=== PATIENT | male | born 1955 | race Caucasian/White ===

== ENCOUNTER → 2017-02-10 11:55 | Outpatient (CLI) | payer BC, SELFPAY ==
[2017-02-10 12:03] LABS: Adenovirus F 40/41, stool Not Detected (NotDetected); Astrovirus Not Detected (NotDetected); Campylobacter Not Detected (NotDetected); Clostridium Difficile A/B, PCR Not Detected (NotDetected); Cryptosporidium Not Detected (NotDetected); Cyclospora Cayetanesis Not Detected (NotDetected); Entamoeba histolytica Not Detected (NotDetected); Enteroaggregative E coli Not Detected (NotDetected); Enteropathogenic E coli Not Detected (NotDetected); Enterotoxigenic E coli Not Detected (NotDetected); Giardia lamblia Not Detected (NotDetected); Norovirus Not Detected (NotDetected); Plesimonas Shigalloides, PCR Not Detected (NotDetected); Rotavirus A Not Detected (NotDetected); Salmonella, PCR Not Detected (NotDetected); Sapovirus Not Detected (NotDetected); Shiga-like toxin E coli Not Detected (NotDetected); Shigella Enterovasive E coli Not Detected (NotDetected); Vibrio Cholerae Not Detected (NotDetected); Vibrio, PCR Not Detected (NotDetected); Yersinia Entercolitica, PCR Not Detected (NotDetected)
== END ==
PROVIDERS: PCP Surgery; Visit Provider Surgery
DX: Z01.812 Encounter for preprocedural laboratory examination (principal); R19.7 Diarrhea, unspecified
CPT/HCPCS: 87507

== ENCOUNTER → 2017-05-12 10:07 | Outpatient (CLI) | payer BC, SELFPAY ==
--- NOTE | 2017-05-12 10:14 | XR_ITS ---
XR chest 2V COMPARISON: PA and lateral chest 12/11/2016 HISTORY: Shortness of breath TECHNIQUE: PA and lateral chest FINDINGS: Mild emphysematous changes seen with hyperexpansion lung sarah and depression of the hemidiaphragms. There is no infiltrate. Cardiac size is normal and the vascularity is normal and is no pleural fluid. The cardiac pacemaker and dual chamber electrodes are again noted. IMPRESSION: Mild COPD, no acute chest pathology noted
== END ==
PROVIDERS: PCP Family Medicine; Visit Provider Family Medicine
DX: R06.02 Shortness of breath (principal)
CPT/HCPCS: 71046

== ENCOUNTER → 2017-05-26 12:42 | Outpatient (CLI) | payer BC, SELFPAY ==
[2017-05-26 14:18] VITALS: PULSE 80; PULSE 85
== END ==
PROVIDERS: PCP Family Medicine; Visit Provider Family Medicine
DX: R06.02 Shortness of breath (principal)
CPT/HCPCS: 94060; 94640

== ENCOUNTER → 2017-09-22 12:29 | Outpatient (CLI) | payer OTHER, SELFPAY ==
--- NOTE | 2017-09-22 12:32 | CI_ITS ---
Cerebrovascular Exam Indications: 433.10 Occlusion/stenosis of carotid artery without cerebral infarction. 785.9 Bruit. IMPRESSIONS 1. The bilateral vertebral arteries are patent with normal antegrade flow. 2. Study suggests less than 20% stenosis involving the right internal carotid artery. 3. Study suggests 20-49% stenosis involving the left internal carotid artery. History: Coronary artery disease. Risk factors: Hypertension. Hyperlipidemia. Carotid duplex study. Complete study and Doppler flow study including spectral analysis, color and moise scale imaging. Height: Height: 177.8cm. Height: 70in. Weight: Weight: 61.2kg. Weight: 134.7lb. Body mass index: BMI: 19.4kg/m^2. Body surface area: BSA: 1.73m^2. Location: Vascular laboratory. Patient status: Outpatient. Tables: Arterial flow: + +--------+--------+ Location V sys V ed + +--------+--------+ Right CCA - proximal 78.6cm/s 16.5cm/s + +--------+--------+ Right CCA - distal 80.1cm/s 19.6cm/s + +--------+--------+ Right ECA 159cm/s -------- + +--------+--------+ Right ICA - proximal 116cm/s 25.9cm/s + +--------+--------+ Right ICA - mid 112cm/s 26.7cm/s + +--------+--------+ Right ICA - distal 73.1cm/s 19.6cm/s + +--------+--------+ Right vertebral 62.1cm/s -------- + +--------+--------+ Left CCA - proximal 77.8cm/s 18.1cm/s + +--------+--------+ Left CCA - distal 69.1cm/s 20.4cm/s + +--------+--------+ Left ECA 109cm/s -------- + +--------+--------+ Left ICA - proximal 93.5cm/s 25.9cm/s + +--------+--------+ Left ICA - mid 83.3cm/s 26.7cm/s + +--------+--------+ Left ICA - distal 91.9cm/s 24.4cm/s + +--------+--------+ Left vertebral 21.5cm/s -------- + +--------+--------+ Velocity ratios: + + + + + + Right, V sys Right, V ed Left, V sys Left, V ed + + + + + + Max ICA/dist CCA 1.45 1.36 1.35 1.31 + + + + + + (Report amended ) Electronically signed by: Mateo Hastings [id number]
== END ==
PROVIDERS: PCP Family Medicine; Visit Provider Internal Medicine
DX: I65.23 Occlusion and stenosis of bilateral carotid arteries (principal)
CPT/HCPCS: 93880

== ENCOUNTER → 2018-03-24 09:17 | Outpatient (CLI) | payer OTHER, SELFPAY ==
--- NOTE | 2018-03-24 09:19 | CA_ITS ---
PROCEDURE: 2-D M-mode and color Doppler study INDICATIONS FOR THE TEST: Chest pain COPD Heart Murmur Tobacco SmokingX Palpitations Fatigue Syncope Edema HypertensionXDiabetes Mellitus Rheumatic Fever SOBXDOEXObesity HyperlipidemiaX Family History HD Additional History CHF,CM,CAD,AICD PATIENT INFORMATION HEIGHT: 70 WEIGHT:143 GENDER: Male B/P:94/67 2-D/M-MODE INTERPRETATION: 2-D MEASUREMENTS OBSERVED VALUES IN CMS Right Ventricular Dimension (RVDd) 2.8 Interventricular Septum (Thickness)(IVsd) 1.0 Left Ventricular Internal Dimensions(LVIDd) 5.0 Left Ventricular Posterior Wall (Thickness)(LVPWd) 1.1 Aortic Root 3.1 Aortic Cusp Separation .9 Left Atrial Dimensions (LAD) 3.3 2D 1. Left atrium is qualitatively mildly enlarged, left ventricle is normal size, mild concentric left ventricular hypertrophy, visually estimated ejection fraction 50% with no regional wall motion abnormality, endocardial surfaces are poorly visualized. 2. The right atrium and right ventricle are normal size and function, there is a catheter noted in which is likely a pacemaker on an AICD lead. 3. The aortic valve is thickened and calcified leaflet continue to display mobility 4. The mitral and tricuspid valve leaflets are minimally thickened 5. The pulmonic valve is poorly present. 6. Small pericardial effusion noted DOPPLER INTERROGATION: Doppler interrogation of the aortic, mitral and tricuspid valvular presence of mild mitral and tricuspid regurgitation, tricuspid regurgitation jet velocity is inadequate for calculation of the right ventricular systolic pressure, grade 1 diastolic dysfunction seen without tissue Doppler evidence of raised left atrial pressure. CONCLUSION: 1. Mildly enlarged left atrium, normal left ventricular size, mild concentric left ventricular hypertrophy, visually estimated ejection fraction 50% with no regional wall motion abnormality, endocardial surfaces are poorly visualized. Grade 1 diastolic dysfunction seen without tissue Doppler evidence of raised left atrial pressure. 2. Mild mitral and tricuspid regurgitation 3. Small pericardial effusion noted.
== END ==
PROVIDERS: PCP Emergency Medicine; Visit Provider Urology
DX: I25.10 Atherosclerotic heart disease of native coronary artery without angina pectoris (principal); I25.5 Ischemic cardiomyopathy; R06.00 Dyspnea, unspecified; E78.5 Hyperlipidemia, unspecified; I10 Essential (primary) hypertension; I50.9 Heart failure, unspecified; I65.29 Occlusion and stenosis of unspecified carotid artery; R06.89 Other abnormalities of breathing; Z95.5 Presence of coronary angioplasty implant and graft
CPT/HCPCS: 93306

== ENCOUNTER → 2018-09-16 10:41 | Outpatient (CLI) | payer OTHER, SELFPAY ==
--- NOTE | 2018-09-16 11:00 | XR_ITS ---
XR chest 2V HISTORY: ITS.REASON: chest pain ORDERING PHYSICIAN: Rebecca Gaets APRN PATIENT AGE: 63 years COMPARISON: 05/12/2017 FINDINGS: Unremarkable heart size. Bipolar pacemaker is present from left subclavian approach. There is COPD with scattered areas of scarring. No lobar consolidation or collapse. There is faint area of increased density in the left mid to lower lung zone overlying the fifth rib anteriorly and may be related to an area of parenchymal scarring with a nipple shadow medial to this area not significant changed. IMPRESSION: COPD with scarring. No acute finding
== END ==
PROVIDERS: PCP Emergency Medicine; Visit Provider Nurse Practitioner Family
DX: I20.9 Angina pectoris, unspecified (principal); R06.00 Dyspnea, unspecified; R06.89 Other abnormalities of breathing; Z95.810 Presence of automatic (implantable) cardiac defibrillator
CPT/HCPCS: 71046

== ENCOUNTER → 2018-09-22 11:38 | Outpatient (CLI) | payer OTHER, SELFPAY | PROVIDERS: PCP Emergency Medicine; Visit Provider Internal Medicine | DX: I20.9 Angina pectoris, unspecified (principal) ==

== ENCOUNTER → 2018-09-23 07:41 | Outpatient (CLI) | payer OTHER, SELFPAY ==
--- NOTE | 2018-09-23 | CA_ITS ---
APPROVED REPORT Exam: Pharmacologic Technologist: reta gusman, Ht: 5 ft 10 in Wt: 140 lbs BSA: 1.79 m2 HR: 70 bpm BP: 149/81 mmHg Rhythm: NSR Indications: CP, SOB Medical History Medical History: HTN, Hyperlipidemia, Smoking Medications: Lisinopril,,,,, Atorvastatin,,,,, Carvedilol,,,,, Digoxin,,,,, TiTROPIUM,,,,, Assa,,,,, Allergies: No known drug allergies Cardiac Risk Factors: FHX of CAD, Smoking Stress Test Details Test: LEXISCAN HR Resting HR: 71 bpm Max Heart Rate (APMHR): 157 bpm Max HR Achieved: 97 bpm Target HR (85% APMHR): 133 bpm % of APMHR: 61 BP Resting BP: 149/81 mmHg Max BP: 149/81 mmHg Recovery BP: 126.0/59.0 mmHg ECG Clinical Reason for Termination: Completed Lexiscan Stress Protocol. Exercise duration: 04:33 min Highest Stage Achieved: Stress ECG Conclusion Symptoms: SOA,malaise. No chest pain. Arrhythmias/ectopy: none. ST-T changes: Exaggeration of baseline st-t abnormalities. Non-diagnostic Lexiscan stress. Myoview images reported separately. Electronically signed by : Praveen Esqueda, 10/06/2018 11:44:52
--- NOTE | 2018-09-23 07:43 | NM_ITS ---
APPROVED REPORT School Secretary: Lexiscan myocardial perfusion imaging: Indication for the test: Coronary artery disease, previous myocardial infarction, hypertension, hyperlipidemia, tobacco use, family history chest pain shortness of breath and fatigue. Procedure: Patient received a 0.4 mg of intravenous Lexiscan, resting heart rate was 70 bpm resting blood pressure 116/60. With Lexiscan maximum heart rate achieved was 93 bpm which is less than 85% of the maximum predicted heart rate in the blood pressure was 126/62. With Lexiscan patient complained of shortness of breath. Electrocardiogram: Resting electrocardiogram showed sinus rhythm nonspecific ST-T changes, with Lexiscan less than 1.[address] segment depression noted from the baseline EKG. The EKG portion of the Lexiscan Myoview is nondiagnostic. Cardiac stress and resting SPECT images: Cardiac stress and resting SPECT images were obtained using technetium 99 Myoview 29.4 mCi at stress and 9.9 mCi at rest. Gated SPECT further analysis of segmental wall motion and conclusion of the ejection fraction also done. Cardiac stress and resting SPECT images show uniform myocardial activity without segmental perfusion abnormality, computer derived ejection fraction is over 65% with no regional wall motion abnormality, right ventricle is normal size and contractility. However there is transient ischemic dilatation of the left ventricle seen, raising the concerns for presence of balanced ischemia. Conclusion 1. The EKG portion of the Lexiscan Myoview is nondiagnostic 2. No scintigraphic evidence of reversible ischemia seen, computer derived ejection fraction is over 65% with no regional wall motion abnormality, right ventricle is normal size and contractility. However there is transient ischemic dilatation of the left ventricle seen raising the concerns for presence of balanced ischemia. 3. Abnormal Lexiscan Myoview study. Electronically signed by : Jag Tavares, 09/23/2018 17:30:56
== END ==
PROVIDERS: PCP Emergency Medicine; Visit Provider Internal Medicine
DX: I20.9 Angina pectoris, unspecified (principal); I25.10 Atherosclerotic heart disease of native coronary artery without angina pectoris; I25.5 Ischemic cardiomyopathy; I50.9 Heart failure, unspecified; I51.9 Heart disease, unspecified
CPT/HCPCS: 78452; 93017; A9502; J2785

== ENCOUNTER → 2018-12-06 08:32 | Outpatient (CLI) | payer OTHER, SELFPAY ==
[2018-12-06 09:01] LABS: Basophils # 0.1 K/mm3 (0-0.2); Basophils % 1.3 % (0.1-2.0); Eosinophils # 0.2 K/mm3 (0.0-0.4); Hematocrit 42.2 % (42.0-52.0); Hemoglobin 14.1 g/dL (14.1-18.0); Lymphocytes # 2.2 K/mm3 (0.7-4.5); Lymphocytes % 33.6 % (10-50); Mean Corpuscular HGB Conc 33.4 g/dL (31.8-35.4); Mean Corpuscular Hemoglobin 33.3 pg (27.0-31.2); Mean Corpuscular Volume 99.7 fl (80-94); Mean Platelet Volume 7.4 fl (7.4-10.4); Monocytes # 0.5 K/mm3 (0.1-1.0); Monocytes % 7.4 % (1.7-9.3); Neutrophils # 3.6 K/mm3 (1.8-7.8); Neutrophils % 54.8 % (37.0-80.0); Platelet Count 322 K/mm3 (142-424); Red Blood Count 4.24 M/mm3 (4.60-6.20); White Blood Count 6.6 K/mm3 (4.8-10.8)
[2018-12-06 09:24] LABS: Alanine Aminotransferase 8 U/L (12-78); Albumin Level 3.5 gm/dL (3.4-5.0); Alkaline Phosphatase 113 U/L (46-116); Anion Gap 8.5 mEq/L (5-15); Aspartate Amino Transferase 13 U/L (15-37); Bilirubin,Direct 0.1 mg/dL (0.0-0.2); Bilirubin,Indirect 0.3 mg/dL (0.0-0.9); Bilirubin,Total 0.4 mg/dL (0.2-1.0); Blood Urea Nitrogen 9 mg/dL (7-18); Calcium 8.6 mg/dL (8.5-10.1); Carbon Dioxide 29 mmol/L (21.0-32.0); Chloride 94 mmol/L (98-107); Chol/HDL Ratio 1.8 (1-3.5); Cholesterol 133 mg/dL (140-200); Creatinine,Serum 0.85 mg/dL (0.70-1.30); Estimated Glomerular Filt Rate 91 ml/min (>60); Free T4 (Free Thyroxine) 0.99 ng/dl (0.76-1.46); GFR (African American) 110 ML/MIN (>60); Glucose 159 mg/dL (74-106); HDL Cholesterol 75 mg/dL (27-67); LDL Cholesterol 41 mg/dL (0-130); Potassium 4.5 mmoL/L (3.5-5.1); Sodium 127 mmol/L (136-145); Thyroid Stimulating Hormone 5.41 uIU/ml (0.358-3.740); Total Protein,Serum 7.1 gm/dL (6.4-8.2); Triglycerides 84 mg/dL (30-200); VLDL Cholesterol 17 mg/dL (0-40)
== END ==
PROVIDERS: Visit Provider Internal Medicine
DX: E78.5 Hyperlipidemia, unspecified (principal); I10 Essential (primary) hypertension; I25.10 Atherosclerotic heart disease of native coronary artery without angina pectoris; I25.5 Ischemic cardiomyopathy; I50.9 Heart failure, unspecified; I65.29 Occlusion and stenosis of unspecified carotid artery; I73.9 Peripheral vascular disease, unspecified; Z95.810 Presence of automatic (implantable) cardiac defibrillator
CPT/HCPCS: 80048; 80061; 80076; 84439; 84443; 85025

== ENCOUNTER → 2018-12-14 16:55 | Outpatient (CLI) | payer OTHER, SELFPAY ==
[2018-12-14 18:24] LABS: Anion Gap 12.6 mEq/L (5-15); Blood Urea Nitrogen 7 mg/dL (7-18); Calcium 9.1 mg/dL (8.5-10.1); Carbon Dioxide 28 mmol/L (21.0-32.0); Chloride 95 mmol/L (98-107); Creatinine,Serum 0.73 mg/dL (0.70-1.30); Estimated Glomerular Filt Rate 109 ml/min (>60); Free T4 (Free Thyroxine) 1.05 ng/dl (0.76-1.46); GFR (African American) 131 ML/MIN (>60); Glucose 111 mg/dL (74-106); Potassium 4.6 mmoL/L (3.5-5.1); Sodium 131 mmol/L (136-145); Thyroid Stimulating Hormone 3.05 uIU/ml (0.358-3.740)
== END ==
PROVIDERS: Visit Provider Emergency Medicine
DX: R53.83 Other fatigue (principal)
CPT/HCPCS: 80048; 84439; 84443

== ENCOUNTER 2018-12-15 13:38 | Outpatient (RCR) | payer OTHER, SELFPAY | END 2019-05-11 10:36 | disposition home or self-care (01) | LOC: PT 13:38 | PROVIDERS: Visit Provider Urology | DX: I73.9 Peripheral vascular disease, unspecified (principal); I25.10 Atherosclerotic heart disease of native coronary artery without angina pectoris; I25.5 Ischemic cardiomyopathy | CPT/HCPCS: 93668; 93798 ==

== ENCOUNTER → 2018-12-27 09:50 | Outpatient (CLI) | payer OTHER, SELFPAY ==
[2018-12-27 10:30] VITALS: PULSE 89; PULSE 93
== END ==
PROVIDERS: PCP Emergency Medicine; Visit Provider Emergency Medicine
DX: R06.02 Shortness of breath (principal); R53.83 Other fatigue
CPT/HCPCS: 94060; 94618; 94640; 94727; 94729

== ENCOUNTER → 2019-09-09 09:30 | Outpatient (CLI) | payer OTHER, SELFPAY ==
--- NOTE | 2019-09-09 09:30 | CA_ITS ---
APPROVED REPORT EXAM: Comprehensive 2D, Doppler, and color-flow Echocardiogram Molding Plasterer: Hollie Meadows RT(R) Ht: 5 ft 10 in Wt: 141lbs BSA: 1.80 BP: 142/78 mmHg Indications: SOA, CAD, AICD, CM, COPD, HTN, hyperlipidemia 2D Dimensions LVOT 2.00 cm (M/F) 1.5-2.5 M-Mode Dimensions RVDd 2.36 cm (0.9-2.6) LVDd 4.11 cm (3.5-5.7) LVDs 2.97 cm (3.5-5.7) IVSd 1.29 cm (0.6-1.1) PWd 0.93 cm (0.6-1.1) EF (Teich) 54.20% FS 27.70% EDV (Teich) 74.70 mL ESV (Teich) 34.20 mL LV Diastology E/A Ratio 0.77 Mitral Valve MV A Velocity 72.00 (40-130 cm/s) Left Ventricle Left atrium is mildly enlarged, left ventricle is normal size, mild concentric left ventricular hypertrophy, visually estimated ejection fraction 55% with no regional wall motion abnormality. Grade 1 diastolic dysfunction seen without tissue Doppler evidence of raise left atrial pressure. Right Ventricle Right atrium and right ventricular normal size and contractility. Aortic Valve Aortic valve is thickened and calcified leaflet continue to display good mobility, there is mild aortic insufficiency. Mitral Valve Mitral valve is grossly normal, there is mild mitral regurgitation. Tricuspid Valve Tricuspid valve is grossly normal, there is mild tricuspid regurgitation, tricuspid regurgitation jet velocity is inadequate for calculation of the right ventricular systolic pressure. Pulmonic Valve Pulmonic valve is poorly visualized. Great Vessels Aortic root is normal size. Pericardium No significant pericardial effusion noted. Conclusion 1. Mildly enlarged left atrium, normal left ventricular size, mild concentric left ventricular hypertrophy, visually estimated ejection fraction 55% with no regional wall motion abnormality. Grade 1 diastolic dysfunction seen without tissue Doppler evidence of raise left atrial pressure. 2. Thickened and calcified aortic valve without aortic stenosis, there is mild aortic insufficiency. 3. Mild mitral and tricuspid regurgitation. 4. No significant pericardial effusion noted. Electronically signed by : Jag Tavares, 09/09/2019 11:09:09
== END ==
PROVIDERS: PCP Emergency Medicine; Visit Provider Nurse Practitioner Family
DX: R06.00 Dyspnea, unspecified (principal); I25.10 Atherosclerotic heart disease of native coronary artery without angina pectoris; E78.5 Hyperlipidemia, unspecified; I10 Essential (primary) hypertension; I50.9 Heart failure, unspecified; I65.29 Occlusion and stenosis of unspecified carotid artery; I73.9 Peripheral vascular disease, unspecified; J44.9 Chronic obstructive pulmonary disease, unspecified; Z72.0 Tobacco use; Z95.810 Presence of automatic (implantable) cardiac defibrillator
CPT/HCPCS: 93306

== ENCOUNTER → 2019-11-14 07:38 | Outpatient (CLI) | payer OTHER, SELFPAY ==
--- NOTE | 2019-11-14 07:40 | CA_ITS ---
APPROVED REPORT Power Sewing Machine Operator: Princess Hoang RVT Laterality: Bilateral Study Quality: Good Indications: Carotid stenosis Risk Factors Hypertension: Hyperlipidemia Doppler Spectral Velocity Analysis ECA (R) 133.00/11.70 cm/s ECA (L) 88.70/13.20 cm/s dICA (R) 87.80/22.50 cm/s dICA (L) 77.90/15.30 cm/s Nelli (R) 94.40/19.20 cm/s Nelli (L) 101.00/23.20 cm/s pICA (R) 92.20/22.10 cm/s pICA (L) 74.10/18.50 cm/s dCCA (R) 83.30/13.40 cm/s dCCA (L) 64.10/16.60 cm/s pCCA (R) 95.90/16.50 cm/s pCCA (L) 62.30/11.90 cm/s Vert (R) 49.90/14.00 cm/s Vert (L) 25.90/7.90 cm/s ICA/CCA 1.13 ICA/CCA 1.57 Findings Study suggests 20-49% stenosis of the right internal cartoid artery worsened from the 09/22/17 study. Study suggests 20-49% stenosis of the left internal cartoid artery unchanged from the 09/22/17 study. Antegrade flow seen bilateral vertebral arteries. Conclusion Study suggests 20-49% stenosis of the right internal cartoid artery worsened from the 09/22/17 study. Study suggests 20-49% stenosis of the left internal cartoid artery unchanged from the 09/22/17 study. Antegrade flow seen bilateral vertebral arteries. Electronically signed by : Mateo Hastings MD 11/14/2019 17:23:17
== END ==
PROVIDERS: PCP Emergency Medicine; Visit Provider Urology
DX: I65.23 Occlusion and stenosis of bilateral carotid arteries (principal); I73.9 Peripheral vascular disease, unspecified; R06.02 Shortness of breath; I10 Essential (primary) hypertension; I25.10 Atherosclerotic heart disease of native coronary artery without angina pectoris; I25.5 Ischemic cardiomyopathy; I51.9 Heart disease, unspecified; Z95.810 Presence of automatic (implantable) cardiac defibrillator
CPT/HCPCS: 93880

== ENCOUNTER → 2020-04-03 09:39 | Outpatient (CLI) | payer MEDICARE, OTHER, SELFPAY ==
[2020-04-03 09:06] LABS: Chloride 92 mmol/L (98-107); Sodium 127 mmol/L (136-145)
[2020-04-03 09:07] LABS: Potassium 4.4 mmoL/L (3.5-5.1)
[2020-04-03 09:10] LABS: Anion Gap 9.4 mEq/L (5-15); Blood Urea Nitrogen 8 mg/dl (9-20); Calcium 8.9 mg/dl (8.4-10.2); Carbon Dioxide 30 mmol/L (22.0-30.0); Estimated Glomerular Filt Rate 113 ml/min (>60); GFR (African American) 137 ML/MIN (>60); Glucose 177 mg/dl (74-100)
--- NOTE | 2020-04-03 09:40 | CT_ITS ---
PROCEDURE: CT HEAD/BRAIN WO/W CON CLINICAL INDICATION: Attn c-p angle Right hearing loss x6wks, started back again. COMPARISON: No exams were available for comparison TECHNIQUE: IV Contrast: 100ML Isovue [address] All CT scans at the facility use one or more dose reduction, viz: automated exposure control, ma/kV adjustment per patient size (including targeted exams where dose is matched to indication, i.e. head), or iterative reconstruction technique. FINDINGS: Thin helical images performed without and with contrast with attention to the cerebellopontine angle. Multi planar reformats are reviewed. No midline shift, mass effect, intracranial hemorrhage, or hydrocephalus is evident. There is no evidence of cerebellopontine angle mass or abnormal enhancement. Old bilateral lacunar infarction noted in the left putamen. There is an old lacunar infarction in the left subinsular region. There is generalized atrophy with hypoattenuation of the periventricular white matter consistent with microangiopathic changes which is more prominent in the right parietal lobe. There is moderate mucosal thickening of the left maxillary sinus. There is some sclerosis of the right mastoid sinus with some opacification as well suggesting chronic inflammatory changes. There does appear to be some opacification of the right middle ear right there is some mild opacification of the epitympanic recess on the right but no evidence of scutal erosion. The middle ear ossicles appear intact. There is asymmetric soft tissue prominence in the right torus tubarius region and fossa Rosenmuller. While this could be inflammatory from lymphoid hyperplasia, a mucosal lesion such as neoplasm is a consideration and direct visualization is suggested. IMPRESSION: 1. No evidence of CP angle mass. 2. Findings compatible with chronic right-sided mastoiditis also with partial opacification of the right middle ear. 3. There is asymmetric soft tissue prominence in the right torus tubarius region and fossa Rosenmuller. While this could be inflammatory from lymphoid hyperplasia, a mucosal lesion such as neoplasm is a consideration and direct visualization is suggested Dictated by: Mateo Hastings MD 04/04/2020 10:14 Mateo Hastings MD in [place] 04/04/2020 10:14
== END ==
PROVIDERS: PCP Emergency Medicine; Visit Provider Emergency Medicine
DX: Z01.818 Encounter for other preprocedural examination (principal); H91.91 Unspecified hearing loss, right ear
CPT/HCPCS: 36415; 70470; 80048; Q9967

== ENCOUNTER → 2020-05-02 09:30 | Outpatient (CLI) | payer MEDICARE, OTHER, SELFPAY ==
[2020-05-02 09:59] LABS: Basophils # 0.1 K/mm3 (0-0.2); Basophils % 0.9 % (0.1-2.0); Eosinophils # 0.2 K/mm3 (0.0-0.4); Eosinophils % 2.7 % (0.1-12.0); Hematocrit 45.2 % (42.0-52.0); Hemoglobin 15.1 g/dL (14.1-18.0); Lymphocytes # 2.3 K/mm3 (0.7-4.5); Lymphocytes % 29.1 % (10-50); Mean Corpuscular HGB Conc 33.4 g/dL (31.8-35.4); Mean Corpuscular Hemoglobin 33.1 pg (27.0-31.2); Mean Corpuscular Volume 99.1 fl (80-94); Mean Platelet Volume 7.4 fl (7.4-10.4); Monocytes # 0.6 K/mm3 (0.1-1.0); Monocytes % 8.1 % (1.7-9.3); Neutrophils # 4.6 K/mm3 (1.8-7.8); Neutrophils % 59.2 % (37.0-80.0); Platelet Count 224 K/mm3 (142-424); Red Blood Count 4.56 M/mm3 (4.60-6.20); Red Cell Distribution Width 13.4 % (11.5-17.5); White Blood Count 7.8 K/mm3 (4.8-10.8)
[2020-05-02 10:41] LABS: Chloride 97 mmol/L (98-107)
[2020-05-02 10:42] LABS: Potassium 4.8 mmoL/L (3.5-5.1); Sodium 131 mmol/L (136-145)
[2020-05-02 10:44] LABS: Alanine Aminotransferase 10 U/L (12-78); Alkaline Phosphatase 109 U/L (38-126); Aspartate Amino Transferase 24 U/L (17-59); Bilirubin,Total 0.5 mg/dl (0.2-1.3); Blood Urea Nitrogen 7 mg/dl (9-20); Estimated Glomerular Filt Rate 135 ml/min (>60); GFR (African American) 164 ML/MIN (>60)
[2020-05-02 10:45] LABS: Albumin Level 4.1 g/dl (3.5-5.0); Albumin/Globulin Ratio 1.7 (1.1-1.8); Anion Gap 8.8 mEq/L (5-15); Calcium 8.8 mg/dl (8.4-10.2); Carbon Dioxide 30 mmol/L (22.0-30.0); Globulin 2.4 g/dL (1.3-3.2); Glucose 159 mg/dl (74-100); Total Protein,Serum 6.5 g/dl (6.3-8.2)
[2020-05-02 11:01] LABS: Coronavirus 19 IgG Antibody Negative (Negative); Coronavirus 19 IgM Antibody Negative (Negative)
== END ==
PROVIDERS: Visit Provider Otolaryngology
DX: Z01.812 Encounter for preprocedural laboratory examination (principal); Z20.822 Contact with and (suspected) exposure to COVID-19; J34.2 Deviated nasal septum; I10 Essential (primary) hypertension
CPT/HCPCS: 36415; 80053; 85025; 86328

== ENCOUNTER 2020-05-03 06:52 | Day surgery (SDC) | payer MEDICARE, OTHER, SELFPAY ==
[2020-05-01 12:04] VITALS: BMI 21.5
[2020-05-03] VITALS (12 sets, daily range): BP systolic 105–147; BP diastolic 66–84; PULSE 69–81; RESP 16–18; TEMP 36.1–36.4; O2SAT 90–96
--- NOTE | 2020-05-03 08:24 | P.PN_ITS ---
[facility] Anesthesia Checklist - Patient Identification Patient Identification: Arm Band - Structural Data Admitted From: Home Planned Operative Procedure/s: nasal septoplasty Consent for Planned Operative Procedure(s) Verified: Yes Verified Documents: Surgical Consent, History and Physical - NPO Status Verified Time NPO: 00:00 - Additional verifications Anesthesia Reactions: No Hx Blood Transfusions: No Blood Transfusion Reaction: No - Airway Assessment C-Spine Mobility Assessed: Yes (mp2) TMJ Mobility Assessed: Yes Dentition: Edentulous - Neurological Assessment Level of Consciousness: Awake, Alert - Anesthesia Plan Anesthesia Risk discussed: Yes Anesthesia Plan: Verified ASA Class: III Anesthesia Type: General [facility] History I have reviewed the patient's past medical history: Yes Medical History: Reports:: Congestive Heart Failure, Chronic Obstructive Pulmonary Disease (COPD), Coronary Artery Disease, Hiatal Hernia, Hyperlipidemia, Hypertension, Internal Pacemaker Denies:: Cancer, Diabetes Mellitus Type 1, Diabetes Mellitus Type 2, MRSA, Seizures *Have you ever received a pneumonia vaccine?: Yes *Have you received a flu vaccine this season?: Yes Other Medical History: Denies: Blood Transfusion Reaction Anesthesia experience/problems:: nac Other Surgeries: Yes: Cardiac Catheterization, Cardiac Surgery, Coronary Stent (10), Hernia Repair, Pacemaker, Other (AICD, Wrist Sx) Amputation: No Fractures: Yes - *Social History Last grade of school completed: High school graduate Smoking Status: Light tobacco smoker Tobacco Type: cigarettes # Packs/Day (cigarettes): 1 Alcohol Intake: never Alcohol Intake Frequency:: other Substance Use Type: denies use *Occupational Status:: unemployed, retired *Travel in the last 8 weeks: None Family Hx:: Heart Attack
--- NOTE | 2020-05-03 08:48 | P.PN_ITS ---
[facility] Anesthesia Record Part I Intake, IV Amount: 1,000 Estimated blood loss (mL): 5 Urine output (mL): 0 Blood Pressure: 105/67 SaO2: 92 Pulse Rate: 78 Respiratory Rate: 16 Temperature: 97 F Patient is:: Drowsy, Stable Stable to PACU at:: 08:45
--- NOTE | 2020-05-03 09:11 | P.OP_ITS ---
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 Nasal septoplasty 2. Functional endoscopic sinus surgery with bilateral intranasal maxillary antrostomies with removal of tissue 3. EUA both Rosenmuller's fossae Surgeon:: Lionel Frances MD RECRUITER ACCOUNT MANAGER:: James Lara Anesthesia: GETA Estimated blood loss (mL): 9 Operative findings:: same Operative note:: With the patient under general anesthesia the face was prepped and draped. The eyes were protected with Steri-Strips. The nose was decongested with topical cocaine and 6 cc of 2% lidocaine with epinephrine was injected into the nasal septum and the nasal antral thrasher. There was a severe deviation of the nasal septum to the right with 90% nasal airflow blockage a left hemitransfixion incision was made in the mucoperichondrium and mucoperiosteum of the septum was elevated the quadrangular cartilage was trimmed inferiorly and posteriorly as was the maxillary crest of the septum. When that was done it was possible to realign the septum and mid in the midline Surgicel snow was placed between the flaps and the flaps were held in the midline using chromic sutures. The 20 degrees scope the maxillary sinuses were examined on each side and both ostiomeatal complexes were clogged clogged with mucus, using endoscopic sinus surgical techniques a right intranasal maxillary antrostomy was done in a copious amount of thickened mucosa and mucus was obtained from the right maxillary sinus and submitted. Similarly a copious amount of mucus and mucosal thickening was removed from the left maxillary sinus and submitted. Maxillary sinuses were then irrigated until all of the returns were clear. Endoscopic sinus surgical techniques the right Rosenmuller's fossa was examined and no lesions were evident. Similarly using endoscopic sinus surgical techniques the left Rosenmuller's fossa was examined and no lesions were evident. Blood loss for all the procedure was less than 10 cc and stopped. The pt tolerated procedure well and was sent to recovery in good general condition. A drip Pad dressing was applied. Condition: stable Disposition: PACU Complications:: none
--- NOTE | 2020-05-04 10:10 | HMH.ANESII ---
[facility] Anesthesia Record Part II Discharge Time: 09:24 Destination: Surgical Day Care (OP Surgery) PACU nurse assessment reviewed?: Yes Patient Condition:: Good Anesthesia Complications:: None Swallowing reflex intact?: Yes Cyanosis?: No Blood Pressure: 138/83 Pulse Rate: 72 Temperature: 97.1 F Mental Status: Alert & Oriented Pain level:: 0 Nausea and/or vomitting:: None Intake, IV Amount: 0
[2020-05-04 10:11] VITALS: BP 138/83; PULSE 72; TEMP 36.2
== END 2020-05-03 10:15 | disposition home or self-care (01) ==
LOC: OR 06:53
PROVIDERS: PCP Emergency Medicine; Visit Provider Otolaryngology
PROC: (CPT 30520; principal; 2020-05-03 08:30)
DX: D10.39 Benign neoplasm of other parts of mouth (principal); J32.0 Chronic maxillary sinusitis; J34.2 Deviated nasal septum; J44.9 Chronic obstructive pulmonary disease, unspecified; I25.10 Atherosclerotic heart disease of native coronary artery without angina pectoris; E78.5 Hyperlipidemia, unspecified; I11.0 Hypertensive heart disease with heart failure; I50.9 Heart failure, unspecified; Z95.0 Presence of cardiac pacemaker; Z95.818 Presence of other cardiac implants and grafts; Z72.0 Tobacco use; Z79.01 Long term (current) use of anticoagulants; Z79.899 Other long term (current) drug therapy
CPT/HCPCS: 30520; 31267; 88305; 88311; 94640; 96374; 96375; J2405; J2710

== ENCOUNTER 2020-05-22 13:48 | Outpatient (RCR) | payer MEDICARE, OTHER, SELFPAY | END 2020-08-17 13:11 | disposition home or self-care (01) | LOC: PT 13:48 | PROVIDERS: Visit Provider Internal Medicine Pulmonary Disease | DX: J44.9 Chronic obstructive pulmonary disease, unspecified (principal) | CPT/HCPCS: G0424 ==

== ENCOUNTER → 2020-06-18 12:42 | Outpatient (CLI) | payer MEDICARE, OTHER, SELFPAY ==
--- NOTE | 2020-06-18 13:30 | PC.NURSE ---
PFT and 6 Minute Walk Test completed without incident. Albuterol 0.083% given via HHN, per written protocol, Pt tolerated tx well.
--- NOTE | 2020-06-18 14:17 | CT_ITS ---
PROCEDURE: CT LUNG SCREENING CLINICAL INDICATION: Lung cancer screening COMPARISON: No exams were available for comparison TECHNIQUE: The exam was performed on a [employer] Speed [address] scanner using 2.90 mGy CTDI. A low dose helical CT CHEST was performed on a multi-detector scanner. All CT scans at the facility use one or more dose reduction, viz: automated exposure control, ma/kV adjustment per patient size (including targeted exams where dose is matched to indication, i.e. head), or iterative reconstruction technique. The LDCT was performed in a facility that meets the criteria for the screening program. Data regarding this exam was submitted to ACR which is an approved registry. The order for this exam indicates that it came as a result of a lung cancer screening counseling shard decision-making visit that included all the elements required of such a visit including smoking cessation. The radiologist interpreting this exam meets the [facility] criteria for the LDCT lung cancer screening program. The exam is reported using the Lung-RADS classification scale and reported to the ACR registry. NOTE: This study was performed for the specific purposes of lung cancer screening and is not an alternative to diagnostic chest CT. RADIATION DOSE: CTDI vol(CT dose Index-volume) = 2.90mG DLP (Dose Length Product) = mGcm FINDINGS: OTHER FINDINGS: No other pertinent findings evident. IMPRESSION: Lung-RADS Category Follow-up: Dictated by: Tessa Rodriguez 06/19/2020 09:38 Tessa Rodriguez in [place] 06/19/2020 09:38
== END ==
PROVIDERS: PCP Emergency Medicine; Visit Provider Internal Medicine Pulmonary Disease
DX: Z12.2 Encounter for screening for malignant neoplasm of respiratory organs; R06.09 Other forms of dyspnea; Z87.891 Personal history of nicotine dependence
CPT/HCPCS: 71271; 94060; 94618; 94726; 94729

== ENCOUNTER → 2020-10-25 09:58 | Outpatient (CLI) | payer MEDICARE, OTHER, SELFPAY ==
--- NOTE | 2020-10-25 09:58 | CA_ITS ---
APPROVED REPORT EXAM: Comprehensive 2D, Doppler, and color-flow Echocardiogram Parachute Crown Sewer: Angeles Villatoro CRT Ht: 5 ft 10 in Wt: 148lbs BSA: 1.84 BP: 111/66 mmHg Indications: Congestive Heart Failure, COPD, CAD, Hyperlipidemia, Cardiomyopathy, Hypertension/HDD, smoker, AICD, smoker 2D Dimensions LVOT 1.90 cm (M/F) 1.5-2.5 LA Volume 25.40 mL LA Volume Index 13.80 mL/m2 (M/F) 16-34 M-Mode Dimensions RVDd 2.43 cm (0.9-2.6) LA Diam 3.46 cm (1.9-4.0) LVDd 3.68 cm (3.5-5.7) Ao Diam 3.76 cm (2.0-3.7) LVDs 1.75 cm (3.5-5.7) IVSd 2.11 cm (0.6-1.1) PWd 0.93 cm (0.6-1.1) EF (Teich) 84.30% FS 52.40% EDV (Teich) 57.40 mL ESV (Teich) 9.00 mL LV Diastology E Decel Time 280.00 (160-240 msec) E/A Ratio 0.70 MED E' 5.20 (< 7 cm/sec) MED A' 9.20 cm/s E'/MED E' Ratio 10.13 (>14) LAT E' 6.00 (<10 cm/sec) LAT A' 10.20 cm/s E/LAT E' Ratio 8.78 (>14) Aortic Valve AI PHT 561.00 ms AO Peak GR. 8.10 mmHg Mitral Valve MV A Velocity 75.00 (40-130 cm/s) E/A Ratio 0.70 MV Decel. Time 280.00 (160-240 ms) Pulmonary Valve PV Peak Velocity 83.00 (50-150 cm/s) Tricuspid Valve TR P. Velocity 185.00 cm/s RAP Estimate 10.00 mmHg RVSP 23.70 mmHg Left Ventricle Left atrium is mildly enlarged, left ventricle is normal size, mild concentric left ventricular hypertrophy, visually estimated ejection fraction 55% with no obvious regional wall motion abnormality, grade 1 diastolic dysfunction seen without tissue Doppler evidence of raise left atrial pressure. Right Ventricle Right atrium and right ventricle are normal size and contractility, there is an AICD lead seen in right ventricle. Aortic Valve Aortic valve is thickened and calcified without aortic stenosis, there is mild aortic insufficiency. Mitral Valve Mitral valve leaflets are minimally thickened, there is mild mitral regurgitation. Tricuspid Valve Tricuspid valve grossly normal, there is mild tricuspid regurgitation, calculated right ventricular systolic pressure within normal range. Pulmonic Valve Pulmonic valve is poorly visualized. Great Vessels Aortic root is normal size. Inferior vena cava is mildly dilated with normal inspiratory collapse. Pericardium No significant pericardial effusion noted. Conclusion 1. Mildly enlarged left atrium, normal left ventricular size, mild concentric left ventricular hypertrophy, visually estimated ejection fraction 55% with no regional wall motion abnormality, grade 1 diastolic dysfunction seen without tissue Doppler evidence of raise left atrial pressure. 2. Thickened and calcified aortic valve without aortic stenosis, there is mild aortic insufficiency. 3. Mild mitral and tricuspid regurgitation, calculated right ventricular systolic pressure is within normal range. 4. Inferior vena cava is mildly dilated with normal inspiratory collapse. Electronically signed by : Jag Tavares MD 10/26/2020 13:18:58
== END ==
PROVIDERS: PCP Emergency Medicine; Visit Provider Nurse Practitioner Family
DX: R06.00 Dyspnea, unspecified (principal)
CPT/HCPCS: 93306

== ENCOUNTER → 2021-06-04 17:09 | Outpatient (CLI) | payer MEDICARE, OTHER, SELFPAY | PROVIDERS: PCP Emergency Medicine; Visit Provider Internal Medicine Pulmonary Disease | DX: R06.00 Dyspnea, unspecified (principal) | CPT/HCPCS: 94762 ==

== ENCOUNTER → 2021-06-05 14:24 | Outpatient (CLI) | payer MEDICARE, OTHER, SELFPAY ==
[2021-06-05 14:37] LABS: MANUAL DIFFERENTIAL MANUAL DIFFERENTIAL (MANUAL DIFF)
[2021-06-05 15:47] LABS: Chloride 97 mmol/L (98-107); Potassium 4.6 mmoL/L (3.5-5.1); Sodium 131 mmol/L (136-145)
[2021-06-05 15:50] LABS: Anion Gap 11.6 mEq/L (5-15); Blood Urea Nitrogen 9 mg/dl (9-20); Calcium 8.7 mg/dl (8.4-10.2); Carbon Dioxide 27 mmol/L (22.0-30.0); Estimated Glomerular Filt Rate 97 ml/min (>60); GFR (African American) 117 ML/MIN (>60); Glucose 107 mg/dl (74-100)
[2021-06-05 15:58] LABS: Basophils # 0.1 K/mm3 (0-0.2); Basophils % 1.2 % (0.1-2.0); Eosinophils # 0.2 K/mm3 (0.0-0.4); Eosinophils % 2.2 % (0.1-12.0); Hemoglobin 15.4 g/dL (14.1-18.0); Lymphocytes # 2.3 K/mm3 (0.7-4.5); Lymphocytes % 32.3 % (10-50); Mean Corpuscular HGB Conc 34.2 g/dL (31.8-35.4); Mean Corpuscular Volume 96.4 fl (80-94); Mean Platelet Volume 7.9 fl (7.4-10.4); Monocytes # 0.5 K/mm3 (0.1-1.0); Monocytes % 7.4 % (1.7-9.3); Neutrophils % 56.9 % (37.0-80.0); Platelet Count 228 K/mm3 (142-424); Red Blood Count 4.67 M/mm3 (4.60-6.20); Red Cell Distribution Width 12.7 % (11.5-17.5)
[2021-06-05 20:02] LABS: Eosinophils % 2 % (0-3); Lymphocytes % 40 % (10-50); Monocytes % 7 % (2-9); Neutrophils % 50 % (42-76); Platelet Estimate Normal; Total Cells Counted 100
== END ==
PROVIDERS: Visit Provider Student in an Organized Health Care Education/Training Program
DX: J39.2 Other diseases of pharynx (principal)
CPT/HCPCS: 36415; 80048; 85007; 85014; 85018; 85048; 85049

== ENCOUNTER → 2021-06-13 13:10 | Outpatient (CLI) | payer MEDICARE, OTHER, SELFPAY ==
--- NOTE | 2021-06-13 13:13 | CT_ITS ---
FINAL REPORT TECHNIQUE: Thin section axial CT images were obtained through the neck after intravenous contrast administration. Coronal and sagittal reformats were also obtained. This study was performed with techniques to keep radiation doses as low as reasonably achievable (ALARA). Individualized dose reduction techniques using automated exposure control or adjustment of mA and/or kV according to the patient''s size were employed. CLINICAL HISTORY: nasopharyngeal mass FINDINGS: There is a 3.5 x 2.5 cm mass with heterogeneous enhancement of the right nasopharynx, appearance most worrisome for neoplasm. There are small bilateral neck nodes without evidence of adenopathy. There is moderate mucosal thickening of the left maxillary sinus. There are bilateral carotid artery calcifications. There is mild stenosis of the right ICA proximally. There are moderate to severe changes of emphysema in the lung apices with moderate scarring. There are right upper lobe nodules measuring 11 and 17 mm that are nonspecific. IMPRESSION: Right nasopharyngeal mass worrisome for neoplasm. Nonspecific right upper lobe nodules. Recommend follow-up CT or PET-CT. Reviewed, Interpreted and Dictated by Alexsander Gary III, MD Transcribed by Nikolai Dutta Authenticated by Alexsander Gary III, MD on 06/13/2021 02:51:53 PM [facility]
== END ==
PROVIDERS: PCP Emergency Medicine; Visit Provider Student in an Organized Health Care Education/Training Program
DX: H65.21 Chronic serous otitis media, right ear (principal); J39.2 Other diseases of pharynx
CPT/HCPCS: 70491; Q9967

== ENCOUNTER → 2021-06-24 09:37 | Outpatient (CLI) | payer MEDICARE, OTHER, SELFPAY | PROVIDERS: Visit Provider Student in an Organized Health Care Education/Training Program | DX: H65.21 Chronic serous otitis media, right ear (principal); J39.2 Other diseases of pharynx; Z01.812 Encounter for preprocedural laboratory examination; Z11.52 Encounter for screening for COVID-19 | CPT/HCPCS: C9803; U0003; U0005 ==

== ENCOUNTER 2021-06-26 06:19 | Day surgery (SDC) | payer MEDICARE, OTHER, SELFPAY ==
[2021-06-26] VITALS (11 sets, daily range): BP systolic 115–174; BP diastolic 66–97; PULSE 72–79; RESP 16–18; TEMP 36.1–36.9; O2SAT 93–97; BMI 21.5
--- NOTE | 2021-06-26 06:47 | ECG_ITS ---
APPROVED REPORT Exam: Resting ECG HR:71 bpm ECG Measurements Heart Rate 71 AXES IA 208 P 75 QRSd 94 QRS 78 QT 367 T 81 QTc 389 Conclusion SINUS RHYTHM Previously noted late R wave progression ABNORMAL ECG UNCONFIRMED REPORT Electronically signed by : Chance Paulino MD 06/27/2021 08:44:08
--- NOTE | 2021-06-26 07:54 | P.PN_ITS ---
[facility] Anesthesia Checklist - Patient Identification Patient Identification: Arm Band, Verbal (Name & ) - Structural Data Admitted From: Home Planned Operative Procedure/s: Nasal Endoscopy Consent for Planned Operative Procedure(s) Verified: Yes Verified Documents: Surgical Consent - Chart Verification Results Verified: CBC, BMP - Additional verifications Anesthesia Reactions: No Hx Blood Transfusions: No Blood Transfusion Reaction: No - Airway Assessment C-Spine Mobility Assessed: Yes TMJ Mobility Assessed: Yes Dentition: Dentures-poor fitting - Neurological Assessment Level of Consciousness: Awake, Alert, Appropriate - Anesthesia Plan Anesthesia Risk discussed: Yes ASA Class: II Anesthesia Type: General [facility] History Medical History: Reports:: Congestive Heart Failure, Chronic Obstructive Pulmonary Disease (COPD), Coronary Artery Disease, Hiatal Hernia, Hyperlipidemia, Hypertension Denies:: Cancer, Diabetes Mellitus Type 1, Diabetes Mellitus Type 2, Internal Pacemaker, MRSA, Seizures *Have you ever received a pneumonia vaccine?: Yes *Have you received a flu vaccine this season?: Yes Other Medical History: Reports: Sinus Problems, Other. Denies: Blood Transfusion Reaction Anesthesia experience/problems:: none Other Surgeries: Yes: Cardiac Catheterization, Cardiac Surgery, Coronary Stent (10), Hernia Repair, Other. No: Pacemaker Amputation: No Fractures: Yes - *Social History Last grade of school completed: High school graduate Smoking Status: Current every day smoker Tobacco Type: cigarettes # Packs/Day (cigarettes): 1 Alcohol Intake: current Alcohol Intake Frequency:: 0-2 drinks per day Substance Use Type: denies use *Occupational Status:: retired Housing: house Household Members: none *Travel in the last 8 weeks: None Family Hx:: Heart Attack
--- NOTE | 2021-06-26 09:30 | P.OP_ITS ---
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 Patient was prepped and draped in usual fashion. First started with the T-tube. Myringotomy made in the anterior-inferior quadrant of the tympanic membrane. A serous effusion was suctioned from the middle ear space. A T-tube was then placed and then Ciprodex drops instilled into the ear. Patient's nares were then decongested with Afrin-soaked pledgets. Nasal endoscopy revealed what appeared to be a large right nasopharyngeal mass. Biopsies were taken of the mass and sent for frozen analysis. This returned consistent with a carcinoma. Once I confirmed I had diagnostic tissue in the biopsy 1 additional 1 was taken for permanent pathology. Hemostasis was then achieved with Afrin-soaked pledgets and suction cautery. His mouth and nose were then suctioned out. He was then turned back over to anesthesia be awoken extubated. All counts were confirmed correct. Condition: stable Disposition: PACU Complications:: none
--- NOTE | 2021-06-26 09:41 | HMH.ANESI ---
[facility] Anesthesia Record Part I Intake, IV Amount: 800 Estimated blood loss (mL): 10 Urine output (mL): 0 Blood Products used (#): none Blood Pressure: 160/97 SaO2: 93 Pulse Rate: 79 Respiratory Rate: 18 Temperature: 97.8 F Patient is:: Drowsy Stable to PACU at:: 09:39
--- NOTE | 2021-06-27 07:54 | HMH.ANESII ---
[facility] Anesthesia Record Part II Discharge Time: 10:09 Destination: home PACU nurse assessment reviewed?: Yes Patient Condition:: Good Anesthesia Complications:: None none Swallowing reflex intact?: Yes Cyanosis?: No Blood Pressure: 159/82 Pulse Rate: 73 Temperature: 97.5 F Mental Status: Alert & Oriented Pain level:: 0 Nausea and/or vomitting:: None Intake, IV Amount: 0
[2021-06-27 07:55] VITALS: BP 159/82; PULSE 73; TEMP 36.4
== END 2021-06-26 10:55 | disposition home or self-care (01) ==
LOC: OR 06:21
PROVIDERS: PCP Emergency Medicine; Visit Provider Student in an Organized Health Care Education/Training Program
DX: H65.91 Unspecified nonsuppurative otitis media, right ear (principal); H83.3X9 Noise effects on inner ear, unspecified ear; C11.9 Malignant neoplasm of nasopharynx, unspecified; J44.9 Chronic obstructive pulmonary disease, unspecified; I25.10 Atherosclerotic heart disease of native coronary artery without angina pectoris; E78.5 Hyperlipidemia, unspecified; I11.0 Hypertensive heart disease with heart failure; I50.9 Heart failure, unspecified; Z72.0 Tobacco use; Z82.3 Family history of stroke; Z79.82 Long term (current) use of aspirin; Z79.899 Other long term (current) drug therapy
CPT/HCPCS: 31237; 69436; 88305; 88331; 93005; 94640

== ENCOUNTER → 2021-07-16 07:13 | Outpatient (CLI) | payer MEDICARE, OTHER, SELFPAY ==
--- NOTE | 2021-07-16 07:13 | NM_ITS ---
APPROVED REPORT Exam: Nuclear Stress Test Indication: Abnormal EKG, SOB, HTN, High cholesterol, Tobacco use Patient Location: Outpatient Stress Tech: Kait English [place] Tech:Araseli Looney, ARRT, RT (R)(N) Ht: 5 ft 10 in Wt: 150 lbs HR: 66 bpm BP: 150/76 mmHg BSA: 1.85 m2 TID: 1.34 BMI: 21.5 History: Abnormal EKG, SOB, HTN, High cholesterol, Tobacco use Procedure: Patient received a 0.4 mg of intravenous Lexiscan, resting heart rate 66 bpm, resting blood pressure 150/76 mmHg, with Lexiscan maximum heart rate achived was 93 bpm which is Less than 85 % of the maximum predicted heart rate and blood pressure was 150/76 mmHg. With Lexiscan, patient denied any complaint of chest pain. Electrocardiogram Resting electrocardiogram shows sinus rhythm nonspecific ST-T changes, with Lexiscan there is less than 1.[address] segment depression from the baseline EKG. The EKG portion of the Lexiscan is nondiagnostic. Cardiac Stress and Resting SPECT Images: Cardiac Stress and Resting SPECT images were obtained using technetium 99m Myoview 32.6 mCi stress and 10.53 mCi at rest. Gated SPECT analysis of segmental wall motion and calculation of the ejection fraction also done. Prone images were also obtained. Cardiac stress and rest SPECT images show reversible ischemia involving the anteroseptal wall, there is transient ischemic dilatation of the left ventricle also seen. Computer derived ejection fraction is 54% with no regional wall motion abnormality, right ventricle is normal size and contractility. Conclusion: 1. The EKG portion of the Lexiscan is nondiagnostic. 2. Scintigraphic evidence of reversible ischemia seen in the anteroseptal wall, there is transient ischemic dilatation of the left ventricle seen, computer derived ejection fraction is 54% with no regional wall motion abnormality, right ventricle is normal size and contractility, likely multivessel coronary artery disease. 3. Abnormal Lexiscan Myoview study. Electronically signed by : Jag Tavares MD 07/17/2021 11:21:22
--- NOTE | 2021-07-16 07:27 | CA_ITS ---
APPROVED REPORT EXAM: Comprehensive 2D, Doppler, and color-flow Echocardiogram Merchandise Displayer: Katy Do RDCS Ht: 5 ft 10 in Wt: 152lbs BSA: 1.86 BP: 112/68 mmHg Indications: GUZMAN,ICD,CAD,COPD 2D Dimensions LVOT 2.01 cm (M/F) 1.5-2.5 M-Mode Dimensions RVDd 2.85 cm (0.9-2.6) LA Diam 3.58 cm (1.9-4.0) LVDd 2.93 cm (3.5-5.7) Ao Diam 3.16 cm (2.0-3.7) LVDs 1.94 cm (3.5-5.7) IVSd 1.48 cm (0.6-1.1) PWd 1.18 cm (0.6-1.1) EF (Teich) 64.20% FS 33.80% EDV (Teich) 33.00 mL TAPSE 1.87 (<1.7) ESV (Teich) 11.80 mL LV Diastology E Decel Time 220.00 (160-240 msec) E/A Ratio 0.6 MED E' 4.70 (< 7 cm/sec) E'/MED E' Ratio 8.17 (>14) LAT E' 5.50 (<10 cm/sec) E/LAT E' Ratio 6.98 (>14) Aortic Valve AI PHT 545.00 ms Mitral Valve MV E Max Reilly. 38.00 (40-130 cm/s) MV A Velocity 60.00 (40-130 cm/s) E/A Ratio 0.64 MV Decel. Time 220.00 (160-240 ms) MV PHT 64.00 ms Left Ventricle Left atrium is mildly enlarged, left ventricle is normal size, mild concentric left ventricular hypertrophy, estimated ejection fraction 55% with no regional wall motion abnormality, grade 1 diastolic dysfunction seen without tissue Doppler evidence of raise left atrial pressure. Right Ventricle Right atrium and right ventricle are normal size and contractility, AICD lead seen in right ventricle. Aortic Valve Aortic valve is thickened and calcified without aortic stenosis, there is mild aortic insufficiency. Mitral Valve Mitral valve grossly normal, there is mild mitral regurgitation. Tricuspid Valve Tricuspid grossly normal, there is mild tricuspid regurgitation, tricuspid regurgitation jet velocity is inadequate for calculation of the right ventricular systolic pressure. Pulmonic Valve Pulmonic valve is poorly visualized. Great Vessels Aortic root is normal size. Inferior vena cava is poorly visualized. Pericardium No significant pericardial effusion noted. Conclusion 1. Mildly enlarged left atrium, normal left ventricular size, mild concentric left ventricular hypertrophy, estimated ejection fraction 55% with no regional wall motion abnormality, grade 1 diastolic dysfunction seen without tissue Doppler evidence of raise left atrial pressure. 2. Mild aortic, mitral and tricuspid regurgitation. 3. No significant pericardial effusion noted. 4. Inferior vena cava is poorly visualized. Electronically signed by : Jag Tavares MD 07/17/2021 11:52:53
--- NOTE | 2021-07-16 07:27 | US_ITS ---
FINAL REPORT CLINICAL HISTORY: CLAUDICATION,PRIOR STENTING BLE'S,SMOKER,HTN,HLD FINDINGS: ANKLE-BRACHIAL PRESSURE INDICES Pressure indices are as follows: RIGHT LOWER EXTREMITY: Ankle-brachial pressure index: 1.03 Comments: Normal LEFT LOWER EXTREMITY: Ankle-brachial pressure index: 0.91 Comments: Borderline CONCLUSION: No evidence of significant obstructive peripheral vascular disease of the right lower extremity. Borderline obstructive peripheral vascular disease of the left lower extremity. Reviewed, Interpreted and Dictated by Alexsander Gary III, MD Transcribed by Lora Jiménez Authenticated and [facility]
--- NOTE | 2021-07-16 08:40 | HMH.ITSHM ---
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 []ONDANSETRON LISINOPRIL FUROSEMIDE CLOPIDOGREL CARVEDILOL ALBUTEROL VARENIDINE OFLOXACIN HYDROCODONE FLUTICASONE DIGOXIN CETIRIZINE ATORVASTATIN ASA
--- NOTE | 2021-07-16 09:00 | CA_ITS ---
APPROVED REPORT Exam: Pharmacologic Technologist: Kait Carolina, Ht: 5 ft 10 in Wt: 152 lbs BSA: 1.86 m2 HR: 65 bpm BP: 150/76 mmHg Rhythm: NSR, RIGHTWARD AXIS, PVC, ST ABNS CONSISTENT WITH DIGOXIN EFFECT Medical History Medical History: HTN, , Hyperlipidemia Medications: Lisinopril,,,,, Aspirin,,,,, Atorvastatin,,,,, Carvedilol,,,,, Lasix,,,,, Albuterol,,,,, Digoxin,,,,, CloPIdogrel,,,,, BREo Eliipta,,,,, CetIRIZINE,,,,, Hydrocodone-Acetaminophen,,,,, Ofloxacin,,,,, Allergies: No known drug allergies Cardiac Risk Factors: HTN, Hyperlipidemia, FHX of CAD, Smoking Stress Test Details Test: LEXISCAN HR Resting HR: 66 bpm Max Heart Rate (APMHR): 154.407836 bpm Max HR Achieved: 93 bpm Target HR (85% APMHR): 130.014077 bpm % of APMHR: 60.39 Recovery HR: 81 bpm BP Resting BP: 150/76 mmHg Max BP: 150/76 mmHg Recovery BP: 127.0/69.0 mmHg ECG Resting ECG: NSR, RIGHTWARD AXIS, PVC, ST ABNS CONSISTENT WITH DIGOXIN EFFECT Clinical Exercise duration: 04:06 min Highest Stage Achieved: Stress ECG Conclusion 1 MINUTE RECOVERY: PT WAS PUT IN TRENDELENBERG POSITION 3 MINUTE RECOVERY: UPRIGHT POSITION PT HAD MILD SOA, LIGHT HEADEDNESS AND HEADACHE. OCCASIONAL UNIFOCAL PVC. EXAGGERATION OF BASELINE ST ABNS. NON DIAGNOSTIC LEXISCAN STRESS. MYOVIEW IMAGES REPORTED SEPARATELY. Test Summary REST 04:20 . . 66 . 150/ 76 . . Stage 1 01:00 . . 91 . . . . Stage 2 01:00 . . 91 . 131/ 63 . . Stage 3 01:00 . . 89 . 121/ 61 . . Stage 4 01:00 . . 87 . . . . Stage 4 01:06 . . 87 . 99/ 56 . Stop exercise at 04:06 RECOVERY 01:00 . . 83 . 116/ 62 . . RECOVERY 02:00 . . 85 . 128/ 62 . . RECOVERY 03:00 . . 81 . 135/ 57 . . RECOVERY 04:00 . . 81 . 118/ 57 . . RECOVERY 05:00 . . 79 . 118/ 57 . . RECOVERY 06:00 . . 81 . 108/ 61 . . RECOVERY 07:00 . . 80 . 127/ 69 . . RECOVERY 08:00 . . 82 . 135/ 68 . . RECOVERY 08:11 . . 80 . 135/ 68 . . Electronically signed by : Jag Tavares MD 07/17/2021 11:18:42
== END ==
PROVIDERS: PCP Emergency Medicine; Visit Provider Nurse Practitioner Family
DX: E78.2 Mixed hyperlipidemia (principal); I25.10 Atherosclerotic heart disease of native coronary artery without angina pectoris; I25.5 Ischemic cardiomyopathy; I50.9 Heart failure, unspecified; I65.23 Occlusion and stenosis of bilateral carotid arteries; R06.00 Dyspnea, unspecified; R06.89 Other abnormalities of breathing; Z95.5 Presence of coronary angioplasty implant and graft; I73.9 Peripheral vascular disease, unspecified
CPT/HCPCS: 78452; 93017; 93306; 93923; A9502; J2785

== ENCOUNTER 2021-07-18 15:31 | Emergency (ER) | payer MEDICARE, OTHER, SELFPAY ==
[2021-07-18] VITALS (11 sets, daily range): BP systolic 122–162; BP diastolic 70–92; PULSE 77–92; RESP 18; TEMP 36.7–36.8; O2SAT 98–99; BMI 21.5
--- NOTE | 2021-07-18 15:34 | PC.NURSE ---
Zaida RN at
--- NOTE | 2021-07-18 15:42 | PC.NURSE ---
MAX CLEARY at
--- NOTE | 2021-07-18 15:57 | HMH.EDGENADL ---
ED Disposition Clinical Impression: Epistaxis Disposition: Home, Self-Care Condition on Discharge: Good Instructions: DI for Nosebleed Referrals: Navarro Bautista MD [Primary Care Provider] - - Critical Care Critical Care Time: No Attestation: On , the high probability of a clinically significant, sudden or life threatening deterioration of the following system(s) required my full and direct attention, intervention and personal management. The time I documented below is in addition to time spent performing reported procedures but includes the following listed in this critical care notation. Medical Decision Making - Eduardo Inquiry Pt receiving controlled substance: No Vital Signs: 07/18/21 15:35 07/18/21 15:46 07/18/21 15:56 Temperature 98.2 F Temperature Source Oral Pulse Rate 82 82 Pulse Rate [Right Radial] 92 H Respiratory Rate 18 Blood Pressure 137/74 145/70 H Blood Pressure [Right Arm] 162/92 H Blood Pressure Mean 95 105 Blood Pressure Mean [Right Arm] 115 Blood Pressure Source Blood Pressure Source [Right Arm] Automatic Cuff Blood Pressure Position Blood Pressure Position [Right Arm] Sitting 02 Sat by Pulse Oximetry 99 Oxygen Delivery Method Room Air 07/18/21 16:06 07/18/21 16:16 07/18/21 16:25 Temperature Temperature Source Pulse Rate 83 84 83 Pulse Rate [Right Radial] Respiratory Rate Blood Pressure 144/88 H 122/80 138/77 Blood Pressure [Right Arm] Blood Pressure Mean 103 97 97 Blood Pressure Mean [Right Arm] Blood Pressure Source Blood Pressure Source [Right Arm] Blood Pressure Position Blood Pressure Position [Right Arm] 02 Sat by Pulse Oximetry Oxygen Delivery Method 07/18/21 16:36 07/18/21 16:46 07/18/21 17:06 Temperature Temperature Source Pulse Rate 84 78 77 Pulse Rate [Right Radial] Respiratory Rate Blood Pressure 137/81 122/70 138/77 Blood Pressure [Right Arm] Blood Pressure Mean 98 87 87 Blood Pressure Mean [Right Arm] Blood Pressure Source Blood Pressure Source [Right Arm] Blood Pressure Position Blood Pressure Position [Right Arm] 02 Sat by Pulse Oximetry Oxygen Delivery Method 07/18/21 17:26 07/18/21 17:32 Temperature 98.0 F Temperature Source Oral Pulse Rate 82 81 Pulse Rate [Right Radial] Respiratory Rate 18 Blood Pressure 151/76 H 151/76 H Blood Pressure [Right Arm] Blood Pressure Mean 101 Blood Pressure Mean [Right Arm] Blood Pressure Source Automatic Cuff Blood Pressure Source [Right Arm] Blood Pressure Position Sitting Blood Pressure Position [Right Arm] 02 Sat by Pulse Oximetry Oxygen Delivery Method Room Air - Lab Data Lab Results 07/18/21 16:13: WBC 8.2, RBC 4.19 L, Hgb 13.7 L, Hct 40.9 L, MCV 97.7 H, MCH 32.8 H, MCHC 33.6, RDW 13.5, Plt Count 257, MPV 7.5, Neut % (Auto) 63.3, Lymph % (Auto) 25.9, Loup % (Auto) 6.5, Eos % (Auto) 2.1, Baso % (Auto) 2.2 H, Neut # (Auto) 5.2, Lymph # (Auto) 2.1, Loup # (Auto) 0.5, Eos # (Auto) 0.2, Baso # (Auto) 0.2 07/18/21 16:13: PT 12.4, INR 1.11 H, APTT 27.6 07/18/21 16:13: Sodium 130 L, Potassium 4.3, Chloride 97 L, Carbon Dioxide 28, Anion Gap 9.3, BUN 16, Creatinine 0.70, Estimated Creat Clear 70, Estimated GFR 113, Est GFR ( Amer) 137, Glucose 133 H, Calcium 8.4, Total Bilirubin 0.5, AST 29, ALT 13, Alkaline Phosphatase 105, Total Protein 6.4, Albumin 3.8, Globulin 2.6, Albumin/Globulin Ratio 1.5 07/18/21 16:13: Blood Type A Positive, Antibody Screen Negative Result diagrams: 07/18/21 16:13 07/18/21 16:13 Orders (Tests/Meds): ED MEDICATIONS Discontinued Medications Generic Name Dose Route Start Last Admin Trade Name Freq PRN Reason Stop Dose Admin Oxymetazoline HCl 1 ml 07/18/21 15:59 07/18/21 16:01 Oxymetazoline Nasal [place] 0.05% 15ml NS 07/18/21 16:00 1 sprays ONCE ONE Administration Medical Decision Narrative: DDX includes but not limited
--- NOTE | 2021-07-18 16:01 | PC.NURSE ---
contacted lab requesting for someone to draw blood from pt r/t type and screen order, spoke with chandni
--- NOTE | 2021-07-18 16:11 | PC.NURSE ---
lab at bedside obtaining ordered labs at this time.
[2021-07-18 16:24] LABS: Basophils # 0.2 K/mm3 (0-0.2); Basophils % 2.2 % (0.1-2.0); Eosinophils # 0.2 K/mm3 (0.0-0.4); Eosinophils % 2.1 % (0.1-12.0); Hematocrit 40.9 % (42.0-52.0); Hemoglobin 13.7 g/dL (14.1-18.0); Lymphocytes # 2.1 K/mm3 (0.7-4.5); Lymphocytes % 25.9 % (10-50); Mean Corpuscular HGB Conc 33.6 g/dL (31.8-35.4); Mean Corpuscular Hemoglobin 32.8 pg (27.0-31.2); Mean Corpuscular Volume 97.7 fl (80-94); Mean Platelet Volume 7.5 fl (7.4-10.4); Monocytes # 0.5 K/mm3 (0.1-1.0); Monocytes % 6.5 % (1.7-9.3); Neutrophils # 5.2 K/mm3 (1.8-7.8); Neutrophils % 63.3 % (37.0-80.0); Platelet Count 257 K/mm3 (142-424); Red Blood Count 4.19 M/mm3 (4.60-6.20); Red Cell Distribution Width 13.5 % (11.5-17.5); White Blood Count 8.2 K/mm3 (4.8-10.8)
[2021-07-18 16:31] LABS: Chloride 97 mmol/L (98-107)
[2021-07-18 16:32] LABS: Potassium 4.3 mmoL/L (3.5-5.1); Sodium 130 mmol/L (136-145)
[2021-07-18 16:34] LABS: Alanine Aminotransferase 13 U/L (12-78); Albumin Level 3.8 g/dl (3.5-5.0); Alkaline Phosphatase 105 U/L (38-126); Aspartate Amino Transferase 29 U/L (17-59); Bilirubin,Total 0.5 mg/dl (0.2-1.3); Blood Urea Nitrogen 16 mg/dl (9-20); Creatinine Clearance Estimated 70 mL/min (50-200); Estimated Glomerular Filt Rate 113 ml/min (>60); GFR (African American) 137 ML/MIN (>60)
[2021-07-18 16:35] LABS: Albumin/Globulin Ratio 1.5 (1.1-1.8); Anion Gap 9.3 mEq/L (5-15); Calcium 8.4 mg/dl (8.4-10.2); Carbon Dioxide 28 mmol/L (22.0-30.0); Globulin 2.6 g/dL (1.3-3.2); Glucose 133 mg/dl (74-100); Total Protein,Serum 6.4 g/dl (6.3-8.2)
[2021-07-18 16:37] LABS: Activated Partial Thrombo Time 27.6 seconds (22.8-30.6); INR 1.11 (0.9-1.1); Prothrombin Time 12.4 seconds (10.1-12.5)
--- NOTE | 2021-07-18 17:15 | PC.NURSE ---
Dr. Cardozo at speaking with patient at BS
== END 2021-07-18 17:34 | disposition home or self-care (01) ==
LOC: ER 15:43
PROVIDERS: Emergency Provider Student in an Organized Health Care Education/Training Program; PCP Emergency Medicine
DX: R04.0 Epistaxis (principal); R42 Dizziness and giddiness; I11.0 Hypertensive heart disease with heart failure; I50.9 Heart failure, unspecified; I25.10 Atherosclerotic heart disease of native coronary artery without angina pectoris; I25.5 Ischemic cardiomyopathy; I65.29 Occlusion and stenosis of unspecified carotid artery; I73.9 Peripheral vascular disease, unspecified; E78.5 Hyperlipidemia, unspecified; K44.9 Diaphragmatic hernia without obstruction or gangrene; J34.9 Unspecified disorder of nose and nasal sinuses; J44.9 Chronic obstructive pulmonary disease, unspecified; F17.210 Nicotine dependence, cigarettes, uncomplicated; Z79.01 Long term (current) use of anticoagulants; Z79.02 Long term (current) use of antithrombotics/antiplatelets; Z79.51 Long term (current) use of inhaled steroids; Z79.82 Long term (current) use of aspirin; Z79.899 Other long term (current) drug therapy; Z85.818 Personal history of malignant neoplasm of other sites of lip, oral cavity, and pharynx; Z95.810 Presence of automatic (implantable) cardiac defibrillator
CPT/HCPCS: 80053; 85025; 85610; 85730; 86850; 99283

== ENCOUNTER 2021-07-31 07:47 | Day surgery (SDC) | payer MEDICARE, OTHER, SELFPAY ==
[2021-07-31] VITALS (21 sets, daily range): BP systolic 114–171; BP diastolic 61–89; PULSE 60–79; RESP 18–19; TEMP 36.6; O2SAT 92–100; BMI 21.1
--- NOTE | 2021-07-31 07:28 | IR_ITS ---
APPROVED REPORT Patient Location: Outpatient Math And Physics Instructor: AL Luo RT (R) PROCEDURES Left heart catheterization Left ventriculogram Selective coronary angiogram INDICATION Abnormal Myoview, Coronary artery disease, Recurrent angina pectoris, Informed consent was obtained prior to the procedure. COMPLICATIONS NONE Estimated Blood Loss: LESS THAN 10 ML TECHNIQUE One percent lidocaine was used to anesthetize the right groin. The right femoral artery was accessed via the Seldinger technique. A 4-Azerbaijani sheath was placed in the right femoral artery. The JL-4 and JR-4 catheter was also used to perform left heart catheterization left ventriculogram and selective coronary angiogram. At the end of the procedure the patient was transferred to the post-op holding area in stable condition for arterial sheath removal. ANGIOGRAPHIC RESULTS The left main artery Normal The left anterior descending artery Has a stent in the proximal segment which is widely patent free of in-stent restenosis with excellent proximal transitioning. Distally there is transitioning into a vessel slightly smaller than the stent however the LAD is widely patent distal to the stent with mild diffuse 30% mid and distal plaque The circumflex artery Is a large dominant vessel and proximally normal. First obtuse marginal artery has proximal 40 to 50% concentric stenosis. The second obtuse marginal artery is widely patent. There is a stent in the mid distal segment which is slightly larger than the stillaguamish vessel however it is patent with KOLBY-3 flow The right coronary artery Vestigial and patent The MORENO ventriculogram reveals Normal 65% The left ventricular end-diastolic pressure 20 mmHg IMPRESSION Patent coronary arteries as described above Normal ejection fraction Elevated LVEDP PLAN 1. Medical management Electronically signed by : Praveen Esqueda MD 08/06/2021 14:04:16
[2021-07-31 07:55] LABS: Coronavirus 19, PCR Not Detected (NotDetected); Influenza A, PCR Not Detected (NotDetected); Influenza B, PCR Not Detected (NotDetected)
[2021-07-31 08:09] LABS: Basophils # 0.1 K/mm3 (0-0.2); Basophils % 1.2 % (0.1-2.0); Chloride 93 mmol/L (98-107); Eosinophils # 0.1 K/mm3 (0.0-0.4); Eosinophils % 1.8 % (0.1-12.0); Hematocrit 41.4 % (42.0-52.0); Lymphocytes # 2.1 K/mm3 (0.7-4.5); Lymphocytes % 29.3 % (10-50); Mean Corpuscular HGB Conc 33.7 g/dL (31.8-35.4); Mean Corpuscular Hemoglobin 33.6 pg (27.0-31.2); Mean Corpuscular Volume 99.7 fl (80-94); Mean Platelet Volume 8.3 fl (7.4-10.4); Monocytes # 0.5 K/mm3 (0.1-1.0); Monocytes % 6.9 % (1.7-9.3); Neutrophils # 4.3 K/mm3 (1.8-7.8); Neutrophils % 60.8 % (37.0-80.0); Platelet Count 274 K/mm3 (142-424); Potassium 4.5 mmoL/L (3.5-5.1); Red Blood Count 4.16 M/mm3 (4.60-6.20); Red Cell Distribution Width 14.1 % (11.5-17.5); Sodium 127 mmol/L (136-145); White Blood Count 7.1 K/mm3 (4.8-10.8)
[2021-07-31 08:12] LABS: Anion Gap 10.5 mEq/L (5-15); Blood Urea Nitrogen 7 mg/dl (9-20); Carbon Dioxide 28 mmol/L (22.0-30.0); Creatinine Clearance Estimated 69 mL/min (50-200); Estimated Glomerular Filt Rate 113 ml/min (>60); GFR (African American) 137 ML/MIN (>60)
[2021-07-31 08:13] LABS: Calcium 8.7 mg/dl (8.4-10.2); Glucose 123 mg/dl (74-100)
== END 2021-07-31 14:00 | disposition home or self-care (01) ==
LOC: CATHLAB 07:49
PROVIDERS: Nurse Practitioner Family; PCP Emergency Medicine; Visit Provider Internal Medicine
DX: I11.0 Hypertensive heart disease with heart failure (principal); I25.5 Ischemic cardiomyopathy; I25.118 Atherosclerotic heart disease of native coronary artery with other forms of angina pectoris; I50.32 Chronic diastolic (congestive) heart failure; I65.23 Occlusion and stenosis of bilateral carotid arteries; L81.9 Disorder of pigmentation, unspecified; R06.00 Dyspnea, unspecified; E78.5 Hyperlipidemia, unspecified; R06.89 Other abnormalities of breathing; Z95.5 Presence of coronary angioplasty implant and graft; F17.210 Nicotine dependence, cigarettes, uncomplicated; Z79.01 Long term (current) use of anticoagulants; Z79.899 Other long term (current) drug therapy; C11.9 Malignant neoplasm of nasopharynx, unspecified; Z86.73 Personal history of transient ischemic attack (TIA), and cerebral infarction without residual deficits; Z20.822 Contact with and (suspected) exposure to COVID-19
CPT/HCPCS: 36415; 80048; 85025; 93458; 99152; C1725; C1769; C9803; J1644; Q9967; U0003; U0005

== ENCOUNTER → 2022-01-23 10:25 | Outpatient (CLI) | payer MEDICARE, OTHER, SELFPAY ==
[2022-01-23 11:12] LABS: Basophils # 0.1 K/mm3 (0-0.2); Basophils % 0.7 % (0.1-2.0); Eosinophils # 0.2 K/mm3 (0.0-0.4); Eosinophils % 2.1 % (0.1-12.0); Hematocrit 36.4 % (42.0-52.0); Hemoglobin 12.1 g/dL (14.1-18.0); Lymphocytes # 2.3 K/mm3 (0.7-4.5); Lymphocytes % 25.2 % (10-50); Mean Corpuscular HGB Conc 33.3 g/dL (31.8-35.4); Mean Platelet Volume 7.7 fl (7.4-10.4); Monocytes # 0.5 K/mm3 (0.1-1.0); Monocytes % 5.4 % (1.7-9.3); Neutrophils % 66.7 % (37.0-80.0); Platelet Count 240 K/mm3 (142-424); Red Blood Count 3.92 M/mm3 (4.60-6.20)
[2022-01-23 11:46] LABS: Anion Gap 14.4 mEq/L (5-15); Blood Urea Nitrogen 11 mg/dl (9-20); Calcium 9.2 mg/dl (8.4-10.2); Carbon Dioxide 27 mmol/L (22.0-30.0); Chloride 95 mmol/L (98-107); Estimated Glomerular Filt Rate 166 ml/min (>60); GFR (African American) 201 ML/MIN (>60); Glucose 130 mg/dl (74-100); Magnesium 1.9 mg/dl (1.6-2.3); Potassium 4.4 mmoL/L (3.5-5.1); Sodium 132 mmol/L (136-145)
[2022-01-23 11:57] LABS: Free T4 (Free Thyroxine) 1.45 ng/dl (0.78-2.19)
[2022-01-23 12:16] LABS: Thyroid Stimulating Hormone 2.64 uIU/mL (0.465-4.68)
== END ==
PROVIDERS: PCP Emergency Medicine; Visit Provider Nurse Practitioner Family
DX: E78.2 Mixed hyperlipidemia (principal); I25.10 Atherosclerotic heart disease of native coronary artery without angina pectoris; I25.5 Ischemic cardiomyopathy; R06.02 Shortness of breath; Z95.5 Presence of coronary angioplasty implant and graft; Z95.810 Presence of automatic (implantable) cardiac defibrillator; I50.32 Chronic diastolic (congestive) heart failure; I65.23 Occlusion and stenosis of bilateral carotid arteries; I11.0 Hypertensive heart disease with heart failure
CPT/HCPCS: 36415; 80048; 83735; 84439; 84443; 85025

== ENCOUNTER → 2022-02-06 14:03 | Outpatient (CLI) | payer MEDICARE, OTHER, SELFPAY ==
--- NOTE | 2022-02-06 14:04 | CA_ITS ---
FINAL REPORT TECHNIQUE: Color Doppler, duplex Doppler and moise scale sonography of the bilateral neck arterial vasculature was performed. Velocities were measured in the carotid arteries. Stenosis evaluation based on the validated velocity criteria. 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 FINDINGS: The peak systolic velocity of the right common carotid artery is 92 cm/s. The peak systolic velocity of the right internal carotid artery is 103 cm/s and end diastolic velocity 22 cm/s. The ICA/CCA ratio is 1.32. A moderate amount of plaque is present. The right external carotid artery is patent. The right vertebral artery is patent with antegrade flow. The peak systolic velocity of the left common carotid artery is 98 cm/s. The peak systolic velocity of the left internal carotid artery is 92 cm/s and end diastolic velocity 22 cm/s. The ICA/CCA ratio is 0.94. A moderate amount of plaque is present. The left external carotid artery is patent.The left vertebral artery is patent with antegrade flow. IMPRESSION: Less than 50% bilateral carotid stenoses. Bilateral patent vertebral arteries with antegrade flow. If indicated, CTA or MRA could further evaluate. Reviewed, Interpreted and Dictated by Alexsander Gary III, MD Transcribed by Dee Lagunas Authenticated and [facility]
== END ==
PROVIDERS: PCP Emergency Medicine; Visit Provider Nurse Practitioner Family
DX: I63.9 Cerebral infarction, unspecified (principal); I65.23 Occlusion and stenosis of bilateral carotid arteries
CPT/HCPCS: 93880

== ENCOUNTER 2022-04-15 09:00 | Outpatient (RCR) | payer MEDICARE, OTHER, SELFPAY ==
--- NOTE | 2022-04-08 15:09 | HMH.SLDYSPHA ---
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 Does Patient Qualify for Service Yes Qualify/Failure Comment Based on pt's history of head and neck cancer with radiation treatment, he would benefit from a prophylactic swallow exercise program to prevent dysphagia over time. Recommendations PHYSICIAN CERTIFICATION: The specified therapy services are required, authorized, and reviewed every 30 days. Pt will be seen # times/week 1 for # weeks 4 Diet Recommendations Normal Liquid Type Recommendations Normal/Thin SL Swallow Guidelines Standard Aspiration Prec. Dysphagia Swallow Precautions/Strategies Sitting Upright (90 deg),Small Bites and Sips,Alternate Liquids/Solids Plan Anticipate reaching STG in # weeks 2 Anticipate reaching LTG in # weeks 4 Pt/Guardian verbally ack understanding Yes of dx/prognosis/goals Pt/Guardian verbally ack understanding Yes of/consent to tx prog G -code Required No STG-Other Comment/Non-Specific Pt will demonstrate independence with prophylactic swallow exercise program as measured by pt report 100% of the time. Retirement Goals Diet regular with Liquids Thin Liquids Education Instructions provided Recommendations and POC discussed with pt who expressed understanding. Pt/Caregiver able to recall information Able to recall/restate Reinforcement needed No Speech & Language HPI History Present Illness Description of Patient Problem Mr. Colvin is a 67 year old man presenting to [facility] for an evaluation of swallowing. He has a history of basaloid squamous cell carcinoma on the nasopharynx. He is s/p SOFTWARE VALIDATION ENGINEER, which was completed in October of 2021. At this
== END 2022-04-15 09:05 | disposition home or self-care (01) ==
LOC: ST 09:00
PROVIDERS: PCP Emergency Medicine; Visit Provider Emergency Medicine
DX: C11.9 Malignant neoplasm of nasopharynx, unspecified (principal); R13.10 Dysphagia, unspecified
CPT/HCPCS: 92526; 92610

== ENCOUNTER 2022-04-23 15:00 | Outpatient (RCR) | payer MEDICARE, OTHER, SELFPAY ==
--- NOTE | 2022-04-02 09:10 | HMH.PTOPEV ---
PT Outpatient Evaluation Rehab PT Outpatient Evaluation Start: 04/02/22 08:07 Freq: Status: Active Protocol: Document 04/02/22 08:46 PHONHAN (Rec: 04/02/22 09:10 PHORSHELLY [id number]) E-signed By Uzair Ward, PT Outpatient Therapy Subjective History Subjective History This is the initial PT eval for Fortunato Colvin 67 yowm who presents with generalized functional decline due to prolonged hospitalization during treatment for nasopharyngeal cancer. He reports he was hospitalized for ~ 6 mos and underwent 35 XRT treatments and 6 rounds of chemo treatments. He reports he has lost 50-60 lbs overall and has continued issues with his swallowing which limits his intake. He reports difficulty with endurance and especially ascending/ descending stairs. He reports no c/o pain or numbness/ tingling at this time. He reports hx of OR with ICD placement. Chief Complaint Weakness Symptoms Relieved By Rest/Positioning Symptoms Aggravated By Physical Activity Prior Functional Limitations None Current Functional Limitations Walking,Stairs Symptom Description Activity Dependent Level of pain today (0-10) 0 Hip/Knee Eval MMT bilateral Hip Flexion Strength Grade 3 Fair Hip Abduction Strength Grade 3 Fair Hip Adduction Strength Grade 3 Fair Hip Extension Strength Grade 3 Fair Gluteus Orlando Strength Grade 3 Fair Hip External Rotation Strength Grade 3 Fair Hip Internal Rotation Strength Grade 3 Fair Knee Extension Strength Grade 4 Good Knee Flexion Strength Grade 4 Good Balance Eval Gait/Posture Asssessment General Gait Observation Wide Based Gait Assistive Devices Straight Cane Level of Transfer Assist Independent Ankle/Foot Observation in Gait Stance Decreased Heel Strike Hip Posture Standing Position (L) Flexed,(R) Flexed Dynamic Gait Index Test Protocol Gait Level Surface Mild Impairment Query Text: Instructions: Walk at your normal speed from here to the next melquiades (20'). Grading: Melquiades the lowest category that applies. Change in Gait Speed Normal Query Text:
== END 2022-04-23 15:05 | disposition home or self-care (01) ==
LOC: PT 15:00
PROVIDERS: PCP Emergency Medicine; Visit Provider Emergency Medicine
DX: R53.81 Other malaise (principal)
CPT/HCPCS: 97110; 97163; 97530

== ENCOUNTER 2022-04-24 09:18 | Day surgery (SDC) | payer MEDICARE, OTHER, SELFPAY ==
[2022-03-31 12:10] VITALS: BMI 15.7
[2022-04-24 09:57] VITALS: BP 150/73; PULSE 68; RESP 18; TEMP 36.4; O2SAT 100
--- NOTE | 2022-04-24 10:53 | EXP.ANES.CKL ---
[facility] Disclaimer: The information contained in this section may have been updated after the patient was seen, as this information can be updated by other users. Medical History Asthma Carotid artery stenosis Congestive heart failure Coronary arteriosclerosis Discoloration of skin of lower leg Dizziness Hyperlipidemia Hypertensive disorder Ischemic cardiomyopathy PAD (peripheral artery disease) Surgical History AICD (automatic cardioverter/defibrillator) present Family History Other No significant family history Social History Smoking Status: Former smoker quit date: 08/09/21 how long ago did patient quit smokin months second hand exposure: No alcohol intake: former substance use type: denies use current occupational status: retired and disabled Travel in the last 8 weeks: None household members: none housing: house lives independently: Yes marital status: single education level: high school caffeine: Yes special shelley needs: No agree to transfusion: No do you feel safe at home: Yes victim of physical abuse: No victim of emotional abuse: No victim of sexual abuse: No would you like helpful sources: No [facility] Anesthesia Checklist Patient Identification Patient Identification: Arm Band and Verbal (Name & ) Structural Data Admitted From: Home Planned Operative Procedure/s: EGD Consent for Planned Operative Procedure(s) Verified: Yes Verified Documents: Surgical Consent NPO Status Verified Time NPO: 00:00 Additional verifications Anesthesia Reactions: No Hx Blood Transfusions: No Blood Transfusion Reaction: No Airway Assessment C-Spine Mobility Assessed: Yes TMJ Mobility Assessed: Yes Dentition: Dentures-good fit Neurological Assessment Level of Consciousness: Awake, Alert and Appropriate Anesthesia Plan ASA Class: III Anesthesia Type: MAC
[2022-04-24 10:56] VITALS: O2SAT 100
--- NOTE | 2022-04-24 11:16 | HMH.SCOPE ---
Procedure: Date: 04/24/22 Patient Date of :: 1955 Procedure Performed:: EGD & balloon dilation Indications:: Dysphagia History of esophageal cancer Performing Provider:: Natalie Chambers MD Referring Provider:: Navarro Bautista Sedation:: Propofol Procedure:: The gastroscope was gently passed through the incisoral orifice into the oral cavity and under direct visualization the esophagus was intubated. The endoscope was passed down the esophagus, through the stomach, and into the duodenum. Color, texture, mucosa, and anatomy of the esophagus, stomach, and duodenum were carefully examined with the scope. Findings:: Oropharynx: normal Esophagus: Tight distal stricture, treated with balloon dilation 12-15 mm EG Junction: intact at 40 cm Cardia: normal Fundus: normal Body: normal Antrum: normal Duodenal bulb: normal Duodenum (second and third portion): normal Impression: Tight distal esophageal stricture, dilated with 12-15 mm balloon Recommendations:: Repeat EGD and dilation in about 6 weeks or so to improve/increase size of dilation Complications:: None Estimated blood obtained (mL): 0
[2022-04-24 11:19] VITALS: BP 106/53; PULSE 68; RESP 14; TEMP 36.2; O2SAT 94
[2022-04-24 11:29] VITALS: BP 103/55; PULSE 71; RESP 16; O2SAT 97
[2022-04-24 11:39] VITALS: BP 109/67; PULSE 68; RESP 18; O2SAT 97
[2022-04-24 11:49] VITALS: BP 144/88; PULSE 70; RESP 16; TEMP 36.6; O2SAT 98
== END 2022-04-24 11:49 | disposition home or self-care (01) ==
PROVIDERS: PCP Emergency Medicine; Visit Provider Internal Medicine Gastroenterology
PROC: 0DJ08ZZ Inspection of Upper Intestinal Tract, Via Natural or Artificial Opening Endoscopic (ICD-10-PCS; CPT 43235; principal; 2022-04-24 10:30)
DX: R13.10 Dysphagia, unspecified (principal); K22.2 Esophageal obstruction; Z85.01 Personal history of malignant neoplasm of esophagus; Z79.899 Other long term (current) drug therapy
CPT/HCPCS: 43249; C1726

== ENCOUNTER → 2022-05-13 23:14 | Outpatient (CLI) | payer MEDICARE, OTHER, SELFPAY ==
[2022-05-13 18:48] LABS: Free T4 (Free Thyroxine) 1.34 ng/dl (0.78-2.19)
[2022-05-13 19:03] LABS: Prostate Specific Ag Screen 0.5 ng/ml (0.0-4.0); Thyroid Stimulating Hormone 4.99 uIU/mL (0.465-4.68)
== END ==
PROVIDERS: PCP Emergency Medicine; Visit Provider Emergency Medicine
DX: Z12.5 Encounter for screening for malignant neoplasm of prostate (principal); R06.00 Dyspnea, unspecified; R06.89 Other abnormalities of breathing; N39.0 Urinary tract infection, site not specified; Z79.899 Other long term (current) drug therapy
CPT/HCPCS: 84439; 84443; 87086; G0103

== ENCOUNTER 2022-06-12 07:49 | Day surgery (SDC) | payer MEDICARE, OTHER, SELFPAY ==
[2022-06-11 09:18] VITALS: BMI 15.6
--- NOTE | 2022-06-12 08:05 | P.PN_ITS ---
[facility] Disclaimer: The information contained in this section may have been updated after the patient was seen, as this information can be updated by other users. Medical History Asthma Carotid artery stenosis Congestive heart failure Coronary arteriosclerosis Discoloration of skin of lower leg Dizziness Head and neck cancer History of smoking 30 or more pack years Hyperlipidemia Hypertensive disorder Ischemic cardiomyopathy Lung nodule PAD (peripheral artery disease) Tobacco abuse counseling Tobacco abuse disorder Surgical History AICD (automatic cardioverter/defibrillator) present Family History Other No significant family history Social History Smoking Status: Former smoker quit date: 08/09/21 how long ago did patient quit smokin months second hand exposure: No alcohol intake: former substance use type: denies use current occupational status: retired and disabled Travel in the last 8 weeks: Inside the [employer] household members: none housing: house lives independently: Yes marital status: single education level: high school caffeine: Yes special shelley needs: No agree to transfusion: No do you feel safe at home: Yes victim of physical abuse: No victim of emotional abuse: No victim of sexual abuse: No would you like helpful sources: No [facility] Anesthesia Checklist Patient Identification Patient Identification: Arm Band and Verbal (Name & ) Structural Data Admitted From: Home Planned Operative Procedure/s: EGD Consent for Planned Operative Procedure(s) Verified: Yes NPO Status Verified Time NPO: 00:00 Additional verifications Anesthesia Reactions: No Hx Blood Transfusions: No Blood Transfusion Reaction: No Airway Assessment C-Spine Mobility Assessed: Yes TMJ Mobility Assessed: Yes Dentition: Dentures-poor fitting Neurological Assessment Level of Consciousness: Awake Hx Seizures: No Numbness or tingling in extremities: No Anesthesia Plan Anesthesia Risk discussed: Yes Anesthesia Plan: Verified ASA Class: III Anesthesia Type: MAC
[2022-06-12 08:09] VITALS: BP 134/74; PULSE 90; RESP 14; TEMP 36.2; O2SAT 97
[2022-06-12 08:58] VITALS: O2SAT 97
--- NOTE | 2022-06-12 09:14 | HMH.SCOPE ---
Procedure: Date: 06/12/22 Patient Date of :: 1955 Procedure Performed:: EGD and balloon dilation Indications:: Dysphagia Performing Provider:: Natalie Chambers MD Referring Provider:: Navarro Bautista MD Sedation:: Propofol Procedure:: The gastroscope was gently passed through the incisoral orifice into the oral cavity and under direct visualization the esophagus was intubated. The endoscope was passed down the esophagus, through the stomach, and into the duodenum. Color, texture, mucosa, and anatomy of the esophagus, stomach, and duodenum were carefully examined with the scope. Findings:: Oropharynx: normal Esophagus: Recurrent tight distal esophageal stricture with local inflammatory tissue, dilated with 15-18 mm balloon. Biopsies obtained. EG Junction: intact at 40 cm Cardia: normal Fundus: normal Body: normal Antrum: normal Duodenal bulb: normal Duodenum (second and third portion): normal Impression: Recurrent distal esophageal stricture Specimens:: Esophagus Recommendations:: Repeat EGD & dilation in about 6 months or so. PPI therapy. Complications:: None Estimated blood obtained (mL): 0
[2022-06-12 09:16] VITALS: BP 71/35; PULSE 84; RESP 14; TEMP 36.6; O2SAT 95
[2022-06-12 09:26] VITALS: BP 89/48; PULSE 103; RESP 17; O2SAT 98
--- NOTE | 2022-06-12 09:26 | SUR.PHASEII ---
Severiano Sargent PROCESS SAFETY SPECIALIST at bedside, aware of BP. PROCESS SAFETY SPECIALIST gave medication. bp now 87/46
[2022-06-12 09:36] VITALS: BP 95/54; PULSE 98; RESP 17; O2SAT 98
[2022-06-12 09:46] VITALS: BP 102/60; PULSE 93; RESP 16; O2SAT 100
--- NOTE | 2022-06-12 14:52 | SUR.PHASEII ---
[facility] call to confirm Omeprazole 40mg conflict with Plavix (lowers blood thinning ability) may cause cardiac issues. I spoke with Dr Chambers about conflict and he advised to fill RX and pt to take Omeprazole 40mg as prescribed [facility] called and confirmed continue with RX
== END 2022-06-12 09:50 | disposition home or self-care (01) ==
PROVIDERS: PCP Emergency Medicine; Visit Provider Internal Medicine Gastroenterology
PROC: 0DJ08ZZ Inspection of Upper Intestinal Tract, Via Natural or Artificial Opening Endoscopic (ICD-10-PCS; CPT 43235; principal; 2022-06-12 09:00)
DX: R13.10 Dysphagia, unspecified (principal); Z79.899 Other long term (current) drug therapy
CPT/HCPCS: 43249; 88305; C1726

== ENCOUNTER 2022-07-02 11:44 | Observation (INO) | payer MEDICARE, OTHER, SELFPAY ==
[2022-07-02] VITALS (11 sets, daily range): BP systolic 118–136; BP diastolic 54–71; PULSE 67–83; RESP 17–18; TEMP 36.4–36.6; O2SAT 95–100; BMI 15.0; BMI 14.4
--- NOTE | 2022-07-02 12:10 | HMH.EDGENADL ---
Discharge Plan Disposition Patient Disposition: Admitted Condition: Fair Chief Complaint: Nausea/Vomiting/Diarrhea Prescriptions Prescriptions: No Action cetirizine 10 mg tablet 10 mg PO DAILY mewjwjhbod-qkybrqtgvhgrn-gctn 50-325-40 mg tablet 1 tab PO amoxicillin-pot clavulanate 875-125 mg tablet 1 tab PO Label Comments: TAKE 1 TABLET BY MOUTH TWICE DAILY FOR 14 DAYS metoprolol succinate 25 mg tablet extended release 24 hr 25 mg PO DAILY Qty: 90 3RF albuterol sulfate 90 mcg/actuation HFA aerosol inhaler 2 inh IH Q6H PRN (Reason: shortness of breath or wheezing) 90 Days Qty: 8.5 3RF albuterol sulfate 2.5 mg /3 mL (0.083 %) solution for nebulization 2.5 mg IH Q6H PRN (Reason: shortness of breath or wheezing) 90 Days Qty: 180 3RF aspirin 81 MG tablet,chewable 81 mg PO DAILY fluticasone propionate 16 GM spray,suspension 1 spray NS DAILY Rx Instructions: administer into each nostril tamsulosin [Flomax] 0.4 mg capsule 0.4 mg PO DAILY oxybutynin chloride 5 mg tablet 5 mg PO BID Trelegy Ellipta 100-62.5-25 mcg blister with device 1 inh inhalation DAILY omeprazole 40 mg capsule,delayed release(DR/EC) 40 mg PO DAILY Qty: 90 1RF Referrals Follow up/Referrals: Navarro Bautista MD [Primary Care Provider] - See instructions Clinical Impressions Clinical Impression: Acute hyponatremia, Diarrhea, Hypoalbuminemia Instructions Patient Instructions: DI for Diarrhea and Traveler's Diarrhea -- Adult, DI for Diarrhea and Traveler's Diarrhea -- Child, DI for Nausea -- Adult, DI for Nausea -- Child Print Language Print Language: Norwegian Discharge ED Provider: Niko Navarro General Adult HPI General Chief complaint: Nausea/Vomiting/Diarrhea Stated complaint: Phys ref, weakness, possible CDIFF, snycope Time Seen by Provider: 07/02/22 14:46 History of Present Illness HPI narrative: Patient presents to the emergency department with generalized malaise, nausea, diarrhea and earache. patient states that he has a history of nasopharyngeal cancer and recently was diagnosed with otitis media, initially started on amoxicillin and then started on another antibiotic. He states that he had diarrhea this morning and was seen by his primary care physician who sent her to the emergency department for further evaluation and treatment with concerns of possible C. difficile. The patient states he has had nearly a weeks worth of progressive generalized malaise. Denies any bloody bowel movements. Related Data Home Medications Medication Instructions Recorded Confirmed aspirin 81 mg chewable tablet 81 mg PO DAILY Blood thinner 05/03/20 07/02/22 fluticasone propionate 50 1 spray intranasal DAILY allergies 06/26/21 07/02/22 mcg/actuation nasal spray,suspension fluticasone fur. 100 mcg-umeclid 1 inh inhalation DAILY COPD 06/12/22 07/02/22 62.5 mcg-vilant 25 mcg inhalat.powder (Trelegy Ellipta) oxybutynin chloride 5 mg tablet 5 mg PO BID . 06/12/22 07/02/22 tamsulosin 0.4 mg capsule (Flomax) 0.4 mg PO DAILY . 06/12/22 07/02/22 cetirizine 10 mg tablet 10 mg PO DAILY 06/25/22 07/02/22 amoxicillin 875 mg-potassium 1 tab PO 07/02/22 07/02/22 clavulanate 125 mg tablet jciwaiguub-iaczuglzhbqra-pdjsiuwz 1 tab PO 07/02/22 07/02/22 50 mg-325 mg-40 mg tablet Previous Rx's Medication Instructions Recorded metoprolol succinate 25 mg 25 mg PO DAILY htn #90 tabs 05/08/22 tablet,extended release 24 hr albuterol sulfate 2.5 mg/3 mL 2.5 mg (3 mL) inhalation Q6H PRN 05/16/22 (0.083 %) solution for nebulization shortness of breath or wheezing 90 days #180 mL albuterol sulfate 90 mcg/actuation 2 inh inhalation Q6H PRN shortness 05/16/22 aerosol inhaler of breath or wheezing 90 days #8.5 grams omeprazole 40 mg capsule,delayed 40 mg PO DAILY #90 caps 06/12/22 release Allergies Allergy/AdvReac Type Severity Reaction Status Date / Time
[2022-07-02 13:04] LABS: Basophils % 0.2 % (0.1-2.0); Eosinophils # 0.2 K/mm3 (0.0-0.4); Eosinophils % 1.7 % (0.1-12.0); Hematocrit 40.3 % (42.0-52.0); Lymphocytes # 1.2 K/mm3 (0.7-4.5); Lymphocytes % 11.8 % (10-50); Mean Corpuscular HGB Conc 32.3 g/dL (31.8-35.4); Mean Corpuscular Hemoglobin 31.2 pg (27.0-31.2); Mean Corpuscular Volume 96.5 fl (80-94); Mean Platelet Volume 7.6 fl (7.4-10.4); Monocytes # 0.4 K/mm3 (0.1-1.0); Monocytes % 3.8 % (1.7-9.3); Neutrophils # 8.1 K/mm3 (1.8-7.8); Neutrophils % 82.4 % (37.0-80.0); Platelet Count 354 K/mm3 (142-424); Red Blood Count 4.18 M/mm3 (4.60-6.20); White Blood Count 9.8 K/mm3 (4.8-10.8)
[2022-07-02 13:12] LABS: Alanine Aminotransferase 30 U/L (12-78); Albumin Level 3.3 g/dl (3.5-5.0); Albumin/Globulin Ratio 0.9 (1.1-1.8); Alkaline Phosphatase 162 U/L (38-126); Anion Gap 16.1 mEq/L (5-15); Aspartate Amino Transferase 67 U/L (17-59); Bilirubin,Total 0.5 mg/dl (0.2-1.3); Blood Urea Nitrogen 14 mg/dl (9-20); Calcium 8.2 mg/dl (8.4-10.2); Carbon Dioxide 24 mmol/L (22.0-30.0); Chloride 88 mmol/L (98-107); Creatinine Clearance Estimated 48 mL/min (50-200); Estimated Glomerular Filt Rate 166 ml/min (>60); GFR (African American) 201 ML/MIN (>60); Globulin 3.7 g/dL (1.3-3.2); Glucose 120 mg/dl (74-100); Potassium 4.1 mmoL/L (3.5-5.1); Sodium 124 mmol/L (136-145)
[2022-07-02 13:28] LABS: Troponin I < 0.01 ng/ml (0.00-0.034)
[2022-07-02 13:41] LABS: Coronavirus 19, PCR Not Detected (NotDetected); Influenza A, PCR Not Detected (NotDetected); Influenza B, PCR Not Detected (NotDetected)
[2022-07-02 14:25] LABS: Adenovirus F 40/41, stool Not Detected (NotDetected); Astrovirus Not Detected (NotDetected); Campylobacter Not Detected (NotDetected); Clostridium Difficile A/B, PCR Not Detected (NotDetected); Cryptosporidium Not Detected (NotDetected); Cyclospora Cayetanesis Not Detected (NotDetected); Entamoeba histolytica Not Detected (NotDetected); Enteroaggregative E coli Not Detected (NotDetected); Enteropathogenic E coli Not Detected (NotDetected); Enterotoxigenic E coli Not Detected (NotDetected); Giardia lamblia Not Detected (NotDetected); Norovirus Not Detected (NotDetected); Plesimonas Shigalloides, PCR Not Detected (NotDetected); Rotavirus A Not Detected (NotDetected); Salmonella, PCR Not Detected (NotDetected); Sapovirus Not Detected (NotDetected); Shiga-like toxin E coli Not Detected (NotDetected); Shigella Enterovasive E coli Not Detected (NotDetected); Vibrio Cholerae Not Detected (NotDetected); Vibrio, PCR Not Detected (NotDetected); Yersinia Entercolitica, PCR Not Detected (NotDetected)
--- NOTE | 2022-07-02 14:52 | EXP.HP ---
History of Present Illness *Admission Date: 07/02/22 *Reason for visit:: Generalized weakness and diarrhea *History of present illness: Fortunato Colvin is a 67 year old male with a past medical history of nasopharyngeal cancer stage in remission, status post chemoradiatiton, primary spontaneous pneumothorax status post VATS and pleurodesis of left pleura, COPD, CAD, CHF, s/p AICD, PAD, carotid artery stenosis, dysphagia secondary to esophageal strictures, HTN, HLD, and BPH. He presented to the ED because of 2 weeks of generalized weakness and a few days of diarrhea. He also developed ear pain around 2 weeks ago and was diagnosed with a right sided ear infection for which he was started on Augmentin on 06/20; pt reports this was switched after a few days because he was found to have MRSA; he doesn't recall the name of the antibiotic. He denies fevers. He continues to have right ear discomfort but it seems to be subsiding. He has had 2-3 episodes of diarrhea daily for the past 3 days. He denies abdominal pain. He has had very poor intake because of poor appetite and his history of dysphagia. Initial vitals: BP 127/70 - P 70 - RR 17 - T 97.7 degrees F - SpO2 100% RA Initial workup: CBC with 9.8K WBCs, Na 124, AST 67, ALT 30, Alk phos 162 ED Medications: NS bolus x 1L, NS @ 250mL/hr PFSH PFSH Disclaimer: The information contained in this section may have been updated after the patient was seen, as this information can be updated by other users. Medical History Asthma Carotid artery stenosis Congestive heart failure Coronary arteriosclerosis Discoloration of skin of lower leg Dizziness Head and neck cancer History of smoking 30 or more pack years Hyperlipidemia Hypertensive disorder Ischemic cardiomyopathy Lung nodule PAD (peripheral artery disease) Tobacco abuse counseling Tobacco abuse disorder Surgical History AICD (automatic cardioverter/defibrillator) present H/O left wrist surgery PINS History of cardiac defibrillator placement History of hernia surgery Family History Other No significant family history Social History Smoking Status: Never smoker how long ago did patient quit smokin months second hand exposure: No alcohol intake: former substance use type: denies use current occupational status: retired Travel in the last 8 weeks: [place] the [place] household members: none housing: house lives independently: Yes marital status: single education level: high school caffeine: No special shelley needs: No agree to transfusion: No do you feel safe at home: Yes victim of physical abuse: No victim of emotional abuse: No victim of sexual abuse: No would you like helpful sources: No Review of Systems Review of Systems Review of systems:: pertinent systems reviewed and negative unless documented below Constitutional Constitutional: Reports weakness ENT Ears, Nose, Mouth, and Throat: Reports otalgia (right sided) *Neurologic Neurologic: Reports weakness Meds Home Medications and Allergies Home Medications Medication Instructions Recorded Confirmed Type aspirin 81 mg chewable tablet 81 mg PO DAILY Blood thinner 05/03/20 07/02/22 History fluticasone propionate 50 1 spray intranasal DAILY allergies 06/26/21 07/02/22 History mcg/actuation nasal spray,suspension metoprolol succinate 25 mg 25 mg PO DAILY htn #90 tabs 05/08/22 07/02/22 Rx tablet,extended release 24 hr albuterol sulfate 2.5 mg/3 mL 2.5 mg (3 mL) inhalation Q6H PRN 05/16/22 07/02/22 Rx (0.083 %) solution for nebulization shortness of breath or wheezing 90 days #180 mL albuterol sulfate 90 mcg/actuation 2 inh inhalation Q6H PRN shortness 05/16/22 07/02/22 Rx aerosol in
--- NOTE | 2022-07-02 14:52 | PC.NURSE ---
notified care management of admission
--- NOTE | 2022-07-02 15:57 | PC.NURSE ---
per house wirer helper pt assigned to room 213
--- NOTE | 2022-07-02 16:17 | INFXCTL.NOTE ---
report given to MARGIE Ambriz
--- NOTE | 2022-07-02 16:33 | PC.NURSE ---
arrived to floor by w/c from ED
--- NOTE | 2022-07-02 18:36 | ECG_ITS ---
APPROVED REPORT Exam: Resting ECG HR:82 bpm ECG Measurements Heart Rate 82 AXES PA 187 P 83 QRSd 106 QRS 83 QT 402 T 78 QTc 441 Conclusion SINUS RHYTHM WITH OCCASIONAL VENTRICULAR PREMATURE COMPLEXES BORDERLINE ECG UNCONFIRMED REPORT Electronically signed by : Chance Paulino MD 07/02/2022 21:14:16
[2022-07-02 23:42] LABS: Microscopic, Urine URINE MICROSCOPIC (MICROSCOPIC)
[2022-07-02 23:52] LABS: Appearance,Urine CLEAR (Clear); Bilirubin,Urine Negative (Negative); Blood, Urine Negative (Negative); Color,Urine STRAW (Yellow); Glucose,Urine (UA) Negative (Negative); Ketones,Urine Negative (Negative); Leukocyte Esterase,Urine Negative (Negative); Nitrate,Urine Negative (Negative); Protein,Urine Negative (Negative); Specific Gravity, Urine <= 1.005 (1.005-1.030); Urobilinogen,Urine 0.2 EU/dl (0.2)
[2022-07-03] VITALS: RESP 16
[2022-07-03 00:23] LABS: Squamous Epithelial Cell,Urine Occasional #/hpf (0-5)
[2022-07-03 04:00] VITALS: BP 129/68; PULSE 76; RESP 18; TEMP 36.6; O2SAT 97; BMI 16.3
--- NOTE | 2022-07-03 04:46 | PC.NURSE ---
NO ACUTE CHANGES OVER NIGHT. HAS RESTED INTERMITTENTLY. VSS. PT HAS HAD ONE BM THIS SHIFT. TOLERATING PO INTAKE WELL, NO NAUSEA OR VOMITING. PT HAS C/O A HEADAHCE THIS SHIFT AND HAS BEEN TREATED WITH PRN TYLENOL. CALL GOMEZ WITHIN REACH.
[2022-07-03 06:32] LABS: Basophils % 0.3 % (0.1-2.0); Eosinophils # 0.2 K/mm3 (0.0-0.4); Eosinophils % 3.9 % (0.1-12.0); Hematocrit 32.4 % (42.0-52.0); Lymphocytes % 18.7 % (10-50); Mean Corpuscular HGB Conc 33.9 g/dL (31.8-35.4); Mean Corpuscular Hemoglobin 32.4 pg (27.0-31.2); Mean Corpuscular Volume 95.6 fl (80-94); Mean Platelet Volume 7.9 fl (7.4-10.4); Monocytes # 0.3 K/mm3 (0.1-1.0); Monocytes % 5.1 % (1.7-9.3); Neutrophils # 3.7 K/mm3 (1.8-7.8); Neutrophils % 72.1 % (37.0-80.0); Platelet Count 316 K/mm3 (142-424); Red Blood Count 3.39 M/mm3 (4.60-6.20); Red Cell Distribution Width 13.9 % (11.5-17.5); White Blood Count 5.2 K/mm3 (4.8-10.8)
[2022-07-03 06:42] LABS: Alanine Aminotransferase 20 U/L (12-78); Albumin Level 2.6 g/dl (3.5-5.0); Albumin/Globulin Ratio 0.8 (1.1-1.8); Alkaline Phosphatase 129 U/L (38-126); Anion Gap 13.3 mEq/L (5-15); Aspartate Amino Transferase 46 U/L (17-59); Bilirubin,Total 0.4 mg/dl (0.2-1.3); Blood Urea Nitrogen 6 mg/dl (9-20); Calcium 7.5 mg/dl (8.4-10.2); Carbon Dioxide 22 mmol/L (22.0-30.0); Chloride 97 mmol/L (98-107); Creatinine Clearance Estimated 52 mL/min (50-200); Estimated Glomerular Filt Rate 166 ml/min (>60); GFR (African American) 201 ML/MIN (>60); Globulin 3.2 g/dL (1.3-3.2); Glucose 87 mg/dl (74-100); Potassium 3.3 mmoL/L (3.5-5.1); Sodium 129 mmol/L (136-145); Total Protein,Serum 5.8 g/dl (6.3-8.2)
--- NOTE | 2022-07-03 07:35 | HMH.PHAINT1 ---
Pharmacy Intervention Comments: Home medication list verified through list from outside pharmacy and EDUARDO report.
[2022-07-03 08:00] VITALS: BP 151/72; PULSE 82; RESP 16; TEMP 36.5; O2SAT 99
--- NOTE | 2022-07-03 09:33 | HMH.OTEV ---
OT Inpatient Evaluation Rehab OT IP Evaluation Start: 07/02/22 17:12 Freq: ONCE Status: Active Protocol: Document 07/03/22 09:30 JOSH (Rec: 07/03/22 09:33 JOSH [id number]) Rehab OT IP Assessment Subjective History Fortunato Colvin is a 67 year old male with a past medical history of nasopharyngeal cancer stage in remission, status post chemoradiatiton, primary spontaneous pneumothorax status post VATS and pleurodesis of left pleura , COPD, CAD, CHF, s/p AICD, PAD, carotid artery stenosis, dysphagia secondary to esophageal strictures, HTN, HLD, and BPH. He presented to the ED because of 2 weeks of generalized weakness and a few days of diarrhea. He also developed ear pain around 2 weeks ago and was diagnosed with a right sided ear infection for which he was started on Augmentin on 06/20; pt reports this was switched after a few days because he was found to have MRSA; he doesn't recall the name of the antibiotic. He denies fevers. He continues to have right ear discomfort but it seems to be subsiding. He has had 2-3 episodes of diarrhea daily for the past 3 days. He denies abdominal pain . He has had very poor intake because of poor appetite and his history of dysphagia. Initial vitals: BP 127/70 - P 70 - RR 17 - T 97.7 degrees F - SpO2 100% RA Initial workup: CBC with 9.8K WBCs, Na 124, AST 67, ALT 30, Alk phos 162 ED Medications: NS bolus x 1L, NS @ 250mL/hr Subjective I can get up. Patient completed all ADLs and fx'l mobility of bed mobility , transfe
[2022-07-03 09:35] VITALS: BMI 16.3
--- NOTE | 2022-07-03 10:28 | HMH.PTEV ---
Physical Therapy Evaluation Rehab PT IP Evaluation Start: 07/02/22 17:12 Freq: ONCE Status: Active Protocol: Document 07/03/22 09:20 HERB (Rec: 07/03/22 10:28 PHONHAN [id number]) Subjective/History History History 67 yowm adm to [facility] with hypokalemia and diarrhea for ~ 3 days. He has hx of nasopharyngeal CA with chemo and XRT, pleurodesis, COPD, [place] , CAD, CHF, AICD, PAD. He reports he lives with significant other, 1 step to enter the home and he is generally independent with all mobility without AD at baseline. Subjective Subjective He reports he feels much better and has no c/o this am. Rehab PT IP Eval Objective Appearance Patient Behavior Appropriate Patient Orientation Person,Place,Time Difficulty following instructions none Speech Pattern Clear Ambulation Patient Able to Ambulate Yes Ambulation Observation IP General Gait Pattern Observation Wide Based Gait Ambulation Distance (feet) 30 Ambulation Assistive Device Straight Cane Ambulation Ability Independent Balance Ability to Arise Able, uses arms to help Sitting Balance Steady, safe Standing Balance Steady, wide stance Dynamic Sitting Balance Ability Good Dynamic Standing Balance Ability Good Transfers Bed Transfer Ability Independent Chair Transfer Ability Independent Sit to Stand Bed Transfer Ability Independent Sit to Stand Chair Transfer Ability Independent ROM All Extremities PT ROM Status WFL MMT All Extremities PT MMT WFL Rehab PT IP prob,goals,plan Problems Date of Evaluation: 07/03/22 Discharge Plan PT Discharge Plan Pt is currently appropriate to return home once medically stable for d/c. G -code Required No Eval Complexity Eval Charge Codes 66255 - High Complexity PHYSICIAN CERTIFICATION: I certify the specified therapy services for Fortunato Colvin are required, authorized, and reviewed every 30 days.
--- NOTE | 2022-07-03 10:34 | EXP.DC.SUM ---
General Admission date:: 07/02/22 Discharge date: 07/03/22 HPI HPI HPI: Fortunato Colvin is a 67 year old male with a past medical history of nasopharyngeal cancer stage in remission, status post chemoradiatiton, primary spontaneous pneumothorax status post VATS and pleurodesis of left pleura, COPD, CAD, CHF, s/p AICD, PAD, carotid artery stenosis, dysphagia secondary to esophageal strictures, HTN, HLD, and BPH. He presented to the ED because of 2 weeks of generalized weakness and a few days of diarrhea. He also developed ear pain around 2 weeks ago and was diagnosed with a right sided ear infection for which he was started on Augmentin on 06/20; pt reports this was switched after a few days because he was found to have MRSA; he doesn't recall the name of the antibiotic. He denies fevers. He continues to have right ear discomfort but it seems to be subsiding. He has had 2-3 episodes of diarrhea daily for the past 3 days. He denies abdominal pain. He has had very poor intake because of poor appetite and his history of dysphagia. Initial vitals: BP 127/70 - P 70 - RR 17 - T 97.7 degrees F - SpO2 100% RA Initial workup: CBC with 9.8K WBCs, Na 124, AST 67, ALT 30, Alk phos 162 ED Medications: NS bolus x 1L, NS @ 250mL/hr Hospital Course Hospital Course Hospital Course: I believe the patient is hyponatremic secondary to volume depletion from poor oral intake and diarrhea.?The patient was given NS bolus in the ED followed by maintenance fluids. His sodium level improved from 124 to 129. His GI panel was negative and he did not have any more episodes of diarrhea in the hospital. He is to continue clindamycin for his R ear infection and to follow up with his Compensation Specialist as previously scheduled. He will need to follow up with his PCP in one week. Exam Data for Last 24 hours Vital signs and Labs for Last 24 Hours: Temp Pulse Resp BP Pulse Ox 97.7 F 82 16 151/72 H 99 07/03/22 08:00 07/03/22 08:00 07/03/22 08:00 07/03/22 08:00 07/03/22 08:00 Laboratory Results - last 24 hr 07/02/22 12:56: WBC 9.8, RBC 4.18 L, Hgb 13.0 L, Hct 40.3 L, MCV 96.5 H, MCH 31.2, MCHC 32.3, RDW 14.0, Plt Count 354, MPV 7.6, Neut % (Auto) 82.4 H, Lymph % (Auto) 11.8, [place] % (Auto) 3.8, Eos % (Auto) 1.7, Baso % (Auto) 0.2, Neut # (Auto) 8.1 H, Lymph # (Auto) 1.2, [place] # (Auto) 0.4, Eos # (Auto) 0.2, Baso # (Auto) 0.0 07/02/22 12:56: Sodium 124 L, Potassium 4.1, Chloride 88 L, Carbon Dioxide 24, Anion Gap 16.1 H, BUN 14, Creatinine 0.50 L, Estimated Creat Clear 48, Estimated GFR 166, Est GFR ( Amer) 201, Glucose 120 H, Calcium 8.2 L, Total Bilirubin 0.5, AST 67 H, ALT 30, Alkaline Phosphatase 162 H, Troponin I < 0.01, Total Protein 7.0, Albumin 3.3 L, Globulin 3.7 H, Albumin/Globulin Ratio 0.9 L 07/02/22 13:34: SARS-CoV-2 (PCR) Not detected, Influenza A Untype (PCR) Not detected, Influenza Type B (PCR) Not detected 07/02/22 14:02: Stl Aeromonas (PCR) Not detected, Stl C. cayetanensis PCR Not detected, Stool Rotavirus (PCR) Not detected, Stl Adenov F 40/41 PCR Not detected, Stool Astrovirus (PCR) Not detected, Stool Campylobacter PCR Not detected, Stl C.difficile Tox PCR Not detected, Stool Cryptosporidium PCR Not detected, Stl E.coli Shiga Tox PCR Not detected, Stool E coli O157 PCR Not detected, Stl Enterotoxigenic E PCR Not detected, Stool EPEC (PCR) Not detected, Stool EAEC (PCR) Not detected, Stl E. histolytica PCR Not detected, Stool Giardia Lamblia PCR Not detected, Stool Salmonella PCR Not detected, Stool Sapovirus (PCR) Not detected, Stl P. shigelloides PCR Not detected, Stl Shigella/EIEC PCR Not detected, St Y.enterocolitica PCR Not detected, Stool Vibrio (PCR) Not detected, Stl Vibrio cholerae PCR Not detected, Stl Norovirus GI/GII PCR Not detected 07/02/22 23:35: Urine Color Straw, Urine Appearance Clear, Urine pH 6.0, Ur Specific [place] <= 1.005, Urine Protein Negative, Urine Glucose (UA) Negative, Urine Ketones Negative, Urine Blood Negative, Urine Nitrate N
--- NOTE | 2022-07-03 10:56 | HMH.PHAINT1 ---
Pharmacy Intervention Comments: Discharge medication counseling completed. Patient was starting loperamide 2 mg capsules as needed. I encouraged him to keep up with how many he was taking in a day and not to take more than 9 in a 24 hour period. Told of potential side effect of decreased urination and/or constipation (especially if several are taken in a short period of time) and reminded him to take only as needed. Prescription was sent to [facility] for home delivery. Patient was concerned about the amount of time it would take for the prescription to arrive to him and I told him that this medication is also sold over the counter if he needed to buy some to last until his prescription arrived. Patient verbalized understanding and had no further questions.
--- NOTE | 2022-07-08 13:11 | CARE MANAGER ---
CM was unable to reach patient via telephone to discuss recent discharge.
== END 2022-07-03 11:28 | disposition home or self-care (01) ==
LOC: ER 14:45 → 2ND 16:33
PROVIDERS: Admitting Provider Internal Medicine; Emergency Provider Emergency Medicine; PCP Emergency Medicine; Visit Provider Internal Medicine
DX: E87.1 Hypo-osmolality and hyponatremia (principal); R19.7 Diarrhea, unspecified; R53.1 Weakness; I25.5 Ischemic cardiomyopathy; Z95.810 Presence of automatic (implantable) cardiac defibrillator; I25.10 Atherosclerotic heart disease of native coronary artery without angina pectoris; Z79.899 Other long term (current) drug therapy; Z79.01 Long term (current) use of anticoagulants; C76.0 Malignant neoplasm of head, face and neck; Z87.891 Personal history of nicotine dependence; I65.23 Occlusion and stenosis of bilateral carotid arteries; E43 Unspecified severe protein-calorie malnutrition; Z68.1 Body mass index [BMI] 19.9 or less, adult; Z20.822 Contact with and (suspected) exposure to COVID-19
CPT/HCPCS: G0378; 36415; 80053; 81001; 84484; 85025; 87506; 87636; 93005; 94640; 97163; 97165; 99285; C9803; U0003; U0005

== ENCOUNTER → 2022-08-11 15:45 | Outpatient (CLI) | payer MEDICARE, OTHER, SELFPAY | PROVIDERS: Visit Provider Nurse Practitioner | DX: H65.21 Chronic serous otitis media, right ear (principal); B95.4 Other streptococcus as the cause of diseases classified elsewhere | CPT/HCPCS: 87070; 87077; 87186 ==

== ENCOUNTER 2022-08-15 09:28 | Outpatient (CLI) | payer MEDICARE, OTHER, SELFPAY ==
[2022-08-15 09:45] VITALS: BP 140/77; PULSE 69; RESP 16; O2SAT 99
== END 2022-08-15 10:00 | disposition home or self-care (01) ==
LOC: INF 09:29
PROVIDERS: PCP Emergency Medicine; Visit Provider Physician Assistant
DX: E78.5 Hyperlipidemia, unspecified (principal)
CPT/HCPCS: 96372; J1306

== ENCOUNTER → 2022-10-30 08:37 | Outpatient (CLI) | payer MEDICARE, OTHER, SELFPAY ==
[2022-10-30 09:28] LABS: Basophils % 0.8 % (0.1-2.0); Eosinophils # 0.2 K/mm3 (0.0-0.4); Eosinophils % 3.4 % (0.1-12.0); Hematocrit 41.1 % (42.0-52.0); Lymphocytes # 1.8 K/mm3 (0.7-4.5); Lymphocytes % 31.6 % (10-50); Mean Corpuscular HGB Conc 31.7 g/dL (31.8-35.4); Mean Corpuscular Hemoglobin 32.4 pg (27.0-31.2); Mean Corpuscular Volume 102.4 fl (80-94); Mean Platelet Volume 8.9 fl (7.4-10.4); Monocytes # 0.4 K/mm3 (0.1-1.0); Monocytes % 6.6 % (1.7-9.3); Neutrophils # 3.3 K/mm3 (1.8-7.8); Neutrophils % 57.6 % (37.0-80.0); Platelet Count 237 K/mm3 (142-424); Red Blood Count 4.01 M/mm3 (4.60-6.20); Red Cell Distribution Width 13.3 % (11.5-17.5); White Blood Count 5.6 K/mm3 (4.8-10.8)
--- NOTE | 2022-10-30 09:28 | ECG_ITS ---
APPROVED REPORT Exam: Resting ECG HR:60 bpm ECG Measurements Heart Rate 60 AXES ID 211 P 102 QRSd 91 QRS 97 QT 413 T 89 QTc 413 Conclusion ELECTRONIC ATRIAL PACEMAKER BORDERLINE RIGHT AXIS DEVIATION [QRS AXIS > 90] ABNORMAL RHYTHM ECG UNCONFIRMED REPORT Electronically signed by : Chance Paulino MD 10/31/2022 09:56:24
[2022-10-30 11:05] LABS: Alanine Aminotransferase 23 U/L (12-78); Albumin Level 3.6 g/dl (3.5-5.0); Albumin/Globulin Ratio 1.2 (1.1-1.8); Alkaline Phosphatase 138 U/L (38-126); Anion Gap 13.6 mEq/L (5-15); Aspartate Amino Transferase 69 U/L (17-59); Bilirubin,Total 0.2 mg/dl (0.2-1.3); Blood Urea Nitrogen 20 mg/dl (9-20); Calcium 8.5 mg/dl (8.4-10.2); Carbon Dioxide 25 mmol/L (22.0-30.0); Chloride 99 mmol/L (98-107); Estimated Glomerular Filt Rate 112 ml/min (>60); GFR (African American) 136 ML/MIN (>60); Glucose 110 mg/dl (74-100); Potassium 4.6 mmoL/L (3.5-5.1); Sodium 133 mmol/L (136-145); Total Protein,Serum 6.6 g/dl (6.3-8.2)
== END ==
PROVIDERS: PCP Emergency Medicine; Visit Provider Otolaryngology
DX: R06.00 Dyspnea, unspecified (principal); R06.89 Other abnormalities of breathing; Z96.22 Myringotomy tube(s) status; Z01.818 Encounter for other preprocedural examination
CPT/HCPCS: 36415; 80053; 85025; 93005

== ENCOUNTER 2022-11-05 09:39 | Day surgery (SDC) | payer MEDICARE, OTHER, SELFPAY ==
[2022-11-03 13:12] VITALS: BMI 16.5
[2022-11-05 10:28] VITALS: BP 188/94; PULSE 71; RESP 16; TEMP 36.2; O2SAT 98
--- NOTE | 2022-11-05 11:05 | P.PNANES_ITS ---
[facility] Disclaimer: The information contained in this section may have been updated after the patient was seen, as this information can be updated by other users. Medical History Asthma Carotid artery stenosis Chronic serous otitis media of right ear Congestive heart failure COPD (chronic obstructive pulmonary disease) Coronary arteriosclerosis Discoloration of skin of lower leg Dizziness Dyspnea on exertion Hearing loss History of chemotherapy History of radiation therapy History of smoking 30 or more pack years Hyperlipidemia Hypertensive disorder Impacted cerumen of right ear Impacted cerumen, right ear Ischemic cardiomyopathy Lung nodule MRSA (methicillin resistant staph aureus) culture positive Nasopharyngeal cancer Nocturnal hypoxemia Otalgia of right ear PAD (peripheral artery disease) Rash Retained myringotomy tube in right ear Right chronic otitis media Tobacco abuse counseling Surgical History AICD (automatic cardioverter/defibrillator) present H/O left wrist surgery History of cardiac defibrillator placement History of hernia surgery Family History Other No significant family history Social History Smoking Status: Never smoker how long ago did patient quit smokin months second hand exposure: No alcohol intake: former substance use type: denies use current occupational status: retired Travel in the last 8 weeks: None household members: none housing: house lives independently: Yes marital status: single education level: high school service: Yes caffeine: No special shelley needs: No agree to transfusion: No do you feel safe at home: Yes victim of physical abuse: No victim of emotional abuse: No victim of sexual abuse: No would you like helpful sources: No [facility] Anesthesia Checklist Patient Identification Patient Identification: Arm Band Structural Data Admitted From: Home Planned Operative Procedure/s: Right Ear Tube Removal Consent for Planned Operative Procedure(s) Verified: Yes Verified Documents: Surgical Consent and History and Physical NPO Status Verified Time NPO: 00:00 Additional verifications Anesthesia Reactions: No Hx Blood Transfusions: No Blood Transfusion Reaction: No Airway Assessment Mallampati Score:: Class I C-Spine Mobility Assessed: Yes TMJ Mobility Assessed: Yes Dentition: Good Dentition (dentures removed) Neurological Assessment Level of Consciousness: Awake and Alert Anesthesia Plan Anesthesia Risk discussed: Yes Anesthesia Plan: Verified ASA Class: III Anesthesia Type: MAC
--- NOTE | 2022-11-05 11:49 | P.OP_ITS ---
Date of procedure: 11/05/22 Pre-op Diagnosis:: Cerumen impaction and retained ear tube right ear Post-op Diagnosis:: Cerumen impaction and retained ear tube right ear Procedure performed:: Cerumenectomy and removal removal of ear tube right ear under general anesthesia Surgeon:: Sumit Johnson MD DATA WAREHOUSE SPECIALIST:: James Lara Anesthesia: GETA Estimated blood loss (mL): 0 Operative findings:: Cerumen impaction, retained ear tube that was occluded, inferior tympanic membrane perforation Operative note:: The patient was brought to the operating room and after adequate general anesthesia the right ear was draped in the usual sterile fashion and operating microscope employed to visualize the ear canal and tympanic membrane. A severe cerumen impaction was cleaned and then the underlying occluded ear tube was removed with cup forceps. No evidence of otitis media or cholesteatoma. He had a small inferior perforation. Ciprodex drops were placed and the procedure concluded. All counts correct and blood loss was 0 Condition: stable Disposition: PACU Complications:: No complication
[2022-11-05 11:50] VITALS: BP 148/72; PULSE 73; RESP 17; TEMP 36.4; O2SAT 98
[2022-11-05 12:00] VITALS: BP 145/79; PULSE 60; RESP 18; O2SAT 98
[2022-11-05 12:10] VITALS: BP 155/71; PULSE 60; RESP 17; O2SAT 98
[2022-11-05 12:20] VITALS: BP 155/79; PULSE 61; RESP 19; O2SAT 98
== END 2022-11-05 12:20 | disposition home or self-care (01) ==
PROVIDERS: PCP Emergency Medicine; Visit Provider Otolaryngology
PROC: (CPT 69210; principal; 2022-11-05 11:00)
DX: H61.21 Impacted cerumen, right ear (principal); T85.698A Other mechanical complication of other specified internal prosthetic devices, implants and grafts, initial encounter; H72.91 Unspecified perforation of tympanic membrane, right ear
CPT/HCPCS: 69210; 69424

== ENCOUNTER 2022-11-19 09:15 | Outpatient (CLI) | payer MEDICARE, OTHER, SELFPAY ==
[2022-11-19] MEDS: INCLISIRAN SODIUM 284 MG/1.5 ML SYRINGE SQ (09:33)
[2022-11-19 09:35] VITALS: BP 172/79; PULSE 73; RESP 17; TEMP 36.1; O2SAT 98
== END 2022-11-19 09:50 | disposition home or self-care (01) ==
LOC: INF 09:17
PROVIDERS: PCP Emergency Medicine; Visit Provider Physician Assistant
DX: E78.5 Hyperlipidemia, unspecified (principal)
CPT/HCPCS: 96372; J1306

== ENCOUNTER → 2022-11-24 10:14 | Outpatient (CLI) | payer MEDICARE, OTHER, SELFPAY ==
[2022-11-24 11:10] LABS: Basophils # 0.1 K/mm3 (0-0.2); Basophils % 0.7 % (0.1-2.0); Eosinophils # 0.3 K/mm3 (0.0-0.4); Eosinophils % 3.8 % (0.1-12.0); Hematocrit 42.7 % (42.0-52.0); Hemoglobin 14.7 g/dL (14.1-18.0); Lymphocytes # 2.2 K/mm3 (0.7-4.5); Lymphocytes % 27.7 % (10-50); Mean Corpuscular HGB Conc 34.4 g/dL (31.8-35.4); Mean Corpuscular Hemoglobin 35.2 pg (27.0-31.2); Mean Corpuscular Volume 102.5 fl (80-94); Mean Platelet Volume 8.6 fl (7.4-10.4); Monocytes # 0.5 K/mm3 (0.1-1.0); Neutrophils # 4.8 K/mm3 (1.8-7.8); Neutrophils % 61.8 % (37.0-80.0); Platelet Count 221 K/mm3 (142-424); Red Blood Count 4.17 M/mm3 (4.60-6.20); Red Cell Distribution Width 13.6 % (11.5-17.5); White Blood Count 7.8 K/mm3 (4.8-10.8)
[2022-11-24 12:37] LABS: Alanine Aminotransferase 28 U/L (12-78); Albumin Level 3.9 g/dl (3.5-5.0); Albumin/Globulin Ratio 1.3 (1.1-1.8); Alkaline Phosphatase 114 U/L (38-126); Anion Gap 14.6 mEq/L (5-15); Aspartate Amino Transferase 76 U/L (17-59); Bilirubin,Total 0.4 mg/dl (0.2-1.3); Blood Urea Nitrogen 18 mg/dl (9-20); Calcium 8.9 mg/dl (8.4-10.2); Carbon Dioxide 25 mmol/L (22.0-30.0); Chloride 103 mmol/L (98-107); Estimated Glomerular Filt Rate 112 ml/min (>60); GFR (African American) 136 ML/MIN (>60); Globulin 3.1 g/dL (1.3-3.2); Glucose 94 mg/dl (74-100); Potassium 4.6 mmoL/L (3.5-5.1); Sodium 138 mmol/L (136-145)
== END ==
PROVIDERS: PCP Emergency Medicine; Visit Provider Surgery
DX: K40.21 Bilateral inguinal hernia, without obstruction or gangrene, recurrent (principal); R06.00 Dyspnea, unspecified; R06.89 Other abnormalities of breathing
CPT/HCPCS: 36415; 80053; 85025

== ENCOUNTER 2022-11-27 07:22 | Day surgery (SDC) | payer MEDICARE, OTHER, SELFPAY ==
[2022-11-25 12:05] VITALS: BMI 17.8
[2022-11-27] VITALS (8 sets, daily range): BP systolic 142–155; BP diastolic 67–86; PULSE 72–85; RESP 14–18; TEMP 35.9–36.1; O2SAT 95–99
--- NOTE | 2022-11-27 08:43 | P.PNANES_ITS ---
[facility] Disclaimer: The information contained in this section may have been updated after the patient was seen, as this information can be updated by other users. Medical History Asthma Carotid artery stenosis Chronic serous otitis media of right ear Congestive heart failure COPD (chronic obstructive pulmonary disease) Coronary arteriosclerosis Discoloration of skin of lower leg Dizziness Dyspnea on exertion Hearing loss History of chemotherapy History of radiation therapy History of smoking 30 or more pack years Hyperlipidemia Hypertensive disorder Impacted cerumen of right ear Impacted cerumen, right ear Ischemic cardiomyopathy Lung nodule MRSA (methicillin resistant staph aureus) culture positive Nasopharyngeal cancer Nocturnal hypoxemia Otalgia of right ear PAD (peripheral artery disease) Rash Retained myringotomy tube in right ear Right chronic otitis media Tobacco abuse counseling Surgical History AICD (automatic cardioverter/defibrillator) present H/O left wrist surgery History of bronchoscopy History of cardiac defibrillator placement History of hernia surgery Family History Other No significant family history Social History Smoking Status: Former smoker tobacco type: cigarettes packs per day: 1 how long ago did patient quit smokin months second hand exposure: No alcohol intake: former substance use type: denies use current occupational status: retired Travel in the last 8 weeks: None household members: none housing: house lives independently: Yes marital status: single education level: high school service: Yes caffeine: No special shelley needs: No agree to transfusion: No do you feel safe at home: Yes victim of physical abuse: No victim of emotional abuse: No victim of sexual abuse: No would you like helpful sources: No [facility] Anesthesia Checklist Patient Identification Patient Identification: Arm Band, Family and Verbal (Name & ) Structural Data Admitted From: Home Planned Operative Procedure/s: RIGHT Open IHR Consent for Planned Operative Procedure(s) Verified: Yes Verified Documents: Surgical Consent and History and Physical NPO Status Verified Time NPO: 18:00 Chart Verification Results Verified: CBC, BMP, ECG and Chest Xray Additional verifications Patient : No Anesthesia Reactions: No Hx Blood Transfusions: No Blood Transfusion Reaction: No Cephalosporin Allergy: No Previous Colonoscopy: No Cardiovascular Assessment Heart Sounds: S1 & S2 Pulse Rhythm: Irregular Peripheral Edema: No Airway Assessment Mallampati Score:: Class II C-Spine Mobility Assessed: Yes TMJ Mobility Assessed: Yes Dentition: Edentulous Neurological Assessment Level of Consciousness: Awake, Alert, Appropriate and Follows Commands Hx Seizures: No Numbness or tingling in extremities: No Anesthesia Plan Anesthesia Risk discussed: Yes Anesthesia Plan: Verified ASA Class: IV Anesthesia Type: General
--- NOTE | 2022-11-27 11:27 | EXP.OP.NOTE ---
Date of procedure: 11/27/22 Pre-op Diagnosis:: Right inguinal hernia Post-op Diagnosis:: Same Procedure performed:: Open right inguinal hernia repair Surgeon:: Aurelio Spivey MD Anesthesia: LMA Estimated blood loss (mL): 15 Operative findings:: Complex direct defect Moderate indirect defect Operative note:: After informed consent was obtained the patient was taken to the operating room and placed in the supine position. General anesthesia with laryngeal mask airway was achieved. His lower abdomen and groin/scrotum were prepped and draped in a sterile fashion. After infiltration with local anesthetic an oblique right groin incision was made. Electrocautery was utilized to transect through Olive's fascia to the level of the external aponeurosis. The external aponeurosis was opened sharply to the level of the external ring. The contents of the canal were carefully elevated. A combination of blunt dissection, sharp dissection, and electrocautery was utilized to free the surrounding tissue. No obvious injury to the vas deferens or vasculature was noted. A fairly complex direct defect was noted. A moderate indirect defect was also noted. The hernia sac of the indirect defect was freed from surrounding tissue. A large PerFix plug was placed in the direct defect and secured with interrupted Ethibond. An extra-large PerFix plug was then secured in the indirect defect with Ethibond. Finally, the extra-large PerFix overlay was secured to the shelving edge inferiorly and fascial margin superiorly with interrupted Ethibond. The external aponeurosis was reapproximated with running 2-0 Vicryl. Olive's fascia was closed in the same manner. Skin was then reapproximated with the INSORB stapling device. Dressings were applied and the patient was transferred to recovery in stable condition. Condition: stable Disposition: PACU Specimens:: none Complications:: No immediate
--- NOTE | 2022-11-27 11:40 | EXP.ANES.I ---
[facility] Anesthesia Record Part I Anesthesia Record I Intake, IV Amount: 1,500 Hydration: Adequate Estimated blood loss (mL): 25 Urine output (mL): 150 Blood Products used (#): none Blood Pressure: 146/86 SaO2: 97 Pulse Rate: 73 Airway Patency: Patent Respiratory Rate: 14 Temperature: 96.6 F Patient is:: Awake, Drowsy and Stable Stable to PACU at:: 11:38
--- NOTE | 2022-11-27 12:14 | SUR.PHASEI ---
1200-pt was able to void 50 ml clear,yellow urine per urinal.
--- NOTE | 2022-11-28 20:06 | P.PNANES_ITS ---
[facility] Anesthesia Record Part II Anesthesia Record Part II Discharge Time: 12:05 Destination: Surgical Day Care (OP Surgery) PACU nurse assessment reviewed?: Yes Patient Condition:: Good Anesthesia Complications:: None Swallowing reflex intact?: Yes Airway Patency: Patent Cyanosis?: No Blood Pressure: 145/85 SaO2: 99 Respiratory Rate: 16 Pulse Rate: 85 Temperature: 97 F Mental Status: Alert & Oriented Pain level:: 0 Nausea and/or vomitting:: None Intake, IV Amount: 0 Hydration: Adequate
[2022-11-28 20:07] VITALS: BP 145/85; PULSE 85; RESP 16; TEMP 36.1; O2SAT 99
== END 2022-11-27 12:40 | disposition home or self-care (01) ==
PROVIDERS: PCP Emergency Medicine; Visit Provider Surgery
PROC: (CPT 49505; principal; 2022-11-27 09:00)
DX: K40.90 Unilateral inguinal hernia, without obstruction or gangrene, not specified as recurrent (principal)
CPT/HCPCS: 49505; 96374; J2405

== ENCOUNTER → 2022-12-10 10:35 | Outpatient (CLI) | payer MEDICARE, OTHER, SELFPAY | PROVIDERS: PCP Emergency Medicine; Visit Provider Internal Medicine Pulmonary Disease | DX: R06.00 Dyspnea, unspecified (principal); R06.89 Other abnormalities of breathing | CPT/HCPCS: 94762 ==

== ENCOUNTER → 2023-01-20 07:46 | Outpatient (CLI) | payer MEDICARE, OTHER, SELFPAY ==
--- NOTE | 2023-01-20 08:26 | PC.NURSE ---
Pre and Post Spirometry completed with 6 minute walk test. Albuterol 0.083% given via HHN, per written protocol, Pt tolerated tx well.
== END ==
PROVIDERS: PCP Emergency Medicine; Visit Provider Internal Medicine Pulmonary Disease
DX: R06.09 Other forms of dyspnea
CPT/HCPCS: 94060; 94618

== ENCOUNTER 2023-03-17 16:38 | Outpatient (CLI) | payer MEDICARE, OTHER, SELFPAY | END 2023-03-17 23:59 | LOC: LAB.DROPOF 16:39 | PROVIDERS: PCP Otolaryngology; Visit Provider Otolaryngology | DX: H66.91 Otitis media, unspecified, right ear (principal); B95.7 Other staphylococcus as the cause of diseases classified elsewhere | CPT/HCPCS: 87070 ==

== ENCOUNTER 2023-06-02 10:11 | Outpatient (CLI) | payer MEDICARE, OTHER, SELFPAY ==
[2023-06-02 11:30] LABS: Alanine Aminotransferase 18 U/L (12-78); Alkaline Phosphatase 82 U/L (38-126); Aspartate Amino Transferase 51 U/L (17-59); Bilirubin,Direct 0.3 mg/dl (0.0-0.4); Bilirubin,Indirect 0.3 mg/dL (0.0-0.9); Bilirubin,Total 0.6 mg/dl (0.2-1.3); Bilirubin,Unconjugated 0.3 mg/dL (0.0-1.1); Chol/HDL Ratio 4.7 (1-3.5); Cholesterol 234 mg/dl (140-200); HDL Cholesterol 50 mg/dl (40-60); Total Protein,Serum 6.9 g/dl (6.3-8.2); Triglycerides 137 mg/dl (30-150); VLDL Cholesterol 27 mg/dL (0-40)
[2023-06-02 11:42] LABS: Direct LDL Cholesterol 123.71 mg/dL (100-129)
== END 2023-06-02 23:59 | disposition home or self-care (01) ==
LOC: LAB 10:12
PROVIDERS: PCP Internal Medicine; Visit Provider Internal Medicine
DX: E78.2 Mixed hyperlipidemia (principal); I65.23 Occlusion and stenosis of bilateral carotid arteries; I50.32 Chronic diastolic (congestive) heart failure; I73.9 Peripheral vascular disease, unspecified; Z95.810 Presence of automatic (implantable) cardiac defibrillator; I25.5 Ischemic cardiomyopathy; I25.10 Atherosclerotic heart disease of native coronary artery without angina pectoris; I10 Essential (primary) hypertension
CPT/HCPCS: 36415; 80061; 80076

== ENCOUNTER 2023-06-22 12:41 | Outpatient (CLI) | payer MEDICARE, OTHER, SELFPAY ==
[2023-06-22] MEDS: INCLISIRAN SODIUM 284 MG/1.5 ML SYRINGE SQ (12:55)
[2023-06-22 13:00] VITALS: BP 163/89; PULSE 88; RESP 18; O2SAT 96
== END 2023-06-22 13:00 | disposition home or self-care (01) ==
LOC: INF 12:42
PROVIDERS: PCP Internal Medicine; Visit Provider Physician Assistant
DX: E78.5 Hyperlipidemia, unspecified (principal)
CPT/HCPCS: 96372; J1306

== ENCOUNTER 2023-08-19 11:02 | Outpatient (CLI) | payer MEDICARE, OTHER, SELFPAY | END 2023-08-19 23:59 | disposition home or self-care (01) | LOC: LAB.DROPOF 08-24 11:04 | PROVIDERS: PCP Internal Medicine; Visit Provider Otolaryngology | DX: H66.91 Otitis media, unspecified, right ear (principal); H72.91 Unspecified perforation of tympanic membrane, right ear; H91.8X1 Other specified hearing loss, right ear | CPT/HCPCS: 87070; 87077 ==

== ENCOUNTER 2023-11-03 16:00 | Outpatient (CLI) | payer MEDICARE, OTHER, SELFPAY | END 2023-11-03 23:59 | disposition home or self-care (01) | LOC: LAB.DROPOF 11-04 12:46 | PROVIDERS: PCP Student in an Organized Health Care Education/Training Program; Visit Provider Student in an Organized Health Care Education/Training Program | DX: H92.11 Otorrhea, right ear (principal); C11.9 Malignant neoplasm of nasopharynx, unspecified; H91.91 Unspecified hearing loss, right ear; H72.91 Unspecified perforation of tympanic membrane, right ear | CPT/HCPCS: 87070; 87077; 87186 ==

== ENCOUNTER 2023-12-23 12:52 | Outpatient (CLI) | payer MEDICARE, OTHER, SELFPAY ==
[2023-12-23 13:00] VITALS: BP 162/83; PULSE 83; RESP 20; TEMP 36.7; O2SAT 96
[2023-12-23] MEDS: INCLISIRAN SODIUM 284 MG/1.5 ML SYRINGE SUBCUT (13:00)
== END 2023-12-23 13:23 | disposition home or self-care (01) ==
LOC: INF 12:53
PROVIDERS: PCP Internal Medicine; Visit Provider Physician Assistant
DX: E78.5 Hyperlipidemia, unspecified (principal)
CPT/HCPCS: 96372; J1306

== ENCOUNTER 2024-03-07 12:31 | Outpatient (CLI) | payer MEDICARE, OTHER, SELFPAY ==
--- NOTE | 2024-03-07 12:37 | XR_ITS ---
FINAL REPORT CLINICAL HISTORY: possible inpingement syndrome..arthritis COMPARISON: None FINDINGS: LEFT SHOULDER 3 views of the left shoulder were obtained. There is no acute fracture or dislocation. Visualized joint spaces are normally aligned. Soft tissues are unremarkable. Left-sided pacemaker is present. IMPRESSION: No acute bony abnormality. Reviewed, Interpreted and Dictated by He Mccauley MD Transcribed by Vane Sánchez Authenticated and [facility]
--- NOTE | 2024-03-07 12:37 | XR_ITS ---
FINAL REPORT CLINICAL HISTORY: possible impingement syndrome..arthritis COMPARISON: None FINDINGS: RIGHT SHOULDER Three views demonstrate no acute fracture or dislocation. The visualized joint spaces are normally aligned. The soft tissues are unremarkable. IMPRESSION: No acute process. Reviewed, Interpreted and Dictated by He Mccauley MD Transcribed by Vane Sánchez Authenticated and [facility]
== END 2024-03-07 23:59 | disposition home or self-care (01) ==
LOC: RAD 12:32
PROVIDERS: PCP Internal Medicine; Visit Provider Internal Medicine
DX: M25.511 Pain in right shoulder (principal); M25.512 Pain in left shoulder
CPT/HCPCS: 73030

== ENCOUNTER 2024-04-04 10:45 | Outpatient (CLI) | payer MEDICARE, OTHER, SELFPAY ==
[2024-04-04 11:21] LABS: Basophils # 0.1 K/mm3 (0-0.2); Eosinophils # 0.3 K/mm3 (0.0-0.4); Eosinophils % 2.9 % (0.1-12.0); Hematocrit 43.7 % (42.0-52.0); Hemoglobin 14.8 g/dL (14.1-18.0); Lymphocytes # 2.9 K/mm3 (0.7-4.5); Mean Corpuscular HGB Conc 33.9 g/dL (31.8-35.4); Mean Corpuscular Hemoglobin 31.2 pg (27.0-31.2); Mean Platelet Volume 10.5 fl (7.4-10.4); Monocytes # 0.7 K/mm3 (0.1-1.0); Monocytes % 7.7 % (1.7-9.3); Neutrophils # 5.1 K/mm3 (1.8-7.8); Neutrophils % 56.3 % (37.0-80.0); Platelet Count 182 K/mm3 (142-424); Red Blood Count 4.75 M/mm3 (4.60-6.20); Red Cell Distribution Width 12.7 % (11.5-17.5); White Blood Count 9.1 K/mm3 (4.8-10.8)
[2024-04-04 11:33] LABS: Albumin Level 4.2 g/dl (3.5-5.0); Chloride 97 mmol/L (98-107); Potassium 4.9 mmoL/L (3.5-5.1); Sodium 132 mmol/L (136-145)
[2024-04-04 11:35] LABS: Alanine Aminotransferase 11 U/L (12-78); Anion Gap 11.9 mEq/L (5-15); Bilirubin,Unconjugated 0.2 mg/dL (0.0-1.1); Blood Urea Nitrogen 22 mg/dl (9-20); Carbon Dioxide 28 mmol/L (22.0-30.0); Estimated Glomerular Filt Rate 84 ml/min (>60); GFR (African American) 101 ML/MIN (>60)
[2024-04-04 11:36] LABS: Alkaline Phosphatase 90 U/L (38-126); Aspartate Amino Transferase 29 U/L (17-59); Bilirubin,Direct 0.3 mg/dl (0.0-0.4); Bilirubin,Indirect 0.2 mg/dL (0.0-0.9); Bilirubin,Total 0.5 mg/dl (0.2-1.3); Calcium 9.1 mg/dl (8.4-10.2); Chol/HDL Ratio 2.9 (1-3.5); Cholesterol 164 mg/dl (140-200); Glucose 104 mg/dl (74-100); HDL Cholesterol 56 mg/dl (40-60); Magnesium 1.6 mg/dl (1.6-2.3); Triglycerides 191 mg/dl (30-150); VLDL Cholesterol 38 mg/dL (0-40)
[2024-04-04 11:48] LABS: Direct LDL Cholesterol 72.08 mg/dL (100-129)
[2024-04-04 11:54] LABS: Free T4 (Free Thyroxine) 1.53 ng/dl (0.78-2.19)
[2024-04-04 12:08] LABS: Thyroid Stimulating Hormone 4.01 uIU/mL (0.465-4.68)
== END 2024-04-04 23:59 | disposition home or self-care (01) ==
LOC: LAB 10:46
PROVIDERS: PCP Internal Medicine; Visit Provider Physician Assistant
DX: C11.9 Malignant neoplasm of nasopharynx, unspecified (principal); I11.9 Hypertensive heart disease without heart failure; K21.9 Gastro-esophageal reflux disease without esophagitis; I73.9 Peripheral vascular disease, unspecified; Z95.810 Presence of automatic (implantable) cardiac defibrillator; I25.5 Ischemic cardiomyopathy; I25.10 Atherosclerotic heart disease of native coronary artery without angina pectoris; I65.29 Occlusion and stenosis of unspecified carotid artery; E78.5 Hyperlipidemia, unspecified; Z95.5 Presence of coronary angioplasty implant and graft; Z87.891 Personal history of nicotine dependence
CPT/HCPCS: 36415; 80048; 80061; 80076; 83735; 84439; 84443; 85025

== ENCOUNTER 2024-04-26 15:38 | Outpatient (CLI) | payer MEDICARE, OTHER, SELFPAY ==
--- NOTE | 2024-04-26 15:41 | XR_ITS ---
FINAL REPORT CLINICAL HISTORY: SOB COMPARISON: None FINDINGS: PA and lateral views of the chest were obtained. There are mixed interstitial and alveolar opacities throughout the left lung, greatest in the upper lobe. Findings are suspicious for pneumonia. However, if the patient has a history of cancer, underlying neoplasm is not excluded. The right lung is clear. The mediastinum has a normal appearance. A left-sided pacer is present. The cardiac silhouette is unremarkable. IMPRESSION: Extensive opacities throughout the left lung, likely pneumonia but underlying neoplasm not excluded. Reviewed, Interpreted and Dictated by Angelica Ovalles MD Transcribed by Vane Sánchez Authenticated and [facility]
== END 2024-04-26 23:59 | disposition home or self-care (01) ==
LOC: RAD 15:39
PROVIDERS: PCP Internal Medicine; Visit Provider Internal Medicine Pulmonary Disease
DX: R06.02 Shortness of breath (principal)
CPT/HCPCS: 71046

== ENCOUNTER 2024-04-27 10:59 | Outpatient (CLI) | payer MEDICARE, OTHER, SELFPAY | END 2024-04-27 23:59 | disposition home or self-care (01) | LOC: LAB 10:59 | PROVIDERS: PCP Internal Medicine; Visit Provider Internal Medicine Pulmonary Disease | DX: J18.9 Pneumonia, unspecified organism (principal) | CPT/HCPCS: 87070; 87077; 87186; 87205 ==

== ENCOUNTER 2024-05-05 11:47 | Outpatient (CLI) | payer MEDICARE, OTHER, SELFPAY ==
--- NOTE | 2024-05-05 11:47 | XR_ITS ---
FINAL REPORT CLINICAL HISTORY: SOB, F/U A WEEK AGO COMPARISON: 04/26/2024 FINDINGS: PA and lateral views of the chest were obtained. No change in the left-sided AICD. The heart is normal in size.. Underlying emphysema is again noted. Irregularity masslike opacity in the left apex is unchanged. The left perihilar and inferior left upper lobe opacity appears worse since the prior exam. There may be a small left pleural effusion. There is no pneumothorax. No acute osseous abnormality is identified. IMPRESSION: Possible worsening airspace disease, pneumonia not excluded. Stable irregular masslike opacity left apex. Reviewed, Interpreted and Dictated by Yesica Kimbrough MD Transcribed by Vane Sánchez Authenticated and . [facility]
== END 2024-05-05 23:59 | disposition home or self-care (01) ==
LOC: RAD 11:47
PROVIDERS: PCP Internal Medicine; Visit Provider Internal Medicine Pulmonary Disease
DX: R06.02 Shortness of breath (principal)
CPT/HCPCS: 71046

== ENCOUNTER 2024-05-06 10:40 | Outpatient (CLI) | payer MEDICARE, OTHER, SELFPAY | END 2024-05-06 23:59 | disposition home or self-care (01) | LOC: LAB 10:41 | PROVIDERS: PCP Family Medicine; Visit Provider Internal Medicine Pulmonary Disease | DX: J18.9 Pneumonia, unspecified organism (principal) | CPT/HCPCS: 87070; 87205 ==

== ENCOUNTER 2024-06-28 10:42 | Outpatient (CLI) | payer MEDICARE, OTHER, SELFPAY ==
--- NOTE | 2024-06-28 10:44 | FL_ITS ---
FINAL REPORT CLINICAL HISTORY: PNEUMONIA LT LOWER LOBE 202.28 dap 3.23 fl FINDINGS: FLUOROSCOPY LESS THAN 1 HOUR HISTORY: Fluoroscopy guidance. FINDINGS: Fluoroscopic guidance was provided for esophagus with video. A total of 3.23 minutes of fluoroscopy time were used. DAP: 202.28 mGy IMPRESSION: As above. Reviewed, Interpreted and Dictated by Angelica Ovalles MD Transcribed by Vane Sánchez Authenticated and [facility]
--- OUTSIDE RECORDS SUMMARY | 2024-06-28 10:44 | XMS_ITS | Continuity of Care Document ---
Author Name [facility] Organization [facility] Care Team Providers Care Molded Goods Controls Operator Name Role Phone [facility] Unavailable Unavailable Medications Combined list of outpatient medications from Department of Defense and Veterans Affairs facilities.Medications provided include 1) outpatient medications from the last 15 months, and 2) patient-reported medications. Medication Details Route Status Patient Instructions Prescription Expires Prescription Number Last Dispense Date Ordering Provider Order Date Order Qty Source ALBUTEROL SULFATE HFA (albuterol sulfate), 90 MCG, HFA AER AD, INHALATION, [employer] [place], 8.5 g CANISTER Active [id number] 4 2023 8.5 Pharmac y Data Transac tion Service Facilit y AMITRIPTYLI NE HCL (amitriptyl ine HCl), 25 MG, TABLET, ORAL, [facility], 1000 ea. BOTTLE Cancele d [id number] : 2023 0 Pharmac y Data Transac tion Service Facilit y AMITRIPTYLI NE HCL (amitriptyl ine HCl), 25 MG, TABLET, ORAL, [facility], 1000 ea. BOTTLE Active [id number] 4 2023 30 Pharmac y Data Transac tion Service Facilit y AMITRIPTYLI NE HCL (amitriptyl ine HCl), 25 MG, TABLET, ORAL, [facility], 1000 ea. BOTTLE Active [id number] 4 2023 30 Pharmac y Data Transac tion Service Facilit y METOPROLOL SUCCINATE (metoprolol succinate), 25 MG, TAB ER 24H, ORAL, [employer] 1000 ea. BOTTLE Active [id number] 4 2023 90 Pharmac y Data Transac tion Service Facilit y OMEPRAZOLE (omeprazole ), 40 MG, CAPSULE DR, ORAL, [employer] [facility], 500 ea. BOTTLE Cancele d [id number] : 2023 0 Pharmac y Data Transac tion Service Facilit y SULFAMETHOX AZOLE-TRIME THOPRIM (SULFAMETHO XAZOLE/TRIM ETHOPRIM), 800-160MG, TABLET, ORAL, [employer] [facility], 100 ea. BOTTLE Active [id number] 4 2023 60 Pharmac y Data Transac tion Service Facilit y TRELEGY ELLIPTA (fluticason e furoate/ume clidinium bromide/mina anterol trifenat), 100-62.5, BLST W/DEV, INHALATION, GLAXOSMITHK LINE, 60 ea. BLIST PACK Active [id number] 4 2023 180 Pharmac y Data Transac tion Service Facilit y Immunizations Combined list of available immunizations from the Department of Defense and Veterans Affairs facilities. Immunization Series Date Given Administered By Site Reaction Lot Number CVX Code Drug Military Pay Clerk Status Comments Source Influenza vaccine, quadrivalent, adjuvanted 2020 PRISCILA TIMMONS () Not Given Influenza vaccine, quadrival ent, adjuvante d DoD Procedures Combined list of: 1) Procedures from Department of Veterans Affairs facilities going back up to thelast 18 months, not all VA non-surgical procedures are included; 2) All procedures from the Department of Defense facilities. Procedure Procedure Type Code Date Perfomer Comments Yuan marie UNILATERAL REPAIR OF DIRECT INGUINAL HERNIA WITH GRAFT OR PROSTHESIS 03/29/1994 [facility] Social History Combined list of available smoking, tobacco, and other social history from Department of Defense and Veterans Affairs facilities. Social History Type Response Date Comment Yuan marie This section is an empty social history section. [facility]
[2024-06-28] MEDS: BARIUM SULFATE(LIQUID E-Z-PAQUE);355ML BOTTLE 355 ML PO (11:29)
--- NOTE | 2024-06-28 11:57 | HMH.SLMBS2 ---
Speech & Language Evaluation Speech/Lang Modified Barium Swallow Start: 06/28/24 11:42 Freq: once Status: Complete Protocol: Document 06/28/24 11:42 HONG (Rec: 06/28/24 11:57 [facility] [id number]) GRAIN DRIER Evaluation Information GRAIN DRIER Evaluation Information Date of Evaluation: 06/28/24 Time of Evaluation: 11:00 Evaluation Type Initial Certification Reason for Referral pneumonia LT lower lobe/ nasopharynx cancer Does Patient Qualify for Service No Qualify/Failure Comment Based on clinical observations made throughout instrumental assessment and pt interview, further skilled speech therapy services are not warranted at this time d/t adequate mastication and manipulation of bolus and safe and efficient oropharyngeal swallow with use of compensatory strategies. MBS Recommendations Plan Pt/Guardian verbally ack understanding Yes of dx/prognosis/goals Diet Dietary Recommendations Regular,Thin Liquids SL Swallow Guidelines Alt bite w/sip thru meal, Standard Aspiration Prec.,Eat at slow rate,Reflux precautions Treatment/Strategies Strategy/Precaution Recommended Sitting Upright (90 deg), Double Swallow,Supraglottic Swallow,Small Bites and Sips, Alternate Liquids/Solids GRAIN DRIER Patient History Section GRAIN DRIER Patient History Primary Medical History Mr. Colvin expressed a PMHx including nasopharynx cancer, treated with radiation. He states he is currently cancer free. He has had multiple pneumonias recently (left lower lobe), and is being referred to a lung specialist at [facility]. Other PMHx includes heart attack and reflux. Does Patient have Reflux or GERD? Yes Does Patient Experience Coughing or No Choking Episodes? Does Patient Avoid Certain Food Textures No /Consistencies? Does Patient Utilize Compensatory Yes Strategies During Meals? Compensatory Strategies Comment Pt states that he alternates his bites/sips, and when he has globus sensation he clears his throat. Has Patient Experienced Significant No Weight Loss? Does Pt have Hx of Recurrent Pneumonias Yes or Respiratory Infections? Hx of Recurrent Infection Comment Recurrent pneumonia Has Patient Noticed Change in Vocal No Quality? Mod Barium Swallow Study Patient Orientation Patient Orientation Person,Place,Time,Situation Oral Expression Ability No Impairment Ability to Follow Directions Excellent Is Patient able to Perform Volitional Yes Throat Clear? Is Patient able to Perform Volitional Yes Cough? Is Patient able to Manage Secretions Yes Independently? Mod Barium Swallow Set Up Radiologist Alexsander Gary Patient Presentation: Awake,Alert,Appropriate, Follows Commands Bolus Consistencies Trialed: Thin Liquids,Pudding,Puree, Mechanical Soft,Regular,Pill ( Barium Tablet) MBSS Observations Consistency & Strategy Trial Regular Penetration/Aspiration Scale 1 PAS Amount Neither Pharyngeal Residual 10-49% Mechanical Soft Penetration/Aspiration Scale 1 PAS Amount Neither Pharyngeal Residual 10-49% Puree Penetration/Aspiration Scale 1 PAS Amount Neither Pharyngeal Residual 0-9% Pudding Penetration/Aspiration Scale 1 PAS Amount Neither Pharyngeal Residual 10-49% Thin Penetration/Aspiration Scale 1 PAS Amount Neither Pharyngeal Residual 0-9% Mod Barium Swallow Impressions Oral Phase Summary & Impressions Oral Phase: Impression Minimal Impairment Oral Phase: Labial Closure No Impairment (WFL) Oral Phase: Bolus Formation Pooling L/R No Impairment (WFL) Oral Phase: Bolus Formation Under Tongue No Impairment (WFL) Oral Phase: Bolus Formation Scattered No Impairment (WFL) Loss Oral Phase: Mastication Rotary Chew No Impairment (WFL) Oral Phase: Mastication Munching No Impairment (WFL) Oral Phase: Mastication Lateralization No Impairment (WFL) Oral Phase: Lingual Movement No Impairment (WFL) Oral Phase: Residue Clearing Minimal Impairment Oral Phase: Summary Minimal impairment of oral phase of swallow d/t minimal oral residue during pudding, mechanical soft, and regular consistency, which was cleared with double swallow. Pharyngeal Phase Summary & Impressions Pharyngeal Phase: Impression Mild Impairment Pharyngeal Phase: A/P Lingual Propulsion No Impairment (WFL) Spills Pharyngeal Phase: Swallow Response Delay No Impairment (WFL) Pharyngeal Phase: Base of Tongue Minimal Impairment Pharyngeal Phase: Epiglottic Coverage Minimal Impairment Pharyngeal Phase: Laryngeal Elevation Minimal Impairment Pharyngeal Phase: Vallecular Retention Mild Impairment Clearing Pharyngeal Phase: Pharyngeal Wall Minimal Impairment Residue Clearing Pharyngeal Phase: Piriform Sinus No Impairment (WFL) Retention Pharyngeal Phase: Summary Mild impairment of pharyngeal phase of swallow. No aspiration/penetration observed during any consistency trialed. Pt demonstrated slightly reduced BOT retraction, and hyolaryngeal excursion and elevation resulting in vallecular residue during pudding, mechanical soft, and regular trials. Pt attempted consecutive swallow to clear residue but was unsuccessful. Pt then attempted supraglottic swallow and was able to clear residue. Minimal residue observed on PPW, which was cleared with consecutive swallow. Barium tablet was cleared functionally into esophagus. Aspiration Aspiration? No Silent Aspiration? No GRAIN DRIER MBSS Goals Education Instructions provided GRAIN DRIER discussed clinical observations made throughout instrumental assessment, diet recommendations, and aspiration precautions/ compensatory strategies with pt who expressed understanding . Patient/Caregiver Able to Recall Able to recall/restate Information Reinforcement needed No PHYSICIAN CERTIFICATION: I certify the specified therapy services for Fortunato Colvin are required, authorized, and reviewed every 30 days.
== END 2024-06-28 23:59 | disposition home or self-care (01) ==
LOC: RAD 10:42
PROVIDERS: PCP Family Medicine; Visit Provider Internal Medicine
DX: J18.9 Pneumonia, unspecified organism (principal)
CPT/HCPCS: 74230; 92611

== ENCOUNTER 2024-07-15 08:52 | Outpatient (CLI) | payer MEDICARE, OTHER, SELFPAY ==
--- OUTSIDE RECORDS SUMMARY | 2024-07-15 08:54 | XMS_ITS | Continuity of Care Document ---
Author Name [facility] Organization [facility] Care Team Providers Care Sales And Marketing Manager Name Role Phone [facility] Unavailable Unavailable Medications Combined list of outpatient [...] INHALATION, TEVA [place], 8.5 g CANISTER Active [id number] 4 2023 8.5 Pharmac y Data Transac tion Service Facilit y AMITRIPTYLI NE HCL (amitriptyl ine HCl), 25 MG, TABLET, ORAL, [employer], 1000 ea. BOTTLE Cancele d [id number] : 2023 0 Pharmac y Data Transac tion Service Facilit y AMITRIPTYLI NE HCL (amitriptyl ine HCl), 25 MG, TABLET, ORAL, [employer], 1000 ea. BOTTLE Active [id number] 4 2023 30 Pharmac y Data Transac tion Service Facilit y AMITRIPTYLI NE HCL (amitriptyl ine HCl), 25 MG, TABLET, ORAL, [employer], 1000 ea. BOTTLE Active [id number] 4 2023 30 Pharmac y Data Transac tion Service Facilit y METOPROLOL SUCCINATE (metoprolol succinate), 25 MG, TAB ER 24H, ORAL, [employer] 1000 ea. BOTTLE Active [id number] 4 2023 90 Pharmac y Data Transac tion Service Facilit y OMEPRAZOLE (omeprazole ), 40 MG, CAPSULE DR, ORAL, [employer], 500 ea. BOTTLE Cancele d [id number] : 2023 0 Pharmac y Data Transac tion Service Facilit y SULFAMETHOX AZOLE-TRIME THOPRIM (SULFAMETHO XAZOLE/TRIM ETHOPRIM), 800-160MG, TABLET, ORAL, [employer], 100 ea. BOTTLE Active [id number] 2023 60 Pharmac y Data Transac tion Service Facilit y TRELEGY ELLIPTA (fluticason e furoate/ume clidinium bromide/mina anterol trifenat), 100-62.5, BLST W/DEV, INHALATION, GLAXOSMITHK LINE, 60 ea. BLIST PACK Active [id number] 4 2023 180 Pharmac y Data Transac tion Service Facilit y Immunizations Combined list of available immunizations from the Department of Defense and Veterans Affairs facilities. Immunization Series Date Given Administered By Site Reaction Lot Number CVX Code Drug Property Technician Status Comments Source Influenza vaccine, quadrivalent, adjuvanted [...] INGUINAL HERNIA WITH GRAFT OR PROSTHESIS 03/29/1994 [facility] Social History Combined list of available smoking, tobacco, and other social history from Department of Defense and Veterans Affairs facilities. Social History Type Response Date Comment Yuan marie This section is an empty social history section. [facility]
[2024-07-15 09:00] VITALS: BP 150/72; PULSE 79; RESP 18; O2SAT 97
[2024-07-15] MEDS: INCLISIRAN SODIUM 284 MG/1.5 ML SYRINGE SUBCUT (09:00)
== END 2024-07-15 11:43 | disposition home or self-care (01) ==
LOC: INF 08:53
PROVIDERS: PCP Family Medicine; Visit Provider Physician Assistant
DX: E78.5 Hyperlipidemia, unspecified (principal)
CPT/HCPCS: 96372; J1306

== ENCOUNTER 2024-07-27 08:36 | Outpatient (RCR) | payer MEDICARE, OTHER, SELFPAY ==
--- NOTE | 2024-07-27 09:54 | HMH.SLDYSPHA ---
Speech & Language Evaluation Speech/Language Dysphagia Evaluation Start: 07/27/24 09:32 Freq: ONCE Status: Active Protocol: Document 07/27/24 09:32 SAL (Rec: 07/27/24 09:54 [id number] Dysphagia Assess/Goals/Plan Assessment Date of Evaluation: 07/27/24 Evaluation Type Initial Certification Assessment/Problems dysphagia per MD order Does Patient Qualify No for Service Qualify/Failure Based on chart review, review of MBSS dated June 2024, Comment patient interview, and information gathered from informal assessment and dysphagia inventories, swallowing is WFL and pt is adhering to recommended compensatory strategies given at [facility]. No further skilled speech therapy services are warranted at this time. GI referral would be beneficial. Recommendations PHYSICIAN CERTIFICATION: The specified therapy services are required, authorized, and reviewed every 30 days. Diet Recommendations Normal Liquid Type Normal/Thin Recommendations SL Swallow Alt bite w/sip thru meal,Standard Aspiration Prec.,Eat Guidelines at slow rate,Reflux precautions Dysphagia Swallow Small Bites and Sips,Alternate Liquids/Solids Precautions/ Strategies Additional Consults Other Recommended Comment GI and ENT, nasopharynx cancer remission/complaints of globus sensation/RSI ratings from 3-5 with frequent throat clearing and post-nasal drip/excess phlegm Plan Pt/Guardian verbally Yes ack understanding of dx/prognosis/ goals G -code Required No Education Instructions Discussed MBSS results from June, reviewed information provided gathered from informal assessment and dysphagia inventories and educated on need for ENT and GI referrals, pt expressed understanding. Pt/Caregiver able to Able to recall/restate recall information Speech & Language HPI History Present Illness Description of Mr. 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 Pt has been experiencing s/sxs of LL pna since April 20, 2024 per his report and presents at [facility] for a swallowing evaluation following f/u with his oncologist. Pt expressed no concerns for his swallowing. Rehab Services Speech therapy Assessed General Information General Current Food Regular,Thin Liquids Consistancy Dentition Good Dentition Oxygen Status Room Air Patient Orientation Person,Place,Time,Situation Ability to Follow Good Directions Communication No Impairment Ability Dysphagia:Food Presentation Evaluation Dysphagia Evaluation No PO trials as pt had recent MBSS and expressed no Summary concerns for swallowing but wanted to adhere to MD referral. IMPORT/EXPORT AGENT pulled following information from MBSS report: Minimal impairment of oral phase of swallow d/ t minimal oral residue during pudding, mechanical soft, and regular consistency, which was cleared with double swallow. Mild impairment of pharyngeal phase of swallow. No aspiration/penetration observed during any consistency trialed. Pt demonstrated slightly reduced BOT retraction, and hyolaryngeal excursion and elevation resulting in vallecular residue during pudding, mechanical soft, and regular trials. Pt attempted consecutive swallow to clear residue but was unsuccessful. Pt then attempted supraglottic swallow and was able to clear residue. Minimal residue observed on PPW, which was cleared with consecutive swallow. Barium tablet was cleared functionally into esophagus. IMPORT/EXPORT AGENT completed a variety of dysphagia inventories including DHI in which he scored between the normal and mild range, PILL-5 in which he scored a 0, RSI in which primarily scores ranged between 3-5 indicating a need for a GI referral, MDADI in which he scored between 0-1, and the EAT10 where he primarily rated between a 0-1 reporting little to no difficulty. Based on this information, no further skilled speech therapy services are warranted at this time. However, would benefit from ENT and GI referral to further assess throat clearing, globus sensation, and excessive phlegm and post nasal drip. Pt also reports hx of esophageal dilation. Stroke Dysphagia Assessment PHYSICIAN CERTIFICATION: I certify the specified therapy services for Fortunato Colvin are required, authorized, and reviewed every 30 days.
== END 2024-07-27 23:59 | disposition home or self-care (01) ==
LOC: ST 08:36
PROVIDERS: Visit Provider Internal Medicine
DX: J18.9 Pneumonia, unspecified organism (principal); J96.11 Chronic respiratory failure with hypoxia
CPT/HCPCS: 92610

== ENCOUNTER 2024-09-30 09:35 | Outpatient (CLI) | payer MEDICARE, OTHER, SELFPAY ==
--- OUTSIDE RECORDS SUMMARY | 2024-09-09 10:45 | XMS_ITS | Encounter Summary ---
Author Organization Healthcare Address [address] [place] [address] Care Team Providers Care Acquisition Professional Name Role Phone Alexandria Love MD Unavailable [phone] Ashok Almanza MD Unavailable [phone] Shaan Judge APRN Unavailable [phone] Pcp, No Primary Care Provider Unavailabl e Reason for Visit * Reason Comments Follow-up Encounter Details Date Type Department Care Team (Latest Contact Info) Description 09/09/2024 10:45 AM EDT [facility] [address] [place] [address] Evaristo North MD [address] [place] [address] History of tympanoplasty (Primary Dx); Hx of head and neck radiation; Sensorineural hearing loss (SNHL) of both ears; Mixed conductive and sensorineural hearing loss of right ear with restricted hearing of left ear Social History Tobacco Use Types Packs/Day Years Used Date Smoking Tobacco: Every Day Cigarettes 1 55.6 Started: 02/09/1969 Passive Smoke Exposure: Never Smokeless Tobacco: Never Tobacco Cessation:Ready to Q uit: Not Asked; Counseling Given: Not Answered Comments:Started smoking 1969, then quit when diagnosed with nasopharyngeal cancer,then started back 01/2024 Alcohol Use Standard Drinks/Week Comments Not Currently 126 (1 standard drin k = 0.6 oz pure alcohol) 18 beers per day for 50 years PHQ-2 Answer Date Recorded Patient Health Questionnaire-2 Score 0 12/19/2021 CAGE ASSESSMENT Answer Date Recorded Cage unable to access Not on file 12/19/2021 Cage max number of drinks Not on file 2021 Cage Beverages a week Not on file 12/19/2021 Have you ever felt you should CUT down on your d rinking? 0 12/19/2021 Have you been ANNOYED by people criticizing your drinking? 0 12/19/2021 Have you felt GUILTY about your drinking? 0 12/19/2021 Have you had a drink first t ness in the morning (EYE-SUPERVISOR TYPE PHOTOGRAPHY) to steady your nerves or to get rid of a hangover? 0 12/19/2021 CAGE Questionnaire Score 0 022 Sex and Gender Information Value Date Recorded Sex Assigned at Not on file Legal Sex Male 9:26 AM EDT Gender Identity Not on file Sexual Orientation Not on file documented as of this encounter Last Filed Vital Signs Vital Sign Reading Time Taken Comments Blood Pressure 194/93 09/09/2024 10:53 AM EDT Pulse 63 09/09/2024 10:53 AM EDT Temperature - - Respiratory Rate - - Oxygen Saturation - - Inhaled Oxygen Concentration - - Weight 58.2 kg (128 lb 4.9 oz) 09/09/2024 10:53 AM EDT Height 177.8 cm (5' 10 ) 09/09/2024 10:53 AM EDT Body Mass Index 18.41 09/09/2024 10:53 AM EDT documented in this encounter Miscellaneous Notes * Progress Notes - Evaristo North MD - 09/09/2024 10:45 AM EDT Images from the original note were not included. [facility] -- [place] [id number] Return Patient Visit HPI: Fortunato Colvin is a 69 y.o. 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 Interval otologic history since last clinic visit: He is doing well overall. No drainage. No significant pain. No other otologic concerns today. Otologic History (portions may be carried forward from prior visits): Right chronic otorrhea Right tympanic membrane perforation History of FEED HANDLER for nasopharyngeal carcinoma (finished 10/2021) Right tympanoplasty 04/22/[address] neck 09/10/23---my review revealed bilateral R>L scattered mastoid and middle ear opacification Audiogram 07/25/2024---WRS R 84%, L 90% Audiogram 04/11/2024---WRS R 72%, L 100% Tympanogram 04/11/2024--- right B, left unreadable Audio 08/07/21---WRS 90% bilat Tymp 08/07/21---right B, left A Physical Exam Cardiovascular: no peripheral cyanosis Pulmonary: breathing quietly, no stridor or stertor Otoscopy: binocular otomicroscopy was performed in lieu of handheld otoscopy Binocular otomicroscopy procedure was performed. The indication was hearing loss. The patient was positioned supine and an ear speculum was inserted. The microscope was used to inspect the right ear,then the same procedure was performed on the left. The patient tolerated the procedure well. Findings: RIGHT ear canal clear; neotympanum intact but with small crust, could be covering pinpoint perforation LEFT ear canal is patent, clear, and without infection and the tympanic membrane is intact with no retraction, infection, or effusion Assessment & Plan: 1. History of tympanoplasty 2. Hx of head and neck radiation 3. Sensorineural hearing loss (SNHL) of both ears 4. Mixed conductive and sensorineural hearing loss of right ear with restricted hearing of left ear Fortunato Colvin is a 69 y.o. male sent by Dr. Ashok Almanza with right chronic otorrhea from post tympanostomy tube perforation, in the context nasopharyngeal carcinoma status post chemoradiation therapy finished 2021. He is s/p right tympanoplasty with me on 04/22/24. He is doing well symptomatically. Crust was removed. Small crust inferiorly with possible pinpoint perforation below that. I'll see him in 2-3 months with audiogram. Evaristo North MD documented in this encounter Plan of Treatment Upcoming Encounters Date Type Department Care Team ([facility] Contact Info) Description 10/03/2024 9:30 AM EDT Clinical Support [facility] [address] [place] [address] 10/03/2024 10:50 AM EDT Appointment [facility] Radiology [address] [place] [address] 10/06/2024 9:10 AM EDT Office Visit [facility] [address] [place] [address] Alexandria Love MD [address] [facility] [address] [place] [address] 12/05/2024 10:00 AM EDT Office Visit [facility] Audiology [address] [place] [address] Maya Field, PhD [address] [facility] [address] [place] [address] 12/05/2024 10:45 AM EDT Office Visit [facility] Otolaryngology [address] [place] [address] Evaristo North MD [address] [facility] [address] [place] [address] 10/03/2025 10:00 AM EDT Office Visit [facility] [address] [place] [address] Joshua Mejia MD [address] [facility] [address] [place] [address] documented as of this encounter Visit Diagnoses Diagnosis History of tympanoplasty- Primary Hx of head and neck radiation Sensorineural hearing loss (SNHL) of both ears Mixed conductive and sensorineural hearing loss of right ear with restricted hearing of left ear documented in this encounter Additional Health Concerns Assessment Noted Time A fall risk assessment has been complete d for the patient 07/11/2024 8:59 AM EDT A Body Mass Index follow-up plan has been documented for the patient 09/09/2024 1:01 PM EDT documented as of this encounter Care Teams Acquisition Professional Relationship Specialty Start Date End Date Pcp, No [address] [place] [address] PCP - General Family Medicine 09/07/23 Alexandria Love MD [address] [facility] [address] [place] [address] Consulting Physician Medical Oncology 08/15/21 Ashok Almanza MD [address] [place] [address] [address] [place] [address] Referring Physician 09/17/21 Shaan Judge, AMAURI [address] [facility] [address] [place] [address] Nurse Practitioner Internal Medicine 10/31/21 documented as of this encounter
--- OUTSIDE RECORDS SUMMARY | 2024-09-28 14:15 | XMS_ITS | Encounter Summary ---
Author Organization [facility] Address [address] [place] [address] Care Team Providers Care Corner Cutter Name Role Phone Alexandria Love MD Unavailable [phone] Ashok Almanza MD Unavailable [phone] Shaan Judge APRN Unavailable [phone] Pcp, No Primary Care Provider Unavailabl e Reason for Visit * Reason Comments Strabismus Diplopia Blurred Vision Encounter Details Date Type Department Care Team (Late st Contact Info) Description 09/28/2024 2:15 PM EDT Office Visit [facility] - Pediatrics [address] [place] [address] Joshua Mejia MD [address] [address] Esotropia, alternating (Primary Dx); Diplopia [...] drink first t ness in the morning (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 Last edited by Yoon Funes on 09/28/2024 2:44 PM. ROS Positive for: [...] affected nostril(s) 1 (one) time each day. Ksrkfwjwcrk-Rbuojwoli-Xzzclm (Trelegy Ellipta) 100-62.5-25 MCG/ACT aerosol powder Inhale. [...] Normal Normal Refraction Wearing Rx Sphere Cylinder Pyrites Add Horz Prism Right -1.50 +0.50 050 +2.75 3.0 out Left -2.00 +1.25 150 +2.75 3.0 out Wearing Rx #2 Sphere Cylinder Pyrites Add Horz Prism Right -1.25 +0.25 051 +2.50 3BO Left -1.25 +0.75 159 +2.50 3BO Type: Bifocal Final Rx Sphere Cylinder Pyrites Add Horz Prism Right -1.50 +0.50 050 [...] Upcoming Encounters Date Type Department Care Team ([facility] st Contact Info) Description 10/03/2024 9:30 AM EDT Clinical Support [facility] 800 [facility] [place] [address] 10/03/2024 10:50 AM EDT Appointment [facility] Radiology [address] [place] [address] 10/06/2024 9:10 AM EDT Office Visit [facility] [address] [facility] [place] [address] Alexandria Love MD 800 [facility] [address] [place] [address] 12/05/2024 10:00 AM EDT Office Visit [facility] Audiology [address] [place] [address] Maya Field, PhD [address] [facility] [address] [place] [address] 12/05/2024 10:45 AM EDT Office Visit [facility] Otolaryngology [address] [place] [address] Evaristo North MD [address] [place] [address] 10/03/2025 10:00 AM EDT Office Visit [facility] [address] [place] [address] Joshua Mejia MD [address] [place] [address] documented as of this encounter [...] documented as of this encounter Care Teams Corner Cutter Relationship Specialty Start Date End Date Pcp, No [address] [place] [address] PCP - General Family Medicine 09/07/23 Alexandria Love MD [address] Idania Cheng [facility] [address] [place] [address] Consulting Physician Medical Oncology 08/15/21 Ashok Almanza MD 1720 [facility] [address] [place] [address] Referring Physician 09/17/21 Shaan Judge APRN [address] [facility] [address] [place] [address] Nurse Practitioner Internal Medicine 10/31/21 documented as of this encounter
--- OUTSIDE RECORDS SUMMARY | 2024-09-30 09:36 | XMS_ITS | Continuity of Care Document ---
Author Name [facility] Organization [facility] Care Team Providers Care Buckle Sewer Machine Name Role Phone [facility] Unavailable Unavailable Medications Combined list of outpatient [...] INHALATION, TEVA [place], 8.5 g CANISTER Active [id number] 2023 8.5 Pharmac y Data Transac tion Service Facilit y AMITRIPTYLI NE HCL (amitriptyl ine HCl), 25 MG, TABLET, ORAL, [facility], 1000 ea. BOTTLE Cancele d [id number] : 2023 0 Pharmac y Data Transac tion Service Facilit y OMEPRAZOLE (omeprazole ), 40 MG, CAPSULE DR, ORAL, AUROBINDO [employer]ARM, 500 ea. BOTTLE Cancele d [id number] : 2023 0 Pharmac y Data Transac tion Service Facilit y TRELEGY ELLIPTA (fluticason e furoate/ume clidinium bromide/mina anterol trifenat), 100-62.5, BLST W/DEV, INHALATION, GLAXOSMITHK LINE, 60 ea. BLIST PACK Active [id number] 4 2023 180 Pharmac y Data Transac tion Service Facilit y Immunizations Combined list of available immunizations from the Department of Defense and Veterans Affairs facilities. Immunization Series Date Given Administered By Site Reaction Lot Number CVX Code Drug Production Sampler Status Comments Source Influenza vaccine, quadrivalent, adjuvanted 2020 PRISCILA TIMMONS () Not Given Influenza vaccine, quadrival ent, adjuvante d [facility] Social History Combined list of available smoking, tobacco, and other social history from Department of Defense and Veterans Affairs facilities. Social History Type Response Date Comment Sourc e This section is an empty social history section. DoD
--- OUTSIDE RECORDS SUMMARY | 2024-09-30 09:37 | XMS_ITS | Clinical Summary ---
Author Organization [facility] Address [address] [place] [address] Phone Care Team Providers Care Senior Support Analyst Name Role Phone Shaquille Almanza MD [phone] Conditions or Problems Problem Name Problem Code Onset Date Status Entry Date Provider Comment Standard Description Annotate Hearing loss, right ear 866423649 (SNOMED CT) Active Shaquille Almanza MD Hearing loss of right ear MSSA infection 074626657 (SNOMED CT) Active Shaquille Almanza MD Infection by methicillin sensitive Staphylococcus aureus Acute mastoiditis , right 463692387 (SNOMED CT) 0 Active 0/ Bobbi Aurelio Acute mastoiditis Acute recurrent serous otitis media, right 306295083 (SNOMED CT) 0 Active 0/05 Bobbi Aurelio Recurrent acute non-suppurative otitis media Hx of MRSA infection 140090760 (SNOMED CT) 0 Active 0/05 Bobbi Aurelio H/O: infectious disease Perforation of right tympanic membrane 95596550431 12419 (SNOMED CT) 11/03 Resolved 11/03 Bobbi Aurelio Perforation of right tympanic membrane Mastoiditis , right 43346256 (SNOMED CT) 11/04 Active 11/04 Shaquille Almanza MD Mastoiditis Perforation of right tympanic membrane 20041697792 70026 (SNOMED CT) 11/03 Removed 11/03 Bobbi Aurelio Perforation of right tympanic membrane Ischemic Cardiomyopa thy 990954043 (SNOMED CT) 11/03 Active 11/03 Bobbi Carey Generalized ischemic myocardial dysfunction Corynebacte rium infection B96.89 (ICD-10-CM) 11/03 Active 11/03 Bobbi Carey Other specified bacterial agents as the cause of diseases classified elsewhere Nicotine dependence, cigarettes, in remission 363764089 (SNOMED CT) 11/03 Active 11/03 Bobbi Carey Tobacco dependence in remission Benign Essential Hypertensio n 20161772 (SNOMED CT) 11/03 Active 11/03 Bobbi Carey Benign hypertension Personal history of antineoplas tic chemotherap y 977250275 (SNOMED CT) 11/03 Active 11/03 Bobbi Carey H/O: chemotherapy History of irradiation therapy Z92.3 (ICD-10-CM) 11/03 Active 11/03 Bobbi Carey Personal history of irradiation Otorrhea, right 36428353 (SNOMED CT) 11/03 Active 11/03 Bobbi Carey Otorrhea Medications Medication Instructions Start Date Stop Date Generic Name ND Provider CIPROFLOXACIN-DE XAMETHASONE 0.3-0.1 % SUSP 4 drops, right ear BID ciprofloxacin-de xamethasone 38351822626 Shaquille Almanza MD DOXYCYCLINE MONOHYDRATE 100 MG TABS Take 1 tablet by mouth twice a day doxycycline monohydrate 81743837875 Shaquille Almanza MD ALBUTEROL SULFATE (2.5 MG/3ML) 0.083% NEBU four times a day as needed as directed albuterol sulfate 32265272681 Riya Rebecca ALBUTEROL SULFATE HFA 108 (90 Base) MCG/ACT AERS four times a day as needed for pain albuterol sulfate 63073887061 Riya Rebecca AMITRIPTYLINE HCL 25 MG TABS every night amitriptyline 74131834462 Riya Rebecca aspirin 81 mg capsule once a day aspirin Riya Rebecca azelastine into both nostrils every night azelastine Riya Rebecca CETIRIZINE HCL 10 MG TABS once a day cetirizine 97560974054 Riya Rebecca CIPROFLOXACIN-DE XAMETHASONE 0.3-0.1 % SUSP 4 drops, right ear BID ciprofloxacin-de xamethasone 56171711795 Riya Rebecca FLUTICASONE PROPIONATE 50 MCG/ACT SUSP 2 spray in both nostrils once a day fluticasone propionate 50070317066 Riya Rebecca fluticasone fur. 100 mcg-umeclid 62.5 mcg-vilant 25 mcg inhalat.powder once a day fluticasone-umec lidin-vilanter Riya Rebecca LEQVIO 284 MG/1.5ML SOSY y0vqbiaa inclisiran 98552683219 Riya Rebecca metoprolol succinate once a day metoprolol succinate Riya Rebecca OMEPRAZOLE 40 MG CPDR once a day omeprazole 73380571262 Riya Rebecca Medications Administered No information available. 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 yes Fall ris k assessment Lab Report: CBC WITH AUTO DI FFERENTIAL ZZ-GE-unk 0.0 /100 WBC 0.0-0.2 GE use only - fo r LinkLogic import when terms are not otherwise specified IMMATUREGRAN 0.02 10*3/MM3 0.00-0.05 Immature granulocytes [#/volume] in Blood BASO# 0.05 10*3/mm3 0.00-0.20 Basophils [#/vol ume] in Blood EOS ABSLT 0.08 10*3/uL 0.00-0.40 Eosinophi ls [#/volume] in Blood MONOSCT AUTO 0.70 10*3/uL 0.10-0.90 Monocy rosina [#/volume] in Blood by Automated count LYMPHCT AUTO 1.67 10*3/mm3 0.70-3.10 Lymph ocytes [#/volume] in Blood by Automated count ABS NEUTROPH 7.22 10*3/uL 1.70-7.00 H Neutro phils [#/volume] in Blood IMM GRANU % 0.2 % 0.0-0.5 Immature granulocytes/100 leukocytes in Blood % EOS AUTO 0.8 % 0.3-6.2 Eosinophil s/100 leukocytes in Blood by Automated count MONOCYTE % 7.2 % 5.0-12.0 Monocytes /100 leukocytes in Blood by Automated count LYMPHOCY BF 17.1 % 19.6-45.3 L lymphoc ytes as percent of body fluid leukocytes NEUTROP BF 74.2 % 42.7-76.0 Neutroph ils/100 leukocytes in Body fluid PLATELETS 223 10*3/mm3 140-450 Platelets [#/volume] in Blood by Automated count RDW_ 13.2 12.3-15.4 RDW, no uni ts MCHC 34.4 G/DL 31.5-35.7 MCHC [Mass/ volume] by Automated count MCH 32.5 pg 26.6-33.0 MCH [Entiti c mass] by Automated count MCV 94.5 fL 79.0-97.0 MCV [Entiti c volume] by Automated count HCT 44.5 % 37.5-51.0 Hematocrit [Volume Fraction] of Blood by Automated count HGB 15.3 g/dL 13.0-17.7 Hemoglobin [Mass/volume] in Blood RBC 4.71 10*6/mm3 4.14-5.80 Erythrocyt es [#/volume] in Blood by Automated count WBC 9.74 10*3/mm3 3.40-10.8 0 Leukocytes [#/volume] in Blood by Automated count Lab Report: SEDIMENTATION RA TE ESR 57 mm/h 0-20 H Erythrocyte sedimentation rate by Westergren method Lab Report: C-REACTIVE PROTE IN CRP 5.21 mg/dL 0.00-0.50 H C reactive protein [Mass/volume] in Serum or Plasma Lab Report: COMPREHENSIVE ME TABOLIC PANEL ANIONGAP 11.0 mmol/L 5.0-15.0 anion gap, serum BUN/CREAT 16.5 7.0-25.0 Urea nitrogen/Creatinine [Mass Ratio] in Serum or Plasma BILI TOTAL 0.6 mg/dL 0.0-1.2 Bilirubin. total [Mass/volume] in Serum or Plasma ALK PHOS 129 U/L 39-117 H Alkaline [place] sphatase [Enzymatic activity/volume] in Blood SGOT (AST) 24 U/L 1-40 Aspartate aminotransferase [Enzymatic activity/volume] in Serum or Plasma SGPT (ALT) 6 U/L 1-41 Alanine aminotransferase [Enzymatic activity/volume] in Serum or Plasma ALBUMIN 4.0 g/dL 3.5-5.2 Albumin [Mass/volume] in Serum or Plasma PROTEIN, TOT 7.9 g/dL 6.0-8.5 Protein [Mass/volume] in Serum or Plasma CALCIUM 9.2 mg/dL 8.6-10.5 Calcium [Moles/volume] in Serum or Plasma CO2 25.0 mmol/L 22.0-29.0 Carbon diox domenica, total [Moles/volume] in Venous blood CHLORIDE 94 mmol/L 98-107 L Chloride [Moles/volume] in Serum or Plasma POTASSIUM 4.0 mmol/L 3.5-5.2 Potassium [Moles/volume] in Serum or Plasma SODIUM 130 mmol/L 136-145 L Sodium [Moles/volume] in Serum or Plasma CREATININE 0.85 mg/dL 0.76-1.27 Creatini ne [Mass/volume] in Serum or Plasma BUN 14 mg/dL 8-23 Urea nitrogen [Mass/volume] in Serum or Plasma GLUCOSE SER 97 mg/dL 65-99 Glucose [Mass/volume] in Serum or Plasma Office Visit: Office Visit: 14 MEDS REVIEW Done Documenta tion of current medications (procedure) SMOK STATUS Former smoker Tobacco smoking status Plan of Care Type Date Detail Pending order STAT Labs Pending order CMP Pending order CBC with Differe ntial Pending order C- reactive prot ein Pending order Sedimentation Ra te (ESR) Pending order CBC with Differe ntial Pending order CMP Pending order C- reactive prot ein Pending order Sedimentation Ra te (ESR) Pending order Continue IV anti biotics Pending order Weekly PICC Line Care Pending order Weekly labs Pending order CBC with Differe ntial Pending order CMP Pending order C- reactive prot ein Pending order Sedimentation Ra te (ESR) Pending order PICC Line Insert ion Procedures Code Procedure Name Date Entry Date CPT-sl STAT Labs CPT-01113 CMP [id number] CBC with Differential 2023 CPT-68217 C- reactive protein CPT-97159 Sedimentation Rate (ESR) 05/19/21 [id number] CBC with Differential 2023 CPT-54527 CMP CPT-37647 C- reactive protein CPT-92970 Sedimentation Rate (ESR) 202 05/19/09 CPT-ca Continue IV antibiotics 2023 CPT-wpc Weekly PICC Line Care 11/08 CPT: weekly Weekly labs [id number] CBC with Differential 2023 CPT-51786 CMP CPT-96740 C- reactive protein CPT-67671 Sedimentation Rate (ESR) 202 05/18/25 CPT-61219 PICC Line Insertion Vital Signs Date Name Value Unit Description BMI (Body Mass Index) 19.20 kg/m2 Bod y Mass Index (Ratio) Body Temperature 97.9 [degF] temperat ure E&M BP Diastolic 74 mm[Hg] blood pressu re, diastolic BP Systolic 132 mm[Hg] blood pressur e, systolic Heart Rate 80 /min pulse rate Height 70 [in_us] height E&M Respiratory Rate 16 /min respirat ory rate E&M Weight Measured 133.8 [lb_av] weight E& M Weight Measured 133.8 [lb_av] weight E& M Immunizations No information available. Advance Directives Directive Description Start Date NO ADVANCED DIRECTIVES AT THIS TIME 2023
--- OUTSIDE RECORDS SUMMARY | 2024-09-30 09:38 | XMS_ITS | Encounter Summary ---
Author Organization [facility] Address [address] [place] [address] Care Team Providers Care Synthetic Chemist Name Role Phone Alexandria Love MD Unavailable [phone] Ashok Almanza MD Unavailable Shaan Judge APRN Unavailable [phone] Pcp, No Primary Care Provider Unavailabl e Reason for Referral * Imaging (Routine) - Authorized Specialty Diagnoses / Procedures Referred By Elizabeth beltran Referred To Contact Radiology Diagnoses Nasopharynx cancer ([facility]/HCC) Dysphagia, unspecified type Procedures [place] Modified Barium Swallow Alexandria Love MD [address] [facility] [address] [place] [address] Phone: tel: fax: Referral ID Status Reason Start Date Expiration Date Visits Requested Visits Authorized [id number] Authorized Perform Procedure 09/19/2024 03/21/2026 1 1 Encounter Details Date Type Department Care Team (Late st Contact Info) Description 09/19/2024 Orders Only [facility] [address] [facility] [place] [phone] Jody Cordova, RN [facility] Nasopharynx cancer (CMS/HCC) (Primary Dx); Dysphagia, unspecified type Social History Tobacco Use Types Packs/Day Years Used Date Smoking Tobacco: Every Day Cigarettes 1 55.6 Started: 02/09/1969 Passive Smoke Exposure: Never Smokeless Tobacco: Never Comments:Started smoking 197 0, then quit when diagnosed with nasopharyngeal cancer,then [...] 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 0 12/19/2021 CAGE Questionnaire Score 0 022 Sex and Gender Information Value Date Recorded Sex Assigned at Not on file Legal Sex Male 9:26 AM EDT Gender Identity Not on file Sexual Orientation Not on file documented as of this encounter Plan of Treatment Upcoming Encounters Date Type Department Care Team (Late st Contact Info) Description 10/03/2024 9:30 AM EDT Clinical Support [facility] [address] [facility] [place] [address] 10/03/2024 10:50 AM EDT Appointment [facility] Radiology [address] [place] [phone] 10/06/2024 9:10 AM EDT Office Visit [facility] [address] [facility] [place] [address] Alexandria Love MD [address] [facility] [address] [place] [phone] 12/05/2024 10:00 AM EDT Office Visit [facility] Audiology [address] [place] [phone] Maya Field, PhD [address] [place] [address] 12/05/2024 10:45 AM EDT Office Visit [facility] Otolaryngology [address] [place] [address] Evaristo North MD [address] [place] [address] 10/03/2025 10:00 AM EDT Office Visit [facility] - Pediatrics [address] [facility] [place] [address] Joshua Mejia MD [address] [facility] [address] [place] [address] Scheduled Orders Name Type Priority Associated Diagnoses Orde r Schedule [place] Modified Barium Swallow Imaging Routine Nasopharynx cancer (CMS/HCC) Dysphagia, unspecified type Expected: 09/19/2024 (Approximate), Expires: 03/22/2026 documented as of this encounter Visit Diagnoses Diagnosis 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, unspecified site Dysphagia, unspecified type documented in this encounter Additional Health Concerns Assessment Noted Time A fall risk assessment has been complete d for the patient 07/11/2024 8:59 AM EDT A Body Mass Index follow-up plan has been documented for the patient 09/09/2024 1:01 PM EDT documented as of this encounter Care Teams Synthetic Chemist Relationship Specialty Start Date End Date Pcp, No [address] [place] [address] PCP - General Family Medicine 09/07/23 Alexandria Love MD [address] [facility] [address] [place] [address] Consulting Physician Medical Oncology 08/15/21 Ashok Almanza MD [address] [place] [address] [address] [place] [address] Referring Physician 09/17/21 Shaan Judge APRN [address] [facility] [address] [address] Nurse Practitioner Internal Medicine 10/31/21 documented as of this encounter
--- OUTSIDE RECORDS SUMMARY | 2024-09-30 09:38 | XMS_ITS | Clinical Summary ---
Author Organization [facility] Address [address] [place] [address] Care Team Providers Care [employer] Supervisor Name Role Phone Alexandria Love MD Unavailable [phone] Ashok Almanza MD Unavailable [phone] Shaan Judge APRN Unavailable [phone] Pcp, No Primary Care Provider Unavailabl e Allergies Active Allergy Reactions Criticality Noted Date Comments Clindamycin Rash Low 08/06/2022 Medications metoprolol succinate XL (Toprol-XL) 25 MG 24 hr tablet Take 0.5 tablets (12.5 mg) by mouth in the morning. 12/17/19 22 Active aspirin 81 MG chewable tablet Active Fluticasone-Um eclidin-Vilant (Trelegy Ellipta) 100-62.5-25 MCG/ACT aerosol powder Inhale. Activ e albuterol (2.5 MG/3ML) 0.083% nebulizer solution 05/17/19 23 Active omeprazole (PriLOSEC) [address] capsule 09/14/19 23 Active cetirizine (ZyrTEC) 10 MG tablet TAKE 1 TABLET DAILY 90 tablet 3 08/24/19 24 Active albuterol 108 (90 Base) MCG/ACT inhaler 07/22/19 24 Active fluticasone (Flonase) 50 MCG/ACT nasal spray Administer 2 sprays into affected nostril(s) 1 (one) time each day. 10/28/19 24 Active levothyroxine (Synthroid) 50 MCG tablet Take 1 tablet (50 mcg) by mouth 1 (one) time each day before breakfast. 90 tablet 2 03/14/19 25 Active ofloxacin (Floxin) 0.3 % otic solution Apply 3 drops to affected ear(s) twice daily for 28 days 10 mL 1 06/01/19 25 Active meloxicam (Mobic) 15 MG tablet Take 1 tablet by mouth daily. 90 tablet 06/14/19 25 Active dexamethasone (Decadron) 4 MG tabletIndicati ons:Nasopharyn x cancer (CMS/HCC) Take 1 tablet (4 mg total) by mouth 1 (one) time each day. 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 08/13/2022 Cisplatin adverse reaction 03/28/2022 Diplopia 03/28/2022 Anemia 12/31/2021 Overview (12/31/2021): Likely due to surgery and malnutrition Monitor Encourage vitamin supplementation Pneumothorax 12/19/2021 Overview (12/31/2021): Identified on CT chest on 12/19/2021 Appears loculated 12/20 - Left chest tube placement by IR S/p bronchoscopy, left video assisted thoracic surgery mechanical pleurodesis, pleurectomy, esophagogastroduodenoscopy on 12/25/2021 Left chest tube removed on 12/31/2021 - follow up CXR stable Pain control Hypoxia 11/14/2021 Acute respiratory failure with hypoxia Pneumonia of left lower lobe due to infectious o rganism 10/04/2021 Peripheral arterial disease with history of revascularization 10/04/2021 Mucositis due to antineoplastic therapy 10/05/19 22 Oral pharyngeal candidiasis 10/04/2021 COPD (chronic obstructive pulmonary disease) Overview (12/20/2021): Continue home meds/nebs SIADH (syndrome of inappropriate ADH production) 08/26/2021 Moderate protein-calorie malnutrition 08/22/2021 Overview (12/20/2021): Complicates healing Chronic respiratory failure with hypoxia 022 Hyponatremia 08/15/2021 Overview (12/31/2021): Encourage to consume salty foods for a few days after discharge Physical debility 08/15/2021 Overview (12/20/2021): Complicates care and recovery CAD (coronary artery disease) 08/15/2021 Overview (12/31/2021): Continue home meds History of stents Resume plavix on 01/01/2022 Essential (primary) hypertension 08/15/2021 Overview (12/20/2021): Continue home meds Hyperlipidemia, unspecified 08/15/2021 Overview (12/20/2021): Resume home meds Hypothyroidism unspecified 08/15/2021 Overview (12/20/2021): Continue home meds Nicotine dependence 08/05/2021 Neoplasm related pain 08/05/2021 CINV (chemotherapy-induced nausea and vomiting) 08/05/2021 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 Cancer Staging:Clinical stage from 06/26/2021:Stage Unknown(cT2, cNX) - Signed by Alexandria Love MD on 08/02/2021 Clinical:Stage GEOVANNA(cT4, cN0, cM0) - Signed by Gael Connell MD on 09/11/2021 Pneumonia of left lower lobe due to Pseudomonas species Electrolyte abnormality Overview (12/20/2021): Hypocalcemia Hypomagnesemia Monitor - replete as indicated Resolved Problems Problem Noted Date Diagnosed Date Resolved Date Leukocytosis 08/15/2021 08/23/2021 Encephalopathy 08/15/2021 08/21/2021 COPD exacerbation 08/15/2021 08/21/2021 Encounters Date Type Department Care Team Description 09/28/2024 2:15 PM EDT Office Visit [facility] [address] [place] [phone] Joshua Mejia MD Esotropia, alternating (Primary Dx); Diplopia 09/28/2024 Travel 09/19/2024 Orders Only [facility] [address] [phone] Jody Cordova RN Nasopharynx cancer ([facility]) (Primary Dx); Dysphagia, unspecified type 09/19/2024 Telephone [facility] [address] [address] Alexandria Love MD 09/09/2024 10:45 AM EDT Office Visit [facility] Otolaryngology [address] [phone] Evaristo North MD History of tympanoplasty (Primary Dx); Hx of head and neck radiation; Sensorineural hearing loss (SNHL) of both ears; Mixed conductive and sensorineural hearing loss of right ear with restricted hearing of left ear 09/09/2024 Travel 07/27/2024 Telephone [facility] [address] [address] Alexandria Love MD 07/25/2024 11:30 AM EDT Office Visit [facility] Otolaryngology [address] [phone] Evaristo North MD History of tympanoplasty (Primary Dx); Hx of head and neck radiation; Sensorineural hearing loss (SNHL) of both ears; Mixed conductive and sensorineural hearing loss of right ear with restricted hearing of left ear 07/25/2024 11:00 AM EDT Office Visit [facility] Audiology [address] [address] Shirley Mathew M, AuD Mixed conductive and sensorineural hearing loss of right ear with restricted hearing of left ear (Primary Dx) 07/25/2024 Travel 07/11/2024 9:20 AM EDT Office Visit [facility] [address] [place] [address] Alexandria Love MD Nasopharynx cancer (CMS/HCC) (Primary Dx); Pneumonia of left lower lobe due to infectious organism; Neoplasm related pain; Acute respiratory failure with hypoxia; 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 [place] [address] Pneumonia of left lower lobe due to infectious organism; Nasopharynx cancer (CMS/HCC) Discharge Disposition: Home or Self Care 07/05/2024 Travel from Last 3 Months Immunizations Immunization Administration Dates Next Due Influenza, injectable, quadrivalent, preservativ e free 12/07/2019 Family History Medical History Relation Name Comments Cataracts Father Heart attack Father Hypertension Father No Known Problems Mother Heart attack Other Relation Name Status Comments Father Mother Other Social History Tobacco Use Types Packs/Day Years [...] drink first t ness in the morning (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 0 12/19/2021 CAGE Questionnaire Score 0 022 Sex and Gender Information Value Date Recorded Sex Assigned at Not on file Legal Sex Male 9:26 AM EDT Gender Identity Not on file Sexual Orientation Not on file Last Filed Vital Signs Vital Sign Reading Time Taken Comments Blood Pressure 194/93 09/09/2024 10:53 AM EDT Pulse 63 09/09/2024 10:53 AM EDT Temperature 36.6 C (97.8 F) 04/22/2024 10:30 AM EDT Respiratory Rate 20 07/11/2024 8:57 AM EDT Oxygen Saturation 98% 07/11/2024 8:57 AM EDT Inhaled Oxygen Concentration - - Weight 58.2 kg (128 lb 4.9 oz) 09/09/2024 10:53 AM EDT Height 177.8 cm (5' 10 ) 09/09/2024 10:53 AM EDT Body Mass Index 18.41 09/09/2024 10:53 AM EDT Plan of Treatment Upcoming Encounters Date Type Department Care Team ([facility] [place] st Contact Info) Description 10/03/2024 9:30 AM EDT Clinical Support [facility] [address] [facility], [address] [place] [address] 10/03/2024 10:50 AM EDT Appointment [facility] Radiology [address] [place] [address] 10/06/2024 9:10 AM EDT Office Visit [facility] [address] [facility], [address] [place] [address] Alexandria Love MD [address] [facility] [address] [place] [address] 12/05/2024 10:00 AM EDT Office Visit [facility] Audiology [address] [place] [address] Maya Field, PhD [address] [place] [address] 12/05/2024 10:45 AM EDT Office Visit [facility] Otol[facility]ology [address] [place] [address] Evaristo North MD [address] [place] [address] 10/03/2025 10:00 AM EDT Office Visit [facility] [address] [facility] [place] [address] Joshua Mejia MD [address] [facility] [address] [place] [address] Health Maintenance Due Date Last Done Comments [facility]-Medicare Annual Wellness (AWV) 1955 [facility]-/Child/Adol SDOH Screenings 1955 [facility]- SDOH Screenings 1973 [facility]-Adult SDOH Screenings 1973 [facility]-DTaP,Tdap,and Td Vaccines (1 - Tdap) 1974 [facility]-Pneumococcal Vaccine: 50+ Years (1 of 2 - PCV) 1974 [facility]-Zoster Vaccines (1 of 2) 1974 CT Colonography 01/15/2000 FIT 01/15/2000 FOBT 01/15/2000 Sigmoidoscopy 01/15/2000 [facility]-RSV Vaccine: 60+ Years or (1 - Risk 60-74 years 1-dose series) 2015 [facility]-Abdominal Aortic Aneurysm (AAA) Screening 01/15/2020 [facility]-Depression Screening 12/19/2022 12/19/2021 [id number] Vaccine ( season) 2024 12/02/2023, 12/17/2022, 12/05/2020, Additional history exists [facility]-Influenza Vaccine (#1) 10/10/202412/01, 12/17/2022, 12/07/2019 [facility]-Lung Cancer Screening 07/05/20252024, 06/09/2024, 03/09/2024, Additional history exists FIT-DNA 09/20/2026 09/21/2023 Colonoscopy 11/12/2026 11/13/2023 [facility]-Colorectal Cancer Screening 11/12/2026 [facility]-Hepatitis C Screening Completed 08/15/2021 HPV Vaccines Aged Out No longer eligi ble based on patient's age to complete this topic [facility]-HIB Vaccines Aged Out No longer e ligible based on patient's age to complete this topic [facility]-Hepatitis A Vaccines Aged Out No longer eligible based on patient's age to complete this topic [facility]-IPV Vaccines Aged Out No longer e ligible based on patient's age to complete this topic [facility]-Rotavirus Vaccines Aged Out No lo nger eligible based on patient's age to complete this topic Medical Devices Implanted Type Area Negative Assembler Device Identifier Shelf Expiration Date Model / Serial / Lot Dual Chamber Icd-10/17/2016 Implanted:09/2016 (Quantity not on file) Dual Chamber ICD Chest / [id number] / [employer] Lead-10/17/2016 Implanted:09/2016 (Quantity not on file) Lead Chest [employer] [id number] / [id number] / [employer] Lead-10/17/2016 Implanted:09/2016 (Quantity not on file) Lead Chest [employer] [id number] / [id number] / Procedures Procedure Name Priority Date/Time Associated Diagnosis Comments CT CHEST WO IV CONTRAST Routine 07/05/2024 9:37 AM EDT Pneumonia of left lower lobe due to infectious organism Nasopharynx cancer (CMS/HCC) COLONOSCOPY Routine 11/13/2023 9:07 AM EDT Positive colorectal cancer screening using Cologuard test LAB COLOGUARD COLON CANCER SCREEN Routine 09/21/2023 8:30 PM EDT Colon cancer screening HEPATITIS C ANTIBODY - ED W/REFLEX TO HCV QUANT PCR STAT 08/15/2021 11:46 AM EDT from Last 3 Months or Most Recently Relevant to Health Maintenance Results * CT Chest wo IV Contrast (07/05/2024 9:37 AM EDT) Anatomical Region Laterality Modality Chest Computed Tomogra phy Impressions 07/05/2024 10:09 AM EDT Bilateral airspace disease and developing scarring, overall slightly improved, most likely representing healing pneumonia. Several small solid nodules appear stable. Recommend follow-up noncontrast exam in 3 months. CRITICAL RESULT: No. COMMUNICATION: Per this written report. Drafted by Navarro Jean Baptiste MD on 07/05/2024 10:01 AM Final report signed by Navarro Jean Baptiste MD on 07/05/2024 10:09 AM Narrative 07/05/2024 10:09 AM EDT CLINICAL INDICATION: Pneumonia, complication suspected, xray done TECHNIQUE: Multiple CT helical images were obtained from thoracic inlet through upper abdomen without administration of IV contrast. Total DLP (Dose-Length Product): 249.61 mGy.cm. Please note: The reported value represents the total of one or more individual components during the CT acquisition on this date and at this time, and as such, the same value may appear in more than one CT report depending on the interpreting/reporting physicians. COMPARISON: June 09, 2024 FINDINGS: Mediastinum and Pleura: Severe coronary artery calcifications and atherosclerotic calcifications of the aorta, with a stent noted in the proximal left subclavian artery. No pleural or pericardial effusions. There is some left-sided pleural scarring which appears roughly stable. No significant mediastinal adenopathy. Lungs: Extensive airspace disease and scarring is again noted in the left lung and at the right apex. At the right apex, this is increased. The more extensive left lung opacities are decreased in density, likely reflecting healing pneumonia. Several small solid nodular opacities in both lungs are stable. Severe centrilobular emphysema. Upper Abdomen: Moderate hiatal hernia. Musculoskeletal: No suspicious lytic or sclerotic lesion. Procedure Note Navarro Jean Baptiste MD - 07/05/2024 CLINICAL INDICATION: Pneumonia, complication suspected, xray done TECHNIQUE: Multiple CT helical images were obtained from thoracic inlet through upperabdomen without administration of IV contrast. Total DLP (Dose-Length Product): 249.61 mGy.cm. Please note: The reportedvalue represents the total of one or more individual components during theCT acquisition on this date and at this time, and as such, the same valuemay appear in more than one CT report depending on theinterpreting/reporting physicians. COMPARISON: June 09, 2024 FINDINGS: Mediastinum and Pleura: Severe coronary artery calcifications andatherosclerotic calcifications of the aorta, with a stent noted in theproximal left subclavian artery. No pleural or pericardial effusions.There is some left-sided pleural scarring which appears roughly stable. Nosignificant mediastinal adenopathy. Lungs: Extensive airspace disease and scarring is again noted in the leftlung and at the right apex. At the right apex, this is increased. The moreextensive left lung opacities are decreased in density, likely reflectinghealing pneumonia. Several small solid nodular opacities in both lungs arestable. Severe centrilobular emphysema. Upper Abdomen: Moderate hiatal hernia. Musculoskeletal: No suspicious lytic or sclerotic lesion. IMPRESSION: Bilateral airspace disease and developing scarring, overall slightlyimproved, most likely representing healing pneumonia. Several small solidnodules appear stable. Recommend follow-up noncontrast exam in 3 months. CRITICAL RESULT: No. COMMUNICATION: Per this written report. Drafted by Navarro Jean Baptiste MD on 07/05/2024 10:01 AM Final report signed by Navarro Jean Baptiste MD on 07/05/2024 10:09 AM Alexandria Love MD IM CT PROCEDURES Final Resu lt * Colonoscopy (11/13/2023 9:07 AM EDT) Anatomical Region Laterality Modality Endoscopy Narrative 11/13/2023 9:37 AM EDT Table formatting from the original result was not included. Impression: One 12 mm sessile polyp in the rectum; lift performed with normal saline injected into the submucosa; performed hot snare with complete en bloc removal and retrieved specimen The cecum, ascending colon, transverse colon, descending colon and sigmoid colon appeared normal. Recommendations Await pathology results Repeat colonoscopy in 3 years Discharge to Home Follow up with Referring Provider -resume previous diet -continue current medications -repeat colonocopy for surveillance in 3 years unless otherwise indicated by pathology -findings and recommendations discussed with patient Indication Order Indication: Positive colorectal cancer screening using Cologuard test Medications See anesthesia record for anesthesia administered medications. Staff Staff Role Devonte Brush CRNA CRNA Cassis, Joseph S, MD Anesthesiologist Jeffrey Caldwell MD Proceduralist Ilia Ellis MD Proceduralist Nia Hayes Endo Python Architect Kiki, Reyna Endo Nurse Preprocedure A history and physical has been performed, and patient medication allergies have been reviewed. The patient's tolerance of previous anesthesia has been reviewed. The risks and benefits of the procedure and the sedation options and risks were discussed with the patient. All questions were answered and informed consent obtained. Details of the Procedure The patient underwent monitored anesthesia care, which was administered by an anesthesia professional. The patient's blood pressure, heart rate, level of consciousness, respirations and oxygen were monitored throughout the procedure. A digital rectal exam was performed. A perianal exam was performed. The scope was introduced through the anus and advanced to the cecum. Retroflexion was performed in the rectum. The quality of bowel preparation was evaluated using the [place] Bowel Preparation Scale with scores of: right colon = 2, transverse colon = 3, left colon = 3. The total BBPS score was 8. Bowel prep was adequate. The patient experienced no blood loss. The procedure was not difficult. The patient tolerated the procedure well. There were no apparent adverse events. Attestation I was present for the entire procedure Events Procedure Events Event Event Time ENDO SCOPE IN TIME 11/13/2023 8:39 AM ENDO CECUM REACHED 11/13/2023 8:49 AM ENDO SCOPE OUT TIME 11/13/2023 9:04 AM Specimens ID Type Source Tests Collected by Time A : polyp Tissue Rectum SURGICAL PATHOLOGY EXAM Ilia Ellis MD 11/13/2023 [id number] Findings One 12 mm sessile polyp in the rectum; lift performed with normal saline injected into the submucosa; performed hot snare with complete en bloc removal and retrieved specimen The cecum, ascending colon, transverse colon, descending colon and sigmoid colon appeared normal. Alexandria Love MD GI PROCEDURE ORDERABLES Sandra slater Result * (ABNORMAL) Cologuard?? colon cancer screening (09/21/2023 8:30 PM EDT) Cologuard Positive( A) Negative 09/26/2023 6:33 PM EDT [employer] (CLIA #:[id number]) Comment: POSITIVE TEST RESULT. A positive Cologuard result should be followed with a colonoscopy or visual examination of the colon. The normal value (reference range) for this assay is negative. TEST DESCRIPTION: Composite algorithmic analysis of stool DNA-biomarkers with hemoglobin immunoassay. Quantitative values of individual biomarkers are not reportable and are not associated with individual biomarker result reference ranges. Cologuard is intended for colorectal cancer screening of adults of either sex, 45 years or older, who are at average-risk for colorectal cancer (CRC). Cologuard has been approved for use by the U.S. FDA. The performance of Cologuard was established in a cross sectional study of average-risk adults aged 50-84. Cologuard performance in patients ages 45 to 49 years was estimated by sub-group analysis of near-age groups. Colonoscopies performed for a positive result may find as the most clinically significant lesion: colorectal cancer [4.0%], advanced adenoma (including sessile serrated polyps greater than or equal to 1cm diameter) [20%] or non- advanced adenoma [31%]; or no colorectal neoplasia [45%]. These estimates are derived from a prospective cross-sectional screening study of 10,000 individuals at average risk for colorectal cancer who were screened with both Cologuard and colonoscopy. (Malorie Crowley al, N Engl J Med 2014;370(14):4399-2190.) Cologuard may produce a false negative or false positive result (no colorectal cancer or precancerous polyp present at colonoscopy follow up). A negative Cologuard test result does not guarantee the absence of CRC or advanced adenoma (pre-cancer). The current Cologuard screening interval is every 3 years. ([place] Cancer Society and U.S. Multi-Society Task Force). Cologuard performance data in a 10,000 patient pivotal study using colonoscopy as the reference method can be accessed at the following location: www.[employer].com/results. Additional description of the Cologuard test process, warnings and precautions can be found at www.cologExpensifyrd.com. Stool specimen (specimen) 09/21/2023 8:30 PM EDT 09/23/2023 11:23 AM EDT us Alexandria Love MD LAB MOLECULAR DIAGNOSTICS OR DERABLES Final Result [employer] (CLIA #:[id number]) [address] [place] [address], * Hepatitis C Antibody - ED (08/15/2021 11:46 AM EDT) Hepatitis C Antibody Negative Negative 08/15/2021 1:46 PM EDT [facility] Blood Venous blood specimen / Unknown Venipuncture / Unknown 08/15/2021 11:46 AM EDT 08/15/2021 12:03 PM EDT Nadeem Angulo MD LAB BLOOD ORDERABLES Final Re sult Performing Organization Address City/[facility] Co de Phone Number HEALTHCARE LAB [address] [place] [address] from Last 3 Months or Most Recently Relevant to Health Maintenance Insurance [facility] MEDICARE [facility] Advance Directives * Full Code (Latest Code Status on File) Date Activated Date Inactivated Comments 12/19/2021 6:45 PM 12/31/2021 6:50 PM Question Answer Comments Patient has decision-making capacity? Yes * Full Code Date Activated Date Inactivated Comments 11/26/2021 11:18 AM 12/19/2021 6:45 PM * Full Code Date Activated Date Inactivated Comments 11/14/2021 6:06 PM 11/26/2021 11:18 AM Question Answer Comments Patient has decision-making capacity? Yes * Full Code Date Activated Date Inactivated Comments 10/04/2021 12:37 PM 11/05/2021 4:47 PM Question Answer Comments Patient has decision-making capacity? Yes * Full Code Date Activated Date Inactivated Comments 08/15/2021 5:09 PM 08/23/2021 3:21 PM Question Answer Comments Patient has decision-making capacity? Yes Care Teams Hot [employer] Mill Supervisor Relationship Specialty Start Date End Date Pcp, No [address] [place] [address] PCP - General Family Medicine 09/07/23 Alexandria Love MD [address] [facility] [address] [place] [address] Consulting Physician Medical Oncology 08/15/21 Ashok Almanza MD [address] [facility] [address] [place] [address] Referring Physician 09/17/21 Shaan Judge APRN [address]net[address] Rosador[facility]on [facility] [address] [place] [address] Nurse Practitioner Internal Medicine 10/31/21
--- OUTSIDE RECORDS SUMMARY | 2024-09-30 09:38 | XMS_ITS | Encounter Summary ---
Author Organization [place] [address] Care Team Providers Care Cabin Service Agent Name Role Phone Unavailable Primary Care Provider Unavailabl e Encounter Details Date Type Department Care Team (Late st Contact Info) Description 06/19/2008 Orders Only SEP [facility] [place] [address] Devonte Lazo MD [address] [place] [address] Social History Tobacco Use Types Packs/Day Years Used Date Smoking Tobacco: Never Assessed Sex and Gender Information Value Date Recorded Sex Assigned at Not on file Legal Sex Male 8:50 PM EDT Gender Identity Not on file Sexual Orientation Not on file documented as of this encounter Plan of Treatment Not on file documented as of this encounter Procedures Procedure Name Priority Date/Time Associated Diagnosis Comments ECHO - HISTORICAL Routine 06/19/2008 12: 00 AM EDT documented in this encounter Results * ECHO - HISTORICAL (06/19/2008 12:00 AM EDT) Anatomical Region Laterality Modality Other 06/19/2008 Narrative 02/11/2011 3:40 AM EST NOTICE: This report was electronically copied on 03/26/2011 from historical data generated by a practice prior to that practice using [facility] for Medical Records. Performing Provider: Devonte Lazo M.D., F.A.C.C. us Devonte Lazo MD IMG ECHO ORDERABLES Final Re sult documented in this encounter Visit Diagnoses Not on filedocumented in this encounter
--- OUTSIDE RECORDS SUMMARY | 2024-09-30 09:38 | XMS_ITS | Encounter Summary ---
Author Organization [facility] Address [address] [place] [address] Care Team Providers Care Receiver Stocker Name Role Phone Alexandria Love MD Unavailable [phone] Ashok Almanza MD Unavailable [phone] Shaan Judge APRN Unavailable [phone] Pcp, No Primary Care Provider Unavailabl e Encounter Details Date Type Department Care Team ([facility] Contact Info) Description 07/27/2024 Telephone Pav CC Head, Neck & Respiratory [address] [place] [address] Alexandria Love MD 800 [facility] [address] [place] [address] Social History Tobacco Use Types Packs/Day Years [...] drink first t ness in the morning (EYE-ASSISTANT AT SURGERY) to steady your nerves or to get rid of a hangover? 0 12/19/2021 CAGE Questionnaire Score 0 022 Sex and Gender Information Value Date Recorded Sex Assigned at Not on file Legal Sex Male 9:26 AM EDT Gender Identity Not on file Sexual Orientation Not on file documented as of this encounter Miscellaneous Notes * Telephone Encounter - Pauline Wagner RN - 08/01/2024 3:57 PM EDT Clinical note from the modified barium swallow is in Care Everywhere . * Telephone Encounter - Pauline Wagner RN - 07/29/2024 2:03 PM EDT I attempted to return Silvina's call but got her voicemail box. I did leave a message and asked herto call again on 08/01/[address] Love will be in clinic. * Telephone Encounter - Chelsey Rod - 07/27/2024 9:26 AM EDT Patient Phone Message Reason for Call:Silvina from speech therapy from [facility] is calling to talk to Dr Love about his barium swallow and eval. Best contact number and optimal time of day to reach caller:[phone] ext [phone] Note: Please do not reply to this message. Follow-up communication and further actions as a result of this message need to be communicated with the patient directly, if the patient is not active onMyChart. If the patient is active on MyChart, they will receive notification of the communication/outcome via Movinaryt. documented in this encounter Plan of Treatment Upcoming Encounters Date Type Department Care Team (Late st Contact Info) Description 10/03/2024 9:30 AM EDT Clinical Support Pav CC Head, Neck & Respiratory 800 [facility], 2nd [place] [address] 10/03/2024 10:50 AM EDT Appointment PAV G Radiology [address] [place] [address] 10/06/2024 9:10 AM EDT Office Visit Pav CC Head, Neck & Respiratory [address] [facility], 2nd [place] [address] Alexandria Love MD 800 [facility] Annette Sheets dg [address] [place] [address] 12/05/2024 10:00 AM EDT Office Visit [facility] Audiology [address], [address] [facility] [place] [address] Maya Field, PhD [address] [facility] [address] [place] [address] 12/05/2024 10:45 AM EDT Office Visit [facility] Otolaryngology [address] [place] [address] Evaristo North MD [address] [facility] [address] [place] [address] 10/03/2025 10:00 AM EDT Office Visit [facility] [address] [place] [address] Joshua Mejia MD [address] [address] documented as of this encounter Visit Diagnoses Not on filedocumented in this encounter Additional Health Concerns Assessment Noted Time A fall risk assessment has been complete d for the patient 07/11/2024 8:59 AM EDT A Body Mass Index follow-up plan has been documented for the patient 07/25/2024 11:56 AM EDT documented as of this encounter Care Teams Receiver Stocker Relationship Specialty Start Date End Date Pcp, No [address] [place] [address] PCP - General Family Medicine 09/07/23 Alexandria Love MD [address] [place] [address] Consulting Physician Medical Oncology 08/15/21 Ashok Almanza MD 1720 [facility] 500 [place] [address] Referring Physician 09/17/21 Shaan Judge APRN [address] [place] [address] Nurse Practitioner Internal Medicine 10/31/21 documented as of this encounter
--- OUTSIDE RECORDS SUMMARY | 2024-09-30 09:38 | XMS_ITS | Encounter Summary ---
Author Organization [facility] Address [address] [place] [address] Care Team Providers Care Data Storage Specialist Name Role Phone Alexandria Love MD Unavailable [phone] Ashok Almanza MD Unavailable [phone] Shaan Judge APRN Unavailable [phone] Pcp, No Primary Care Provider Unavailabl e Encounter Details Date Type Department Care Team (Latest Contact Info) Description 09/28/2024 Travel Social History Tobacco Use Types Packs/Day Years [...] drink first t ness in the morning (EYE-BUSINESS MANAGEMENT INTERN) to steady your nerves or to get rid of a hangover? 0 12/19/2021 CAGE Questionnaire Score 0 022 Sex and Gender Information Value Date Recorded Sex Assigned at Not on file Legal Sex Male 9:26 AM EDT Gender Identity Not on file Sexual Orientation Not on file documented as of this encounter Plan of Treatment Upcoming Encounters Date Type Department Care Team ([facility] st Contact Info) Description 10/03/2024 9:30 AM EDT Clinical Support Pav CC Head, Neck & Respiratory 800 [facility], 2nd [place] [address] 10/03/2024 10:50 AM EDT Appointment PAV G Radiology [address] [place] [address] 10/06/2024 9:10 AM EDT Office Visit Pav CC Head, Neck & Respiratory 800 [facility], 2nd [place] [address] Alexandria Love MD 800 [facility] [address] [place] [address] 12/05/2024 10:00 AM EDT Office Visit [facility] Audiology [address], 3rd [place] [address] Maya Field, PhD [address] [facility] [address] [place] [address] 12/05/2024 10:45 AM EDT Office Visit [facility] Otolaryngology [address] [facility] [place] [address] Evaristo North MD [address] [facility] [address] [place] [address] 10/03/2025 10:00 AM EDT Office Visit [facility] [address] [facility] [place] [address] Joshua Mejia MD [address] [facility] [address] [place] [address] documented as of this encounter Visit Diagnoses Not on filedocumented in this encounter Additional Health Concerns Assessment Noted Time A fall risk assessment has been complete d for the patient 07/11/2024 8:59 AM EDT A Body Mass Index follow-up plan has been documented for the patient 09/28/2024 3:28 PM EDT documented as of this encounter Care Teams Data Storage Specialist Relationship Specialty Start Date End Date Pcp, No [address] [place] [address] PCP - General Family Medicine 09/07/23 Alexandria Love MD 800 [facility] 134 [place] [address] Consulting Physician Medical Oncology 08/15/21 Ashok Almanza MD 1720 [facility] 500 [place] [address] Referring Physician 09/17/21 Shaan Judge APRN 800 [facility] [address] [place] [address] Nurse Practitioner Internal Medicine 10/31/21 documented as of this encounter
--- OUTSIDE RECORDS SUMMARY | 2024-09-30 09:38 | XMS_ITS | Encounter Summary ---
Author Organization [facility] Address [address] [place] [address] Care Team Providers Care Veneer Stapler Name Role Phone Alexandria Love MD Unavailable [phone] Ashok Almanza MD Unavailable [phone] Shaan Judge APRN Unavailable [phone] Pcp, No Primary Care Provider Unavailabl e Encounter Details Date Type Department Care Team (Latest Contact Info) Description 09/09/2024 Travel Social History Tobacco Use Types Packs/Day [...] drink first t ness in the morning (EYE-GOLF MANAGER) to steady your nerves or to get rid of a hangover? 0 12/19/2021 CAGE Questionnaire Score 0 022 Sex and Gender Information Value Date Recorded Sex Assigned at Not on file Legal Sex Male 9:26 AM EDT Gender Identity Not on file Sexual Orientation Not on file documented as of this encounter Plan of Treatment Upcoming Encounters Date Type Department Care Team ([facility] st Contact Info) Description 10/03/2024 9:30 AM EDT Clinical Support Pav CC Head, Neck & Respiratory 800 [facility], 2nd [place] [address] 10/03/2024 10:50 AM EDT Appointment PAV G Radiology [address] [place] [address] 10/06/2024 9:10 AM EDT Office Visit Pav CC Head, Neck & Respiratory [address] [facility], 2nd [place] [address] Alexandria Love MD 800 [facility] [address] [place] [address] 12/05/2024 10:00 AM EDT [facility] Audiology [address], 3rd [place] [address] Maya Field, PhD [address] [facility] [address] [place] [address] 12/05/2024 10:45 AM EDT Office Visit [facility] Otolaryngology [address], [address] [facility] [place] [address] Evaristo North MD [address] [facility] [address] [place] [address] 10/03/2025 10:00 AM EDT Office Visit [facility] [address] [facility] [place] [address] Joshua Mejia MD [address] [facility] [address] [place] [address] documented as of this encounter Visit Diagnoses Not on filedocumented in this encounter Additional Health Concerns Assessment Noted Time A fall risk assessment has been complete d for the patient 07/11/2024 8:59 AM EDT A Body Mass Index follow-up plan has been documented for the patient 09/09/2024 1:01 PM EDT documented as of this encounter Care Teams Veneer Stapler Relationship Specialty Start Date End Date Pcp, No 800 [place] [address] PCP - General Family Medicine 09/07/23 Alexandria Love MD 800 [facility] [address] [place] [address] Consulting Physician Medical Oncology 08/15/21 Ashok Almanza MD 1720 [facility] 500 [place] [address] Referring Physician 09/17/21 Shaan Judge APRN 800 [facility] [address] [place] [address] Nurse Practitioner Internal Medicine 10/31/21 documented as of this encounter
--- OUTSIDE RECORDS SUMMARY | 2024-09-30 09:38 | XMS_ITS | Clinical Summary ---
Author Organization [facility] Address [address] [place] [address] Care Team Providers Care Poker Prop Player Name Role Phone Joshua Quezada Primary Care Provider [phone] Allergies Active Allergy Reactions Criticality Noted Date Comments Clindamycin/Lincomycin Hives,Rash Low 11/06/2023 Medications cetirizine (zyrTEC) 10 MG tablet 08/24/2023 Active metoprolol succinate XL (TOPROL-XL) 25 MG 24 hr tablet 11/04/2023 Act karime aspirin 81 MG EC tablet Take 1 tablet by mouth Daily. Active fluticasone (FLONASE) 50 MCG/ACT nasal spray 2 sprays by Each Nare route Daily. Shake well before using. 10/28/2023 Active Trelegy Ellipta 100-62.5-25 MCG/ACT inhaler 07/22/2023 Act karime albuterol sulfate HFA 108 (90 Base) MCG/ACT inhaler 07/22/2023 Act karime omeprazole (priLOSEC) 40 MG capsule 09/03/2023 Active Social History Tobacco Use Types Packs/Day Years Used Date Smoking Tobacco: Never Assessed Abuse Screen Answer Date Recorded Unsafe at Home or Work/School Not on file Feels Threatened by Someone? Not on file Does Anyone Keep You from Co ntacting Others or Doint Things Outside the Home? Not on file 11/05/2023 Physical Sign of Abuse Present Not on file 0 11/05/2023 Housing Stability Answer Date Recorded Current Living Arrangements Not on file 10/11 Potentially Unsafe Housing Conditions Not on ankit e 11/05/2023 Family and Community Support Answer Jarred e Recorded Help with Day-to-Day Activities Not on file 11/05/2023 Lonely or Isolated Not on file 11/05/2023 Employment Answer Date Recorded Do you want help finding or keeping work or a concetta b? Not on file 11/05/2023 Disabilities Answer Date Recorded Concentrating, Remembering, or Making Decisions Difficulty Not on file 11/05/2023 Doing Errands Independently Difficulty Not on fi le 11/05/2023 Education Answer Date Recorded Help with school or training? Not on file Preferred Language Not on file 11/05/2023 Sex and Gender Information Value Date Recorded Sex Assigned at Not on file Legal Sex Male 3:09 PM EDT Gender Identity Not on file Sexual Orientation Not on file Last Filed Vital Signs Vital Sign Reading Time Taken Comments Blood Pressure 156/79 11/06/2023 2:16 PM EDT Pulse 75 11/06/2023 2:16 PM EDT Temperature 36.1 C (97 F) 11/06/2023 12:50 PM EDT Respiratory Rate - - Oxygen Saturation 95% 11/06/2023 12:50 PM EDT Inhaled Oxygen Concentration - - Weight 60.4 kg (133 lb 3.2 oz) 11/06/2023 12:50 PM EDT Height 177.8 cm (5' 10 ) 11/06/2023 12:50 PM EDT Body Mass Index 19.11 11/06/2023 12:50 PM EDT Plan of Treatment Health Maintenance Due Date Last Done Comments Pneumococcal Vaccine 50+ (1 of 2 - PCV) 1974 TDAP/TD VACCINES (1 - Tdap) 1974 COLON CANCER SCREENING 5 YEA R SIGMOIDOSCOPY 01/15/2000 CT COLONOGRAPHY 01/15/2000 FECAL OCCULT BLOOD TEST 01/15/2000 FIT Testing (1 year) 01/15/2000 ZOSTER VACCINE (1 of 2) 2005 COVID-19 Vaccine ( - season) 2023 12/17/2022, 12/05/2020, 04/18/2020 ANNUAL WELLNESS VISIT 11/05/2023 INFLUENZA VACCINE 11/09/2024 12/17/2022, 12/07/2019 COLOGUARD 09/20/2026 09/21/2023 COLONOSCOPY 11/12/2033 11/13/2023, 11/13/2023 COLORECTAL CANCER SCREENING 11/12/2033 HEPATITIS C SCREENING Completed 08/15/2021 AAA SCREEN ONCE Completed 05/29/2022, 08/2021, 08/15/2021 Insurance MEDICARE ADVANTAGE PPO Care Teams Poker Prop Player Relationship Specialty Start Date End Date Joshua Quezada DO [address] [place], [place] [id number] PCP - General Internal Medicine 11/06/23
--- OUTSIDE RECORDS SUMMARY | 2024-09-30 09:38 | XMS_ITS ---
Author Organization [facility] Address [address] [place] [address] Care Team Providers Care Student Life Dean Name Role Phone Alexandria Love MD Unavailable [phone] Ashok Almanza MD Unavailable [phone] Shaan Judge APRN Unavailable [phone] Pcp, No Primary Care Provider Unavailabl e Active Problems Problem Noted Date Diagnosed Date CA (myocardial infarction) 04/22/2024 History of atrial fibrillation [...] 10/04/2021 Mucositis due to antineoplastic therapy 10/05/19 Oral pharyngeal candidiasis 10/04/2021 COPD (chronic obstructive [...] Hypocalcemia Hypomagnesemia Monitor - replete as indicated Current Treatment and Therapy Plans No current plan information found. Past Treatment and Therapy Plans Infusion Treatment 1 Plan Name Start Date Discontinue Date Treatment Medications Discontinue Reason Plan Provider (RESTRICTED) - INITIAL TIXAGEVIMAB 300 MG / CILGAVIMAB 300 MG FOR PROPHYLAXIS 09/09/2021 03/21/2022 No medications scheduled. Other (See Comments) Alexandria Love MD Infusion Treatment 2 Plan Name Start Date Discontinue Date Treatment Medications Discontinue Reason Plan Provider IV FLUID NO ELECTROLYTES 10/03/2021 04/15/2022 No medications scheduled. Therapy Complete Alexandria Love MD Oncology Treatment Plan Name Start Date Discontinue Date Treatment Medications Discontinue Reason Plan Provider Cycles CISplatin + XRT Every 7 Days 08/26/2021 10/07/2021 CISplatin (Platinol)CISp latin (Platinol) IVPB Change in Level of Care Alexandria Love MD 6 of 7 cycles started Radiation Treatments * Course C1 09/02/2021 - 10/24/2021 Treatment Period Energy Fraction Dose Fractions Total Dose Plans Planned Head and Neck 09/02/2021 - 10/24/2021 200 cGy 35 / 35 7,000 cGy Reference Points Delivered Nasopharynx+Neck 09/02/2021 - 10/24/2021 7,000 cGy Lifetime Dose Tracking * Chemical Lifetime Dose Automatic Entry Manual Entr y Fluoro Time 1.5 minutes 1.5 minutes 0 minutes Air Kerma 2.2 mGy 2.2 mGy 0 mGy CTDIvol 168.1 mGy 168.1 mGy 0 mGy Radiation (DLP) 1,444 mGy-cm 1,444 mGy-cm 0 mGy-cm Resolved Problems Problem Noted Date Diagnosed Date Resolved Date Leukocytosis 08/15/2021 08/23/2021 Encephalopathy 08/15/2021 08/21/2021 COPD exacerbation 08/15/2021 08/21/2021
--- OUTSIDE RECORDS SUMMARY | 2024-09-30 09:38 | XMS_ITS | Encounter Summary ---
Author Organization [facility] Address [address] [place] [address] Care Team Providers Care Stereo Equipment Installer Name Role Phone Alexandria Love MD Unavailable [phone] Ashok Almanza MD Unavailable [phone] Shaan Judge APRN Unavailable [phone] Pcp, No Primary Care Provider Unavailabl e Encounter Details Date Type Department Care Team ([facility] Contact Info) Description 09/19/2024 Telephone Pav CC Head, Neck & Respiratory [address] [place] [address] Alexandria Love MD 800 [facility] [address] [place] [address] Social History Tobacco Use Types [...] drink first t ness in the morning (EYE-EAR SPECIALIST) to steady your nerves or to get rid of a hangover? 0 12/19/2021 CAGE Questionnaire Score 0 022 Sex and Gender Information Value Date Recorded Sex Assigned at Not on file Legal Sex Male 9:26 AM EDT Gender Identity Not on file Sexual Orientation Not on file documented as of this encounter Miscellaneous Notes * Telephone Encounter - Joshua Huerta - 09/19/2024 2:04 PM EDT Calling [facility] needs orders for MBS instead of speech P: [phone] documented in this encounter Plan of Treatment Upcoming Encounters Date Type Department Care Team (Late st Contact Info) Description 10/03/2024 9:30 AM EDT Clinical Support Pav CC Head, Neck & Respiratory 800 [facility], [address]nd [place] [address] 10/03/2024 10:50 AM EDT Appointment PAV G Radiology [address] [place] [address] 10/06/2024 9:10 AM EDT Office Visit Pav CC Head, Neck & Respiratory 800 [facility], [address]nd [place] [address] Alexandria Love MD 800 [facility] Annette Sheets [facility] [address] [place] [address] 12/05/2024 10:00 AM EDT [facility] Audiology [address], 3rd [place] [address] Maya Field, PhD [address] [facility] [address] [place] [address] 12/05/2024 10:45 AM EDT Office Visit [facility] Otolaryngology [address], 3rd [place] [address] Evaristo North MD [address] [place] [address] 10/03/2025 10:00 AM EDT Office Visit [facility] - Pediatrics [address] [place] [address] Joshua Mejia MD [address] [place] [address] documented as of this encounter Visit Diagnoses Not on filedocumented in this encounter Additional Health Concerns Assessment Noted Time A fall risk assessment has been complete d for the patient 07/11/2024 8:59 AM EDT A Body Mass Index follow-up plan has been documented for the patient 09/09/2024 1:01 PM EDT documented as of this encounter Care Teams Stereo Equipment Installer Relationship Specialty Start Date End Date Pcp, No [address] [place] [address] PCP - General Family Medicine 09/07/23 Alexandria Love MD 800 [facility] [address] [place] [address] Consulting Physician Medical Oncology 08/15/21 Ashok Almanza MD [address] [place] [address] [address] [place] [address] Referring Physician 09/17/21 Shaan Judge APRN 800 [facility] [address] [place] [address] Nurse Practitioner Internal Medicine 10/31/21 documented as of this encounter
--- OUTSIDE RECORDS SUMMARY | 2024-09-30 09:38 | XMS_ITS | Encounter Summary ---
Author Organization Healthcare Address [address] [place] [address] Care Team Providers Care Bridal Stylist Sales Consultant Name Role Phone Pcp, No Primary Care Provider Unavailabl e Lencho Bautista Primary Care Provider Unavailabl e Gael Connell MD Unavailable [phone] Alexandria Love MD Unavailable [phone] Ashok Almanza MD Unavailable [phone] Shaan Judge INSPECTOR CONVEYOR LINE Unavailable [phone] Pcp, No Primary Care Provider Unavailabl e Encounter Details Date Type Department Care Team (Late st Contact Info) Description 07/30/2021 Lab Requisition [facility] [address] [place] [address] Alexandria Love MD [address] [address] Other specified disorders of nose and nasal sinuses Social History Tobacco Use Types Packs/Day Years Used Date Smoking Tobacco: Never Assessed Sex and Gender Information Value Date Recorded Sex Assigned at Not on file Legal Sex Male 9:26 AM EDT Gender Identity Not on file Sexual Orientation Not on file documented as of this encounter Plan of Treatment Upcoming Encounters Date Type Department Care Team (Late Contact Info) Description 10/03/2024 9:30 AM EDT Clinical Support [facility] [address] [facility], 2nd [place] [address] 10/03/2024 10:50 AM EDT Appointment [facility] Radiology [address] [place] [address] 10/06/2024 9:10 AM EDT Office Visit [facility] [address] [facility], [address]nd [place] [address] Alexandria Love MD 800 [facility] Annette Sheets [address]g [address] [place] [address] 12/05/2024 10:00 AM EDT Office Visit [facility][NOTE 3] Audiology [address], [address] [place] [address] Maya Field, PhD [address] [place] [address] 12/05/2024 10:45 AM EDT Office Visit [facility] Otolaryngology [address], [address] [place] [address] Evaristo North MD [address] [place] [address] 10/03/2025 10:00 AM EDT Office Visit [facility] [address] [facility] [place] [address] Joshua Mejia MD 110 [facility] [address] [place] [address] documented as of this encounter Procedures Procedure Name Priority Date/Time Associated Diagnosis Comments SURGICAL PATHOLOGY CONSULT Routine 07/30/2021 9:46 AM EDT Other specified disorders of nose and nasal sinuses documented in this encounter Results * Surgical Pathology Consult (07/30/2021 9:46 AM EDT) Case Report Sugical Pathology Consult Case: [id number] Authorizing Provider: Alexandria Love MD Collected: 07/30/2021 0946 Ordering Location: [facility] Received: 07/30/2021 0946 Pathologist: Sae Bravo MD Specimen: Nasopharynx, [id number] 07/30/2021 12:04 PM EDT LAB Final Diagnosis A. OUTSIDE SLIDES# [id number], COLLECTED 06/26/2021 NASOPHARYNX, RIGHT, BIOPSY: - BASALOID SQUAMOUS CELL CARCINOMA (SEE COMMENT) 07/30/2021 12:04 PM EDT LAB at 1204 EDT Comment Per outside report, the case was seen by Dr. Sohail Bell, an expert in head and neck pathology, and the above diagnosis reflects his opinion. Per outside report, the tumor is positive for P16, CK5/6, P40 and SOX10. It is reported to be negative for GABINO, INSM1, CD117 and NKX2.2. 07/30/2021 12:04 PM EDT LAB Tumor Blocks A1, B1 (small tissue) 07/30/2021 12:04 PM EDT LAB Clinical Information J34.89 - Other specified disorders of nose and nasal sinuses [ICD-10-CM] 07/30/2021 12:04 PM EDT LAB Gross Description A. [id number] Received along with a corresponding pathology report from [facility] are 20 slide(s) labeled outside case: [id number] collected on 06/26/2021. 07/30/2021 12:04 PM EDT LAB Tissue Nasopharyngeal structure / Unknown 07/30/2021 9:46 AM EDT 07/30/2021 9:46 AM EDT us Alexandria Love MD LAB PATHOLOGY ORDERABLES Fin al Result LAB [address] [place] [address] documented in this encounter Visit Diagnoses Diagnosis Other specified disorders of nose and nasal sinuses documented in this encounter Additional Health Concerns Infection Onset Date Last Indicated Resolved Time C. difficile Rule-Out 10/11/2021 10/11/20212021 2:30 AM EDT Gastrointestinal Rule-Out 10/11/2021 10/11/20212 3:05 AM EDT COVID-19 Rule-Out 11/14/2021 11/14/2021 11/14/2021 5:43 PM EDT C. difficile Rule-Out 11/18/2021 11/18/20212021 8:30 AM EDT documented as of this encounter Care Teams Bridal Stylist Sales Consultant Relationship Specialty Start Date End Date Pcp, No [address] [place] [address] PCP - General Family Medicine 02/09/21 08/04/21 Lencho Bautista [facility] PCP - General 08/05/21 09/06/23 Pcp, No [address] [place] [address] PCP - General Family Medicine 09/07/23 Gael Connell MD 800 [facility] [address] [place] [address] Consulting Physician Radiation Oncology 08/07/21 Alexandria Love MD 800 [facility] Annette Sheets [facility] [address] [place] [address] Consulting Physician Medical Oncology 08/15/21 Ashok Almanza MD 1720 [facility] [address] [place] [address] Referring Physician 09/17/21 Shaan Judge APRN 800 [facility] Annette Sheets [facility] [address] [place] [address] Nurse Practitioner Internal Medicine 10/31/21 documented as of this encounter
--- OUTSIDE RECORDS SUMMARY | 2024-09-30 09:38 | XMS_ITS | Clinical Summary ---
Author Organization [facility] [place] [place] [address] Care Team Providers Care Executor Of Estate Name Role Phone Unavailable Primary Care Provider Unavailabl e Social History Tobacco Use Types Packs/Day Years Used Date Smoking Tobacco: Never Assessed Sex and Gender Information Value Date Recorded Sex Assigned at Not on file Legal Sex Male 8:50 PM EDT Gender Identity Not on file Sexual Orientation Not on file Plan of Treatment Health Maintenance Due Date Last Done Comments Annual Wellness Exam 1958 Hepatitis C Screening 1973 DTaP/TDaP/Td (1 - Tdap) 1974 Cologuard 01/15/2000 Colon Cancer Screening 01/15/2000 Colonoscopy 01/15/2000 FIT 01/15/2000 Sigmoidoscopy 01/15/2000 Virtual Colonography 01/15/2000 Pneumococcal Vaccine 50+ (1 of 1 - PCV) 2005 Zoster (1 of 2) 2005 COVID-19 Vaccine (2023-2 5 season) 2023 Influenza Vaccine (#1) 2024 Hepatitis B Vaccine Aged Out No longe r eligible based on patient's age to complete this topic Meningococcal B Vaccine Aged Out No l onger eligible based on patient's age to complete this topic
== END 2024-09-30 23:59 | disposition home or self-care (01) ==
LOC: RT 09:36
PROVIDERS: PCP Family Medicine; Visit Provider Internal Medicine
DX: C11.9 Malignant neoplasm of nasopharynx, unspecified (principal); J44.9 Chronic obstructive pulmonary disease, unspecified; R94.2 Abnormal results of pulmonary function studies
CPT/HCPCS: 94010

== ENCOUNTER 2024-10-27 12:41 | Day surgery (SDC) | payer MEDICARE, OTHER, SELFPAY ==
[2024-10-21 13:35] VITALS: BMI 19.3
--- NOTE | 2024-10-25 16:55 | P.HP_ITS ---
History of Present Illness *Admission Date: 10/27/24 *Reason for visit:: Dysphagia *History of present illness: Mr. Colvin is a 69-year-old gentleman who is here for diagnostic EGD secondary to recurrent dysphagia. The patient does have a history of an esophageal stricture and has had recurrent dysphagia. He has had multiple prior esophageal dilations and his last EGD was with Dr. Natalie Chambers MD in June 2022. The patient did have dilation up to 18 mm at that time. The examination is deemed medically necessary for diagnostic/therapeutic EGD. The patient has been seen, interviewed and examined prior to the procedure by both myself and the anesthesia provider. [facility] Disclaimer: The information contained in this section may have been updated after the patient was seen, as this information can be updated by other users. Medical History Preop examination Left shoulder pain Dysphagia Decreased hearing Screening for colon cancer due for repeat colonoscopy nov 2026 Pneumonia Otorrhea of right ear Allergic rhinitis Otitis media, right Apparently this is a chronic problem. He has been following with ENT and this infection apparently has not resolved. He is little frustrated by this. He is going to be seeing them in the very near future. Left serous otitis media Perforation of right tympanic membrane Hearing loss, right Encounter for adjustment or removal of myringotomy device (stent) (tube) Recurrent bilateral inguinal hernia Status post laparoscopic bilateral inguinal hernia repair in the mid . Open repair of recurrent right inguinal hernia on November 27, 2022. Retained myringotomy tube in right ear Impacted cerumen of right ear Right chronic otitis media Hearing loss Nocturnal hypoxemia Dyspnea on exertion Nasopharyngeal cancer History of radiation therapy History of chemotherapy Chronic serous otitis media of right ear Impacted cerumen, right ear Otalgia of right ear Rash MRSA (methicillin resistant staph aureus) culture positive Patient is a carrier, follow-up. History of smoking 30 or more pack years Tobacco abuse counseling Patient has quit smoking. Lung nodule Asthma Discoloration of skin of lower leg Dizziness COPD (chronic obstructive pulmonary disease) PAD (peripheral artery disease) Ischemic cardiomyopathy Coronary arteriosclerosis Hyperlipidemia Hypertensive disorder Congestive heart failure Carotid artery stenosis Surgical History History of tympanoplasty of right ear History of ear surgery History of bronchoscopy x2 H/O left wrist surgery PINS History of cardiac defibrillator placement History of hernia surgery AICD (automatic cardioverter/defibrillator) present Family History Other No significant family history Social History (Updated 10/27/24 @ 13:35 by Kylah Paul RN) Smoking Status: Current some day smoker tobacco type: cigarettes packs per day: 1 how long ago did patient quit smokin months second hand exposure: No alcohol intake: former substance use type: denies use current occupational status: retired Travel in the last 8 weeks?: None household members: none housing: house lives independently: Yes marital status: single education level: high school service: Yes caffeine: No special shelley needs: No agree to transfusion: No do you feel safe at home: Yes victim of physical abuse: No victim of emotional abuse: No victim of sexual abuse: No would you like helpful sources: No Have you lived/traveled outside US in past 30 days?: No Contact w/someone who lives/traveled outside US past 30 days?: No Exposure to someone with infectious disease in past 14 days?: No Do you have a fever (greater than 100.4 F or 38 C)?: No Have you tested positive for COVID-19?: No Exposed to someone with COVID-19 in past 14 days?: No Do you have a sore throat?: No Do you have a cough?: No Do you have any weakness?: No Are you experiencing any nausea/vomitting?: No Do you have any diarrhea?: No Are you experiencing any unusual bleeding?: No Do you have any muscle aches/pain?: No Do you have any abdominal pain?: No Are you experiencing loss of taste or smell?: No Other Medical History Have you received the Flu Vaccine for this season: No Have you received the Pneumonia Vaccine: Yes Review of Systems Review of Systems Review of systems (narrative): Negative *Cardiovascular Comments: Negative *Gastrointestinal Comments: Negative *Genitourinary Comments: Negative *Musculoskeletal Comments: Negative *Neurologic Comments: Negative Meds Home Medications and Allergies Home Medications ?Medication ?Instructions ?Recorded ?Confirmed ?Type aspirin 81 mg chewable tablet 81 mg PO DAILY Blood thi nner 05/03/20 10/27/24 History albuterol sulfate 90 mcg/actuation 2 inh inhalation Q6 H PRN shortness 12/28/23 10/27/24 Rx aerosol inhaler of breath or wheezing 90 day s #8.5 grams metoprolol succinate 25 mg See Rx Instructions .Route 03/28/24 10/27/24 Rx tablet,extended release 24 hr .COMPLEX #90 tabs levothyroxine 50 mcg tablet 50 mcg PO DAILY 03/30/24 0 10/27/24 History inclisiran 284 mg/1.5 mL 284 mg (1.5 mL) SQ [id number] High 06/17/24 10/27/24 Rx subcutaneous syringe (Leqvio) Cholesterol #1.5 mL cetirizine 10 mg tablet 10 mg PO DAILY Allergies #90 tabs 08/11/24 10/27/24 Rx fluticasone fur. 100 mcg-umeclid 1 inh inhalation [place] Y 90 days #90 08/11/24 10/27/24 Rx 62.5 mcg-vilant 25 mcg ea inhalat.powder (Trelegy Ellipta) meloxicam 15 mg tablet 15 mg PO DAILY #90 tabs 0705/0310/27/24 Rx omeprazole 40 mg capsule,delayed 40 mg PO DAILY Acid r eflux #90 caps 08/11/24 10/27/24 Rx release fluticasone propionate 50 2 spray intranasal DAILY 90 days 10/26/24 10/27/24 Rx mcg/actuation nasal #16 grams spray,suspension (Flonase Allergy Relief) New Prescriptions to Start Prescriptions: Allergies Allergy/AdvReac Type Severity Reaction Status Date / Time clindamycin Allergy Mild Rash Verified 10/27/24 13:43 Exam *Routine HEENT Exam Head: Present normocephalic Eye: Present EOMI and PERRL ENT: Present mucous membranes moist *Routine Neck Exam Neck: Present supple *Routine Respiratory Exam Respiratory: Present CTA bilaterally *Routine Cardiovascular Exam Cardiovascular: Present RRR *Routine Abdominal Exam Abdominal: Present soft and normoactive bowel sounds; Absent tenderness *Routine Rectal Exam Rectal:: deferred *Routine Genitalia Exam Genitalia:: deferred *Routine Extremities Exam Extremities: Absent cyanosis, clubbing or edema *Routine Skin Exam Skin: Present warm; Absent rash *Routine Neurological Exam Neurological: Present alert and oriented X3 Assessment and Plan *Assessment and plan (1) Dysphagia: Status: Acute Category: Medical Code(s): R13.10 - Dysphagia, unspecified (2) History of esophageal stricture: Status: Acute Category: Medical Code(s): Z87.19 - Personal history of other diseases of the digestive system Plan A/P: 1. Dysphagia with history of esophageal stricture is the preprocedural diagnosis. The patient will be anesthetized/sedated using MAC sedation. The patient has been seen and examined. Cardiac and lung assessment prior to the examination is stable. Proceed with planned EGD.
[2024-10-27 13:32] VITALS: BP 205/95; PULSE 73; RESP 18; TEMP 36.3; O2SAT 95; BMI 19.3
[2024-10-27] MEDS: LACTATED RINGERS 1000ML 1,000 ML 50 ML IV (13:56)
--- NOTE | 2024-10-27 14:04 | P.PNANES_ITS ---
[facility] Disclaimer: The information contained in this section may have been updated after the patient was seen, as this information can be updated by other users. Medical History Preop examination Left shoulder pain Dysphagia Decreased hearing Screening for colon cancer due for repeat colonoscopy nov 2026 Pneumonia Otorrhea of right ear Allergic rhinitis Otitis media, right Apparently this is a chronic problem. He has been following with ENT and this infection apparently has not resolved. He is little frustrated by this. He is going to be seeing them in the very near future. Left serous otitis media Perforation of right tympanic membrane Hearing loss, right Encounter for adjustment or removal of myringotomy device (stent) (tube) Recurrent bilateral inguinal hernia Status post laparoscopic bilateral inguinal hernia repair in the mid . Open repair of recurrent right inguinal hernia on November 27, 2022. Retained myringotomy tube in right ear Impacted cerumen of right ear Right chronic otitis media Hearing loss Nocturnal hypoxemia Dyspnea on exertion Nasopharyngeal cancer History of radiation therapy History of chemotherapy Chronic serous otitis media of right ear Impacted cerumen, right ear Otalgia of right ear Rash MRSA (methicillin resistant staph aureus) culture positive Patient is a carrier, follow-up. History of smoking 30 or more pack years Tobacco abuse counseling Patient has quit smoking. Lung nodule Asthma Discoloration of skin of lower leg Dizziness COPD (chronic obstructive pulmonary disease) PAD (peripheral artery disease) Ischemic cardiomyopathy Coronary arteriosclerosis Hyperlipidemia Hypertensive disorder Congestive heart failure Carotid artery stenosis Surgical History History of tympanoplasty of right ear History of ear surgery History of bronchoscopy x2 H/O left wrist surgery PINS History of cardiac defibrillator placement History of hernia surgery AICD (automatic cardioverter/defibrillator) present Family History Other No significant family history Social History (Updated 10/27/24 @ 13:35 by Kylah Paul RN) Smoking Status: Current some day smoker tobacco type: cigarettes packs per day: 1 how long ago did patient quit smokin months second hand exposure: No alcohol intake: former substance use type: denies use current occupational status: retired Travel in the last 8 weeks?: None household members: none housing: house lives independently: Yes marital status: single education level: high school service: Yes caffeine: No special shelley needs: No agree to transfusion: No do you feel safe at home: Yes victim of physical abuse: No victim of emotional abuse: No victim of sexual abuse: No would you like helpful sources: No Have you lived/traveled outside US in past 30 days?: No Contact w/someone who lives/traveled outside US past 30 days?: No Exposure to someone with infectious disease in past 14 days?: No Do you have a fever (greater than 100.4 F or 38 C)?: No Have you tested positive for COVID-19?: No Exposed to someone with COVID-19 in past 14 days?: No Do you have a sore throat?: No Do you have a cough?: No Do you have any weakness?: No Are you experiencing any nausea/vomitting?: No Do you have any diarrhea?: No Are you experiencing any unusual bleeding?: No Do you have any muscle aches/pain?: No Do you have any abdominal pain?: No Are you experiencing loss of taste or smell?: No [facility] Anesthesia Checklist Patient Identification Patient Identification: Arm Band Structural Data Admitted From: Home Planned Operative Procedure/s: EGD Consent for Planned Operative Procedure(s) Verified: Yes Verified Documents: Surgical Consent NPO Status Verified Time NPO: 00:00 Additional verifications Anesthesia Reactions: No Hx Blood Transfusions: No Blood Transfusion Reaction: No Airway Assessment Mallampati Score:: Class II C-Spine Mobility Assessed: Yes TMJ Mobility Assessed: Yes Dentition: Edentulous Neurological Assessment Level of Consciousness: Awake, Alert and Appropriate Anesthesia Plan Anesthesia Risk discussed: Yes Anesthesia Plan: Verified ASA Class: III Anesthesia Type: MAC
--- NOTE | 2024-10-27 14:21 | HMH.PROCNOTE ---
[facility] Procedure Note Date: 10/27/24 Time: 14:41 Procedure Note:: Upper Endoscopy Procedure Report: Esophagogastroduodenoscopy with cold biopsies and TTS balloon dilation Endoscopost: Ben Mensah II, MD Referring Physician: Chance Mcmahan MD/Alexandria Love MD, [address] [place] [address] (oncology [facility]) Date of Procedure: October 27, 2024 Equipment: Olympus GIF-1100 standard upper endoscope Sedation: MAC sedation Indications: Mr. Colvin is a 69-year-old gentleman who is here for diagnostic EGD secondary to recurrent dysphagia. The patient does have a history of an esophageal stricture and has had recurrent dysphagia. He has had 2 prior esophageal dilations and his last EGD was with Dr. Natalie Chambers MD in June 2022. The patient did have dilation up to 18 mm at that time. The patient did have a modified barium swallow on 06/28/2024. The patient does have dysphagia to primarily meats and not liquids. He reports no heartburn or reflux but is on omeprazole. The patient does have some belching but reports no nausea, vomiting or weight loss. He has regular bowel function. He is followed by oncology (Alexandria Love MD [facility]) for his nasopharyngeal squamous cell carcinoma. The examination is deemed medically necessary for diagnostic/therapeutic EGD. Procedure: Prior to the procedure, a history and physical exam was performed, and patient's medications and allergies were reviewed. The risks, benefits and alternatives of the sedation and procedure were discussed with the patient. All questions were answered and informed consent was obtained. The patient was brought to the procedure room. Patient identification and proposed procedure were verified by the physician and the nurse. The patient was placed in a left lateral decubitus position and the scope was passed under direct vision. Throughout the procedure, the patient's blood pressure, pulse, and oxygen saturations were monitored continuously. The upper GI endoscopy was accomplished without difficulty. The patient tolerated the procedure well. Findings: The scope was passed directly into the upper esophagus and advanced to the third portion of the duodenum. The post bulbar duodenum and duodenal bulb were normal with normal mucosa and conniventes. A cold biopsy was taken from the second portion of the duodenum for the disaccharidase assay. The scope was withdrawn through a normal duodenal bulb and pylorus into the stomach. There was some bile reflux with mild linear reactive gastropathy of the antrum. The body and fundus of the stomach were normal. Upon retroflexion there was a larger 6 cm hiatal hernia. The diaphragmatic hiatus was at 41 cm from the incisors and the top of the gastric folds was at 35 cm from the incisors (6 cm hiatal hernia). Cold biopsies were taken from the antrum and lesser curvature. The scope was then withdrawn into the esophagus. There was a distal fibrotic ring that was originally 12 to 13 mm diameter and this was dilated up to 18 mm with a TTS hydrostatic balloon. There was no evidence of reflux esophagitis or Herrera's. There was no corrugation or furrowing. The remainder of the esophageal mucosa was normal. Impression: 1. Distal esophageal fibrotic ring (original diameter 12 to 13 mm and dilated to 18 mm) 2. 6 cm hiatal hernia 3. Bile reflux with mild linear gastropathy of antrum Plan: I will follow-up the biopsies and disaccharidase assay. I will discuss the findings with the patient and family.
[2024-10-27 14:42] VITALS: BP 108/49; PULSE 70; RESP 18; TEMP 36.2; O2SAT 96
[2024-10-27 14:52] VITALS: BP 99/55; PULSE 73; RESP 16; O2SAT 95
[2024-10-27 15:02] VITALS: BP 100/56; PULSE 71; RESP 18; O2SAT 95
[2024-10-27 15:10] VITALS: BP 122/51; PULSE 76; RESP 18; O2SAT 95
[2024-11-01 16:13] LABS: Interpretation Notes (.); Lactase 14.53 (>/= 14.0); Maltase 215.24 (>/= 110.0); Palatinase 19.37 (>/= 8.5); Reference Notes (.); Sucrase 69.91 (>/= 25.0)
== END 2024-10-27 15:11 | disposition home or self-care (01) ==
PROVIDERS: PCP Family Medicine; Visit Provider Internal Medicine Gastroenterology
PROC: 0DJ08ZZ Inspection of Upper Intestinal Tract, Via Natural or Artificial Opening Endoscopic (ICD-10-PCS; CPT 43239; principal; 2024-10-27 15:00)
DX: K21.9 Gastro-esophageal reflux disease without esophagitis (principal); K44.9 Diaphragmatic hernia without obstruction or gangrene; K31.89 Other diseases of stomach and duodenum; K22.2 Esophageal obstruction; I10 Essential (primary) hypertension; J44.9 Chronic obstructive pulmonary disease, unspecified; Z79.82 Long term (current) use of aspirin; Z87.19 Personal history of other diseases of the digestive system; Z88.3 Allergy status to other anti-infective agents
CPT/HCPCS: 43239; 43249; 82657; C1726; J2003; J2704; J7120

== ENCOUNTER 2024-11-09 08:30 | Outpatient (CLI) | payer MEDICARE, OTHER, SELFPAY ==
--- OUTSIDE RECORDS SUMMARY | 2024-09-28 14:15 | XMS_ITS | Encounter Summary ---
Author Organization [facility] Address [address] [place] [address] Care Team Providers Care Care Navigator Name Role Phone Alexandria Love MD Unavailable [phone] Ashok Almanza MD Unavailable [phone] Shaan Judge APRN Unavailable [phone] Pcp, No Primary Care Provider Unavailabl e Reason for Visit * Reason Comments Strabismus Diplopia Blurred Vision Encounter Details Date Type Department Care Team (Late st Contact Info) Description 09/28/2024 2:15 PM EDT Office Visit [facility] [address] [place] [address] Joshua Mejia MD [address] [address] Esotropia, alternating (Primary Dx); Diplopia Social History Tobacco Use Types Packs/Day Years Used Date Smoking Tobacco: Every Day Cigarettes 1 55.7 Started: 02/09/1969 Passive Smoke Exposure: Never Smokeless [...] drink first t ness in the morning (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 0 12/19/2021 CAGE Questionnaire Score 0 022 Sex and Gender Information Value Date Recorded Sex Assigned at Not on file Legal Sex Male 9:26 AM EDT Gender Identity Not on file Sexual Orientation Not on file documented as of this encounter Miscellaneous Notes * Progress Notes - Joshua Mejia MD - 09/28/2024 2:15 PM EDT Images from the original note were not included. Subjective Patient ID: Fortunato Colvin is a 69 y.o. male. He is here for a follow-up exam. The chief complaint today was Strabismus, Diplopia, and Blurred Vision . His problem list, including any diagnoses added today: Patient Active Problem List Diagnosis Nasopharynx cancer (CMS/HCC) Nicotine dependence Neoplasm related pain CINV (chemotherapy-induced nausea and vomiting) Chronic respiratory failure with hypoxia Hyponatremia Physical debility CAD (coronary artery disease) Essential (primary) hypertension Hyperlipidemia, unspecified Hypothyroidism unspecified Moderate protein-calorie malnutrition (CMS/HCC) SIADH (syndrome of inappropriate ADH production) (CMS/HCC) Pneumonia of left lower lobe due to infectious organism Peripheral arterial disease with history of revascularization (CMS/HCC) Mucositis due to antineoplastic therapy Oral pharyngeal candidiasis COPD (chronic obstructive pulmonary disease) (CMS/HCC) Acute respiratory failure with hypoxia Hypoxia Pneumonia of left lower lobe due to Pseudomonas species (CMS/HCC) Pneumothorax Electrolyte abnormality Anemia Cisplatin adverse reaction Diplopia Esotropia, 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 Patient with a history of Esotropia, alternating, Diplopia. Patient states vision has been stable, possibly worse. Patient is having double vision when watching TV. Concerned about prescription. The sun hurts the patient's eyes. No other concerns at this time. Last edited by Yoon Fnues on 09/28/2024 2:44 PM. ROS Positive for: Eyes Negative for: Constitutional, Gastrointestinal, Neurological, Skin, Genitourinary, Musculoskeletal,HENT, Endocrine, Cardiovascular, Respiratory, Psychiatric, Allergic/Imm, Heme/Lymph Last edited by Yoon Funes on 09/28/2024 2:35 PM. No current outpatient medications on file. (Ophthalmic Drugs) No current facility-administered medications for this visit. (Ophthalmic Drugs) Current Outpatient Medications (Other) Medication Sig albuterol (2.5 MG/3ML) 0.083% nebulizer solution albuterol 108 (90 Base) MCG/ACT inhaler aspirin 81 MG chewable tablet cetirizine (ZyrTEC) 10 MG tablet TAKE 1 TABLET DAILY fluticasone (Flonase) 50 MCG/ACT nasal spray Administer 2 sprays into affected nostril(s) 1 (one) time each day. Qbaqmfaoibe-Fyqpidfel-Qkojjq (Trelegy Ellipta) 100-62.5-25 MCG/ACT aerosol powder Inhale. levothyroxine (Synthroid) 50 MCG tablet Take 1 tablet (50 mcg) by mouth 1 (one) time each day before breakfast. meloxicam (Mobic) 15 MG tablet Take 1 tablet by mouth daily. metoprolol succinate XL (Toprol-XL) 25 MG 24 hr tablet Take 0.5 tablets (12.5 mg) by mouth in the morning. ofloxacin (Floxin) 0.3 % otic solution Apply 3 drops to affected ear(s) twice daily for 28 days omeprazole (PriLOSEC) [address] capsule No current facility-administered medications for this visit. (Other) Allergies: Clindamycin Objective Base Eye Exam Visual Acuity (Snellen - Linear) Right Left Dist cc 20/20 -2 20/25 -1 Dist ph cc NI Correction: Glasses Pupils Pupils APD Right PERRL None Left PERRL None Visual Mendez (Counting fingers) Right Left Full Full Extraocular Movement Right Left Full, Ortho Full, Ortho Neuro/Psych Oriented x3: Yes Mood/Affect: Normal Additional Tests Stereo Fly: - Animals: 0/3 Circles: 0/9 Strabismus Exam Method: Alternate cover Correction: cc Observations: Ortho Distance Near Near +3DS N Bifocals - - - - - - - - - - - - E(T) 8+ - - - - E(T) 8+ - - - - E(T) 8+ - - - - - - - - - - - - Sensorimotor Exam - ordered and interpreted by Joshua Mejia MD. Indications for procedure: misalignment of eyes Cooperation: good Assessment and plan as outlined at the end of this note. Slit Lamp and Fundus Exam External Exam Right Left External Normal Normal Slit Lamp Exam Right Left Lids/Lashes Normal for age Normal for age Conjunctiva/Sclera Normal Normal Cornea Clear and compact Clear and compact Anterior Chamber Deep and quiet Deep and quiet Iris Normal pupil size and shape Normal pupil size and shape Lens 1+ NS 1+ NS with 1+ stellate-shaped anterior subcapsular cataract Vitreous Normal Normal Refraction Wearing Rx Sphere Cylinder [place] Add Horz Prism Right -1.50 +0.50 050 +2.75 3.0 out Left -2.00 +1.25 150 +2.75 3.0 out Wearing Rx #2 Sphere Cylinder [place] Add Horz Prism Right -1.25 +0.25 051 +2.50 3BO Left -1.25 +0.75 159 +2.50 3BO Type: Bifocal Final Rx Sphere Cylinder [place] Add Horz Prism Right -1.50 +0.50 050 +2.75 4.0 out Left -2.25 +1.25 150 +2.75 4.0 out Expiration Date: 09/28/2025 Assessment/Plan Diagnoses and all orders for this visit: Esotropia, alternating Diplopia Strabismus relatively small, but bothersome to him. New glasses prescription given today to includeground-in prism. New prescription for glasses given today. Glasses recommended for full-time wear. Follow up in about 1 year (around 09/28/2025) for Refraction, Strabismus Exam. An examination of the periorbital structures, anterior segment, and ocular motility was ordered, reviewed, and interpreted by Joshua Mejia MD. All results reviewed and within normal limits except as outlined above. Patient history, provider findings, and provider assessment and plan discussed with both patient and family member(s). Family member(s) served as independent historian(s). Monitoring and / or treatment of the conditions outlined above is necessary to prevent lifelong disability. documented in this encounter Plan of Treatment Upcoming Encounters Date Type Department Care Team (Late st Contact Info) Description 12/05/2024 10:00 AM EDT Office Visit [facility] Audiology [address] [phone] Maya Field, PhD [address] [address] 12/05/2024 10:45 AM EDT Office Visit [facility] Otolaryngology [address] [address] Evaristo North MD [address] [address] 04/03/2025 1:45 PM EST Clinical Support [facility] [address] [phone] 04/03/2025 2:40 PM EST Appointment [facility] Radiology [address] [place] [phone] 04/06/2025 3:10 PM EST Office Visit [facility] [address] [phone] Alexandria Love MD [address] Idania Cheng [facility] [address] [place] [address] 10/03/2025 10:00 AM EDT Office Visit [facility] [address] [place] [address] Joshua Mejia MD [address] [facility] [address] [place] [address] documented as of this encounter Visit Diagnoses Diagnosis Esotropia, alternating- Primary Alternating esotropia Diplopia documented in this encounter Additional Health Concerns Assessment Noted Time A fall risk assessment has been complete d for the patient 07/11/2024 8:59 AM EDT A Body Mass Index follow-up plan has been documented for the patient 09/28/2024 3:28 PM EDT documented as of this encounter Care Teams Care Navigator Relationship Specialty Start Date End Date Pcp, No [address] [place] [address] PCP - General Family Medicine 09/07/23 10/05/24 Alexandria Love MD [address] Annette Sheets [facility] [address] [place] [phone] Consulting Physician Medical Oncology 08/15/21 Ashok Almanza MD 1720 [facility] [address] [place] [address] Referring Physician 09/17/21 Shaan Judge APRN [address] [facility] [address] [place] [address] Nurse Practitioner Internal Medicine 10/31/21 documented as of this encounter
--- OUTSIDE RECORDS SUMMARY | 2024-10-03 09:30 | XMS_ITS | Encounter Summary ---
Author Organization Healthcare Address [address] [place] [address] Care Team Providers Care Screen Machine Operator Name Role Phone Alexandria Love MD Unavailable [phone] Ashok Almanza MD Unavailable [phone] Shaan Judge APRN Unavailable [phone] Pcp, No Primary Care Provider Unavailabl e Reason for Visit * Reason Comments Labs Only Encounter Details Date Type Department Care Team (Latest Contact Info) Description 10/03/2024 9:30 AM EDT Clinical Support [facility] [address] [place] [address] Neoplasm related pain; Nasopharynx cancer (CMS/HCC); Pneumonia of left lower lobe due to infectious organism; 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 Social History Tobacco Use Types Packs/Day Years [...] drink first t ness in 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 morning (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) to steady your nerves or to get [...] Description 12/05/2024 10:00 AM EDT Office Visit [facility] Audiology [address] [place] [address] Maya Field, PhD [address] [facility] [address] [place] [address] 12/05/2024 10:45 AM EDT Office Visit [facility] Otolaryngology [address] [place] [address] Evaristo North MD [address] [facility] [address] [place] [address] 04/03/2025 1:45 PM EST Clinical Support [facility] [address] [facility] [address] [place] [address] 04/03/2025 2:40 PM EST Appointment [facility] Radiology [address] [place] [address] 04/06/2025 3:10 PM EST Office Visit [facility] [address] [facility] [address] [place] [address] Alexandria Love MD 800 [facility] [address] [place] [address] 10/03/2025 10:00 AM EDT Office Visit [facility] [address] [place] [address] Joshua Mejia MD [address] [place] [address] documented as of this encounter Procedures Procedure Name Priority Date/Time Associated Diagnosis Comments CBC WITH AUTO DIFFERENTIAL Routine 10/03/2024 9:18 AM EDT Neoplasm related pain Nasopharynx cancer (CMS/HCC) Pneumonia of left lower lobe due to infectious organism TSH Routine 10/03/2024 9:18 AM EDT Neoplasm related pain Nasopharynx cancer (CMS/HCC) Pneumonia of left lower lobe due to infectious organism 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 BUN, Plasma 28(H) 8 - 23 mg/dL 10/03/2024 10:[address] [facility] Creatinine, Plasma 1.18 0.70 - 1.20 mg/dL 10/03/2024 10:[address] [facility] BUN/Creatinine Ratio 24 10/03/2024 10:[address] [facility] Sodium, Plasma 136 136 - 145 mmol/L 10/03/2024 10:[address] [facility] Potassium, Plasma 4.6 3.6 - 4.9 mmol/L 10/03/2024 10:[address] [facility] Chloride, Plasma 102 97 - 107 mmol/L 10/03/2024 10:[address] [facility] CO2, Plasma 22 22 - 29 mmol/L 10/03/2024 10:[address] [facility] Anion Gap 12 6 - 16 mmol/L 10/03/2024 10:[address] [facility] Total Calcium, Plasma 9.2 8.9 - 10.2 mg/dL 10/03/2024 10:[address] [facility] Total Protein 8.0(H) 6.3 - 7.9 g/dL 10/03/2024 10:[address] [facility] Albumin, Plasma 4.0 3.5 - 5.2 g/dL 10/03/2024 10:[address] [facility] AST, Plasma 26 10 - 50 U/L 10/03/2024 10:[address] [facility] Comment:Hemolyzed, result ma y be falsely increased. ALT, Plasma 7(L) 10 - 50 U/L 10/03/2024 10:[address] [facility] Alkaline Phosphatase, Plasma 104 40 - 115 U/L 10/03/2024 10:[address] [facility] Total Bilirubin, Plasma 0.3 0.2 - 1.1 mg/dL 10/03/2024 10:[address] [facility] eGFRcr 66.8 mL/min/1.7 3m*2 10/03/2024 10:[address] [facility] Comment:Reported eGFRcr in m L/min/1.73m2 is based the CKD-EPI 2020 equation that does not use a race coefficient. Blood Venous blood specimen / Unknown Venipuncture / Unknown 10/03/2024 9:18 AM EDT 10/03/2024 9:24 AM EDT us Alexandria Love MD LAB BLOOD ORDERABLES Final R esult [facility] [address] [place] [address] * CBC and Differential (10/03/2024 9:18 AM EDT) WBC Count 9.62 3.70 - 10.30 10*3/uL LAB HEMATOLOGY METHOD 10/03/2024 9:[address] [facility] RBC Count 4.60 4.60 - 6.10 10*6/uL LAB HEMATOLOGY METHOD 10/03/2024 9:[address] [facility] HGB 14.1 13.7 - 17.5 g/dL LAB HEMATOLOGY METHOD 10/03/2024 9:[address] [facility] HCT 42.4 40.0 - 51.0 % LAB HEMATOLOGY METHOD 10/03/2024 9:[address] [facility] Platelet Count 229 155 - 369 10*3/uL LAB HEMATOLOGY METHOD 10/03/2024 9:[address] [facility] MCV 92 79 - 98 fL LAB HEMATOLOGY METHOD 10/03/2024 9:[address] [facility] MCH 30.7 26.0 - 32.0 pg LAB HEMATOLOGY METHOD 10/03/2024 9:[address] [facility] MCHC 33.3 30.7 - 35.5 g/dL LAB HEMATOLOGY METHOD 10/03/2024 9:[address] [facility] RDW 13.8 11.5 - 14.5 % LAB HEMATOLOGY METHOD 10/03/2024 9:[address] [facility] MPV 10.0 8.8 - 12.5 fL LAB HEMATOLOGY METHOD 10/03/2024 9:[address] [facility] nRBC 0.0 <=0.0 per 100 WBCs LAB HEMATOLOGY METHOD 10/03/2024 9:[address] [facility] Differential Type Automated LAB HEMATOLOGY METHOD 10/03/2024 9:[address] [facility] Neutrophils % 52 % LAB HEMATOLOGY METHOD 10/03/2024 9:[address] [facility] Lymphocytes % 34 % LAB HEMATOLOGY METHOD 10/03/2024 9:[address] [facility] Monocytes % 8 % LAB HEMATOLOGY METHOD 10/03/2024 9:[address] [facility] Eosinophils % 5 % LAB HEMATOLOGY METHOD 10/03/2024 9:[address] [facility] Basophils % 1 % LAB HEMATOLOGY METHOD 10/03/2024 9:[address] [facility] Immature Granulocytes % 0 % LAB HEMATOLOGY METHOD 10/03/2024 9:[address] [facility] Neutrophils Absolute 4.95 1.60 - 6.10 10*3/uL LAB HEMATOLOGY METHOD 10/03/2024 9:[address] [facility] Lymphocytes Absolute 3.31 1.20 - 3.90 10*3/uL LAB HEMATOLOGY METHOD 10/03/2024 9:[address] [facility] Monocytes Absolute 0.79 0.30 - 0.90 10*3/uL LAB HEMATOLOGY METHOD 10/03/2024 9:[address] [facility] Eosinophils Absolute 0.44 0.00 - 0.50 10*3/uL LAB HEMATOLOGY METHOD 10/03/2024 9:[address] [facility] Basophils Absolute 0.10 0.00 - 0.10 10*3/uL LAB HEMATOLOGY METHOD 10/03/2024 9:[address] [facility] Immature Granulocytes Absolute 0.03 0.00 - 0.06 10*3/uL LAB HEMATOLOGY METHOD 10/03/2024 9:[address] [facility] Blood Venous blood specimen / Unknown Venipuncture / Unknown 10/03/2024 9:18 AM EDT 10/03/2024 9:[address] [facility] - 10/03/2024 9:32 AM EDT Therapeutic decision making should be based on absolute values, rather than percentages. us Alexandria Love MD LAB BLOOD ORDERABLES Final R esult [facility] [address] [place] [address] * Thyroid Stimulating Hormone, Plasma (10/03/2024 9:18 AM EDT) Thyroid Stimulating Hormone, Plasma 3.69 0.40 - 4.20 uIU/mL 10/03/2024 10:[address] [facility] Blood Venous blood specimen / Unknown Venipuncture / Unknown 10/03/2024 9:18 AM EDT 10/03/2024 9:24 AM EDT Alexandria Love MD LAB BLOOD ORDERABLES Final R esult 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 documented in this encounter Additional Health Concerns Assessment Noted Time A fall risk assessment has been complete d for the patient 07/11/2024 8:59 AM EDT A Body Mass Index follow-up plan has been documented for the patient 09/28/2024 3:28 PM EDT documented as of this encounter Care Teams Screen Machine Operator Relationship Specialty Start Date End Date Pcp, No [address] [place] [address] PCP - General Family Medicine 09/07/23 10/05/24 Alexandria Love MD 800 [facility] Annette Sheets [facility] [address] [place] [address] Consulting Physician Medical Oncology 08/15/21 Ashok Almanza MD [address] [facility] [address] [place] [address] Referring Physician 09/17/21 Shaan Judge, AMAURI [address] [facility] Annette Sheets [facility] [address] [place] [address] Nurse Practitioner Internal Medicine 10/31/21 documented as of this encounter
--- OUTSIDE RECORDS SUMMARY | 2024-10-03 09:31 | XMS_ITS | Encounter Summary ---
Author Organization [facility] Address [address] [place] [address] Care Team Providers Care Optical Scientist Name Role Phone Alexandria Love MD Unavailable [phone] Ashok Almanza MD Unavailable [phone] Shaan Judge APRN Unavailable [phone] Pcp, No Primary Care Provider Unavailabl e Reason for Referral * Imaging (Routine) - Closed Specialty Diagnoses / Procedures Referred By Elizabeth beltran Referred To Contact Radiology Diagnoses Neoplasm related pain Nasopharynx cancer Pneumonia of left lower lobe due to infectious organism Procedures CT Soft Tissue Neck w IV Contrast Alexandria Love MD [address] [address] Phone: tel: fax: Referral ID Status Reason Start Date Expiration Date Visits Re quested Visits Authorized [id number] Closed 07/09/2024 01/08/2026 1 1 * Imaging (Routine) - Closed Specialty Diagnoses / Procedures Referred By Elizabeth beltran Referred To Contact Radiology Diagnoses Neoplasm related pain Nasopharynx cancer Pneumonia of left lower lobe due to infectious organism Procedures CT Chest w IV Contrast Alexandria Love MD [address] [address] Phone: tel: fax: Referral ID Status Reason Start Date Expiration Date Visits Re quested Visits Authorized [id number] Closed 07/09/2024 01/08/2026 1 1 Reason for Visit * Imaging (Routine) - Closed Specialty Diagnoses / Procedures Referred By Elizabeth beltran Referred To Contact Radiology Diagnoses Neoplasm related pain Nasopharynx cancer Pneumonia of left lower lobe due to infectious organism Procedures CT Soft Tissue Neck w IV Contrast Alexandria Love MD [address] [facility] [address] [place] [address] Phone: tel: fax: Referral ID Status Reason Start Date Expiration Date Visits Re quested Visits Authorized [id number] Closed 07/09/2024 01/08/2026 1 1 Encounter Details Date Type Department Care Team (Latest Contact Info) Description 10/03/2024 9:31 AM EDT - 10/03/2024 11:59 PM EDT Hospital Encounter [facility] [address] [place] [address] Neoplasm related pain; Nasopharynx cancer (CMS/HCC); Pneumonia of left lower lobe due to infectious organism Discharge Disposition: Home or Self Care Social History Tobacco Use Types Packs/Day Years [...] drink first t ness in the morning (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 0 12/19/2021 CAGE Questionnaire Score 0 022 Sex and Gender Information Value Date Recorded Sex Assigned at Not on file Legal Sex Male 9:26 AM EDT Gender Identity Not on file Sexual Orientation Not on file documented as of this encounter Medications at Time of Discharge albuterol (2.5 MG/3ML) 0.083% nebulizer solution 05/16/2022 albuterol 108 (90 Base) MCG/ACT inhaler 07/22/2023 aspirin 81 MG chewable tablet cetirizine (ZyrTEC) 10 MG tablet TAKE 1 TABLET DAILY 90 tablet 3 08/24/2023 fluticasone (Flonase) 50 MCG/ACT nasal spray Administer 2 sprays into affected nostril(s) 1 (one) time each day. 10/28/2023 Fluticasone-Umec lidin-Vilant (Trelegy Ellipta) 100-62.5-25 MCG/ACT aerosol powder Inhale. meloxicam (Mobic) 15 MG tablet Take 1 tablet by mouth daily. 90 tablet 06/13/2024 metoprolol succinate XL (Toprol-XL) 25 MG 24 hr tablet Take 0.5 tablets (12.5 mg) by mouth in the morning. 12/16/2021 ofloxacin (Floxin) 0.3 % otic solution Apply 3 drops to affected ear(s) twice daily for 28 days 10 mL 1 05/31/2024 omeprazole (PriLOSEC) [address] capsule 09/13/2022 levothyroxine (Synthroid) 50 MCG tablet Take 1 tablet (50 mcg) by mouth 1 (one) time each day before breakfast. 90 tablet 2 03/14/2024 5 documented as of this encounter Miscellaneous Notes * Domingo Jones - 10/03/2024 9:54 AM EDT Images from the original note were not included. 1639 Caring for Yourself after Contrast Imaging If you had ORAL contrast: ? You can go back to your normal diet and activities as tolerated. ? Drink plenty of fluids, unless told otherwise. If you had IV contrast: ? You can go back to your normal diet and activities as tolerated. ? Drink plenty of fluids, unless told otherwise. ? Leave a bandage on the site for 30 minutes (where the IV was inserted or blood was drawn). If you had Intravesical (bladder) contrast: ? Return to normal diet and activity. What you need to know about delayed reaction to IV contrast What is IV Contrast? ? Contrast is a dye that is put into your body through an IV. ? It is used for imaging scans such as CT scans and MRIs. ? The contrast makes blood vessels, organs and other parts of your body show up better on the scan. What do I need to do after IV contrast? ? Drink lots of fluids. This will help flush the contrast out of your system. ? Drink 2-3 extra glasses or bottles of water within 4 hours of your scan. What is a contrast reaction? ? A contrast reaction is a bad side effect from the contrast dye. ? It is rare but it does happen. ? They can be mild - such as sneezing, itching, or hives. ? They can be severe - such as trouble breathing, throat swelling, and irregular heart beat. When do these reactions happen? ? They often happen right after the contrast is injected. ? Some happen hours after going home. Go to the nearest Emergency Department right away if you have any of these symptoms after you leavethe clinic or hospital. ? Sneezing ? Itching in your mouth, throat, eyes, ears, or skin ? Rash or hives ? Throwing up or stomach sickness ? High heart rate or ?racing? of your heart ? Feeling dizzy or woozy ? Feeling short of breath or like you can?t take a deep breath ? Feeling very anxious for no other reason It is very important that these reactions be treated. Tell the doctor or nurse that you are having a reaction to IV contrast dye. Do not ignore any sign of a reaction! All reactions must be assessed by a doctor. Call 911 if you are alone and your reaction is more than mild sneezing or itching. If you have a mild reaction, call to speak with a Radiologist, explain that you havehad a contrast reaction, as this needs to be added to your medical record. documented in this encounter Plan of Treatment Upcoming Encounters Date Type Department Care Team (Late st Contact Info) Description 12/05/2024 10:00 AM EDT Office Visit [facility] [address] [place] [address] Maya Field, PhD [address] [facility] [address] [place] [address] 12/05/2024 10:45 AM EDT Office Visit [facility] Otolaryngology [address] [place] [address] Evaristo North MD [id number] [place] [address] 04/03/2025 1:45 PM EST Clinical Support [facility] [address] [facility] [place] [phone] 04/03/2025 2:40 PM EST Appointment [facility] [address] [place] [phone] 04/06/2025 3:10 PM EST Office Visit [facility] [address] [facility] [place] [address] Alexandria Love MD [address] [facility] [address] [place] [phone] 10/03/2025 10:00 AM EDT Office Visit [facility] [address] [facility] [place] [address] Joshua Mejia MD [address] [facility] [address] [place] [address] documented as of this encounter Procedures Procedure Name Priority Date/Time Associated Diagnosis Comments CT CHEST W IV CONTRAST Routine 10/03/2024 10:52 AM EDT Neoplasm related pain Nasopharynx cancer (CMS/HCC) Pneumonia of left lower lobe due to infectious organism CT SOFT TISSUE NECK W IV CONTRAST Routine 10/03/2024 10:52 AM EDT Neoplasm related pain Nasopharynx cancer (CMS/HCC) Pneumonia of left lower lobe due to infectious organism documented in this encounter Results * CT Soft Tissue Neck w IV Contrast (10/03/2024 10:52 AM EDT) Anatomical Region Laterality Modality Neck Computed Tomogra phy Impressions 10/04/2024 4:44 PM EDT Stable post-treatment changes in the right nasopharynx and skull base, with no definitive evidence of recurrent neoplasm or disease progression. CRITICAL RESULT: No. COMMUNICATION: Per this written report. Drafted by Jesús Langley MD on 10/04/2024 4:31 PM Final report signed by Jesús Langley MD on 10/04/2024 4:44 PM Narrative 10/04/2024 4:44 PM EDT CLINICAL INDICATION: Head/neck cancer, assess treatment response TECHNIQUE: Helical images were obtained through the neck, and reconstructed in the axial plane on bone and soft tissue algorithm at multiple slice thicknesses. Coronal and sagittal reformatted images were created. 100 mL of Omnipaque 300 were administered intravenously. Total DLP (Dose-Length Product): 780.65 mGy.cm. Please note: The reported value represents the total of one or more individual components during the CT acquisition on this date and at this time, and as such, the same value may appear in more than one CT report depending on the interpreting/reporting physicians. COMPARISON: Multiple previous exams including CT exam from June 09, 2024. FINDINGS: Diagnostic Quality: Adequate. Soft Tissues: No masses are present within the soft tissues of the neck. Lymph Nodes: No significant cervical adenopathy is present. Pharynx/Larynx: There is unchanged postsurgical and/or treatment change in the soft tissues of the right nasopharynx and preclival soft tissues. No definite new pharyngeal or laryngeal masses are present. Oral Cavity: No large masses are present within the oral cavity within the limitations of the study. Parapharyngeal Space: No lesions are present within the parapharyngeal space. Salivary Glands: The parotid and submandibular glands are normal in size without definite focal lesions. Thyroid: No focal thyroid lesions are present, within the limitations of the study. Orbits/Paranasal Sinuses/Skull Base/Posterior Fossa: No orbital masses are present within the visualized portions of the orbits. The visualized paranasal sinuses are grossly clear. Within the skull base, there is stable erosion of the right clivus, petrous apex and horizontal squama of the right temporal. No abnormality is identified within the posterior fossa. Bones/Spine: Mild to moderate spondylotic changes visualized spine appears greatest at C6-C7 level. Thoracic Inlet and Lung Apices: Emphysema and subsegmental atelectasis of bilateral upper lungs. There is also biapical lung scarring probable small left pleural effusion is also present. Please see the separate report for the chest CT scan for further discussion of intrathoracic findings. Other Findings: Partially visualized left-sided cardiac pacer and leads. Procedure Note Jesús Langley MD - 10/04/2024 CLINICAL INDICATION: Head/neck cancer, assess treatment response TECHNIQUE: Helical images were obtained through the neck, and reconstructed in theaxial plane on bone and soft tissue algorithm at multiple slicethicknesses. Coronal and sagittal reformatted images were created. 100 mLof Omnipaque 300 were administered intravenously. Total DLP (Dose-Length Product): 780.65 mGy.cm. Please note: The reportedvalue represents the total of one or more individual components during theCT acquisition on this date and at this time, and as such, the same valuemay appear in more than one CT report depending on theinterpreting/reporting physicians. COMPARISON: Multiple previous exams including CT exam from June 09, 2024. FINDINGS: Diagnostic Quality: Adequate. Soft Tissues: No masses are present within the soft tissues of the neck. Lymph Nodes: No significant cervical adenopathy is present. Pharynx/Larynx: There is unchanged postsurgical and/or treatment change inthe soft tissues of the right nasopharynx and preclival soft tissues. Nodefinite new pharyngeal or laryngeal masses are present. Oral Cavity: No large masses are present within the oral cavity within thelimitations of the study. Parapharyngeal Space: No lesions are present within the parapharyngealspace. Salivary Glands: The parotid and submandibular glands are normal in sizewithout definite focal lesions. Thyroid: No focal thyroid lesions are present, within the limitations ofthe study. Orbits/Paranasal Sinuses/Skull Base/Posterior Fossa: No orbital masses arepresent within the visualized portions of the orbits. The visualizedparanasal sinuses are grossly clear. Within the skull base, there isstable erosion of the right clivus, petrous apex and horizontal squama ofthe right temporal. No abnormality is identified within the posteriorfossa. Bones/Spine: Mild to moderate spondylotic changes visualized spine appearsgreatest at C6-C7 level. Thoracic Inlet and Lung Apices: Emphysema and subsegmental atelectasis ofbilateral upper lungs. There is also biapical lung scarring probable smallleft pleural effusion is also present. Please see the separate report forthe chest CT scan for further discussion of intrathoracic findings. Other Findings: Partially visualized left-sided cardiac pacer and leads. IMPRESSION: Stable post-treatment changes in the right nasopharynx and skull base,with no definitive evidence of recurrent neoplasm or diseaseprogression. CRITICAL RESULT: No. COMMUNICATION: Per this written report. Drafted by Jesús Langley MD on 10/04/2024 4:31 PM Final report signed by Jesús Langley MD on 10/04/2024 4:44 PM us Alexandria Love MD IMG CT PROCEDURES Final Resu lt * CT Chest w IV Contrast (10/03/2024 10:52 AM EDT) Anatomical Region Laterality Modality Chest Computed Tomogra phy Impressions 10/03/2024 11:16 AM EDT Overall, there is interval decrease in previously seen left greater than right consolidations or nodular opacities representing improving multifocal infection with residual disease. Interval increase in tree-in-bud opacities in the left lower lobe suggestive of aspiration or endobronchial spread of infection with increased bronchial wall thickening and some mucous plugging. CRITICAL RESULT: No. COMMUNICATION: Per this written report. Drafted by Kenia Rothman MD on 10/03/2024 11:08 AM Final report signed by Kenia Rothman MD on 10/03/2024 11:16 AM Narrative 10/03/2024 11:16 AM EDT CLINICAL INDICATION: Oropharyngeal cancer, staging TECHNIQUE: Multiple CT helical images were obtained from thoracic inlet through upper abdomen with administration of IV contrast. 100 mL of Omnipaque-300 were administered intravenously. Total DLP (Dose-Length Product): 780.65 mGy.cm. Please note: The reported value represents the total of one or more individual components during the CT acquisition on this date and at this time, and as such, the same value may appear in more than one CT report depending on the interpreting/reporting physicians. COMPARISON: 07/05/2024 FINDINGS: Mediastinum and Pleura: Severe coronary artery calcifications and atherosclerotic calcifications of the aorta, with a stent noted in the proximal left subclavian artery. No pleural or pericardial effusions. Unchanged left upper lobe pleural parenchymal thickening and scarring. No significant mediastinal adenopathy. Lungs: There is interval decrease in size and extent of the consolidative and nodular opacities in the upper lobes, worse on left. Residual small and nodularities in the lingula and left lower lobe with tree-in-bud opacities in the left lower lobe which have increased. Persistent bronchial wall thickening with some mucous plugging in the left lower lobe has increased. There is debris in the distal trachea. Upper Abdomen: The size of the hiatal hernia. Focal cortical defect/scarring in the left kidney. Musculoskeletal: No suspicious lytic or sclerotic lesion. Procedure Note Kenia Rothman MD - 10/03/2024 CLINICAL INDICATION: Oropharyngeal cancer, staging TECHNIQUE: Multiple CT helical images were obtained from thoracic inlet through upperabdomen with administration of IV contrast. 100 mL of Omnipaque-300 wereadministered intravenously. Total DLP (Dose-Length Product): 780.65 mGy.cm. Please note: The reportedvalue represents the total of one or more individual components during theCT acquisition on this date and at this time, and as such, the same valuemay appear in more than one CT report depending on theinterpreting/reporting physicians. COMPARISON: 07/05/2024 FINDINGS: Mediastinum and Pleura: Severe coronary artery calcifications andatherosclerotic calcifications of the aorta, with a stent noted in theproximal left subclavian artery. No pleural or pericardial effusions.Unchanged left upper lobe pleural parenchymal thickening and scarring. Nosignificant mediastinal adenopathy. Lungs: There is interval decrease in size and extent of the consolidativeand nodular opacities in the upper lobes, worse on left. Residual smalland nodularities in the lingula and left lower lobe with [id number] in the left lower lobe which have increased. Persistentbronchial wall thickening with some mucous plugging in the left lower lobehas increased. There is debris in the distal trachea. Upper Abdomen: The size of the hiatal hernia. Focal corticaldefect/scarring in the left kidney. Musculoskeletal: No suspicious lytic or sclerotic lesion. IMPRESSION: Overall, there is interval decrease in previously seen left greater thanright consolidations or nodular opacities representing improvingmultifocal infection with residual disease. Interval increase [id number] opacities in the left lower lobe suggestive of aspiration orendobronchial spread of infection with increased bronchial wall thickeningand some mucous plugging. CRITICAL RESULT: No. COMMUNICATION: Per this written report. 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, unspecified site Pneumonia of left lower lobe due to infectious organism documented in this encounter Administered Medications Inactive Administered Medications - up to 3 most recent administrations Medication Order MAR Action Action Date Dose Rate Site iohexol (OMNIPaque) 300 MG/ML injection 100 mL 100 mL, Intravenous, Once in imaging, 1 dose, Starting on Thu10/03/24 at 0954, Until Thu10/03/24 at 1042, Routine, Imaging Protocol Orders Given 10/03/2024 10:42 AM EDT 100 mL documented in this encounter Additional Health Concerns Assessment Noted Time A fall risk assessment has been complete d for the patient 07/11/2024 8:59 AM EDT A Body Mass Index follow-up plan has been documented for the patient 09/28/2024 3:28 PM EDT documented as of this encounter Care Teams Optical Scientist Relationship Specialty Start Date End Date Pcp, Ivelisse [address] [place] [address] PCP - General Family Medicine 09/07/23 10/05/24 Alexandria Love MD [address] [facility] [address] [place] [address] Consulting Physician Medical Oncology 08/15/21 Ashok Almanza MD [address] [facility] [address] [place] [address] Referring Physician 09/17/21 Shaan Judge APRN [address] [facility] [address] [place] [address] Nurse Practitioner Internal Medicine 10/31/21 documented as of this encounter
--- OUTSIDE RECORDS SUMMARY | 2024-10-06 09:10 | XMS_ITS | Encounter Summary ---
Author Organization [facility] Address [address] [place] [address] Care Team Providers Care Licensed Electrician Name Role Phone Alexandria Love MD Unavailable [phone] Ashok Almanza MD Unavailable [phone] Shaan Judge APRN Unavailable [phone] Chance Mcmahan MD Primary Care Provider [phone] Reason for Referral * Imaging (Routine) - Pending Review Specialty Diagnoses / Procedures Referred By Contfaith t Referred To Contact Radiology Diagnoses Pneumonia of left lower lobe due to infectious organism Nasopharynx cancer Procedures CT Soft Tissue Neck w IV Contrast Alexandria Love MD [address] [address] Phone: tel: fax: Referral ID Status Reason Start Date Expiration Date V isits Requested Visits Authorized [id number] Pending Review 10/05/2024 04/06/2026 1 1 * Imaging (Routine) - Pending Review Specialty Diagnoses / Procedures Referred By Elizabeth beltran Referred To Contact Radiology Diagnoses Pneumonia of left lower lobe due to infectious organism Nasopharynx cancer Procedures CT Chest w IV Contrast Alexandria Love MD [address] [address] Phone: tel: fax: Referral ID Status Reason Start Date Expiration Date V isits Requested Visits Authorized [id number] Pending Review 10/05/2024 04/06/2026 1 1 Reason for Visit * Reason Comments Follow-up Encounter Details Date Type Department Care Team ([facility] st Contact Info) Description 10/06/2024 9:10 AM EDT Office Visit [facility] Head[facility] Neck [facility] Respiratory [address] [facility]nd [place] [address] Alexandria Love MD [address] [facility] Annette Sheets 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 Social [...] drink first t ness in the morning (EYE-VP PROJECT) to steady your nerves or to get [...] Sign Reading Time Taken Comments Blood Pressure 180/91 10/06/2024 8:41 AM EDT Pulse 76 10/06/2024 8:41 AM EDT Temperature - - Respiratory Rate 16 10/06/2024 8:41 AM EDT Oxygen Saturation 98% 10/06/2024 8:41 AM EDT Inhaled Oxygen Concentration - - Weight 60.7 kg (133 lb 13.1 oz) 10/06/2024 8:41 AM EDT Height - - Body Mass Index 19.2 09/09/2024 10:53 AM EDT documented in this encounter Miscellaneous Notes * Progress Notes - Guillermina Emerson - 10/06/2024 9:10 AM EDT Patient Information Patient Name: Fortunato Colvin Date of : 1955 REFERRING PHYSICIAN: Alexandria Love MD [address] [place] [id number] Encounter Date: 10/06/2024 Fortunato Colvin is a 69 y.o. male who returns for followup of his Cancer Staging Nasopharynx cancer (CMS/HCC), Staging form: Pharynx - Nasopharynx, AJCC 8th Edition, Clinical: Stage Unknown Nasopharynx cancer (CMS/[facility]ER[facility]), Staging form: Pharynx - Nasopharynx, AJCC 8th Edition, Clinical: Stage GEOVANNA. he returns for followup and for follow-up after treatment of head and neck cancer Subjective Mr. oClvin has no new complaints today. Affirms mild, nonproductive cough, but is much better than it was when he had pneumonia several months ago. Denies shortness of breath, chest pain, headaches, vision changes, hoarseness, or swelling. He expressed wishes to come off the synthroid, but was amenable to continuing after we explained how it was working. Oncology History Overview Note His oncologic history is as follows: He has a history of chronic hearing loss and fluid in right ear for over a year, with audiogram showing mixed loss in the right ear. He also had noted small pulmonary nodules. CT of head with and without from 04/03/20 showed right mastoiditis with asymmetric soft tissue prominence in the right torus tubarius region and fossa of Rosenm??ller, with a differential of lymphoid hyperplasia, neoplasm and direct visualization is suggested. Septoplasty and exam of nasopharynx on April 2020, by Dr. Frances, showed no lesions seen. CT 06/18/[address] August 2020 done to follow pulmonary nodules showed an SUV 5.5 in right tonsillar pillar but had a normal exam at that time by Dr. Frances. Flexible laryngoscopy on 06/03/21 showed a large exophytic mass by Dr. Ashok Almanza. CT 06/13/21 CT of soft tissue neck with contrast showed a 3.5 cm right nasopharynx mass, with small bilateral neck nodes, mild left maxillary sinus thickening, mild stenosis of right ICA, as well as right upper lobe nodules (11 and 17 mm) also noted. He then performed a t-tube and right nasopharynx biopsy on 06/26/2021 was postive for basaloid squamous cell carcinoma; tumor is positive for P16, CK5/6, P40 and SOX10. It is reported to be negative for GABINO, INSM1, CD117 and NKX2.2. Noted to have an elevated EBV ANTIBODY TO VIRAL CAPSID ANTIGEN IGG> 750.0 PET/CT 08/14 with hypermetabolic R nasopharyngeal mass with invasion into clivus and potentially intracranial extension, hypermetabolic RLL spiculated nodule (concerning for metastatic vs primary), bilateral subsolic spiculated pulmonary nodules. Admitted for pain control on 08/15/21, with Severe hyponatremia which stabilized with hypertonic saline,. He also had altered mental status, malnutrition, COPD exacerbation and nausea. MRI 08/21/21 brain without evidence of metastatic disease; R nasopharyngeal mass invading into skullbase. Lung biopsy performed on 08/22/21 of previously noted hypermetabolic right lower lobe spiculated nodule, showed LUNG, RIGHT LOWER LOBE, TRANSBRONCHIAL BIOPSY: BENIGN ALVEOLATED LUNG TISSUE WITH NONSPECIFIC ACUTE AND CHRONIC INFLAMMATION. GMS STAIN NEGATIVE FOR FUNGAL ORGANISMS. ADENOVIRUS STAIN NEGATIVE. Initiated cisplatin concurrent with radiation therapy on 09/02/21. Admitted during chemotherapy-radiation therapy with pancytopenia, bacteremia, and Pseudomonas cavitary pneumonia first treated at [facility] in October, discharged November 07, but re-admitted from [facility] with worsening hypoxia and a second prolonged hospitalziation reuiring thoracentesis (neg for malignancy) and prolonged IV antbiotis. His cultures showed a secondary Klebsiella PNA, and required IV cefepime with planned stop date of 12/03/21. Of note: he completed radiation 7000 cGy in 35 fractions to nasopharyngeal gross disease and high risk lymph node stations, TREATMENT DATES: 09/02/2021 - 10/24/2021 (during hospitalization) and received 6 of a planned 7 doses of weekly cisplatin. 10/22/2021 CT chest: Multifocal left lower lobe airspace disease most consistent with multifocal infection including a component of cavitation/necrosis, increased from October 04, 2021 comparison. Leftupper lobe nodule is most likely infection given the rapid interval progression. Short interval follow-up recommended for surveillance. Increased now moderate bilateral layering pleural effusions. 10/28/2021 and 11/18/2021 Pleural fluid - NO EVIDENCE OF DISEASE 12/25/2021 s/p a left VATS mechanical pleurodesis and pleurectomy for a left- sided spontaneous pneumothorax with pathology only showing the PARIETAL PLEURA, LEFT, PLEURODESIS: MESOTHELIAL LINED SOFT TISSUE WITH CHRONIC INFLAMMATION AND PIGMENT LADEN MACROPHAGES. NEGATIVE FOR FUNGAL ORGANISMS (GMS). Nasopharynx cancer (CMS/HCC) 06/26/2021 Cancer Staged Staging form: Pharynx - Nasopharynx, AJCC 8th Edition, Clinical stage from 06/26/2021: Stage Unknown(cT2, cNX) - Signed by Alexandria Love MD on 08/02/2021 08/02/2021 Initial Diagnosis Nasopharynx cancer (CMS/HCC) 08/26/2021 - 09/30/2021 Chemotherapy CISplatin (Platinol) 71 mg in sodium chloride 0.9 % 500 mL chemo IV, 40 mg/m2 = 71 mg, Intravenous,Once, 6 of 7 cycles Administration: 71 mg (08/26/2021), 71 mg (09/02/2021), 71 mg (09/16/2021), 71 mg (09/23/2021), 71 mg (09/09/2021), 71 mg (09/30/2021) aprepitant (Cinvanti) 130 MG/18ML IV 130 mg, 130 mg, Intravenous, Once, 6 of 7 cycles Administration: 130 mg (08/26/2021), 130 mg (09/02/2021), 130 mg (09/16/2021), 130 mg (09/23/2021), 130 mg (09/09/2021), 130 mg (09/30/2021) 09/11/2021 Cancer Staged Staging form: Pharynx - Nasopharynx, AJCC 8th Edition, Clinical: Stage GEOVANNA (cT4, cN0, cM0) - Signedby Gael Connell MD on 09/11/2021 Pertinent records are reviewed today. Problem List and Medications Reviewed and updated in this encounter by me personally Objective Performance Status 0: Fully active, able to carry on all pre-disease performance without restriction Blood pressure (!) 180/91, pulse 76, resp. rate 16, weight 60.7 kg (133 lb 13.1 oz), SpO2 98%. EXAM Physical Exam Vitals reviewed. Constitutional: General: He is not in acute distress. Appearance: Normal appearance. He is normal weight. He is not ill-appearing. HENT: Head: Normocephalic and atraumatic. Nose: Nose normal. Mouth/Throat: Mouth: Mucous membranes are dry. Pharynx: Oropharynx is clear. Eyes: General: No scleral icterus (speech). Conjunctiva/sclera: Conjunctivae normal. Cardiovascular: Rate and Rhythm: Normal rate and regular rhythm. Heart sounds: Normal heart sounds. Pulmonary: Effort: Pulmonary effort is normal. No respiratory distress. Breath sounds: Wheezing (LLL, mild) present. No rhonchi or rales. Musculoskeletal: Cervical back: Normal range of motion. No rigidity. Right lower leg: No edema. Left lower leg: No edema. Skin: General: Skin is warm and dry. Neurological: General: No focal deficit present. Mental Status: He is alert and oriented to person, place, and time. Psychiatric: Mood and Affect: Mood normal. Thought Content: Thought content normal. Judgment: Judgment normal. LABORATORIES AND STUDIES: reviewed by me personally today to monitor for cancer related drug toxicity and treatment related shelter toxicity CBC WBC 9.62 Hgb 14.1 PLT 229 HCT 42.4 Lab Results Component Value Date NEUTROABS 4.95 10/03/2024 BASIC METABOLIC PANEL Na 136 Cl 102 BUN 28 Gluc 102 K 4.6 Co2 22 Creat 1.18 LIVER FUNCTION TESTING Tot Prot 8.0 AST 26 Tot bili 0.3 ALT 7 Alkphos 104 Ca 9.2 Mg No results found for requested labs within last 365 days. Lab Results Component Value Date TSH 3.69 10/03/2024 Radiology: I independently visualized the recent imaging given the patient's symptoms and oncologic history CT Soft Tissue Neck w IV Contrast Result Date: 10/04/2024 Impression: Stable post-treatment changes in the right nasopharynx and skull base, with no definitive evidence of recurrent neoplasm or disease progression. Final report signed by Jesús Langley MD on 10/04/2024 4:[address] Chest w IV Contrast Result Date: 10/03/2024 Impression: Overall, there is interval decrease in previously seen left greater than right consolidations or nodular opacities representing improving multifocal infection with residual disease. Interval increase in tree-in-bud opacities in the left lower lobe suggestive of aspiration or endobronchial spread of infection with increased bronchial wall thickening and some mucous plugging. Final report signed by Kenia Rothman MD on 10/03/2024 11:16 AM Pathology: Final Diagnosis (no units) Date/Time Value 04/22/2024 0852 A. RIGHT MIDDLE EAR CONTENTS, TYMPANOPLASTY: - PREDOMINANTLY INFLAMED GRANULATION TISSUE AND FIBRIN, NO MALIGNANCY IDENTIFIED. Comment (no units) Date/Time Value 07/30/2021 0946 Per outside report, the case was seen by Dr. Sohail Bell, an expert in head and neck pathology,and the above diagnosis reflects his opinion. Per outside report, the tumor is positive for P16, CK5/6, P40 and SOX10. It is reported to be negative for GABINO, INSM1, CD117 and NKX2.2. Assessment/Plan Cancer management: Cancer Staging Nasopharynx cancer (CMS/HCC) Staging form: Pharynx - Nasopharynx, AJCC 8th Edition - Clinical stage from 06/26/2021: Stage Unknown (cT2, cNX) - Signed by Alexandria Love MD on 08/02/2021 - Clinical: Stage GEOVANNA (cT4, cN0, cM0) - Signed by Gael Connell MD on 09/11/2021 Dr. Love and I reviewed liver and renal function as well as bone marrow function in relationship to this patient's prior systemic cancer therapy - no concerns - We independently visualized the recent imaging and discussed the current radiology findings with the patient in detail and answered all questions. - Repeat CT-chest on 10/03/2024 showed interval decrease in L > R consolidations, representing improving infection with mild increase in LLL aspiration-related changes. - Repeat CT-neck on 10/03/2024 showed stable posttreatment changes with no evidence of recurrent neoplasm. - Continue speech therapy and pulmonary rehab as well - Repeat CT-chest, CT-neck, and labs in 6-months - return to clinic in 6 months for imaging review 2. Pain related to neoplasm: resolved at present - will monitor for recurrence 3. Malnutrition secondary to cancer: stable, wt gain noted - with loss of muscle mass, bitemporal wasting, bmi <19 indicating malnutrition, moderate - continue dietary supplements 4. Hypothyroidism - TSH is WITHIN NORMAL LIMITS so continue levothyroxine at [address] Love - This will be periodically monitored as we continue therapy, due to the potential for worsening ofthyroid function from radiation and systemic cancer therapy. 5. Diarrhea, perirectal inflammation- per previous PET - Colonoscopy 11/13/23: RECTUM, POLYP, BIOPSY: TUBULAR ADENOMA. NO EVIDENCE OF HIGH GRADE DYSPLASIA. Patient discussed in detail with Dr. Love. Guillermina Emerson, MS4 Cosigned by Alexandria Love MD at 10/06/2024 9:40 AM EDT Associated attestation - Alexandria Love MD - 10/06/2024 9:40 AM EDT I saw and evaluated the patient with the medical/STOCK CHASER/PA student. I discussed the case with the medical/STOCK CHASER/PA student and agree with the findings and plan as documented. I personally performed the Examand Medical Decision Making. documented in this encounter Plan of Treatment Upcoming Encounters Date Type Department Care Team (Late st Contact Info) Description 12/05/2024 10:00 AM EDT Office Visit [facility] Audiology [address], [address] [place] [id number] Maya Field, PhD [address] [facility] [address] [place] [address] 12/05/2024 10:45 AM EDT Office [facility] [address] [place] [address] Evaristo North MD [address] [facility] [address] [place] [address] 04/03/2025 1:45 PM EST Clinical Support [facility] [address] [facility] [place] [address] 04/03/2025 2:40 PM EST Appointment [facility] Radiology [address] [place] [address] 04/06/2025 3:10 PM EST Office Visit [facility] Head[facility] Neck [facility] Respiratory [address] [facility] [place] [address] Alexandria Love MD [address] [facility] [address] [place] [address] 10/03/2025 10:00 AM EDT Office Visit [facility] [address] [place] [address] Joshua Mejia MD [address] [facility] [address] [place] [address] Scheduled Orders Name Type Priority Associated Diagnoses Orde r Schedule CT Chest w IV Contrast Imaging Routine Pneumonia of left lower lobe due to infectious organism Nasopharynx cancer (CMS/HCC) Expected: 04/06/2025 (Approximate), Expires: 04/08/2026 CT Soft Tissue Neck w IV Contrast Imaging Routine Pneumonia of left lower lobe due to infectious organism Nasopharynx cancer (CMS/HCC) Expected: 04/06/2025, Expires: 04/08/2026 CBC and Differential Lab Routine Pneumonia of left lower lobe due to infectious organism Nasopharynx cancer (CMS/HCC) Expected: 04/03/2025, Expires: 04/08/2026 Comprehensive Metabolic Panel, Plasma Lab Routine Pneumonia of left lower lobe due to infectious organism Nasopharynx cancer (CMS/HCC) Expected: 04/03/2025, Expires: 04/08/2026 Thyroid Stimulating Hormone, Plasma Lab Routine Pneumonia of left lower lobe due to infectious organism Nasopharynx cancer (CMS/HCC) Expected: 04/03/2025, Expires: 04/08/2026 documented as of this encounter Visit Diagnoses Diagnosis Pneumonia of left lower lobe due to infectious organism- Primary Nasopharynx cancer Malignant neoplasm of nasopharynx, unspecified site Panlobular emphysema Other emphysema Moderate protein-calorie malnutrition (CMS/HCC) 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 documented in this encounter Additional Health Concerns Assessment Noted Time A fall risk assessment has been complete d for the patient 10/06/2024 8:42 AM EDT A Body Mass Index follow-up plan has been documented for the patient 09/28/2024 3:28 PM EDT documented as of this encounter Care Teams Licensed Electrician Relationship Specialty Start Date End Date Chance Mcmahan MD [address] [place] [address] PCP - General 10/06/24 Alexandria Love MD [address] [facility] [address] [place] [address] Consulting Physician Medical Oncology 08/15/21 Ashok Almanza MD [address] [facility] [address] [place] [address] Referring Physician 09/17/21 Shaan Judge APRN [address] [facility] [address] [place] [address] Nurse Practitioner Internal Medicine 10/31/21 documented as of this encounter
--- OUTSIDE RECORDS SUMMARY | 2024-11-09 08:39 | XMS_ITS | Encounter Summary ---
Author Organization [facility] Address [address] [place] [address] Care Team Providers Care Placement Specialist Name Role Phone Alexandria Love MD Unavailable [phone] Ashok Almanza MD Unavailable [phone] Shaan Judge APRN Unavailable [phone] Chance Mcmahan MD Primary Care Provider [phone] Encounter Details Date Type Department Care Team (Latest Contact Info) Description 10/06/2024 Travel Social History Tobacco Use Types Packs/Day [...] drink first t ness in the morning (EYE[employer] MGR) to steady your nerves or to get rid of a hangover? 0 12/19/2021 CAGE Questionnaire Score 0 022 Sex and Gender Information Value Date Recorded Sex Assigned at Not on file Legal Sex Male 9:26 AM EDT Gender Identity Not on file Sexual Orientation Not on file documented as of this encounter Plan of Treatment Upcoming Encounters Date Type Department Care Team ([facility] st Contact Info) Description 12/05/2024 10:00 AM EDT Office Visit [facility] Audiology [address] [place] [address] Maya Field, PhD [address] [facility] [address] [place] [address] 12/05/2024 10:45 AM EDT Office Visit [facility] Otolaryngology [address] [place] [address] Evaristo North MD [address] [facility] [address] [place] [address] 04/03/2025 1:45 PM EST Clinical Support [facility] [address] [facility] [place] [id number] 04/03/2025 2:40 PM EST Appointment [facility] Radiology [address] [place] [id number] 04/06/2025 3:10 PM EST Office Visit [facility] [address] [facility] [place] [id number] Alexandria Love MD [address] [facility] [address] [place] [phone] 10/03/2025 10:00 AM EDT Office Visit [facility] [address] [facility] [place] [address] Joshua Mejia MD [address] [facility] [address] [place] [address] documented as of this encounter Visit Diagnoses Not on filedocumented in this encounter Additional Health Concerns Assessment Noted Time A fall risk assessment has been complete d for the patient 10/06/2024 8:42 AM EDT A Body Mass Index follow-up plan has been documented for the patient 09/28/2024 3:28 PM EDT documented as of this encounter Care Teams Placement Specialist Relationship Specialty Start Date End Date Chance Mcmahan MD [address] [place] [address] PCP - General 10/06/24 Alexandria Love MD [address] S[address] [facility] [address] [place] [address] Consulting Physician Medical Oncology 08/15/21 [place] [address] [place] [address] [address] [place] [address] Referring Physician 09/17/21 Shaan Judge APRN [address] [facility] [address] [place] [address] Nurse Practitioner Internal Medicine 10/31/21 documented as of this encounter
--- OUTSIDE RECORDS SUMMARY | 2024-11-09 08:39 | XMS_ITS | Encounter Summary ---
Author Organization Healthcare Address [address] [place] [address] Care Team Providers Care Parts Counter Associate Name Role Phone Alexandria Love MD Unavailable [phone] Ashok Almanza MD Unavailable [phone] Shaan Judge APRN Unavailable [phone] Pcp, No Primary Care Provider Unavailabl e Encounter Details Date Type Department Care Team (Latest Contact Info) Description 10/03/2024 Travel Social History Tobacco Use Types Packs/Day [...] drink first t ness in the morning ([employer]) to steady your nerves or to get [...] Description 12/05/2024 10:00 AM EDT Office Visit [facility] Audiology [address] [place] [address] Maya Field, PhD [address] [facility] [address] [place] [address] 12/05/2024 10:45 AM EDT Office Visit [facility] Otolaryngology [address] [place] [address] Evaristo North MD [id number] [place] [address] 04/03/2025 1:45 PM EST Clinical Support [facility] [address] [facility] [place] [phone] 04/03/2025 2:40 PM EST Appointment [facility] Radiology [address] [place] [address] 04/06/2025 3:10 PM EST Office Visit [facility] [address] [facility] [place] [address] Alexandria Love MD [address] [facility] [address] [place] [address] 10/03/2025 10:00 AM EDT Office Visit [facility] [address] [facility] [place] [address] Joshua Mejia MD [address] [place] [address] documented as of this encounter Visit Diagnoses Not on filedocumented in this encounter Additional Health Concerns Assessment Noted Time A fall risk assessment has been complete d for the patient 07/11/2024 8:59 AM EDT A Body Mass Index follow-up plan has been documented for the patient 09/28/2024 3:28 PM EDT documented as of this encounter Care Teams Parts Counter Associate Relationship Specialty Start Date End Date Pcp, No [address] [place] [address] PCP - General Family Medicine 09/07/23 10/05/24 Alexandria Love MD [address] [facility] Annette Sheets [facility] [address] [place] [address] Consulting Physician Medical Oncology 08/15/21 Ashok Almanza MD [address] [facility] [address] [place] [address] Referring Physician 09/17/21 Shaan Judge, AMAURI [address] [facility] [address] [place] [address] Nurse Practitioner Internal Medicine 10/31/21 documented as of this encounter
--- OUTSIDE RECORDS SUMMARY | 2024-11-09 08:39 | XMS_ITS | Clinical Summary ---
Author Organization [facility] Address [address] [place] [address] Care Team Providers Care Electrician Sound Name Role Phone Alexandria Love MD Unavailable [phone] Ashok Almanza MD Unavailable [phone] Shaan Judge APRN Unavailable [phone] Chance Mcmahan MD Primary Care Provider [phone] Allergies Active Allergy Reactions Criticality Noted Date [...] (one) time each day. 10/28/19 24 Active ofloxacin (Floxin) 0.3 % otic solution Apply 3 drops to affected ear(s) twice daily for 28 days 10 mL 1 06/01/19 25 Active meloxicam (Mobic) 15 MG tablet Take 1 tablet by mouth daily. 90 tablet 06/14/19 25 Active levothyroxine (Synthroid) 50 MCG tablet Take 1 tablet by mouth daily before breakfast. 90 tablet 2 10/07/19 25 Active dexamethasone (Decadron) 4 MG tabletIndicati ons:Nasopharyn x cancer Take 1 tablet (4 mg total) by mouth 1 (one) time each day. 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 Cancer Staging:Clinical stage from 06/26/2021:Stage Unknown(cT2, cNX) - Signed by Alexandria Love MD on 08/02/2021 Clinical:Stage GEOVANNA(cT4, cN0, cM0) - Signed by Gael Connell MD on 09/11/2021 Pneumonia of left lower lobe due to Pseudomonas species Electrolyte abnormality Overview (12/20/2021): Hypocalcemia Hypomagnesemia Monitor - replete as indicated Resolved Problems Problem Noted Date Diagnosed Date Resolved Date Otitis media 03/14/2024 10/30/2024 Acute respiratory failure with hypoxia 10/26/2021 10/30/2024 Pneumonia of left lower lobe due to infectious organism 10/04/2021 10/30/2024 Leukocytosis 08/15/2021 08/23/2021 Encephalopathy 08/15/2021 08/21/2021 COPD exacerbation 08/15/2021 08/21/2021 CINV (chemotherapy-induced n ausea and vomiting) 08/05/2021 10/30/2024 Encounters Date Type Department Care Team Description 10/19/2024 Telephone [facility] [address] [facility], [address] [place] [phone] Alexandria Love MD 10/06/2024 9:10 AM EDT Office Visit [facility] [address] [facility], [address] [place] [phone] Alexandria Love MD Pneumonia of left lower lobe due to infectious organism (Primary Dx); Nasopharynx cancer (CMS/HCC); Panlobular emphysema (CMS/HCC); Moderate protein-calorie malnutrition (CMS/HCC); 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 10/06/2024 Travel 10/03/2024 9:31 AM EDT - 10/03/2024 11:59 PM EDT Hospital Encounter [facility] Radiology [address] [place] [phone] Neoplasm related pain; Nasopharynx cancer (CMS/HCC); Pneumonia of left lower lobe due to infectious organism Discharge Disposition: Home or Self Care 10/03/2024 9:30 AM EDT Clinical Support [facility] [address] [facility], [address] [place] [phone] Neoplasm related pain; Nasopharynx cancer (CMS/HCC); Pneumonia of left lower lobe due to infectious organism; 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 10/03/2024 Travel 09/28/2024 2:15 PM EDT Office Visit [facility] [address] [place] [address] Joshua Mejia MD Esotropia, alternating (Primary Dx); Diplopia 09/28/2024 Travel 09/19/2024 Orders Only [facility] [address] [facility], [address] [place] [phone] Jody Cordova RN Nasopharynx cancer (CMS/HCC) (Primary Dx); Dysphagia, unspecified type 09/19/2024 Telephone [facility] [address] [place] [phone] Alexandria Love MD 09/09/2024 10:45 AM EDT [facility] [address], [address] [place] [address] Evaristo North MD History of tympanoplasty (Primary Dx); Hx of head and neck radiation; Sensorineural hearing loss (SNHL) of both ears; Mixed conductive and sensorineural hearing loss of right ear with restricted hearing of left ear 09/09/2024 Travel from Last 3 Months Immunizations Immunization [...] drink first t ness in the morning (EYE-SPINDLE PLUMBER) to steady your nerves or to get [...] Pulse 76 10/06/2024 8:41 AM EDT Temperature 36.6 C (97.8 F) 04/22/2024 10:30 AM EDT Respiratory Rate 16 10/06/2024 8:41 AM EDT Oxygen Saturation 98% 10/06/2024 8:41 AM EDT Inhaled Oxygen Concentration - - Weight 60.7 kg (133 lb 13.1 oz) 10/06/2024 8:41 AM EDT Height 177.8 cm (5' 10 ) 09/09/2024 10: 53 AM EDT Body Mass Index 19.2 09/09/2024 10:53 AM EDT Plan of Treatment Upcoming Encounters Date Type Department Care Team ([facility] Contact Info) Description 12/05/2024 10:00 AM EDT Office Visit [facility] Audiology [address], [address] [place] [address] Maya Field, PhD [address] [address] 12/05/2024 10:45 AM EDT Office Visit [facility] Otolaryngology [address] [facility] [address] [place] [phone] Evaristo North MD [address] [phone] 04/03/2025 1:45 PM EST Clinical Support [facility] [address] , [address] [place] [phone] 04/03/2025 2:40 PM EST Appointment [facility] Radiology [address] [place] [phone] 04/06/2025 3:10 PM EST Office Visit [facility] [address] [facility], [address] [place] [address] Alexandria Love MD [address] [facility] [address] [place] [address] 10/03/2025 10:00 AM EDT Office Visit [facility] [address] [place] [address] Joshua Mejia MD [address] [place] [address] Health Maintenance Due Date Last [...] (AAA) Screening 01/15/2020 [facility]-Depression Screening 12/19/2022 12/19/2021 [id number] Vaccine ( season) 2024 12/02/2023, 12/17/2022, 12/05/2020, Additional history exists [facility]-Influenza Vaccine (#1) 10/10/202412/01, 12/17/2022, 12/07/2019 [facility]-Lung Cancer Screening 10/03/20252024, 07/05/2024, 06/09/2024, Additional history exists FIT-DNA 09/20/2026 09/21/2023 Colonoscopy [...] this topic Medical Devices Implanted Type Area Children'S Attendant Device Identifier Shelf Expiration Date Model / Serial / Lot Dual Chamber Icd-10/17/2016 Implanted:09/2016 (Quantity not on file) Dual Chamber ICD Chest / [id number] / [employer] Lead-10/17/2016 Implanted:09/2016 (Quantity not on file) Lead Chest [employer] [id number] / [id number] / [employer]v Lead-10/17/2016 Implanted:09/2016 (Quantity not on file) Lead Chest [employer] [id number] / [id number] / Procedures Procedure Name Priority Date/Time Associated Diagnosis Comments CT SOFT TISSUE NECK W IV CONTRAST Routine 10/03/2024 10:52 AM EDT Neoplasm related pain Nasopharynx cancer (CMS/HCC) Pneumonia of left lower lobe due to infectious organism CT CHEST W IV CONTRAST Routine 10:52 AM EDT Neoplasm related pain Nasopharynx cancer (CMS/HCC) Pneumonia of left lower lobe due to infectious organism COMPREHENSIVE METABOLIC PANEL, PLASMA Routine 10/03/2024 9:18 AM EDT Neoplasm related pain Nasopharynx cancer (CMS/HCC) Pneumonia of left lower lobe due to infectious organism CBC WITH AUTO DIFFERENTIAL Routine 10/03/2024 9:18 AM EDT Neoplasm related pain Nasopharynx cancer (CMS/HCC) Pneumonia of left lower lobe due to infectious organism TSH Routine 10/03/2024 9:18 AM EDT Neoplasm related pain Nasopharynx cancer (CMS/HCC) Pneumonia of left lower lobe due to infectious organism 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 Interval increase [id number]-[id number] opacities in the left lower lobe suggestive of aspiration orendobronchial spread of infection with increased bronchial wall thickeningand some mucous plugging. CRITICAL RESULT: No. COMMUNICATION: Per this written report. Drafted by Kenia Rothman MD on 10/03/2024 11:08 AM Final report signed by Kenia Rothman MD on 10/03/2024 11:16 AM us Alexandria Love MD IMG CT PROCEDURES Final Resu lt * CT Soft Tissue Neck w IV [...] Jesús Langley MD on 10/04/2024 4:44 PM Alexandria Love MD IMG CT PROCEDURES Final Resu lt * CBC and Differential (10/03/2024 9:18 AM EDT) WBC Count 9.62 3.70 - 10.30 10*3/uL LAB HEMATOLOGY METHOD 10/03/2024 9:32 AM EDT [facility] RBC Count 4.60 4.60 - 6.10 10*6/uL LAB HEMATOLOGY METHOD 10/03/2024 9:32 AM EDT [facility] HGB 14.1 13.7 - 17.5 g/dL LAB HEMATOLOGY METHOD 10/03/2024 9:32 AM EDT [facility] HCT 42.4 40.0 - 51.0 % LAB HEMATOLOGY METHOD 10/03/2024 9:32 AM EDT [facility] Platelet Count 229 155 - 369 10*3/uL LAB HEMATOLOGY METHOD 10/03/2024 9:32 AM EDT [facility] MCV 92 79 - 98 fL LAB HEMATOLOGY METHOD 10/03/2024 9:32 AM EDT [facility] MCH 30.7 26.0 - 32.0 pg LAB HEMATOLOGY METHOD 10/03/2024 9:32 AM EDT [facility] MCHC 33.3 30.7 - 35.5 g/dL LAB HEMATOLOGY METHOD 10/03/2024 9:32 AM EDT [facility] RDW 13.8 11.5 - 14.5 % LAB HEMATOLOGY METHOD 10/03/2024 9:32 AM EDT [facility] MPV 10.0 8.8 - 12.5 fL LAB HEMATOLOGY METHOD 10/03/2024 9:32 AM EDT [facility] nRBC 0.0 <=0.0 per 100 WBCs LAB HEMATOLOGY METHOD 10/03/2024 9:32 AM EDT [facility] Differential Type Automated LAB HEMATOLOGY METHOD 10/03/2024 9:32 AM EDT [facility] Neutrophils % 52 % LAB HEMATOLOGY METHOD 10/03/2024 9:32 AM EDT [facility] Lymphocytes % 34 % LAB HEMATOLOGY METHOD 10/03/2024 9:32 AM EDT [facility] Monocytes % 8 % LAB HEMATOLOGY METHOD 10/03/2024 9:32 AM EDT [facility] Eosinophils % 5 % LAB HEMATOLOGY METHOD 10/03/2024 9:32 AM EDT [facility] Basophils % 1 % LAB HEMATOLOGY METHOD 10/03/2024 9:32 AM EDT [facility] Immature Granulocytes % 0 % LAB HEMATOLOGY METHOD 10/03/2024 9:32 AM EDT [facility] Neutrophils Absolute 4.95 1.60 - 6.10 10*3/uL LAB HEMATOLOGY METHOD 10/03/2024 9:32 AM EDT [facility] Lymphocytes Absolute 3.31 1.20 - 3.90 10*3/uL LAB HEMATOLOGY METHOD 10/03/2024 9:32 AM EDT [facility] Monocytes Absolute 0.79 0.30 - 0.90 10*3/uL LAB HEMATOLOGY METHOD 10/03/2024 9:32 AM EDT [facility] Eosinophils Absolute 0.44 0.00 - 0.50 10*3/uL LAB HEMATOLOGY METHOD 10/03/2024 9:32 AM EDT [facility] Basophils Absolute 0.10 0.00 - 0.10 10*3/uL LAB HEMATOLOGY METHOD 10/03/2024 9:32 AM EDT [facility] Immature Granulocytes Absolute 0.03 0.00 - 0.06 10*3/uL LAB HEMATOLOGY METHOD 10/03/2024 9:32 AM EDT [facility] Blood Venous blood specimen / Unknown Venipuncture / Unknown 10/03/2024 9:18 AM EDT 10/03/2024 9:24 AM EDT Narrative [facility] - 10/03/2024 9:32 AM EDT Therapeutic decision making should be based on absolute values, rather than percentages. us Alexandria Love MD LAB BLOOD ORDERABLES Final R esult Performing Organization Address City/[facility]/ZIP Co de Phone Number [facility] [address] [place] [address] * Thyroid Stimulating Hormone, Plasma (10/03/2024 9:18 AM EDT) Thyroid Stimulating Hormone, Plasma 3.69 0.40 - 4.20 uIU/mL 10/03/2024 10:00 AM EDT [facility] Blood Venous blood specimen / Unknown Venipuncture / Unknown 10/03/2024 9:18 AM EDT 10/03/2024 9:24 AM EDT us Alexandria Love MD LAB BLOOD ORDERABLES Final R esult Performing Organization Address City/[facility]/ZIP Co de Phone Number [facility] [address] [place] [address] * (ABNORMAL) Comprehensive Metabolic Panel, Plasma (10/03/2024 9:18 AM EDT) Glucose, Plasma 102(H) 74 - 99 mg/dL 10/03/2024 10:00 AM EDT [facility] BUN, Plasma 28(H) 8 - 23 mg/dL 10/03/2024 10:00 AM EDT [facility] Creatinine, Plasma 1.18 0.70 - 1.20 mg/dL 10/03/2024 10:00 AM EDT [facility] BUN/Creatinine Ratio 24 10/03/2024 10:00 AM EDT [facility] Sodium, Plasma 136 136 - 145 mmol/L 10/03/2024 10:00 AM EDT [facility] Potassium, Plasma 4.6 3.6 - 4.9 mmol/L 10/03/2024 10:00 AM EDT [facility] Chloride, Plasma 102 97 - 107 mmol/L 10/03/2024 10:00 AM EDT [facility] CO2, Plasma 22 22 - 29 mmol/L 10/03/2024 10:00 AM EDT [facility] Anion Gap 12 6 - 16 mmol/L 10/03/2024 10:00 AM EDT [facility] Total Calcium, Plasma 9.2 8.9 - 10.2 mg/dL 10/03/2024 10:00 AM EDT [facility] Total Protein 8.0(H) 6.3 - 7.9 g/dL 10/03/2024 10:00 AM EDT [facility] Albumin, Plasma 4.0 3.5 - 5.2 g/dL 10/03/2024 10:00 AM EDT [facility] AST, Plasma 26 10 - 50 U/L 10/03/2024 10:00 AM EDT [facility] Comment:Hemolyzed, result ma y be falsely increased. ALT, Plasma 7(L) 10 - 50 U/L 10/03/2024 10:00 AM EDT [facility] Alkaline Phosphatase, Plasma 104 40 - 115 U/L 10/03/2024 10:00 AM EDT [facility] Total Bilirubin, Plasma 0.3 0.2 - 1.1 mg/dL 10/03/2024 10:00 AM EDT [facility] eGFRcr 66.8 mL/min/1.7 3m*2 10/03/2024 10:00 AM EDT [facility] Comment:Reported eGFRcr in m L/min/1.73m2 is based the CKD-EPI 2020 equation that does not use a race coefficient. Blood Venous blood specimen / Unknown Venipuncture / Unknown 10/03/2024 9:18 AM EDT 10/03/2024 9:24 AM EDT Alexandria Love MD LAB BLOOD ORDERABLES Final R esult [facility] [address] [place] [address] * Colonoscopy (11/13/2023 9:07 AM EDT) Anatomical [...] Ilia Ellis MD Proceduralist Nia Hayes Endo Legal Writing Professor Reyna Swanson Endo Nurse Preprocedure A history and physical [...] of bowel preparation was evaluated using the [place] Bowel Preparation Scale with scores of: right [...] descending colon and sigmoid colon appeared normal. us Alexandria Love MD GI PROCEDURE ORDERABLES Sandra slater Result * (ABNORMAL) Cologuard?? colon cancer screening (09/21/2023 8:30 PM EDT) Cologuard Positive( A) Negative 09/26/2023 6:33 PM EDT [facility] (CLIA #:[id number]) Comment: POSITIVE TEST RESULT. A positive Cologuard [...] (Malorie Crowley al, N Engl J Med 2014;370(14):1154-9875.) Cologuard may produce a false negative or false positive result (no colorectal cancer or precancerous polyp present at colonoscopy follow up). A negative Cologuard test result does not guarantee the absence of CRC or advanced adenoma (pre-cancer). The current Cologuard screening interval is every 3 years. ([place] Cancer Society and U.S. Multi-Society Task Force). Cologuard performance data in a 10,000 patient pivotal study using colonoscopy as the reference method can be accessed at the following location: www.[employer]/results. Additional description of the Cologuard test process, warnings and precautions can be found at www.[employer]fullyogProfindrd.com. Stool specimen (specimen) 09/21/2023 8:30 PM EDT 09/23/2023 11:23 AM EDT Alexandria Love MD LAB MOLECULAR DIAGNOSTICS OR DERABLES Final Result [facility] (CLIA #:[id number]) [address] [place] [address], * Hepatitis C Antibody - ED (08/15/2021 11:46 AM EDT) Hepatitis C Antibody Negative Negative 08/15/2021 1:[address] [facility] Blood Venous blood specimen / Unknown Venipuncture / Unknown 08/15/2021 11:46 AM EDT 08/15/2021 12:03 PM EDT Nadeem Angulo MD LAB BLOOD ORDERABLES Final Re sult [facility] [address] [place] [address] from Last 3 Months or Most Recently Relevant to Health Maintenance Insurance [employer]IC[employer] Advance Directives * Full Code (Latest Code [...] Patient has decision-making capacity? Yes Care Teams Electrician Sound Relationship Specialty Start Date End Date Chance Mcmahan MD [address] [place] [address] PCP - General 10/06/24 Alexandria Love MD [address] [facility] [address] [place] [phone] Consulting Physician Medical Oncology 08/15/21 Ashok Almanza MD [facility] [address] [place] [address] Referring Physician 09/17/21 Shaan Judge APRN [address] [facility] [address] [place] [phone] Nurse Practitioner Internal Medicine 10/31/21
--- OUTSIDE RECORDS SUMMARY | 2024-11-09 08:39 | XMS_ITS | Encounter Summary ---
Author Organization [facility] Address [address] [place] [address] Care Team Providers Care Defence Force Member Other Ranks Name Role Phone Alexandria Love MD Unavailable [phone] Ashok Almanza MD Unavailable [phone] Shaan Judge APRN Unavailable [phone] Chance Mcmahan MD Primary Care Provider [phone] Encounter Details Date Type Department Care Team ([facility] st Contact Info) Description 10/19/2024 Telephone [facility] [address] [facility], [address]nd [place] [address] Alexandria Love MD [address] [facility] [address] [place] [address] Social History Tobacco Use Types [...] drink first t ness in the morning (EYE-CREDIT CONTROL OFFICER) to steady your nerves or to get rid of a hangover? 0 12/19/2021 CAGE Questionnaire Score 0 022 Sex and Gender Information Value Date Recorded Sex Assigned at Not on file Legal Sex Male 9:26 AM EDT Gender Identity Not on file Sexual Orientation Not on file documented as of this encounter Miscellaneous Notes * Telephone Encounter - Sharon Wilson RN - 10/24/2024 4:25 PM EDT RN called and stated that Dr. Love recommended that the patient come to for melanoma treatment. Barbra verbalized understanding and was appreciative for the call. * Telephone Encounter - Sharon Wilson RN - 10/19/2024 2:44 PM EDT RN called and spoke with Barbra. Barbra stated that the patient has a spot that D[facility] determined was melanoma. Barbra stated that she respects Dr. Love a lot and would like to get her thoughts about whether patient should come to [facility] or continue with [facility]. RN stated that Dr. Love was out of office until 10/24, but will ask then. RNrequested path report from [facility]ermat[facility]. * Telephone Encounter - Kady Mullen - 10/19/2024 9:48 AM EDT Per pt friend Barbra call to [facility], pt recently diagnosed with skin cancer. Spot is located on pt nose. 2 Biopsy scrapes, one cancer, one not. [facility], Ariel Servin MD was provider seen. Barbra, , Okay to leave a detailed message at this number adressing concerns/answering questions/updating appointment information, and still maintain pt privacy. documented in this encounter Plan of Treatment Upcoming Encounters Date Type Department Care Team (Late st Contact Info) Description 12/05/2024 10:00 AM EDT Office Visit [facility] Audiology [address], [address] [place] [address] Maya Field, PhD [address] [facility] [address] [place] [address] 12/05/2024 10:45 AM EDT Office Visit [facility] Otolaryngology [address], [address] [place] [address] Evaristo North MD [address] [facility] [address] [place] [address] 04/03/2025 1:45 PM EST Clinical Support [facility] [address] [facility] [address] [place] [phone] 04/03/2025 2:40 PM EST Appointment [facility] [address] [place] [phone] 04/06/2025 3:10 PM EST Office Visit [facility] [address] [facility] [address] [place] [phone] Alexandria Love MD [address] [facility] [address] [place] [phone] 10/03/2025 10:00 AM EDT Office Visit [facility] [address] [facility] [place] [address] Joshua Mejia MD [address] [facility] [address] [place] [address] documented as of this encounter Visit Diagnoses Not on filedocumented in this encounter Additional Health Concerns Assessment Noted Time A fall risk assessment has been complete d for the patient 10/06/2024 8:42 AM EDT A Body Mass Index follow-up plan has been documented for the patient 09/28/2024 3:28 PM EDT documented as of this encounter Care Teams Defence [employer] Member Other Ranks Relationship Specialty Start Date End Date Chance Mcmahan MD [address] [place] [address] PCP - General 10/06/24 Alexandria Love MD [address] [facility] [address] [place] [address] Consulting Physician Medical Oncology 08/15/21 Ashok Almanza MD [address] [facility] [address] [place] [address] Referring Physician 09/17/21 Shaan Judge APRN [address] [facility] [address] [place] [address] Nurse Practitioner Internal Medicine 10/31/21 documented as of this encounter
--- OUTSIDE RECORDS SUMMARY | 2024-11-09 08:39 | XMS_ITS | Encounter Summary ---
Author Organization Healthcare Address [address] [place] [place] [address] Care Team Providers Care Buggyman Name Role Phone Alexandria Love MD Unavailable [phone] Ashok Almanza MD Unavailable [phone] Shaan Judge APRN Unavailable [phone] Pcp, No Primary Care Provider Unavailabl [...] drink first t ness in the morning (EYE-PERSONAL TRAINER) to steady your nerves or to get [...] Description 12/05/2024 10:00 AM EDT Office Visit [facility] Audiology [address], [address] [place] [address] Maya Field, PhD [address] [facility] [address] [place] [address] 12/05/2024 10:45 AM EDT Office Visit [facility] Otolaryngology [address], [address] [place] [address] Evaristo North MD [id number] [place] [address] 04/03/2025 1:45 PM EST Clinical Support [facility] Res[facility] [address] [facility], [address] [place] [address] 04/03/2025 2:40 PM EST Appointment PAV A Radiology [address] [place] [address] 04/06/2025 3:10 PM EST Office Visit [facility] Respiratory [address] [facility], [address] [place] [address] Alexandria Love MD [address] [facility] [address] [place] [address] 10/03/2025 10:00 AM EDT Office Visit [facility] [address] [place] [address] Joshua Mejia MD [address] [place] [address] documented as of this encounter Visit Diagnoses Not on filedocumented in this encounter Additional Health Concerns Assessment Noted Time A fall risk assessment has been complete d for the patient 07/11/2024 8:59 AM EDT A Body Mass Index follow-up plan has been documented for the patient 09/28/2024 3:28 PM EDT documented as of this encounter Care Teams Buggyman Relationship Specialty Start Date End Date Pcp, No [address] [place] [address] PCP - General Family Medicine 09/07/23 10/05/24 Alexandria Love MD 800 [facility] Annette Sheets [facility] [address] [place] [address] Consulting Physician Medical Oncology 08/15/21 Ashok Almanza MD [address] [facility] 500 [place] [address] Referring Physician 09/17/21 Shaan Judge, AMAURI [address] [facility] An[facility] [address] [place] [address] Nurse Practitioner Internal Medicine 10/31/21 documented as of this encounter
--- OUTSIDE RECORDS SUMMARY | 2024-11-09 08:39 | XMS_ITS ---
Author Organization [facility] Address [address] [place] [address] Care Team Providers Care Director Of Recruiting Name Role Phone Alexandria Love MD Unavailable [phone] Ashok Almanza MD Unavailable [phone] Shaan Judge APRN Unavailable [phone] Chance Mcmahan MD Primary Care Provider [phone] Active Problems Problem Noted Date Diagnosed Date [...]
--- OUTSIDE RECORDS SUMMARY | 2024-11-09 08:39 | XMS_ITS | Encounter Summary ---
Author Organization [place] [address] Care Team Providers Care Teacher Preschool Name Role Phone Unavailable Primary Care Provider Unavailabl e Encounter Details Date Type Department Care Team (Late st Contact Info) Description 06/19/2008 Orders Only [facility] [address] [place] [address] Devonte Lazo MD [address] [place] [address] Social History Tobacco Use Types Packs/Day [...] a practice prior to that practice using [facility] for Medical Records. Performing Provider: Devonte Lazo M.D., F.A.C.C. us Devonte Lazo MD IMG ECHO ORDERABLES Final Re sult documented in this encounter Visit Diagnoses Not on filedocumented in this encounter
--- OUTSIDE RECORDS SUMMARY | 2024-11-09 08:39 | XMS_ITS | Clinical Summary ---
Author Organization [facility] [place] [address] Care Team Providers Care Order Filler Name Role Phone Unavailable Primary Care Provider [...] 2) 2005 COVID-19 Vaccine (2023-2 5 season) 2024 Influenza Vaccine (#1) 2024 Hepatitis B Vaccine Aged Out No longe r eligible based on patient's age to complete this topic Meningococcal B Vaccine Aged Out No l onger eligible based on patient's age to complete this topic
--- OUTSIDE RECORDS SUMMARY | 2024-11-09 08:39 | XMS_ITS | Clinical Summary ---
Author Organization [facility] Address [address] [place] [address] Care Team Providers Care Communications Equipment Installer Name Role Phone Joshua Quezada Primary Care Provider [phone] Allergies Active Allergy Reactions Criticality Noted Date [...] 01/15/2000 ZOSTER VACCINE (1 of 2) 2005 ANNUAL WELLNESS VISIT 11/05/2023 INFLUENZA VACCINE 09/09/2024 12/17/2022, 12/07/2019 COVID-19 Vaccine ( - season) 2024 12/17/2022, 12/05/2020, 04/18/2020 COLOGUARD 09/20/2026 09/21/2023 COLONOSCOPY 11/12/2033 11/13/2023, 11/13/2023 COLORECTAL CANCER SCREENING 11/12/2033 HEPATITIS C SCREENING Completed 08/15/2021 AAA SCREEN ONCE Completed 05/29/2022, 08/2021, 08/15/2021 Insurance MEDICARE ADVANTAGE PPO Care Teams Communications Equipment Installer Relationship Specialty Start Date End Date Joshua Quezada DO [address] [place], [place] [id number] PCP - General Internal Medicine 11/06/23
--- OUTSIDE RECORDS SUMMARY | 2024-11-09 08:40 | XMS_ITS | Clinical Summary ---
Author Organization [facility] Address [address] [place] [address] Phone Care Team Providers Care Party Plan Sales Agent Name Role Phone Shaquille Almanza MD [phone] Conditions or Problems Problem Name Problem Code Onset Date Status Entry Date Provider Comment Standard Description Annotate Hearing loss, right ear 404401839 (SNOMED CT) Active Shaquille Almanza MD Hearing loss of right ear MSSA infection 164332520 (SNOMED CT) Active Shaquille Almanza MD Infection by methicillin sensitive Staphylococcus aureus Acute mastoiditis , right 988307155 (SNOMED CT) 0 Active 0/ Bobbi Aurelio Acute mastoiditis Acute recurrent serous otitis media, right 828751355 (SNOMED CT) 0 Active 0/05 Bobbi Aurelio Recurrent acute non-suppurative otitis media Hx of MRSA infection 572689235 (SNOMED CT) 0 Active 0/05 Bobbi Aurelio H/O: infectious disease Perforation of right tympanic membrane 71102434857 48874 (SNOMED CT) 11/03 Resolved 11/03 Bobbi Aurelio Perforation of right tympanic membrane Mastoiditis , right 46484959 (SNOMED CT) 11/04 Active 11/04 Shaquille Almanza MD Mastoiditis Perforation of right tympanic membrane 55350848752 43734 (SNOMED CT) 11/03 Removed 11/03 Bobbi Aurelio Perforation of right tympanic membrane Ischemic Cardiomyopa thy 374812860 (SNOMED CT) 11/03 Active 11/03 Bobbi Carey Generalized ischemic myocardial dysfunction Corynebacte rium infection B96.89 (ICD-10-CM) 11/03 Active 11/03 Bobbi Carey Other specified bacterial agents as the cause of diseases classified elsewhere Nicotine dependence, cigarettes, in remission 621783849 (SNOMED CT) 11/03 Active 11/03 Bobbi Carey Tobacco dependence in remission Benign Essential Hypertensio n 01596858 (SNOMED CT) 11/03 Active 11/03 Bobbi Carey Benign hypertension Personal history of antineoplas tic chemotherap y 487130932 (SNOMED CT) 11/03 Active 11/03 Bobbi Carey H/O: chemotherapy History of irradiation therapy Z92.3 (ICD-10-CM) 11/03 Active 11/03 Bobbi Carey Personal history of irradiation Otorrhea, right 73448491 (SNOMED CT) 11/03 Active 11/03 Bobbi Carey Otorrhea Medications Medication Instructions Start Date Stop Date Generic Name ND Provider CIPROFLOXACIN-DE XAMETHASONE 0.3-0.1 % SUSP 4 drops, right ear BID ciprofloxacin-de xamethasone 20832877033 Shaquille Almanza MD DOXYCYCLINE MONOHYDRATE 100 MG TABS Take 1 tablet by mouth twice a day doxycycline monohydrate 31853112506 Shaquille Almanza MD ALBUTEROL SULFATE (2.5 MG/3ML) 0.083% NEBU four times a day as needed as directed albuterol sulfate 94922803876 Riya Rebecca ALBUTEROL SULFATE HFA 108 (90 Base) MCG/ACT AERS four times a day as needed for pain albuterol sulfate 34241752836 Riya Rebecca AMITRIPTYLINE HCL 25 MG TABS every night amitriptyline 25134686839 Riya Rebecca aspirin 81 mg capsule once a day aspirin Riya Rebecca azelastine into both nostrils every night azelastine Riya Rebecca CETIRIZINE HCL 10 MG TABS once a day cetirizine 43783216142 Riya Rebecca CIPROFLOXACIN-DE XAMETHASONE 0.3-0.1 % SUSP 4 drops, right ear BID ciprofloxacin-de xamethasone 32369941397 Riya Rebecca FLUTICASONE PROPIONATE 50 MCG/ACT SUSP 2 spray in both nostrils once a day fluticasone propionate 09713499907 Riya Rebecca fluticasone fur. 100 mcg-umeclid 62.5 mcg-vilant 25 mcg inhalat.powder once a day fluticasone-umec lidin-vilanter Riya Rebecca LEQVIO 284 MG/1.5ML SOSY [id number] inclisiran 84701170896 Riya Rebecca metoprolol succinate once a day metoprolol succinate Riya Rebecca OMEPRAZOLE 40 MG CPDR once a day omeprazole 21837812344 Riya Rebecca Medications Administered No information available. Allergies, Adverse Reactions, Alerts Allergy Name Reaction Description Start Date Severity Statu s Provider CLEOCIN Moderate Active Riya Gamb ill Results Date Name Value Unit Range Flag Description Office Visit: Office Visit: rm 15 [facility] yes Fall ris k assessment Lab [...] Name Date Entry Date CPT-sl STAT Labs CPT-32028 CMP [id number] CBC with Differential 2023 CPT-26110 C- reactive protein CPT-25704 Sedimentation Rate (ESR) 05/19/21 X5482g,[id number] CBC with Differential 2023 CPT-38693 CMP CPT-53941 C- reactive protein CPT-77918 Sedimentation Rate (ESR) 202 05/19/09 CPT-ca Continue IV antibiotics 2023 CPT-wpc Weekly PICC Line Care 11/08 CPT: weekly Weekly labs [id number] CBC with Differential 2023 CPT-33488 CMP CPT-64807 C- reactive protein CPT-18187 Sedimentation Rate (ESR) 202 05/18/25 CPT-05712 PICC Line Insertion Vital Signs Date Name [...]
--- OUTSIDE RECORDS SUMMARY | 2024-11-09 08:40 | XMS_ITS | Patient Health Record ---
[facility] Address [address] [place] [id number] Care Team Providers Care Security Guard Name Role Phone ClevelandAlfonso tranian Primary Care Provider [phone] Reason For Referral No Information Medications Medication SIG (Take, Route, Frequency, Duration) Notes Start Date End Date Status ProAir Digihaler 108 (90 Base) MCG/ACT 2 puff(s) inhaled 4 times a day as needed 04/16/2017 Active Plavix 75 MG 1 tab(s) orally once a day 12/19/2016 Active Aspirin Adult Low Dose 81 MG 1 tab(s) orally once a day 08/20/2016 Active Lisinopril 5 MG 1 tab(s) orally once a day 08/20/2016 Active Carvedilol 25 MG 1/2 tab(s) orally 2 times a day 08/20/2016 Active Atorvastatin Calcium 40 MG 1 tab(s) orally once a day 08/20/2016 Active Digoxin 125 MCG 1 tab(s) orally once a day 08/20/2016 Active predniSONE 20 MG 1 tab(s) orally 2 times a day 04/16/2017 Not-Taking SPACER FOR MDI DIRECTED *Please review f or potential replacement for e-prescription and drug interaction check* 04/16/2017 Active Stiolto Respimat 2.5-2.5 MCG/ACT 2 puff(s) inhaled every 24 hours 05/12/2017 Active Social History Tobacco Use: Social History Observation Description Date Details (start date - stop date) Current Smoker NA - NA CURRENT TOBACCO USE: Question Answer Notes Are you a: current smoker How many cigarettes a day do you smoke? 11-20 Problems Problem Type SNOMED Code ICD Code Onset Dates Problem Status W/U Status Risk Notes Problem Acute non-ST segment elevation myocardial infarction (738912879) NSTEMI (non-ST elevated myocardial infarction) (I21.4) Active confirmed Problem Impaired fasting glucose (251278744) Impaired fasting glucose (R73.01) Active confirmed Problem COPD - Chronic obstructive pulmonary disease (57575486) Chronic obstructive pulmonary disease, unspecified COPD type (J44.9) Active confirmed Problem Atherosclerotic heart disease of [place] coronary artery without angina pectoris (919563221553416) Coronary artery disease involving [place] coronary artery of [place] heart without angina pectoris (I25.10) Active confirmed Problem Tobacco user (750941338) Cigarette nicotine dependence without complication (F17.210) Active confirmed Problem Systolic heart failure (352051619) Systolic heart failure, unspecified heart failure chronicity (I50.20) Active confirmed Plan Of Treatment No Information Insurance Providers Payer Name Payer Address Payer Phone Subscriber Number Group Number Insured Name Patient Relationship to Insured Coverage Start Date Coverage End Date ROBYN BRADLEY [employer] [facility] [address] [place] [address] [id number] MONIKA COLVIN Self - patient is the insured Medical (General) History Medical History History ICD Code Coronary Artery Disease NSTEMI, August 2016 Systolic Heart Failure, August 2016 Hyperglycemia Hypercapnic Respiratory Failure with pne umonia, August 2016 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 Esqueda Sep 2016 Hospitalization History Reason Date(Month/Year) [facility] - Pneumonia, chest pain, SOA, OR 08/15 -01/25
--- OUTSIDE RECORDS SUMMARY | 2024-11-09 08:40 | XMS_ITS | Encounter Summary ---
Author Organization Healthcare Address [address] [place] [address] Care Team Providers Care Manager Embalmer Funeral Director Name Role Phone Pcp, No Primary Care Provider Unavailabl Lencho Justin Primary Care Provider Unavailabl e Gael Connell MD Unavailable [phone] Alexandria Love MD Unavailable [phone] Ashok Almanza MD Unavailable [phone] Shana Judge TEXTURE ARTIST Unavailable [phone] Pcp, No Primary Care Provider Unavailabl e Chance Mcmahan MD Primary Care Provider + [phone] Encounter Details Date Type Department Care Team (Late st Contact Info) Description 07/30/2021 Lab Requisition [facility] H Lab [address] [place] [address] Alexandria Love MD 800 [facility] [address] [place] [address] Other specified disorders of nose and [...] Department Care Team (Late Contact Info) Description 12/05/2024 10:00 AM EDT Office Visit [facility] Audiology [address], [address] [place] [address] Maya Field, PhD [address] [facility] [address] [place] [address] 12/05/2024 10:45 AM EDT Office Visit [facility] Otolaryngology [address] [place] [address] Evaristo North MD [address] [facility] [address] [place] [address] 04/03/2025 1:45 PM EST Clinical Support Pav [facility] Head[facility] Neck [facility] Respiratory [address] [facility], 2nd [place] [address] 04/03/2025 2:40 PM EST Appointment [facility] A Radiology [address] [place] [address] 04/06/2025 3:10 PM EST Office Visit [facility] Head[facility] Neck [facility] Respiratory [address] [facility], [address] [place] [address] Alexandria Love MD 800 [facility] [address] [place] [address] 10/03/2025 10:00 AM EDT Office Visit [facility] - Pediatrics [address] [place] [address] Joshua Mejia MD [address] [facility] [address] [place] [address] documented as of this encounter Procedures Procedure Name Priority Date/Time Associated Diagnosis Comments SURGICAL PATHOLOGY CONSULT Routine 07/30/2021 9:46 AM EDT Other specified disorders of nose and nasal sinuses documented in this encounter Results * Surgical Pathology Consult (07/30/2021 9:46 AM EDT) Case Report Sugical Pathology Consult Case: [id number] Authorizing Provider: Alexandria Love MD Collected: 07/30/202146 Ordering Location: [facility] Lab Received: 07/30/2021 0946 Pathologist: Sae Bravo MD Specimen: Nasopharynx, [id number] 07/30/2021 12:04 PM EDT [facility] Final Diagnosis A. OUTSIDE SLIDES# [id number], COLLECTED 06/26/2021 NASOPHARYNX, RIGHT, BIOPSY: - BASALOID SQUAMOUS CELL CARCINOMA (SEE COMMENT) 07/30/2021 12:04 PM EDT [facility] at 1204 EDT Comment Per outside report, the case was seen by Dr. Sohail Bell, an expert in head and neck pathology, and the above diagnosis reflects his opinion. Per outside report, the tumor is positive for P16, CK5/6, P40 and SOX10. It is reported to be negative for GABINO, INSM1, CD117 and NKX2.2. 07/30/2021 12:04 PM EDT [facility] Tumor Blocks A1, B1 (small tissue) 07/30/2021 12:04 PM EDT [facility] Clinical Information J34.89 - Other specified disorders of nose and nasal sinuses [ICD-10-CM] 07/30/2021 12:04 PM EDT [facility] Gross Description A. [id number] Received along with a corresponding pathology report from [facility] are 20 slide(s) labeled outside case: [id number] collected on 06/26/2021. 07/30/2021 12:04 PM EDT [facility] Tissue Nasopharyngeal structure / Unknown 07/30/2021 9:46 AM EDT 07/30/2021 9:46 AM EDT us Alexandria Love MD LAB PATHOLOGY ORDERABLES Fin al Result [facility] [address] [place] [address] documented in this encounter Visit Diagnoses Diagnosis Other specified disorders of nose and nasal sinuses documented in this encounter Additional Health Concerns Infection Onset Date Last Indicated Resolved Time C. difficile Rule-Out 10/11/2021 10/11/2021 09/02/ 2022 2:30 AM EDT Gastrointestinal Rule-Out 10/11/2021 10/11/2021 3:05 AM EDT COVID-19 Rule-Out 11/14/2021 11/14/2021 11/14/2021 5:43 PM EDT C. difficile Rule-Out 11/18/2021 11/18/20212021 8:30 AM EDT documented as of this encounter Care Teams Manager Embalmer Funeral Director Relationship Specialty Start Date End Date Pcp, No [address] [place] [address] PCP - General Family Medicine 02/09/21 08/04/21 Lencho Bautista [facility] PCP - General 08/05/21 09/06/23 Pcp, No [address] [place] [address] PCP - General Family Medicine 09/07/23 10/05/24 Chance Mcmahan MD [address] [place] [address] PCP - General 10/06/24 Gael Connell MD 800 [facility] [address] [place] [address] Consulting Physician Radiation Oncology 08/07/21 Alexandria Love MD [address] Annette Sheets [facility] [address] [place] [address] Consulting Physician Medical Oncology 08/15/21 Ashok Almanza MD [address] [facility] [address] [place] [address] Referring Physician 09/17/21 Shaan Judge APRN [address] Cheng [facility] [address] [place] [address] Nurse Practitioner Internal Medicine 10/31/21 documented as of this encounter
--- OUTSIDE RECORDS SUMMARY | 2024-11-09 08:41 | XMS_ITS | Encounter Summary ---
Author Organization [facility] Address [address] [place] [address] Care Team Providers Care Undercutter Operator Name Role Phone Alexandria Love MD Unavailable [phone] Ashok Almanza MD Unavailable [phone] Shaan Judge APRN Unavailable [phone] Pcp, No Primary Care Provider Unavailabl e Encounter Details Date Type Department Care Team ([facility] Contact Info) Description 09/19/2024 Telephone Pav CC Head, Neck & Respiratory [address] [place] [address] Alexandria Love MD 800 [facility] [address] [place] [address] Social History Tobacco Use Types [...] drink first t ness in the morning (EYE-CUSTOMER TECHNICAL SERVICES MANAGER) to steady your nerves or to [...] Huerta - 09/19/2024 2:04 PM EDT Calling [facility] needs orders for MBS instead of speech P: [phone] documented in this encounter Plan of Treatment Upcoming Encounters Date Type Department Care Team (Late st Contact Info) Description 12/05/2024 10:00 AM EDT Office Visit [facility] Audiology [address], [address] [place] [address] Maya Field, PhD [address] [phone] 12/05/2024 10:45 AM EDT Office Visit [facility] Otolaryngology [address] [phone] Evaristo North MD [address] [address] 04/03/2025 1:45 PM EST Clinical Support [facility] Respiratory [address] [phone] 04/03/2025 2:40 PM EST Appointment [facility] Radiology [address] [place] [address] 04/06/2025 3:10 PM EST Office Visit [facility] Respiratory [address] [place] [address] Alexandria Love MD 800 [facility] Annette Sheets [facility] [address] [place] [address] 10/03/2025 10:00 AM EDT Office Visit [facility] - Pediatrics [address] [place] [address] Joshua Mejia MD [address] [place] [address] documented as of this encounter Visit Diagnoses Not on filedocumented in this encounter Additional Health Concerns Assessment Noted Time A fall risk assessment has been complete d for the patient 07/11/2024 8:59 AM EDT A Body Mass Index follow-up plan has been documented for the patient 09/09/2024 1:01 PM EDT documented as of this encounter Care Teams Undercutter Operator Relationship Specialty Start Date End Date Pcp, No [address] [place] [address] PCP - General Family Medicine 09/07/23 10/05/24 Alexandria Love MD 800 [facility] Annette Sheets [facility] [address] [place] [address] Consulting Physician Medical Oncology 08/15/21 [place] [address] [place] [address] 500 [place] [address] Referring Physician 09/17/21 Shaan Judge APRN 800 [facility] [address] [place] [address] Nurse Practitioner Internal Medicine 10/31/21 documented as of this encounter
--- OUTSIDE RECORDS SUMMARY | 2024-11-09 08:41 | XMS_ITS | Encounter Summary ---
Author Organization [facility] Address [address] [place] [address] Care Team Providers Care Steward/Stewardess Name Role Phone Alexandria Love MD Unavailable [phone] Ashok Almanza MD Unavailable [phone] Shaan Judge APRN Unavailable [phone] Pcp, No Primary Care Provider Unavailabl e Reason for Referral * Imaging (Routine) - Authorized Specialty Diagnoses / Procedures Referred By Contac t Referred To Contact Radiology Diagnoses Nasopharynx cancer Dysphagia, unspecified type Procedures [place] Modified Barium Swallow Alexandria Love MD 800 [facility] [address] [place] [address] Phone: tel: fax: Referral ID Status Reason Start Date Expiration Date Visits Requested Visits Authorized [id number] Authorized Perform Procedure 09/19/2024 03/21/2026 1 1 Encounter Details Date Type Department Care Team (Late st Contact Info) Description 09/19/2024 Orders Only [facility] Head, Neck & Respiratory [address] [facility], 2nd [place] [address] Jody Cordova, RN AMB-HEAD NECK AND RESPIRATORY [...] drink first t ness in the morning (EYE-FILTER PLANT SUPERVISOR) to steady your nerves or to get rid of a hangover? 0 12/19/2021 CAGE Questionnaire Score 0 022 Sex and Gender Information Value Date Recorded Sex Assigned at Not on file Legal Sex Male 9:26 AM EDT Gender Identity Not on file Sexual Orientation Not on file documented as of this encounter Plan of Treatment Upcoming Encounters Date Type Department Care Team ([facility] st Contact Info) Description 12/05/2024 10:00 AM EDT Office Visit [facility] Audiology [address], [address] [place] [phone] Maya Field, PhD [address] [phone] 12/05/2024 10:45 AM EDT Office Visit [facility] Otolaryngology [address], 3rd [place] [phone] Evaristo North MD [address] [phone] 04/03/2025 1:45 PM EST Clinical Support [facility] Head, Neck & Respiratory [address] [facility], 2nd [place] [address] 04/03/2025 2:40 PM EST Appointment P[facility] A Radiology [address] [place] [address] 04/06/2025 3:10 PM EST Office Visit [facility] Head, Neck & Respiratory [address], 2nd [place] [address] Alexandria Love MD [address] [facility] [address] [place] [address] 10/03/2025 10:00 AM EDT Office Visit [facility] - Pediatrics [address] [facility] [place] [address] Joshua Mejia MD [address] [facility] [address] [place] [address] Scheduled Orders Name Type Priority Associated Diagnoses Orde r Schedule FL Modified Barium Swallow Imaging Routine Nasopharynx cancer ([facility]/HCC) Dysphagia, unspecified type Expected: 09/19/2024 (Approximate), Expires: 03/22/2026 documented as of this encounter Visit Diagnoses Diagnosis 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 [address] [place] [address] Consulting Physician Medical Oncology 08/15/21 Ashok Almanza MD [address] [place] [address] Referring Physician 09/17/21 Shaan Judge, LAND COMMISSIONER 800 [facility] Annette Sheets [address] [phone] Nurse Practitioner Internal Medicine 10/31/21 documented as of this encounter
--- NOTE | 2024-11-09 08:45 | CA_ITS ---
APPROVED REPORT EXAM: Comprehensive 2D, Doppler, and color-flow Echocardiogram Unit Control Clerk: Angeles Villatoro CRT Ht: 5 ft 10 in Wt: 131lbs BSA: 1.74 BP: 130/68 mmHg Indications: COPD, CAD, Cardiomyopathy, Hypertension/HDD 2D Dimensions LA Volume 64.60 mL LA Volume Index 36.10 mL/m2 (M/F) 16-34 M-Mode Dimensions RVDd 2.53 cm (0.9-2.6) LA Diam 3.75 cm (1.9-4.0) LVDd 4.00 cm (3.5-5.7) LVDs 3.21 cm (3.5-5.7) IVSd 1.78 cm (0.6-1.1) PWd 1.46 cm (0.6-1.1) EF (Teich) 41.00% FS 19.70% EDV (Teich) 70.00 mL TAPSE 1.53 (<1.7) ESV (Teich) 41.30 mL LV Diastology E Decel Time 220 (160-240 msec) E/A Ratio 0.69 MED A' 8.40 cm/s LAT A' 8.40 cm/s Aortic Valve AI PHT 574.00 ms AO Peak GR. 8.00 mmHg Mitral Valve MV A Velocity 91.0 (40-130 cm/s) E/A Ratio 0.69 MV PHT 93.0 ms Pulmonary Valve PV Peak Velocity 77.0 (50-150 cm/s) Tricuspid Valve TR P. Velocity 310.00 cm/s RAP Estimate 10.00 mmHg RVSP 48.50 mmHg Left Ventricle The left ventricle is normal size. Left ventricular systolic function is normal. The left ventricular ejection fraction is within the normal range. There is increased left ventricular wall thickness. There is normal LV segmental wall motion. Transmitral Doppler flow pattern suggests impaired LV relaxation. LVEF is 55% Right Ventricle The right ventricle is normal size. The right ventricular systolic function is normal. Atria The left atrium size is normal. The right atrium size is normal. There is no color Doppler evidence of interatrial shunt. Aortic Valve The aortic valve opens well. There is no hemodynamically significant aortic valvular stenosis. Mild aortic regurgitation is present. Mitral Valve The mitral valve is normal in structure. No evidence of mitral valve stenosis. Trace mitral regurgitation is present. Tricuspid Valve The tricuspid valve leaflets are thin and pliable. Mild tricuspid regurgitation. RVSP is 20-25 mmHg. Pulmonic Valve The pulmonary valve is grossly normal in structure. Trace pulmonic valve regurgitation is present. Great Vessels The aortic root is normal in size. IVC is normal in size and collapses >50% with inspiration. Pericardium There is no pericardial effusion. Other Information Study Quality: Fair Conclusion Normal biventricular systolic function. Mild AI, mild TR. Electronically signed by : Yumiko Gonsalves MD 11/09/2024 21:27:18
== END 2024-11-09 23:59 | disposition home or self-care (01) ==
LOC: RT 08:31
PROVIDERS: PCP Family Medicine; Visit Provider Physician Assistant
DX: I08.2 Rheumatic disorders of both aortic and tricuspid valves (principal); I47.29 Other ventricular tachycardia; I25.5 Ischemic cardiomyopathy; Z95.810 Presence of automatic (implantable) cardiac defibrillator; I25.10 Atherosclerotic heart disease of native coronary artery without angina pectoris; J44.9 Chronic obstructive pulmonary disease, unspecified; I10 Essential (primary) hypertension
CPT/HCPCS: 93306

== ENCOUNTER 2024-12-06 12:34 | Outpatient (CLI) | payer MEDICARE, OTHER, SELFPAY ==
--- OUTSIDE RECORDS SUMMARY | 2024-12-05 10:00 | XMS_ITS | Encounter Summary ---
Author Organization [facility] Address [address] [place] [address] Care Team Providers Care Milling/Polishing Operator Name Role Phone Alexandria Love MD Unavailable [phone] Ashok Almanza MD Unavailable [phone] Shaan Judge APRN Unavailable [phone] Chance Mcmahan MD Primary Care Provider [phone] Reason for Referral * (Routine) - Incomplete Specialty Diagnoses / Procedures Referred By Contac t Referred To Contact Diagnoses Mixed conductive and sensorineural hearing loss of right ear with restricted hearing of left ear Procedures Hearing Aid Evaluation Maya Field, PhD [address] [address] Phone: tel: fax: Referral ID Status Reason Start Date Expiration Date V isits Requested Visits Authorized [id number] Incomplete 12/05/2024 06/06/2026 1 1 Encounter Details Date Type Department Care Team (Late st Contact Info) Description 12/05/2024 10:00 AM EDT Office Visit [facility] Audiology [address], [address]rd [place] [address] Maya Field, PhD [id number] [place] [address] Mixed conductive and sensorineural hearing loss of right ear with restricted hearing of left ear (Primary Dx) Social History Tobacco Use Types Packs/Day Years Used Date Smoking Tobacco: Every Day Cigarettes 1 55.8 Started: 02/09/1969 Passive Smoke Exposure: Never Smokeless [...] drink first t ness in the morning (EYE-ASSEMBLER SMALL PRODUCTS) to steady your nerves or to get [...] also follow up today with Dr. North. Maya Field, PhD, [facility], -AAA Professor and Chief of Audiology Department of Otolaryngology Head and Neck Surgery [facility] Dictation Software was used to dictate [...] [facility] CC Head, Neck & Respiratory [address] [facility], 2nd [place] [address] 04/06/2025 2:30 PM EST Appointment [facility] G Radiology [address] [place] [address] 04/10/2025 3:40 PM EST Office Visit [facility] Head, Neck & Respiratory [address] [facility], 2nd [place] [address] Alexandria Love MD [address] [facility] Annette Sheets [facility] [address] [place] [address] 06/05/2025 1:00 PM EDT Office Visit [place] [facility] [address], [address]rd [place] [address] Evaristo North MD [address] [place] [address] 10/03/2025 10:00 AM EDT Office Visit [facility] - Pediatrics [address] [place] [address] Joshua Mejia MD [address] [place] [address] Scheduled Orders Name Type Priority [...] documented as of this encounter Care Teams Milling/Polishing Operator Relationship Specialty Start Date End Date Chance Mcmahan MD [address] [place] [address] PCP - General 10/06/24 Alexandria Love MD [address] Annette Sheets [facility] [address] [place] [address] Consulting Physician Medical Oncology 08/15/21 Ashok Almanza MD [address] [place] [address] Referring Physician 09/17/21 Shaan Judge, AMAURI [address]net[address] Sheets [facility] [address] [place] [address] Nurse Practitioner Internal Medicine 10/31/21 documented as of this encounter
--- OUTSIDE RECORDS SUMMARY | 2024-12-05 10:45 | XMS_ITS | Encounter Summary ---
Author Organization [facility] Address [address] [place] [address] Care Team Providers Care Containers Sales Representative Name Role Phone Alexandria Love MD Unavailable [phone] Ashok Almanza MD Unavailable [phone] Shaan Judge APRN Unavailable [phone] Chance Mcmahan MD Primary Care Provider [phone] Encounter Details Date Type Department Care Team (Latest Contact Info) Description 12/05/2024 10:45 AM EDT Office Visit [facility] [address], [address]rd [place] [address] Evaristo North MD [address] [place] [address] History of tympanoplasty (Primary Dx); [...] drink first t ness in the morning (EYE-BIOMETRIC TECHNICIAN) to steady your nerves or to get [...] not included. 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 He is s/p right tympanoplasty with al on 04/22/24. He is doing well symptomatically. [...] & Respiratory [address] , [address]nd [place] [address] 04/06/2025 2:30 PM EST Appointment [facility] Radiology [address] [place] [address] 04/10/2025 3:40 PM EST Office Visit [facility] Head, Neck & Respiratory [address] , [address]nd [place] [address] Alexandria Love MD [address] [place] [address] 06/05/2025 1:00 PM EDT Office Visit [place] [facility] [address], [address] [place] [address] Evaristo North MD [address] [place] [address] 10/03/2025 10:00 AM EDT Office Visit [facility] Eye Care - Pediatrics [address] [facility] [place] [address] Joshua Mejia MD [address] [facility] [facility] [address] [place] [address] documented as of this encounter [...] documented as of this encounter Care Teams Containers Sales Representative Relationship Specialty Start Date End Date Chance Mcmahan MD [address] [place] [address] PCP - General 10/06/24 Alexandria Love MD [address] [facility] [address] [place] [address] Consulting Physician Medical Oncology 08/15/21 Ashok Almanza MD 1720 [facility] 500 [place] [address] Referring Physician 09/17/21 Shaan Judge APRN [address] [facility] [address] [place] [address] Nurse Practitioner Internal Medicine 10/31/21 documented as of this encounter
--- OUTSIDE RECORDS SUMMARY | 2024-12-06 12:36 | XMS_ITS | Encounter Summary ---
Author Organization [facility] Address [address] [place] [address] Care Team Providers Care Literacy Specialist Name Role Phone Alexandria Love MD Unavailable [phone] Ashok Almanza MD Unavailable [phone] Shaan Judge APRN Unavailable [phone] Chance Mcmahan MD Primary Care Provider [phone] Encounter Details Date Type Department Care Team ([facility] st Contact Info) Description 10/19/2024 Telephone Pav [facility] Head, Neck & Respiratory [address] [facility]nd [place] [address] Alexandria Love MD [address] [facility] [address] [place] [address] Social History Tobacco Use Types [...] drink first t ness in the morning ([employer]) to steady your nerves or to get [...] the patient has a spot that Dermatology [facility] determined was melanoma. Barbra stated that she respects Dr. Love a lot and would like to get her thoughts about whether patient should come to [facility] or continue with [facility]. RN stated that Dr. Love was out of office until 10/24, but will ask then. RNrequested path report from D[facility]. * Telephone Encounter - Kady Mullen - 10/19/2024 9:48 AM EDT Per pt friend Barbra call to [facility], pt recently diagnosed with skin cancer. Spot is located on pt nose. 2 Biopsy scrapes, one cancer, one not. Dermatology [facility], Ariel Servin MD was provider seen. Barbra, , Okay to leave a detailed message at this number adressing concerns/answering questions/updating appointment information, and still maintain pt privacy. documented in this encounter Plan of Treatment Upcoming Encounters Date Type Department Care Team (Late st Contact Info) Description 04/06/2025 1:30 PM EST Clinical Support Pav CC Head, Neck & Respiratory [address] [facility] [place] [phone] 04/06/2025 2:30 PM EST Appointment PAV G Radiology [address] [place] [id number] 04/10/2025 3:40 PM EST Office Visit Pav [facility] Head, Neck & Respiratory [address] [facility]nd [place] [address] Alexandria Love MD [address] [facility] [address] [place] [address] 06/05/2025 1:00 PM EDT Office Visit [facility] [address], [address] [place] [address] Evaristo North MD [address] [facility] [address] [place] [address] 10/03/2025 10:00 AM EDT Office Visit [facility] [address] [facility] [place] [address] Joshua Mejia MD [address] [facility] [address] [place] [address] documented as of this encounter Visit Diagnoses Not on filedocumented in this encounter Additional Health Concerns Assessment Noted Time A fall risk assessment has been complete d for the patient 10/06/2024 8:42 AM EDT A Body Mass Index follow-up plan has been documented for the patient 09/28/2024 3:28 PM EDT documented as of this encounter Care Teams Literacy Specialist Relationship Specialty Start Date End Date Chance Mcmahan MD [address] [place] [address] PCP - General 10/06/24 Alexandria Love MD [address] [facility] [address] [place] [address] Consulting Physician Medical Oncology 08/15/21 Ashok Almanza MD [address] [facility] [address] [place] [address] Referring Physician 09/17/21 Shaan Judge APRN [address] [facility] [address] [place] [phone] Nurse Practitioner Internal Medicine 10/31/21 documented as of this encounter
--- OUTSIDE RECORDS SUMMARY | 2024-12-06 12:36 | XMS_ITS | Encounter Summary ---
Author Organization [place] [address] Care Team Providers Care Sales And Marketing Manager Name Role Phone Unavailable Primary Care Provider Unavailabl e Encounter Details Date Type Department Care Team (Late st Contact Info) Description 06/19/2008 Orders Only [facility] [address] [place] [address] Devonte Lazo MD [address] [place] [phone] Social History Tobacco Use Types Packs/Day [...] a practice prior to that practice using [facility] for Medical Records. Performing Provider: Devonte Lazo M.D., F.A.C.C. us Devonte Lazo MD IMG ECHO ORDERABLES Final Re sult documented in this encounter Visit Diagnoses Not on filedocumented in this encounter
--- OUTSIDE RECORDS SUMMARY | 2024-12-06 12:36 | XMS_ITS | Clinical Summary ---
Author Organization [facility] Address [address] [place] [address] Care Team Providers Care Premium Representative Name Role Phone Joshua Quezada Primary Care Provider [phone] Allergies Active Allergy Reactions Criticality Noted Date [...] 08/15/2021 Insurance MEDICARE ADVANTAGE PPO Care Teams Premium Representative Relationship Specialty Start Date End Date Joshua Quezada DO [address] [place], [place] [id number] PCP - General Internal Medicine 11/06/23
--- OUTSIDE RECORDS SUMMARY | 2024-12-06 12:36 | XMS_ITS | Clinical Summary ---
Author Organization [facility] Address [address] [place] [address] Phone Care Team Providers Care Tubing Supervisor Name Role Phone Shaquille Almanza MD [phone] Conditions or Problems Problem Name Problem Code Onset Date Status Entry Date Provider Comment Standard Description Annotate Hearing loss, right ear 196108564 (SNOMED CT) Active Shaquille Almanza MD Hearing loss of right ear MSSA infection 949794997 (SNOMED CT) Active Shaquille Almanza MD Infection by methicillin sensitive Staphylococcus aureus Acute mastoiditis , right 413189491 (SNOMED CT) 0 Active 0/ Bobbi Uarelio Acute mastoiditis Acute recurrent serous otitis media, right 657357611 (SNOMED CT) 0 Active 0/05 Bobbi Aurelio Recurrent acute non-suppurative otitis media Hx of MRSA infection 120385819 (SNOMED CT) 0 Active 0/05 Bobbi Aurelio H/O: infectious disease Perforation of right tympanic membrane 36269806690 57359 (SNOMED CT) 11/03 Resolved 11/03 Bobbi Aurelio Perforation of right tympanic membrane Mastoiditis , right 12618590 (SNOMED CT) 11/04 Active 11/04 Shaquille Almanza MD Mastoiditis Perforation of right tympanic membrane 75173110125 24358 (SNOMED CT) 11/03 Removed 11/03 Bobbi Aurelio Perforation of right tympanic membrane Ischemic Cardiomyopa thy 836857177 (SNOMED CT) 11/03 Active 11/03 Bobbi Carey Generalized ischemic myocardial dysfunction Corynebacte rium infection B96.89 (ICD-10-CM) 11/03 Active 11/03 Bobbi Carey Other specified bacterial agents as the cause of diseases classified elsewhere Nicotine dependence, cigarettes, in remission 585743302 (SNOMED CT) 11/03 Active 11/03 Bobbi Carey Tobacco dependence in remission Benign Essential Hypertensio n 92894027 (SNOMED CT) 11/03 Active 11/03 Bobbi Carey Benign hypertension Personal history of antineoplas tic chemotherap y 072017586 (SNOMED CT) 11/03 Active 11/03 Bobbi Carey H/O: chemotherapy History of irradiation therapy Z92.3 (ICD-10-CM) 11/03 Active 11/03 Bobbi Carey Personal history of irradiation Otorrhea, right 07521734 (SNOMED CT) 11/03 Active 11/03 Bobbi Carey Otorrhea Medications Medication Instructions Start Date Stop Date Generic Name ND Provider CIPROFLOXACIN-DE XAMETHASONE 0.3-0.1 % SUSP 4 drops, right ear BID ciprofloxacin-de xamethasone 13969914624 Shaquille Almanza MD DOXYCYCLINE MONOHYDRATE 100 MG TABS Take 1 tablet by mouth twice a day doxycycline monohydrate 02781916511 Shaquille Almanza MD ALBUTEROL SULFATE (2.5 MG/3ML) 0.083% NEBU four times a day as needed as directed albuterol sulfate 48406550820 Riya Rebecca ALBUTEROL SULFATE HFA 108 (90 Base) MCG/ACT AERS four times a day as needed for pain albuterol sulfate 16431800962 Riya Rebecca AMITRIPTYLINE HCL 25 MG TABS every night amitriptyline 66868673593 Riya Rebecca aspirin 81 mg capsule once a day aspirin Riya Rebecca azelastine into both nostrils every night azelastine Riya Rebecca CETIRIZINE HCL 10 MG TABS once a day cetirizine 58859673011 Riya Rebecca CIPROFLOXACIN-DE XAMETHASONE 0.3-0.1 % SUSP 4 drops, right ear BID ciprofloxacin-de xamethasone 55995593656 Riya Rebecca FLUTICASONE PROPIONATE 50 MCG/ACT SUSP 2 spray in both nostrils once a day fluticasone propionate 71277783174 Riya Rebecca fluticasone fur. 100 mcg-umeclid 62.5 mcg-vilant 25 mcg inhalat.powder once a day fluticasone-umec lidin-vilanter Riya Rebecca LEQVIO 284 MG/1.5ML SOSY m9cmyzum inclisiran 00337614716 Riya Rebecca metoprolol succinate once a day metoprolol succinate Riya Rebecca OMEPRAZOLE 40 MG CPDR once a day omeprazole 36484210888 Riya Rebecca Medications Administered No information available. Allergies, Adverse Reactions, Alerts Allergy Name Reaction Description Start Date Severity Statu s Provider CLEOCIN Moderate Active Riya Gamb ill Results Date Name Value Unit Range Flag Description Office Visit: Office Visit: rm 15 [employer] yes Fall ris k assessment Lab [...] Name Date Entry Date CPT-sl STAT Labs CPT-02534 CMP [id number] CBC with Differential 2023 CPT-38124 C- reactive protein CPT-64835 Sedimentation Rate (ESR) 05/19/21 [id number] CBC with Differential 2023 CPT-27950 CMP CPT-33765 C- reactive protein CPT-75265 Sedimentation Rate (ESR) 202 05/19/09 CPT-ca Continue IV antibiotics 2023 CPT-wpc Weekly PICC Line Care 11/08 CPT: weekly Weekly labs [id number] CBC with Differential 2023 CPT-55408 CMP CPT-91988 C- reactive protein CPT-94925 Sedimentation Rate (ESR) 202 05/18/25 CPT-14937 PICC Line Insertion Vital Signs Date Name [...]
--- OUTSIDE RECORDS SUMMARY | 2024-12-06 12:36 | XMS_ITS ---
Author Organization [facility] Address [address] [place] [address] Care Team Providers Care Toy Packer Name Role Phone Alexandria Love MD Unavailable [phone] Ashok Almanza MD Unavailable [phone] Shaan Judge APRN Unavailable [phone] Chance Mcmahan MD Primary Care Provider [phone] Active Problems Problem Noted Date Diagnosed Date IA (myocardial infarction) 04/22/2024 History of atrial fibrillation [...]
--- OUTSIDE RECORDS SUMMARY | 2024-12-06 12:36 | XMS_ITS | Clinical Summary ---
Author Organization [facility] Address [address] [place] [address] Care Team Providers Care Teacher Music Name Role Phone Alexandria Love MD Unavailable [phone] Ashok Almanza MD Unavailable [phone] Shaan Judge APRN Unavailable [phone] Chance Mcmahan MD Primary Care Provider [phone] Allergies Active Allergy Reactions Criticality Noted Date [...] Active Problems Problem Noted Date Diagnosed Date LA (myocardial infarction) 04/22/2024 History of atrial fibrillation [...] Encounters Date Type Department Care Team Description 12/05/2024 10:45 AM EDT Office Visit [facility] Otolaryngology [address], [address] [place] [address] Evaristo North MD History of tympanoplasty (Primary Dx); Hx of head and neck radiation; Sensorineural hearing loss (SNHL) of both ears; Mixed conductive and sensorineural hearing loss of right ear with restricted hearing of left ear 12/05/2024 10:00 AM EDT Office Visit [facility] Audiology [address], [address] [place] [address] Maya Field, PhD Mixed conductive and sensorineural hearing loss of right ear with restricted hearing of left ear (Primary Dx) 12/05/2024 Travel 10/19/2024 Telephone [facility] [address] [place] [address] Alexandria Love MD 10/06/2024 9:10 AM EDT Office Visit [facility] [address] [place] [address] Alexandria Love MD Pneumonia of left lower lobe due to infectious organism (Primary Dx); Nasopharynx cancer (CMS/HCC); Panlobular emphysema (CMS/HCC); Moderate protein-calorie malnutrition (CMS/HCC); 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 10/06/2024 Travel 10/03/2024 9:31 AM EDT - 10/03/2024 11:59 PM EDT Hospital Encounter [facility] Radiology [address] [place] [address] Neoplasm related pain; Nasopharynx cancer (CMS/HCC); Pneumonia of left lower lobe due to infectious organism Discharge Disposition: Home or Self Care 10/03/2024 9:30 AM EDT Clinical Support [facility] [address] [place] [address] Neoplasm related pain; Nasopharynx cancer (CMS/HCC); Pneumonia of left lower lobe due to infectious organism; 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 10/03/2024 Travel 09/28/2024 2:15 PM EDT Office Visit [facility] [address] [place] [address] Joshua Mejia MD Esotropia, alternating (Primary Dx); Diplopia 09/28/2024 Travel 09/19/2024 Orders Only [facility] [address] [facility], [address] [place] [address] Jody Cordova RN Nasopharynx cancer (CMS/HCC) (Primary Dx); Dysphagia, unspecified type 09/19/2024 Telephone [facility] [address] [facility], [address] [place] [address] Alexandria Love MD 09/09/2024 10:45 AM EDT Office Visit [facility] Otol[facility]ology [address], 3rd [place] [address] Evaristo North MD History of [...] t ness in the morning (EYE-EXECUTIVE DIRECTOR SHELTERED WORKSHOP) to steady your nerves or to get [...] Pulse 65 12/05/2024 11:05 AM EDT Temperature 36.6 C (97.8 F) 04/22/2024 10:30 AM EDT Respiratory Rate 16 10/06/2024 8:41 AM EDT Oxygen Saturation 98% 10/06/2024 8:41 AM EDT Inhaled Oxygen Concentration - - Weight 63.7 kg (140 lb 6.9 oz) 12/05/2024 11:05 AM EDT Height 177.8 cm (5' 10 ) 12/05/2024 11:05 AM EDT Body Mass Index 20.15 12/05/2024 11:05 AM EDT Plan of Treatment Upcoming Encounters Date Type Department Care Team (Late st Contact Info) Description 04/06/2025 1:30 PM EST Clinical Support [facility] [address] [facility], [address] [place] [address] 04/06/2025 2:30 PM EST Appointment [facility] [address] [place] [address] 04/10/2025 3:40 PM EST Office Visit [facility] [address] [facility], [address] [place] [address] Alexandria Love MD [address] [facility] [address] [place] [address] 06/05/2025 1:00 PM EDT Office Visit [facility] [address], [address]rd [place] [address] Evaristo North MD [address] [place] [address] 10/03/2025 10:00 AM EDT Office Visit [facility] [address] [place] [address] Joshua Mejia MD [address] [place] [address] Health Maintenance Due Date Last Done Comments [facility]-Medicare Annual Wellness (AWV) 1955 [facility]-/Child/Adol SDOH Screenings 1955 [facility]- SDOH Screenings 1973 [facility]-Adult SDOH Screenings 1973 [facility]-DTaP,Tdap,and Td Vaccines (1 - Tdap) 1974 [facility]-Pneumococcal Vaccine: 50+ Years (1 of 2 - PCV) 1974 [facility]-Zoster Vaccines (1 of 2) 1974 CT Colonography 01/15/2000 FIT 01/15/2000 FOBT 01/15/2000 Sigmoidoscopy 01/15/2000 Lung Cancer Screening Shared Decision Making 2005 [facility]-RSV Vaccine: 60+ Years or (1 - Risk 60-74 years 1-dose series) 2015 [facility]-Abdominal Aortic Aneurysm (AAA) Screening 01/15/2020 [facility]-Depression Screening 12/19/2022 12/19/2021 [id number] Vaccine ( season) 2024 12/02/2023, 12/17/2022, 12/05/2020, [...] this topic Medical Devices Implanted Type Area Single Wire Saw Operator Device Identifier Shelf Expiration Date Model / Serial / Lot Dual Chamber Icd-10/17/2016 Implanted:09/2016 (Quantity not on file) Dual Chamber ICD Chest / [id number] / [employer] Lead-10/17/2016 Implanted:09/2016 (Quantity not on file) Lead Chest [employer] [id number] / [id number] / [employer] Rv Lead-10/17/2016 Implanted:09/2016 (Quantity not on file) Lead Chest [employer] [id number] / [id number] / Procedures Procedure Name Priority Date/Time Associated [...] the lingula and left lower lobe with kzgn-no-flwntqkizytm in the left lower lobe which have [...] improvingmultifocal infection with residual disease. Interval increase qxnrrv-pb-[id number] opacities in the left lower lobe suggestive [...] LAB HEMATOLOGY METHOD 10/03/2024 9:32 AM EDT [facility] RBC Count 4.60 4.60 - 6.10 10*6/uL LAB HEMATOLOGY METHOD 10/03/2024 9:32 AM EDT [facility] HGB 14.1 13.7 - 17.5 g/dL LAB HEMATOLOGY METHOD 10/03/2024 9:32 AM EDT [facility] HCT 42.4 40.0 - 51.0 % LAB HEMATOLOGY METHOD 10/03/2024 9:32 AM EDT [facility] Platelet Count 229 155 - 369 10*3/uL LAB HEMATOLOGY METHOD 10/03/2024 9:32 AM EDT [facility] MCV 92 79 - 98 fL LAB HEMATOLOGY METHOD 10/03/2024 9:32 AM EDT [facility] MCH 30.7 26.0 - 32.0 pg LAB HEMATOLOGY METHOD 10/03/2024 9:32 AM EDT [facility] MCHC 33.3 30.7 - 35.5 g/dL LAB HEMATOLOGY METHOD 10/03/2024 9:32 AM EDT [facility] RDW 13.8 11.5 - 14.5 % LAB HEMATOLOGY METHOD 10/03/2024 9:32 AM EDT [facility] MPV 10.0 8.8 - 12.5 fL LAB HEMATOLOGY METHOD 10/03/2024 9:32 AM EDT [facility] nRBC 0.0 <=0.0 per 100 WBCs LAB HEMATOLOGY METHOD 10/03/2024 9:32 AM EDT [facility] Differential Type Automated LAB HEMATOLOGY METHOD 10/03/2024 9:32 AM EDT [facility] Neutrophils % 52 % LAB HEMATOLOGY METHOD 10/03/2024 9:32 AM EDT [facility] Lymphocytes % 34 % LAB HEMATOLOGY METHOD 10/03/2024 9:32 AM EDT [facility] Monocytes % 8 % LAB HEMATOLOGY METHOD 10/03/2024 9:32 AM EDT [facility] Eosinophils % 5 % LAB HEMATOLOGY METHOD 10/03/2024 9:32 AM EDT [facility] Basophils % 1 % LAB HEMATOLOGY METHOD 10/03/2024 9:32 AM EDT [facility] Immature Granulocytes % 0 % LAB HEMATOLOGY METHOD 10/03/2024 9:32 AM EDT [facility] Neutrophils Absolute 4.95 1.60 - 6.10 10*3/uL LAB HEMATOLOGY METHOD 10/03/2024 9:32 AM EDT [facility] Lymphocytes Absolute 3.31 1.20 - 3.90 10*3/uL LAB HEMATOLOGY METHOD 10/03/2024 9:32 AM EDT [facility] Monocytes Absolute 0.79 0.30 - 0.90 10*3/uL LAB HEMATOLOGY METHOD 10/03/2024 9:32 AM EDT [facility] Eosinophils Absolute 0.44 0.00 - 0.50 10*3/uL LAB HEMATOLOGY METHOD 10/03/2024 9:32 AM EDT [facility] Basophils Absolute 0.10 0.00 - 0.10 10*3/uL LAB HEMATOLOGY METHOD 10/03/2024 9:32 AM EDT [facility] Immature Granulocytes Absolute 0.03 0.00 - 0.06 10*3/uL LAB HEMATOLOGY METHOD 10/03/2024 9:32 AM EDT [facility] Blood Venous blood specimen / Unknown Venipuncture / Unknown 10/03/2024 9:18 AM EDT 10/03/2024 9:24 AM EDT Narrative [facility] - 10/03/2024 9:32 AM EDT Therapeutic decision making should be based on absolute values, rather than percentages. us Alexandria Love MD LAB BLOOD ORDERABLES Final R esult [facility] [address] [place] [address] * Thyroid Stimulating Hormone, Plasma (10/03/2024 9:18 AM EDT) Thyroid Stimulating Hormone, Plasma 3.69 0.40 - 4.20 uIU/mL 10/03/2024 10:00 AM EDT [facility] Blood Venous blood specimen / Unknown Venipuncture / Unknown 10/03/2024 9:18 AM EDT 10/03/2024 9:24 AM EDT us Alexandria Love MD LAB BLOOD ORDERABLES Final R esult [facility] [address] [place] [address] * (ABNORMAL) Comprehensive Metabolic Panel, Plasma (10/03/2024 9:18 AM EDT) Glucose, Plasma 102(H) 74 - 99 mg/dL 10/03/2024 10:00 AM EDT [facility] BUN, Plasma 28(H) 8 - 23 mg/dL 10/03/2024 10:00 AM EDT [facility] Creatinine, Plasma 1.18 0.70 - 1.20 mg/dL 10/03/2024 10:00 AM EDT [facility] BUN/Creatinine Ratio 24 10/03/2024 10:00 AM EDT [facility] Sodium, Plasma 136 136 - 145 mmol/L 10/03/2024 10:00 AM EDT [facility] Potassium, Plasma 4.6 3.6 - 4.9 mmol/L 10/03/2024 10:00 AM EDT [facility] Chloride, Plasma 102 97 - 107 mmol/L 10/03/2024 10:00 AM EDT [facility] CO2, Plasma 22 22 - 29 mmol/L 10/03/2024 10:00 AM EDT [facility] Anion Gap 12 6 - 16 mmol/L 10/03/2024 10:00 AM EDT [facility] Total Calcium, Plasma 9.2 8.9 - 10.2 mg/dL 10/03/2024 10:00 AM EDT [facility] Total Protein 8.0(H) 6.3 - 7.9 g/dL 10/03/2024 10:00 AM EDT [facility] Albumin, Plasma 4.0 3.5 - 5.2 g/dL 10/03/2024 10:00 AM EDT [facility] AST, Plasma 26 10 - 50 U/L 10/03/2024 10:00 AM EDT [facility] Comment:Hemolyzed, result ma y be falsely increased. ALT, Plasma 7(L) 10 - 50 U/L 10/03/2024 10:00 AM EDT [facility] Alkaline Phosphatase, Plasma 104 40 - 115 U/L 10/03/2024 10:00 AM EDT [facility] Total Bilirubin, Plasma 0.3 0.2 - 1.1 mg/dL 10/03/2024 10:00 AM EDT [facility] eGFRcr 66.8 mL/min/1.7 3m*2 10/03/2024 10:00 AM EDT [facility] Comment:Reported eGFRcr in m L/min/1.73m2 is based the CKD-EPI 2020 equation that does not use a race coefficient. Blood Venous blood specimen / Unknown Venipuncture / Unknown 10/03/2024 9:18 AM EDT 10/03/2024 9:24 AM EDT us Alexandria Love MD LAB BLOOD ORDERABLES Final R esult [facility] [address] [place] [address] * Colonoscopy (11/13/2023 9:07 AM EDT) Anatomical [...] Ilia Ellis MD Proceduralist Nia Hayes Endo Mine Car Repairer Reyna Swanson Endo Nurse Preprocedure A history [...] of bowel preparation was evaluated using the [place] Bowel Preparation Scale with scores of: right [...] Positive( A) Negative 09/26/2023 6:33 PM EDT [facility] (CLIA #:[id number]) Comment: POSITIVE TEST RESULT. A positive Cologuard [...] (Malorie Crowley al, N Engl J Med 2014;370(14):6354-2079.) Cologuard may produce a false negative or false positive result (no colorectal cancer or precancerous polyp present at colonoscopy follow up). A negative Cologuard test result does not guarantee the absence of CRC or advanced adenoma (pre-cancer). The current Cologuard screening interval is every 3 years. ([place] Cancer Society and U.S. Multi-Society Task Force). Cologuard performance data in a 10,000 patient pivotal study using colonoscopy as the reference method can be accessed at the following location: [email or web address].[employer]/results. Additional description of the Cologuard test process, warnings and precautions can be found at www.[email or web address].com. Stool specimen (specimen) 09/21/2023 8:30 PM EDT 09/23/2023 11:23 AM EDT us Alexandria Love MD LAB MOLECULAR DIAGNOSTICS OR DERABLES Final Result [facility] (CLIA #:[id number]) [address] [place] [address], * Hepatitis C Antibody - ED (08/15/2021 11:46 AM EDT) Hepatitis C Antibody Negative Negative 08/15/2021 1:46 PM EDT [facility] Blood Venous blood specimen / Unknown Venipuncture / Unknown 08/15/2021 11:46 AM EDT 08/15/2021 12:03 PM EDT us Nadeem Angulo MD LAB BLOOD ORDERABLES Final Re sult [facility] [address] [place] [address] from Last 3 Months or Most Recently Relevant to Health Maintenance Insurance [employer] MEDICARE [facility] Advance Directives * Full Code (Latest Code [...] Patient has decision-making capacity? Yes Care Teams Teacher Music Relationship Specialty Start Date End Date Chance Mcmahan MD [address] [place] [address] PCP - General 10/06/24 Alexandria Love MD [address] [facility] [address] [place] [address] Consulting Physician Medical Oncology 08/15/21 Ashok Almanza MD [address] [facility] [address] [place] [address] Referring Physician 09/17/21 Shaan Judge, AMAURI [address] [facility] [address] [place] [address] Nurse Practitioner Internal Medicine 10/31/21
--- OUTSIDE RECORDS SUMMARY | 2024-12-06 12:36 | XMS_ITS | Clinical Summary ---
Author Organization [facility] [place] [address] Care Team Providers Care Quantitative Analyst Developer Name Role Phone Unavailable Primary Care Provider [...] Zoster (1 of 2) 2005 COVID-19 Vaccine (2024-2 6 season) 2024 Influenza Vaccine (#1) 2024 Hepatitis B Vaccine Aged Out No longe r eligible based on patient's age to complete this topic Meningococcal B Vaccine Aged Out No l onger eligible based on patient's age to complete this topic
--- OUTSIDE RECORDS SUMMARY | 2024-12-06 12:37 | XMS_ITS | Patient Health Record ---
Author Organization [facility] Address [address] [place] [id number] Care Team Providers Care Eligibility Supervisor Name Role Phone GenoaAlfonso tranian Primary Care Provider Reason For Referral No Information Medications Medication [...] Problem Acute non-ST segment elevation myocardial infarction (536308517) NSTEMI (non-ST elevated myocardial infarction) (I21.4) Active confirmed Problem Impaired fasting glucose (644748398) Impaired fasting glucose (R73.01) Active confirmed Problem COPD - Chronic obstructive pulmonary disease (57559346) Chronic obstructive pulmonary disease, unspecified COPD type (J44.9) Active confirmed Problem Atherosclerotic heart disease of alutiiq coronary artery without angina pectoris (995065200250576) Coronary artery disease involving alutiiq coronary artery of alutiiq heart without angina pectoris (I25.10) Active confirmed Problem Tobacco user (823173154) Cigarette nicotine dependence without complication (F17.210) Active confirmed Problem Systolic heart failure (574015886) Systolic heart failure, unspecified heart failure chronicity (I50.20) Active confirmed Plan Of Treatment No Information Insurance Providers Payer Name Payer Address Payer Phone Subscriber Number Group Number Insured Name Patient Relationship to Insured Coverage Start Date Coverage End Date ROBYN BRADLEY [employer] [facility] [address] [place] [address] [id number] MONIKA COLVIN Self - patient is [...] Esqueda Sep 2016 Hospitalization History Reason Date(Month/Year) [facility] - Pneumonia, chest pain, [place], [place] 08/15 -01/25
--- OUTSIDE RECORDS SUMMARY | 2024-12-06 12:37 | XMS_ITS | Encounter Summary ---
Author Organization [facility] Address [address] [place] [address] Care Team Providers Care Laundry Routeman Name Role Phone Pcp, No Primary Care Provider Unavailabl Lencho Justin Primary Care Provider Unavailabl e Gael Connell MD Unavailable [phone] Alexandria Love MD Unavailable [phone] Ashok Almanza MD Unavailable [phone] Shaan Judge PHYSICIAN/OPHTHALMOLOGIST Unavailable [phone] Pcp, No Primary Care Provider Unavailabl e Chance Mcmahan MD Primary Care Provider [phone] Encounter Details Date Type Department Care Team (Late Contact Info) Description 07/30/2021 Lab Requisition [facility] [address] [place] [address] Alexandria Love MD 800 [facility] [address] [place] [address] Other specified disorders of nose [...] Department Care Team (Late Contact Info) Description 04/06/2025 1:30 PM EST Clinical Support [facility] [address] [facility], 2nd [place] [address] 04/06/2025 2:30 PM EST Appointment [facility] [address] [place] [address] 04/10/2025 3:40 PM EST Office Visit [facility] [address] [place] [address] Alexandria Love MD [address] [place] [address] 06/05/2025 1:00 PM EDT Office Visit [facility] [address], [address]rd [place] [address] Evaristo North MD [address] [place] [address] 10/03/2025 10:00 AM EDT Office Visit [facility] [address] [place] [place] [address] Joshua Mejia MD [address] [facility] [address] [place] [address] documented as of this encounter Procedures Procedure Name Priority Date/Time Associated Diagnosis Comments SURGICAL PATHOLOGY CONSULT Routine 07/30/2021 9:46 AM EDT Other specified disorders of nose and nasal sinuses documented in this encounter Results * Surgical Pathology Consult (07/30/2021 9:46 AM EDT) Case Report Sugical Pathology Consult Case: [id number] Authorizing Provider: Alexandria Love MD Collected: 07/30/202146 Ordering Location: [facility] Lab Received: 07/30/202146 Pathologist: Sae Bravo MD Specimen: Nasopharynx, [id number] 07/30/2021 12:04 PM EDT [facility] Final Diagnosis A. OUTSIDE SLIDES# [id number], COLLECTED 06/26/2021 NASOPHARYNX, RIGHT, BIOPSY: - BASALOID SQUAMOUS CELL CARCINOMA (SEE COMMENT) 07/30/2021 12:04 PM EDT [facility] at 1204 EDT Comment Per outside report, the case was seen by Dr. Sohail Bell, an expert in head and neck pathology, and the above diagnosis reflects his opinion. Per outside report, the tumor is positive for P16, CK5/6, P40 and SOX10. It is reported to be negative for GABINO, INSM1, CD117 and NKX2.2. 07/30/2021 12:04 PM EDT [facility] Tumor Blocks A1, B1 (small tissue) 07/30/2021 12:04 PM EDT [facility] Clinical Information J34.89 - Other specified disorders of nose and nasal sinuses [ICD-10-CM] 07/30/2021 12:04 PM EDT [facility] Gross Description A. [id number] Received along with a corresponding pathology report from [facility]ology [facility] Cyt[facility] Laboratory are 20 slide(s) labeled outside case: [id number] collected on 06/26/2021. 07/30/2021 12:04 PM EDT [facility] Tissue Nasopharyngeal structure / Unknown 07/30/2021 9:46 AM EDT 07/30/2021 9:46 AM EDT us Alexandria Love MD LAB PATHOLOGY ORDERABLES Fin al Result Performing Organization Address City/State/[facility] Co de Phone Number [facility] [address] [place] [address] documented in this encounter Visit Diagnoses Diagnosis Other specified disorders of nose and nasal sinuses documented in this encounter Additional Health Concerns Infection Onset Date Last Indicated Resolved Time C. difficile Rule-Out 10/11/2021 10/11/20212021 2:30 AM EDT Gastrointestinal Rule-Out 10/11/2021 10/11/2021 3:05 AM EDT COVID-19 Rule-Out 11/14/2021 11/14/2021 11/14/2021 5:43 PM EDT C. difficile Rule-Out 11/18/2021 11/18/20212021 8:30 AM EDT documented as of this encounter Care Teams Laundry Routeman Relationship Specialty Start Date End Date Pcp, No [address] [place] [address] PCP - General Family Medicine 02/09/21 08/04/21 Lencho Bautista [facility] PCP - General 08/05/21 09/06/23 Pcp, No [address] [place] [address] PCP - General Family Medicine 09/07/23 10/05/24 Chance Mcmahan MD [address] [place] [address] PCP - General 10/06/24 Gael Connell MD [address] [facility] [address] [place] [address] Consulting Physician Radiation Oncology 08/07/21 Alexandria Love MD 800 [facility] [address] [place] [address] Consulting Physician Medical Oncology 08/15/21 Ashok Almanza MD [address] [facility] [address] [place] [address] Referring Physician 09/17/21 Shaan Judge, AMAURI [address] [facility] [address] [place] [address] Nurse Practitioner Internal Medicine 10/31/21 documented as of this encounter
--- OUTSIDE RECORDS SUMMARY | 2024-12-06 12:37 | XMS_ITS | Encounter Summary ---
Author Organization [facility] Address [address] [place] [address] Care Team Providers Care Monkey Trainer Name Role Phone Alexandria Love MD Unavailable [phone] Ashok Almanza MD Unavailable [phone] Shaan Judge APRN Unavailable [phone] Chance Mcmahan MD Primary Care Provider [phone] Encounter Details Date Type Department Care Team (Latest Contact Info) Description 12/05/2024 Travel Social History Tobacco Use Types Packs/Day [...] first t ness in the morning (EYE-CHIEF METEOROLOGIST) to steady your nerves or to get rid of a hangover? 0 12/19/2021 CAGE Questionnaire Score 0 11/10/2 022 Sex and Gender Information Value Date [...] [facility] Res[facility] [address] [facility], 2nd [place] [address] 04/06/2025 2:30 PM EST Appointment [facility] [address] [place] [address] 04/10/2025 3:40 PM EST Office Visit [facility] [address] [facility], 2nd [place] [address] Alexandria Love MD [address] [facility] [address] [place] [address] 06/05/2025 1:00 PM EDT Office Visit [facility] [address], [address]rd [place] [address] Evaristo North MD [address] [facility] [address] [place] [address] 10/03/2025 10:00 AM EDT Office Visit [facility] [address] [place] [address] Joshua Mejia MD [address] [facility] [address] [place] [address] documented as of this encounter Visit Diagnoses Not on filedocumented in this encounter Additional Health Concerns Assessment Noted Time A fall risk assessment has been complete d for the patient 10/06/2024 8:42 AM EDT A Body Mass Index follow-up plan has been documented for the patient 12/05/2024 12:59 PM EDT documented as of this encounter Care Teams Monkey Trainer Relationship Specialty Start Date End Date Chance Mcmahan MD [address] [place] [address] PCP - General 10/06/24 Alexandria Love MD [address] [facility] [facility] [address] [place] [address] Consulting Physician Medical Oncology 08/15/21 Ashok Almanza MD [address] [facility] [address] [place] [address] Referring Physician 09/17/21 Shaan Judge, AMAURI [address] [facility] [address] [place] [address] Nurse Practitioner Internal Medicine 10/31/21 documented as of this encounter
--- NOTE | 2024-12-06 13:00 | CA_ITS ---
FINAL REPORT CLINICAL HISTORY: DIZZINESS,GAIL,HTN,SMOKER FINDINGS: The peak systolic velocity of the right common carotid artery is 74 cm/s. The peak systolic velocity of the right internal carotid artery is 129 cm/s and end diastolic velocity 30 cm/s. The ICA/CCA ratio is 1.8. A large amount of plaque is present. The right external carotid artery is patent. The right vertebral artery is patent with antegrade flow. The peak systolic velocity of the left common carotid artery is 78 cm/s. The peak systolic velocity of the left internal carotid artery is 152 cm/s and end diastolic velocity 27 cm/s. The ICA/CCA ratio is 2.0. A large amount of plaque is present. The left external carotid artery is patent. The left vertebral artery is patent with antegrade flow. IMPRESSION: Less than 50% bilateral carotid stenoses. Large bulky plaque at the carotid bifurcations bilaterally, worse on the right than left. If indicated, CTA or MRA could further evaluate. Reviewed, Interpreted and Dictated by He Mccauley MD Transcribed by Dee Lagunas Authenticated and [facility]
== END 2024-12-06 23:59 | disposition home or self-care (01) ==
LOC: RT 12:34
PROVIDERS: PCP Family Medicine; Visit Provider Physician Assistant
DX: I65.23 Occlusion and stenosis of bilateral carotid arteries (principal); R42 Dizziness and giddiness; I25.10 Atherosclerotic heart disease of native coronary artery without angina pectoris; I10 Essential (primary) hypertension; F17.200 Nicotine dependence, unspecified, uncomplicated
CPT/HCPCS: 93880

== ENCOUNTER 2024-12-22 12:52 | Outpatient (CLI) | payer MEDICARE, OTHER, SELFPAY ==
--- OUTSIDE RECORDS SUMMARY | 2024-12-05 09:00 | XMS_ITS | Encounter Summary ---
Author Organization [facility] Address [address] [place] [address] Care Team Providers Care Chocolate Molder Name Role Phone Alexandria Love MD Unavailable [phone] Ashok Almanza MD Unavailable [phone] Shaan Judge APRN Unavailable [phone] Chance Mcmahan MD Primary Care Provider [phone] Reason for Referral * (Routine) - Incomplete Specialty Diagnoses / Procedures Referred By Contac t Referred To Contact Diagnoses Mixed conductive and sensorineural hearing loss of right ear with restricted hearing of left ear Procedures Hearing Aid Evaluation Maya Field, PhD [address] [address] Phone: tel: fax: Referral ID Status Reason Start Date Expiration Date V isits Requested Visits Authorized [id number] Incomplete 12/05/2024 06/06/2026 1 1 Encounter Details Date Type Department Care Team (Late st Contact Info) Description 12/05/2024 10:00 AM EDT Office Visit [facility] Audiology [address], 3rd [place] [address] Maya Field, PhD [id number] [place] [address] Mixed conductive and sensorineural hearing loss of right ear with restricted hearing of left ear (Primary Dx) Social History Tobacco Use Types Packs/Day Years Used Date Smoking Tobacco: Every Day Cigarettes 1 55.9 Started: 02/09/1969 Passive Smoke Exposure: Never Smokeless [...] drink first t ness in the morning (EYE-MENTAL HEALTH COORDINATOR) to steady your nerves or to get rid of a hangover? 0 12/19/2021 CAGE Questionnaire Score 0 022 Sex and Gender Information Value Date Recorded Sex Assigned at Not on file Legal Sex Male 9:26 AM EDT Gender Identity Not on file Sexual Orientation Not on file documented as of this encounter Miscellaneous Notes * Progress Notes - Maya Field, PhD - 12/05/2024 10:00 AM EDT Images from the original note were not included. Referring Provider: Evaristo North MD HISTORY: Fortunato Colvin is a 69 y.o. male who presents for postoperative audiological evaluation. His history is significant for right TM perforation and otorrhea with right tympanoplasty on 04/22/2024. Patient reports continued difficulty hearing bilaterally, worse on the right side. He appreciates no significant improvement in hearing sensitivity postoperatively. He does have hearing aids (TruHearing)that he obtained at an outside facility. He feels that hearing aids are not working appropriately and notes no significant benefit from them. He is interested in obtaining new hearing aids. RESULTS: Otoscopy demonstrated clear ear canals bilaterally. Tympanometry demonstrated negative pressure with normal volume and compliance in the left ear. The right ear presents with normal volume with no compliance. Results from today's comprehensive audiological evaluation demonstrated a mild to severe sensorineural hearing loss in the left ear and a moderate to profound mixed hearing loss in the right ear. Speech recognition thresholds were in relatively good agreement with pure tone averages. Word recog wasgood in the left ear and poor in the right ear. Reliability was good. RECOMMENDATIONS: Patient was counseled regarding today's test results and recommendations. We had an extensive conversation regarding hearing aids. He is going to explore his options including returning to where he obtained his current hearing aids, consideration of services through the [facility] or purchasing new hearing aids out of pocket. He will also follow up today with Dr. North. Maay Field, PhD, [facility], -AAA Professor and Chief of Audiology Department of Otolaryngology Head and Neck Surgery [facility] Dictation Software was used to dictate this note and, despite all efforts to proofread, some dictation errors may occur. If you have any questions, please do not hesitate to contact me. documented in this encounter Plan of Treatment Upcoming Encounters Date Type Department Care Team (Late st Contact Info) Description 04/06/2025 1:30 PM EST Clinical Support [facility] Head, Neck & Respiratory [address] [facility], 2nd [place] [address] 04/06/2025 2:30 PM EST Appointment P[facility] G Radiology [address] [place] [address] 04/10/2025 3:40 PM EST Office Visit [facility] Head, Neck & Respiratory [address] [facility], 2nd [place] [address] Alexandria Love MD [address] [facility] Annette Sheets [facility] [address] [place] [address] 06/05/2025 1:00 PM EDT Office Visit [facility] [address], 3rd [place] [address] Evaristo North MD [address] [place] [address] 10/03/2025 10:00 AM EDT Office Visit [facility] Advanced Eye Care - Pediatrics [address] [place] [address] Joshua Mejia MD [address] [place] [address] Scheduled Orders Name Type Priority Associated Diagnoses Orde r Schedule Hearing Aid Evaluation Audiology Routine Mixed conductive and sensorineural hearing loss of right ear with restricted hearing of left ear 1 Occurrences starting 12/05/2024 until 06/08/2026 documented as of this encounter Visit Diagnoses Diagnosis Mixed conductive and sensorineural hearing loss of right ear with restricted hearing of left ear- Primary documented in this encounter Additional Health Concerns Assessment Noted Time A fall risk assessment has been complete d for the patient 10/06/2024 8:42 AM EDT A Body Mass Index follow-up plan has been documented for the patient 12/05/2024 12:59 PM EDT documented as of this encounter Care Teams Chocolate Molder Relationship Specialty Start Date End Date Chance Mcmahan MD [address] [place] [address] PCP - General 10/06/24 Alexandria Love MD [address] Annette Sheets [facility] [address] [place] [address] Consulting Physician Medical Oncology 08/15/21 Ashok Almanza MD [address] [place] [address] Referring Physician 09/17/21 Shaan Judge, AMAURI [address]net[address] Sheets [facility] [address] [place] [address] Nurse Practitioner Internal Medicine 10/31/21 documented as of this encounter
--- OUTSIDE RECORDS SUMMARY | 2024-12-05 09:45 | XMS_ITS | Encounter Summary ---
Author Organization [facility] Address [address] [place] [address] Care Team Providers Care Yarn Bleaching Machine Operator Name Role Phone Alexandria Love MD Unavailable [phone] Ashok Almanza MD Unavailable [phone] Shaan Judge APRN Unavailable [phone] Chance Mcmahan MD Primary Care Provider [phone] Encounter Details Date Type Department Care Team (Latest Contact Info) Description 12/05/2024 10:45 AM EDT Office Visit [facility] Ot[facility]ology [address], 3rd [place] [address] Evaristo North MD [address] [place] [address] History of tympanoplasty (Primary Dx); [...] drink first t ness in the morning (EYE-FRAME NAILER) to steady your nerves or to get [...] Sign Reading Time Taken Comments Blood Pressure 197/87 12/05/2024 11:05 AM EDT Pulse 65 12/05/2024 11:05 AM EDT Temperature - - Respiratory Rate - - Oxygen Saturation - - Inhaled Oxygen Concentration - - Weight 63.7 kg (140 lb 6.9 oz) 12/05/2024 11:05 AM EDT Height 177.8 cm (5' 10 ) 12/05/2024 11:05 AM EDT Body Mass Index 20.15 12/05/2024 11:05 AM EDT documented in this encounter Miscellaneous Notes * Progress Notes - Evaristo North MD - 12/05/2024 10:45 AM EDT Images from the original note were not included. 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 Findings: RIGHT ear canal clear; neotympanum intact, crust of inferior EAC LEFT ear canal is patent, clear, and [...] 2021. He is s/p right tympanoplasty with va on 04/22/24. He is doing well symptomatically. Some crust inferiorly in EAC. I want him to use mineral oil twiceweekly. I'll see him in 6 months. Evaristo North MD documented in this encounter Plan of Treatment Upcoming Encounters Date Type Department Care Team (Late st Contact Info) Description 04/06/2025 1:30 PM EST Clinical Support [facility] Head, Neck & Respiratory [address] , [address]nd [place] [address] 04/06/2025 2:30 PM EST Appointment [facility] G Radiology [address] [place] [address] 04/10/2025 3:40 PM EST Office Visit [facility] Head, Neck & Respiratory [address] , 2nd [place] [address] Alexandria Love MD [address] [place] [address] 06/05/2025 1:00 PM EDT Office Visit [place] [facility] [address], 3rd [place] [address] Evaristo North MD [address] [place] [address] 10/03/2025 10:00 AM EDT Office Visit [facility] - Pediatrics [address] [facility] [place] [address] Joshua Mejia MD [address] [facility] [address] [place] [address] documented as of this encounter [...] documented as of this encounter Care Teams Yarn Bleaching Machine Operator Relationship Specialty Start Date End Date Chance Mcmahan MD [address] [place] [address] PCP - General 10/06/24 Alexandria Love MD [address] [facility] [address] [place] [address] Consulting Physician Medical Oncology 08/15/21 Ashok Almanza MD 1720 [facility] 500 [place] [address] Referring Physician 09/17/21 Shaan Judge APRN [address] [facility] [address] [place] [address] Nurse Practitioner Internal Medicine 10/31/21 documented as of this encounter
--- OUTSIDE RECORDS SUMMARY | 2024-12-22 12:56 | XMS_ITS | Encounter Summary ---
Author Organization [facility] Address [address] [place] [address] Care Team Providers Care Information Systems Operator Name Role Phone Alexandria Love MD Unavailable [phone] Ashok Almanza MD Unavailable [phone] Shaan Judge APRN Unavailable [phone] Chance Mcmahan MD Primary Care Provider [phone]- [phone] Encounter Details Date Type Department Care Team ([facility] st Contact Info) Description 10/19/2024 Telephone Pav [facility] Head[facility] Neck & Respiratory [address] [facility] [place] [address] Alexandria Love MD [address] [facility] [address] [place] [address] Social History Tobacco Use Types [...] drink first t ness 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 Barbra stated that she respects Dr. Love a lot and would like to get her thoughts about whether patient should come to [facility] or continue with [facility]. RN stated that Dr. Love was out of office until 10/24, but will ask then. RNrequested path report from [facility]. * Telephone Encounter - Kady Mullen - 10/19/2024 9:48 AM EDT Per pt friend Barbra call to [facility], pt recently diagnosed with skin cancer. Spot is located on pt nose. 2 Biopsy scrapes, one cancer, one not. D[facility], Ariel Servin MD was provider seen. Barbra, , Okay to leave a detailed message at this number adressing concerns/answering questions/updating appointment information, and still maintain pt privacy. documented in this encounter Plan of Treatment Upcoming Encounters Date Type Department Care Team (Late st Contact Info) Description 04/06/2025 1:30 PM EST Clinical Support Pav [facility] Head, Neck & Respiratory [address] [facility] [place] [address] 04/06/2025 2:30 PM EST Appointment PAV G Radiology [address] [place] [phone] 04/10/2025 3:40 PM EST Office Visit [facility] Head[facility] Neck [facility] Respiratory [address] [facility] [place] [address] Alexandria Love MD 800 [facility] [address] [place] [phone] 06/05/2025 1:00 PM EDT Office Visit [facility] [address] [place] [address] Evaristo North MD [address] [facility] [address] [place] [address] 10/03/2025 10:00 AM EDT Office Visit [facility] [address] [place] [address] Joshua Mejia MD [address] [facility] [address] [place] [address] documented as of this encounter Visit Diagnoses Not on filedocumented in this encounter Additional Health Concerns Assessment Noted Time A fall risk assessment has been complete d for the patient 10/06/2024 8:42 AM EDT A Body Mass Index follow-up plan has been documented for the patient 09/28/2024 3:28 PM EDT documented as of this encounter Care Teams Information Systems Operator Relationship Specialty Start Date End Date Chance Mcmahan MD [address] [place] [address] PCP - General 10/06/24 Alexandria Love MD [address] [facility] [address] [place] [address] Consulting Physician Medical Oncology 08/15/21 Ashok Almanza MD [address] [facility] [address] [place] [address] Referring Physician 09/17/21 Shaan Judge APRN [address] [facility] [address] [place] [phone] Nurse Practitioner Internal Medicine 10/31/21 documented as of this encounter
--- OUTSIDE RECORDS SUMMARY | 2024-12-22 12:56 | XMS_ITS | Continuity of Care Document ---
Author Organization [facility] RAYNE Espinoza ALMENA Address [address] [place] [address] Care Team Providers Care Clerk General Name Role Phone ADOLPH ROBLEDO Primary Care Provider JAILYN STONE Referring Provider Assessment Encounter Date Assessment Date Assessment LastModified by Organization Details LastModified Time 11/03/2024 11/03/2024 POST-OPERATIVE 1. Team members confirm that all sharps are accounted for and safely contained prior to dressing application. [facility] 2. Vitals signs are documented and acceptable for discharge. Esperanza Sánchez RN 3. Photos have been taken and uploaded into the chart. Teetee Chaves CST 4. Written post-operative instructions, prescriptions, and overnight dressing supplies are provided. [facility] Dressing Appearance: dry, clean and intact Patient's Pain Level: 0 LOC: Alert DC Instruction sheets received by patient: YES Overnight supplies given: YES Patient discharged with: Self Other Notes: [email or web address] Not available 11/03/2024 12:50:24 Plan of Treatment Reminders Order Date Submit Date Provider Last Modified By Organization Details Last Modified Time Details Appointments None recorded. Lab None recorded. Referral None recorded. Procedures None recorded. Surgeries None recorded. Imaging None recorded. Medication Orders doxycycline hyclate 100 mg capsule 2024 025 [facility][id number], [address], [id number], 05:02:13 Patient TargetsNo targets recorded. Patient InstructionsNo instructions recorded. Reason for Referral None Reported. 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 AJCC: T1, Nx, Mx SOURC E OF SPECI MEN: 1) SKIN, NASAL TIP 2) SKIN, NASAL BRIDG E CLINI JULES INFOR MATIO N: A: R/O: NMSC. B: R/O: NMSC. Gross Descr iptio n: A: The speci men consi sted of a blanco fragm ent which was bisec savanah and measu red 8 x 6 x 1 mm. All submi tted in one casse tte. B: The speci men consi sted of a blanco fragm ent which was bisec savanah and measu red 8 x 5 x 2 mm. All submi tted in one casse tte. Micro scopi c Descr iptio n: A: Atypi jules kerat inocy rosina are prese nt withi n the lower epide rmis. B: Irreg ular islan ds and nests of cytol ogica lly atypi jules kerat inizi ng epith elial cells infil trate the dermi s. ALISHA BORREGO MD Marleen d Out Date: 10/14 11:32 1 Not Available [facility] [address] [place], [address], 10/14/2024 11:32:36 Result Notes None recorded. Procedures Surgical History Date Name Laterality Status Provider Name and Address Organization Details Recorded Time 11/04/19 Mohs 1 Lesion completed [facility] 11/03/2024 12:51:06 11/04/19 Mohs Repair: Complex Linear completed [facility] 11/03/2024 12:49:56 10/14/19 25 DAK - Biopsy, Tangential completed Donald Yo [facility] 10/13/2024 10:57:18 06/21/19 23 Binocular Microscopy completed DANYELLE MONTEIRO MD [address] [place], [address], [facility] 06/20/2022 17:11:31 06/21/19 23 Laryngoscopy Flex completed DANYELLE MONTEIRO MD [address] [place] [address], [phone], [facility] 06/20/2022 17:11:43 02/12/19 23 Laryngoscopy Flex completed DANYELLE MONTEIRO MD [address] [place] [address], [phone], [facility] 02/12/2022 17:06:28 procedure on wrist completed [facility] 02/12/2022 11:49:[address] [facility] 02/12/2022 11:50:[address] [facility] 02/12/2022 11:50:17 Imaging Results None recorded. Procedure Notes None recorded. Medical Equipment None Reported. Allergies Allergen ID Allergen Name Allergen Category Reaction Reaction Severity Criticality Documentation Date Start Date Code Code System Note Provider Name and Address Organization Details Recorded Time 290592 clindamyc in Not available Not available Not available Not available 10/13/2024 2582 RxNorm BennettCourtney Yo [facility] 10:40:58 No known drug allergies Medications Name Sig Start Date Stop Date Status Note LastModified by Organization Details LastModified Time Augmentin 875 mg-125 mg tablet Take 1 tablet every 12 hours by oral route as directed for 14 days. 06/24 completed Not Available Not Available Not Available doxycycline hyclate 100 mg capsule Take 1 capsule twice a day by oral route with meal(s) for 5 days. 11/15 completed Not Available Not Available Not Available clindamycin HCl 300 mg capsule Take 1 capsule 3 times a day by oral route for 10 days. 2022 active Not Available Not Available Not Avai lable omeprazole 40 mg capsule,del ayed release TAKE 1 CAPSULE DAILY active Not Available Not Available No t Available clotrimazol e 1 % topical solution INSTILL 4 DROPS INTO AFFECTED EAR(S) BY OTIC ROUTE 2 TIMES PER DAY FOR 14 DAYS 08/05 completed Not Available Not Available Not Available ciprofloxac in 0.3 %-dexametha sone 0.1 % ear drops,suspe nsion INSTILL 4 DROPS INTO AFFECTED EAR(S) BY OTIC ROUTE 2 TIMES PER DAY FOR 10 DAYS 2022 active Not Available Not Available Not Avai lable meloxicam active Not Available Not Pamella ilable Not Available aspirin active Not Available Not Avail able Not Available Flonase active Not Available Not Avail able Not Available tamsulosin active Not Available Not Av ailable Not Available digoxin active Not Available Not Avail able Not Available Plavix active Not Available Not Availa ble Not Available metoprolol succinate active Not Available Not Available No t Available cetirizine active Not Available Not Av ailable Not Available L-Thyroxine active Not Available Not A vailable Not Available oxybutynin active Not Available Not Av ailable Not Available Trelegy Ellipta 100 mcg-62.5 mcg-25 mcg powder for inhalation Inhale 1 puff every day by inhalatio n route. active Not Available Not Available No t Available Vitals Date Recorded Body temperature Heart rate Systolic And Diastolic Provider Name and Address Organization Details Last Updated DateTime 11/03/2024 96 [degF] 60 /min 172/89 mm[Hg] Esperanza Sánchez [facility] 11/03/2024 10:59:37 Date Recorded Body temperature Heart rate Systolic And Diastolic Provider Name and Address Organization Details Last Updated DateTime 11/03/2024 96.2 [degF] 86 /min 158/87 mm[Hg] Italia Ellis [facility] 11/03/2024 07:08:57 Social History None recorded. Functional Status Question Answer Note LastModified by Organization D etails LastModified Time What is your level of alcohol consumption? None [email or web address] Information not available 02/12/2022 Mental Status None recorded. Family History Relationship Description Onset Age of this Age Resolved Age Notes LastModified by Organization Details LastModified Time Father Heart disease [email or web address] Not available 02/12 11:51:29 Father Hypertensive disorder [email or web address] Not available 02/12 11:51:43 Medical History Condition Response Cancer Y Heart Problems Y Heart Attack (AR) Y Heart Disease Y Hypertension Y Past Encounters Encounter ID Performer Location Encounter Start Date Encounter Closed Date Diagnosis/Indication Diagnosis SNOMED-CT Code Diagnosis ICD10 Code Diagnosis IMO Codes Diagnosis Note [id number] MIN ESPOSITO MD [address] [address] 10/13/2024 09:47:12 10/13/2024 11:33:16 Neoplasm of uncertain behavior of skin 49389569 D48.5 The etiology of lesion(s) discussed. Biopsy recommende d. Will call pt with results or post to portal if benign. [id number] KIANA DUMONT DO [address] [address] 11/03/2024 06:48:38 11/07/2024 14:28:45 Squamous cell carcinoma of nose 749749989 C44.099 [id number] Health Concerns Section Related Observation LastModified by Organization Detai ls LastModified Time None Recorded Concern Status LastModified by Organization Details LastModified Time None Recorded Payers Encounter Date Sequence Insurance Name Policy Number Policy Junior Covered Member ID Junior Member ID Guarantor Name 11/03/2024 1 [employer] (MEDICARE REPLACEMENT/ ADVANTAGE - PPO) Fortunato Colvin [id number] Fortunato Colvin 11/03/2024 2 FOR LIFE () Fortunato Colvin [id number] Fortunato Colvin Notes Date Note Type Note Provider Name and Address Organization Details Recorded Time 11/03/2024 text/html ROS as noted in the HPI Patient presents for Mohs to treat a SCC on the Nasal Bridge. PREOP CHECKLIST1. Pacemaker or Defibrillator? YES2. Artificial heart valve or joints? NO3. Pt currently on antibiotic? NO - Notes:4. History of bleeding, infection or complications with other surgeries?NO5. Med history, medications and allergies reviewed? YES6. Has pt taken Immunosuppressive meds (imuran, cyclosporine,mycopheno late, chemo etc.?, or steroids in last 2 weeks? NO7. Prearranged Closure? NO - Notes:8. Have a ride home? YES - Notes: PRE PROCEDURE1. Patient Name and confirmed with medical recordST Felisa2. Allergies documented and reviewed.Esperanza Sánchez, RN3. Pathology report reviewed with patient.Kiana Avila DO4. Surgical consent is confirmed for accuracy and signatures.Teetee Chaves, Veronika Avila DO5. Surgical site is marked with pen by surgeon, confirmed by patient using a mirror, and all other patient care providers prior to administration of pre-operative medications and local anesthesia.Kiana Avila DO6. Pre-operative medication is administered as ordered by surgeon.7. Pre-operative local anesthetic injected.ST Felisa and ST KIANA Hna DO [address] [place] [address], [phone], [facility] 11/03/2024 16:13:19
--- OUTSIDE RECORDS SUMMARY | 2024-12-22 12:56 | XMS_ITS ---
Author Organization [facility] Address [address] [place] [address] Care Team Providers Care Ethnic Origins Teacher Name Role Phone Alexandria Love MD Unavailable [phone] Ashok Almanza MD Unavailable [phone] Shaan Judge APRN Unavailable [phone] Chance Mcmahan MD Primary Care Provider [phone] Active Problems Problem Noted Date Diagnosed Date DE (myocardial infarction) 04/22/2024 History of atrial fibrillation [...]
--- OUTSIDE RECORDS SUMMARY | 2024-12-22 12:56 | XMS_ITS | Patient Health Record ---
[facility] Address [address] [place] [id number] Care Team Providers Care Strategic Partnership Specialist Name Role Phone [place]fonso tranian Primary Care Provider Reason For Referral [...] Problem Acute non-ST segment elevation myocardial infarction (601844290) NSTEMI (non-ST elevated myocardial infarction) (I21.4) Active confirmed Problem Impaired fasting glucose (950879728) Impaired fasting glucose (R73.01) Active confirmed Problem COPD - Chronic obstructive pulmonary disease (98462063) Chronic obstructive pulmonary disease, unspecified COPD type (J44.9) Active confirmed Problem Atherosclerotic heart disease of [place] coronary artery without angina pectoris (214082318924973) Coronary artery disease involving [place] coronary artery of [place] heart without angina pectoris (I25.10) Active confirmed Problem Tobacco user (419531429) Cigarette nicotine dependence without complication (F17.210) Active confirmed Problem Systolic heart failure (103907561) Systolic heart failure, unspecified heart failure chronicity (I50.20) Active confirmed Plan Of Treatment No Information Insurance Providers Payer Name Payer Address Payer Phone Subscriber Number Group Number Insured Name Patient Relationship to Insured Coverage Start Date Coverage End Date ROBYN BRADLEY [employer] [facility] [address] [place] [address] [id number] MONIKA COLVIN Self - patient is [...] Esqueda Sep 2016 Hospitalization History Reason Date(Month/Year) [facility] - Pneumonia, chest pain, [place] 08/15 -01/25
--- OUTSIDE RECORDS SUMMARY | 2024-12-22 12:56 | XMS_ITS | Clinical Summary ---
Author Organization [facility] Address [address] [place] [address] Care Team Providers Care Hand Mexican Food Maker Name Role Phone Alexandria Love MD Unavailable [phone] Ashok Almanza MD Unavailable [phone] Shaan Judge APRN Unavailable [phone] Chance Mcmahan MD Primary Care Provider [phone] Allergies Active Allergy Reactions Criticality Noted Date [...] Encounters Date Type Department Care Team Description 12/15/2024 Telephone [facility] Audiology [address], [address]rd [place] [address] Nicole Toure 12/05/2024 10:45 AM EDT Office Visit [facility] Otolaryngology [address], [address] [place] [address] Evaristo North MD History of tympanoplasty (Primary Dx); Hx of head and neck radiation; Sensorineural hearing loss (SNHL) of both ears; Mixed conductive and sensorineural hearing loss of right ear with restricted hearing of left ear 12/05/2024 10:00 AM EDT Office Visit [facility] Audiology [address], [address] [place] [address] Maya Field, PhD Mixed conductive and sensorineural hearing loss of right ear with restricted hearing of left ear (Primary Dx) 12/05/2024 Travel 10/19/2024 Telephone [facility] [address] [place] [address] Alexandria Love MD 10/06/2024 9:10 AM EDT Office Visit [facility] [address] [place] [address] Alexandria Love MD Pneumonia of left lower lobe due to infectious organism (Primary Dx); Nasopharynx cancer (CMS/HCC); Panlobular emphysema (CMS/HCC); Moderate protein-calorie malnutrition (CMS/HCC); 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 10/06/2024 Travel 10/03/2024 9:31 AM EDT - 10/03/2024 11:59 PM EDT Hospital Encounter [facility] [address] [place] [address] Neoplasm related pain; Nasopharynx cancer (CMS/HCC); Pneumonia of left lower lobe due to infectious organism Discharge Disposition: Home or Self Care 10/03/2024 9:30 AM EDT Clinical Support [facility] [address], [address]nd [place] [address] Neoplasm related pain; Nasopharynx cancer (CMS/HCC); Pneumonia of left lower lobe due to infectious organism; 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 10/03/2024 Travel 09/28/2024 2:15 PM EDT Office Visit [facility] [address] [place] [address] Joshua Mejia MD Esotropia, alternating (Primary Dx); Diplopia 09/28/2024 Travel from Last 3 Months Immunizations Immunization [...] drink first t ness in the morning ([employer]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) to steady your nerves or to get [...] [facility] [address] [facility], 2nd [place] [address] 04/06/2025 2:30 PM EST Appointment [facility] [address] [place] [address] 04/10/2025 3:40 PM EST Office Visit [facility] [address] [facility], 2nd [place] [address] Alexandria Love MD [address] [facility] [address] [place] [address] 06/05/2025 1:00 PM EDT Office Visit [facility] Otol[facility]ology [address], [address]rd [place] [address] Evaristo North MD [address] [facility] [address] [place] [address] 10/03/2025 10:00 AM EDT Office Visit [facility] [address] [place] [address] Joshua Mejia MD [address] [place] [address] Health Maintenance Due Date Last [...] (AAA) Screening 01/15/2020 UKY-Depression Screening 12/19/2022 12/19/2021 [id number] Vaccine ( season) 2024 12/02/2023, 12/17/2022, 12/05/2020, [...] this topic Medical Devices Implanted Type Area Fishing Reel Assembler Device Identifier Shelf Expiration Date Model / Serial / Lot Dual Chamber Icd-10/17/2016 Implanted:09/2016 (Quantity not on file) Dual Chamber ICD Chest / [id number] / [employer] Lead-10/17/2016 Implanted:09/2016 (Quantity not on file) Lead Chest [employer] [id number] / [id number] / [employer] Rv Lead-10/17/2016 Implanted:09/2016 (Quantity not on file) Lead Chest [employer] [id number] / [id number] / Procedures Procedure Name Priority Date/Time Associated [...] the lingula and left lower lobe with lxbr-qo-obkicavltwyx in the left lower lobe which have [...] improvingmultifocal infection with residual disease. Interval increase dawgpl-wt-wbd opacities in the left lower lobe suggestive [...] LAB HEMATOLOGY METHOD 10/03/2024 9:32 AM EDT [facility] RBC Count 4.60 4.60 - 6.10 10*6/uL LAB HEMATOLOGY METHOD 10/03/2024 9:32 AM EDT [facility] HGB 14.1 13.7 - 17.5 g/dL LAB HEMATOLOGY METHOD 10/03/2024 9:32 AM EDT [facility] HCT 42.4 40.0 - 51.0 % LAB HEMATOLOGY METHOD 10/03/2024 9:32 AM EDT [facility] Platelet Count 229 155 - 369 10*3/uL LAB HEMATOLOGY METHOD 10/03/2024 9:32 AM EDT [facility] MCV 92 79 - 98 fL LAB HEMATOLOGY METHOD 10/03/2024 9:32 AM EDT [facility] MCH 30.7 26.0 - 32.0 pg LAB HEMATOLOGY METHOD 10/03/2024 9:32 AM EDT [facility] MCHC 33.3 30.7 - 35.5 g/dL LAB HEMATOLOGY METHOD 10/03/2024 9:32 AM EDT [facility] RDW 13.8 11.5 - 14.5 % LAB HEMATOLOGY METHOD 10/03/2024 9:32 AM EDT [facility] MPV 10.0 8.8 - 12.5 fL LAB HEMATOLOGY METHOD 10/03/2024 9:32 AM EDT [facility] nRBC 0.0 <=0.0 per 100 WBCs LAB HEMATOLOGY METHOD 10/03/2024 9:32 AM EDT [facility] Differential Type Automated LAB HEMATOLOGY METHOD 10/03/2024 9:32 AM EDT [facility] Neutrophils % 52 % LAB HEMATOLOGY METHOD 10/03/2024 9:32 AM EDT [facility] Lymphocytes % 34 % LAB HEMATOLOGY METHOD 10/03/2024 9:32 AM EDT [facility] Monocytes % 8 % LAB HEMATOLOGY METHOD 10/03/2024 9:32 AM EDT [facility] Eosinophils % 5 % LAB HEMATOLOGY METHOD 10/03/2024 9:32 AM EDT [facility] Basophils % 1 % LAB HEMATOLOGY METHOD 10/03/2024 9:32 AM EDT [facility] Immature Granulocytes % 0 % LAB HEMATOLOGY METHOD 10/03/2024 9:32 AM EDT [facility] Neutrophils Absolute 4.95 1.60 - 6.10 10*3/uL LAB HEMATOLOGY METHOD 10/03/2024 9:32 AM EDT [facility] Lymphocytes Absolute 3.31 1.20 - 3.90 10*3/uL LAB HEMATOLOGY METHOD 10/03/2024 9:32 AM EDT [facility] Monocytes Absolute 0.79 0.30 - 0.90 10*3/uL LAB HEMATOLOGY METHOD 10/03/2024 9:32 AM EDT [facility] Eosinophils Absolute 0.44 0.00 - 0.50 10*3/uL LAB HEMATOLOGY METHOD 10/03/2024 9:32 AM EDT [facility] Basophils Absolute 0.10 0.00 - 0.10 10*3/uL LAB HEMATOLOGY METHOD 10/03/2024 9:32 AM EDT [facility] Immature Granulocytes Absolute 0.03 0.00 - 0.06 10*3/uL LAB HEMATOLOGY METHOD 10/03/2024 9:32 AM EDT [facility] Blood Venous blood specimen / Unknown Venipuncture / Unknown 10/03/2024 9:18 AM EDT 10/03/2024 9:24 AM EDT Narrative [facility] - 10/03/2024 9:32 AM EDT Therapeutic decision making should be based on absolute values, rather than percentages. Alexandria Love MD LAB BLOOD ORDERABLES Final R esult Performing Organization Address City/[facility]/ZIP Co de Phone Number [facility] [address] [place] [address] * Thyroid Stimulating Hormone, Plasma (10/03/2024 9:18 AM EDT) Thyroid Stimulating Hormone, Plasma 3.69 0.40 - 4.20 uIU/mL 10/03/2024 10:00 AM EDT [facility] Blood Venous blood specimen / Unknown Venipuncture / Unknown 10/03/2024 9:18 AM EDT 10/03/2024 9:24 AM EDT Alexandria Love MD LAB BLOOD ORDERABLES Final R esult Performing Organization Address City/[facility]/ZIP Co de Phone Number [facility] [address] [place] [address] * (ABNORMAL) Comprehensive Metabolic Panel, Plasma (10/03/2024 9:18 AM EDT) Glucose, Plasma 102(H) 74 - 99 mg/dL 10/03/2024 10:00 AM EDT [facility] BUN, Plasma 28(H) 8 - 23 mg/dL 10/03/2024 10:00 AM EDT [facility] Creatinine, Plasma 1.18 0.70 - 1.20 mg/dL 10/03/2024 10:00 AM EDT [facility] BUN/Creatinine Ratio 24 10/03/2024 10:00 AM EDT [facility] Sodium, Plasma 136 136 - 145 mmol/L 10/03/2024 10:00 AM EDT [facility] Potassium, Plasma 4.6 3.6 - 4.9 mmol/L 10/03/2024 10:00 AM EDT [facility] Chloride, Plasma 102 97 - 107 mmol/L 10/03/2024 10:00 AM EDT [facility] CO2, Plasma 22 22 - 29 mmol/L 10/03/2024 10:00 AM EDT [facility] Anion Gap 12 6 - 16 mmol/L 10/03/2024 10:00 AM EDT [facility] Total Calcium, Plasma 9.2 8.9 - 10.2 mg/dL 10/03/2024 10:00 AM EDT [facility] Total Protein 8.0(H) 6.3 - 7.9 g/dL 10/03/2024 10:00 AM EDT [facility] Albumin, Plasma 4.0 3.5 - 5.2 g/dL 10/03/2024 10:00 AM EDT [facility] AST, Plasma 26 10 - 50 U/L 10/03/2024 10:00 AM EDT [facility] Comment:Hemolyzed, result ma y be falsely increased. ALT, Plasma 7(L) 10 - 50 U/L 10/03/2024 10:00 AM EDT [facility] Alkaline Phosphatase, Plasma 104 40 - 115 U/L 10/03/2024 10:00 AM EDT [facility] Total Bilirubin, Plasma 0.3 0.2 - 1.1 mg/dL 10/03/2024 10:00 AM EDT [facility] eGFRcr 66.8 mL/min/1.7 3m*2 10/03/2024 10:00 AM EDT [facility] Comment:Reported eGFRcr in m L/min/1.73m2 is based the CKD-EPI 2020 equation that does not use a race coefficient. Blood Venous blood specimen / Unknown Venipuncture / Unknown 10/03/2024 9:18 AM EDT 10/03/2024 9:24 AM EDT us Alexandria Love MD LAB BLOOD ORDERABLES Final R esult [facility] [address] [place] [address] * Colonoscopy (11/13/2023 9:07 AM EDT) Anatomical [...] Ilia Ellis MD Proceduralist Nia Hayes Endo Police Justice Reyna Swanson Endo Nurse Preprocedure A history [...] of bowel preparation was evaluated using the Kenedy Bowel Preparation Scale with scores of: right [...] Positive( A) Negative 09/26/2023 6:33 PM EDT [facility] (CLIA #:[id number]) Comment: POSITIVE TEST RESULT. A positive Cologuard [...] (Malorie Crowley al, N Engl J Med 2014;370(14):0547-9302.) Cologuard may produce a false negative or false positive result (no colorectal cancer or precancerous polyp present at colonoscopy follow up). A negative Cologuard test result does not guarantee the absence of CRC or advanced adenoma (pre-cancer). The current Cologuard screening interval is every 3 years. ([place] Society and U.S. Multi-Society Task Force). Cologuard performance data in a 10,000 patient pivotal study using colonoscopy as the reference method can be accessed at the following location: www.ForeUp.[employer]/results. Additional description of the Cologuard test process, warnings and precautions can be found at www.cologSpark Marketing [employer] Researchrd.[employer]. Stool specimen (specimen) 09/21/2023 8:30 PM EDT 09/23/2023 11:23 AM EDT Alexandria Love MD LAB MOLECULAR DIAGNOSTICS OR DERABLES Final Result [facility] (CLIA #:[id number]) [address] [place] [address], * Hepatitis C Antibody - ED (08/15/2021 11:46 AM EDT) Hepatitis C Antibody Negative Negative 08/15/2021 1:46 PM EDT [facility] Blood Venous blood specimen / Unknown Venipuncture / Unknown 08/15/2021 11:46 AM EDT 08/15/2021 12:03 PM EDT Nadeem Angulo MD LAB BLOOD ORDERABLES Final Re sult [facility] [address] [place] [address] from Last 3 Months or Most Recently Relevant to Health Maintenance Insurance [employer] MEDICARE Advance Directives * Full Code (Latest [...] Patient has decision-making capacity? Yes Care Teams Hand Mexican Food Maker Relationship Specialty Start Date End Date Chance Mcmahan MD [address] [place] [address] PCP - General 10/06/24 Alexandria Love MD [address] [facility] [address] [place] [address] Consulting Physician Medical Oncology 08/15/21 Ashok Almanza MD [address] [facility] [address] [place] [address] Referring Physician 09/17/21 Shaan Judge APRN [address] [facility] [address] [place] [address] Nurse Practitioner Internal Medicine 10/31/21
--- OUTSIDE RECORDS SUMMARY | 2024-12-22 12:56 | XMS_ITS | Encounter Summary ---
Author Organization [facility] Address [address] [place] [address] Care Team Providers Care Nuclear Design Engineer Name Role Phone Pcp, No Primary Care Provider Unavailabl Lencho Justin Primary Care Provider Unavailabl e Gael Connell MD Unavailable [phone] Alexandria Love MD Unavailable [phone] Ashok Almanza MD Unavailable [phone] Shaan Judge FIELD ENUMERATOR Unavailable [phone] Pcp, No Primary Care Provider Unavailabl e Chance Mcmahan MD Primary Care Provider [phone] Encounter Details Date Type Department Care Team (Late Contact Info) Description 07/30/2021 Lab Requisition [facility] [address] [place] [address] Alexandria Love MD 800 [facility] [address] [place] [address] Other specified disorders of nose [...] [facility] [address] [facility], 2nd [place] [address] 04/06/2025 2:30 PM EST Appointment [facility] [address] [place] [address] 04/10/2025 3:40 PM EST Office Visit [facility] [address] [place] [address] Alexandria Love MD [address] [facility] [address] [place] [address] 06/05/2025 1:00 PM EDT Office Visit [facility] [address], [address]rd [place] [address] Evaristo North MD [address] [place] [address] 10/03/2025 10:00 AM EDT Office Visit [facility] [address] [facility] [place] [address] Joshua Mejia MD [address] [facility] [address] [place] [address] documented as of this encounter Procedures Procedure Name Priority Date/Time Associated Diagnosis Comments SURGICAL PATHOLOGY CONSULT Routine 07/30/2021 9:46 AM EDT Other specified disorders of nose and nasal sinuses documented in this encounter Results * Surgical Pathology Consult (07/30/2021 9:46 AM EDT) Case Report Sugical Pathology Consult Case: [id number] Authorizing Provider: Alexandria Love MD Collected: 07/30/202146 Ordering Location: [facility] Received: 07/30/202146 Pathologist: Sae Bravo MD Specimen: Nasopharynx, [id number] 07/30/2021 12:04 PM EDT [facility] Final Diagnosis A. OUTSIDE SLIDES# [id number], COLLECTED 06/26/2021 NASOPHARYNX, RIGHT, BIOPSY: - BASALOID SQUAMOUS CELL CARCINOMA (SEE COMMENT) 07/30/2021 12:04 PM EDT [facility] at 1204 EDT Comment Per outside report, the case was seen by Dr. Sohail Bell, an expert in head and neck pathology, and the above diagnosis reflects his opinion. Per outside report, the tumor is positive for P16, CK5/6, P40 and SOX10. It is reported to be negative for GABINO, INSM1, CD117 and NKX2.2. 07/30/2021 12:04 PM EDT [facility] Tumor Blocks A1, B1 (small tissue) 07/30/2021 12:04 PM EDT [facility] Clinical Information J34.89 - Other specified disorders of nose and nasal sinuses [ICD-10-CM] 07/30/2021 12:04 PM EDT [facility] Gross Description A. [id number] Received along with a corresponding pathology report from [facility] are 20 slide(s) labeled outside case: [id number] collected on 06/26/2021. 07/30/2021 12:04 PM EDT [facility] Tissue Nasopharyngeal structure / Unknown 07/30/2021 9:46 AM EDT 07/30/2021 9:46 AM EDT us Alexandria Love MD LAB PATHOLOGY ORDERABLES Fin al Result Performing Organization Address City/State/[facility] Co de Phone Number [facility] [address] [place] [address] documented in this encounter Visit Diagnoses Diagnosis [...] documented as of this encounter Care Teams Nuclear Design Engineer Relationship Specialty Start Date End Date Pcp, No [address] [place] [address] PCP - General Family Medicine 02/09/21 08/04/21 Lencho Bautista [facility] PCP - General 08/05/21 09/06/23 Pcp, No [address] [place] [address] PCP - General Family Medicine 09/07/23 10/05/24 Chance Mcmahan MD [address] [place] [address] PCP - General 10/06/24 Gael Connell MD [address] [facility] [address] [place] [address] Consulting Physician Radiation Oncology 08/07/21 Alexandria Love MD [address] [facility] [address] [place] [address] Consulting Physician Medical Oncology 08/15/21 Ashok Almanza MD [address] [facility] [address] [place] [address] Referring Physician 09/17/21 Shaan Judge, AMAURI [address] [facility] [address] [place] [address] Nurse Practitioner Internal Medicine 10/31/21 documented as of this encounter
--- OUTSIDE RECORDS SUMMARY | 2024-12-22 12:56 | XMS_ITS | Clinical Summary ---
Author Organization [facility] Address [address] [place] [address] Phone Care Team Providers Care Yarn Preparation Supervisor Name Role Phone Shaquille Almanza MD [phone] Conditions or Problems Problem Name Problem Code Onset Date Status Entry Date Provider Comment Standard Description Annotate Hearing loss, right ear 716567125 (SNOMED CT) Active Shaquille Almanza MD Hearing loss of right ear MSSA infection 440458861 (SNOMED CT) Active Shaquille Almanza MD Infection by methicillin sensitive Staphylococcus aureus Acute mastoiditis , right 917516813 (SNOMED CT) 0 Active 0/ Bobbi Aurelio Acute mastoiditis Acute recurrent serous otitis media, right 500204043 (SNOMED CT) 0 Active 0/05 Bobbi Aurelio Recurrent acute non-suppurative otitis media Hx of MRSA infection 864912880 (SNOMED CT) 0 Active 0/05 Bobbi Aurelio H/O: infectious disease Perforation of right tympanic membrane 89718926800 47411 (SNOMED CT) 11/03 Resolved 11/03 Bobbi Aurelio Perforation of right tympanic membrane Mastoiditis , right 32331510 (SNOMED CT) 11/04 Active 11/04 Shaquille Almanza MD Mastoiditis Perforation of right tympanic membrane 89354834982 71866 (SNOMED CT) 11/03 Removed 11/03 Bobbi Aurelio Perforation of right tympanic membrane Ischemic Cardiomyopa thy 097224118 (SNOMED CT) 11/03 Active 11/03 Bobbi Carey Generalized ischemic myocardial dysfunction Corynebacte rium infection B96.89 (ICD-10-CM) 11/03 Active 11/03 Bobbi Carey Other specified bacterial agents as the cause of diseases classified elsewhere Nicotine dependence, cigarettes, in remission 429383133 (SNOMED CT) 11/03 Active 11/03 Bobbi Carey Tobacco dependence in remission Benign Essential Hypertensio n 76792002 (SNOMED CT) 11/03 Active 11/03 Bobbi Carey Benign hypertension Personal history of antineoplas tic chemotherap y 439396744 (SNOMED CT) 11/03 Active 11/03 Bobbi Carey H/O: chemotherapy History of irradiation therapy Z92.3 (ICD-10-CM) 11/03 Active 11/03 Bobbi Carey Personal history of irradiation Otorrhea, right 05448847 (SNOMED CT) 11/03 Active 11/03 Bobbi Carey Otorrhea Medications Medication Instructions Start Date Stop Date Generic Name ND Provider CIPROFLOXACIN-DE XAMETHASONE 0.3-0.1 % SUSP 4 drops, right ear BID ciprofloxacin-de xamethasone 55615845248 Shaquille Almanza MD DOXYCYCLINE MONOHYDRATE 100 MG TABS Take 1 tablet by mouth twice a day doxycycline monohydrate 01118855499 Shaquille Almanza MD ALBUTEROL SULFATE (2.5 MG/3ML) 0.083% NEBU four times a day as needed as directed albuterol sulfate 46848116449 Riya Rebecca ALBUTEROL SULFATE HFA 108 (90 Base) MCG/ACT AERS four times a day as needed for pain albuterol sulfate 95191394767 Riya Rebecca AMITRIPTYLINE HCL 25 MG TABS every night amitriptyline 90185055690 Riya Rebecca aspirin 81 mg capsule once a day aspirin Riya Rebecca azelastine into both nostrils every night azelastine Riya Rebecca CETIRIZINE HCL 10 MG TABS once a day cetirizine 87384125111 Riya Rebecca CIPROFLOXACIN-DE XAMETHASONE 0.3-0.1 % SUSP 4 drops, right ear BID ciprofloxacin-de xamethasone 20913320355 Riya Rebecca FLUTICASONE PROPIONATE 50 MCG/ACT SUSP 2 spray in both nostrils once a day fluticasone propionate 58681531327 Riya Rebecca fluticasone fur. 100 mcg-umeclid 62.5 mcg-vilant 25 mcg inhalat.powder once a day fluticasone-umec lidin-vilanter Riya Rebecca LEQVIO 284 MG/1.5ML SOSY e1moocbp inclisiran 93689653019 Riya Rebecca metoprolol succinate once a day metoprolol succinate Riya Rebecca OMEPRAZOLE 40 MG CPDR once a day omeprazole 95700570471 Riya Rebecca Medications Administered No information available. Allergies, Adverse Reactions, Alerts Allergy Name Reaction Description Start Date Severity Statu s Provider CLEOCIN Moderate Active Riya Gamb ill Results Date Name Value Unit Range Flag Description Office Visit: Office Visit: rm 15 OXYACETYLENE B[place]NER FALLRSKASSES yes Fall ris k assessment Lab [...] Name Date Entry Date CPT-sl STAT Labs CPT-98162 CMP [id number] CBC with Differential 2023 CPT-06889 C- reactive protein CPT-01232 Sedimentation Rate (ESR) 05/19/21 [id number] CBC with Differential 2023 CPT-83105 CMP CPT-90741 C- reactive protein CPT-08167 Sedimentation Rate (ESR) 202 05/19/09 CPT-ca Continue IV antibiotics 2023 CPT-wpc Weekly PICC Line Care 11/08 CPT: weekly Weekly labs [id number] CBC with Differential 2023 CPT-73138 CMP CPT-27994 C- reactive protein CPT-48240 Sedimentation Rate (ESR) 202 05/18/25 CPT-38437 PICC Line Insertion Vital Signs Date Name [...]
--- OUTSIDE RECORDS SUMMARY | 2024-12-22 12:56 | XMS_ITS | Clinical Summary ---
Author Organization [facility] Address [address] [place] [address] Care Team Providers Care Meat Process Worker Name Role Phone Joshua Quezada Primary Care Provider [phone] Allergies Active Allergy Reactions Criticality Noted Date [...] 08/15/2021 Insurance MEDICARE ADVANTAGE PPO Care Teams Meat Process Worker Relationship Specialty Start Date End Date Joshua Quezada DO [address] [place], [place] [id number] PCP - General Internal Medicine 11/06/23
--- OUTSIDE RECORDS SUMMARY | 2024-12-22 12:56 | XMS_ITS | Data Portability ---
Author Organization [facility] Marielle arriaza [facility] [place] [facility] Address [address] [place] [address] Care Team Providers Care Pharmacy Manager Name Role Phone ADOLPH ROBLEDO Primary Care Provider [phone] JAILYN STONE Referring Provider [phone] Assessment Encounter Date Assessment Date Assessment LastModified [...] Modified Time Details Appointments None recorded. Lab surgical pathology study 2024 025 [facility], [address] [facility], [place], [address], 11:32:36 Referral None recorded. Procedures None recorded. Surgeries None recorded. Imaging None recorded. Medication Orders doxycycline hyclate 100 mg capsule 2024 025 [id number], [address], [place], [place], [id number], 5 05:02:13 ciprofloxac in 0.3 %-dexametha sone 0.1 % ear drops,suspe nsion [address] [facility] [address] [facility], [address] [place] [address], [id number], 3 16:56:47 clotrimazol e 1 % topical solution 2022 023 [facility], [address] [place] [address], [id number], 3 08:27:58 Augmentin 875 mg-125 mg tablet [address] [facility]88976, [address] [place] [address], [id number], 3 17:17:11 Patient TargetsNo targets recorded. 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 [facility] for definitive chemoradiation. He completed that in mid October. Per report his follow-up scan showed good response. He is set up to have a posttreatment PET scan next week with him. On exam he appears to have good response on flexible laryngoscopy with no obvious nasopharyngeal mass seen. He struggled quite a bit with radiation and chemo and just now seems to be slowly improving. I talked extensively with him today about swallowing and nutrition. He reports he worked with speech pathology through the treatments and has had multiple what sounds like barium swallows done which did not show aspiration. We will follow-up again in about 3 to 4 months up in [place] which is where he prefers to see him if possible. Prepare to see the patient, review test results - 10 Obtain/review separately obtained history - 10 Perform medically appropriate exam/evaluation - 5 Order medications, tests, or procedures - Telephone Triage Nurse/educate the patient/family/car egiver - 20 Refer/communicate w/other healthcare professionals - Document clinical information into health record - 5 Non-billable independent interp of results - Non-billable care coordination - TOTAL TIME = 50 24340 (15-29) 49001 (30-44) 60742 (45-59) 26424 (60-74) 03496 (10-19) 35888 (20-29) 12722 (30-39) 55204 (40-54) [email or web address] Not available 02/12/2022 17:09:55 06/20/2022 [id number] 1. Laryngoscopy flex performed in office today. Full risks, complications, and benefits of non-operative intervention have been thoroughly discussed. Understanding was expressed, informed consent given, and we will proceed with the discussed treatment plan. There were no questions for me at the end of the office visit. 2. Rx- Ciprofloxacin 0.3 %-dexamethasone 0.1 % ear drops. Use as directed. 3. Rx- Clotrimazole 1 % topical solution. Use as directed. 4. Rx- Augmentin 875 mg-125 mg tablet. 1 tablet BID for 14 days. 5. Culture from left nostril obtained in office today. 6. Recommends using a nasal saline rinse BID. 7. Follow up in 3-4 months or sooner if concerns arise. [email or web address] Not available 06/20/2022 16:41:58 F/u nasopharynge al carcinoma. States recent surveillance imaging at last week was negative for any obvious recurrence. We will see if we can get a copy of this for records. No obvious recurrence on flexible laryngoscopy today. He has been having significant headaches over the last couple of weeks as well as sinonasal drainage and right ear pain. He appears to have a fairly significant sinonasal infection with purulent and thick drainage throughout his nose as well as his nasopharynx. He also has some thick white otorrhea in the right ear canal and around his right ear tube. We will put on alternating Ciprodex and clotrimazole drops to the right ear, Augmentin for the sinuses, and highly encouraged regular saline irrigations. We will call and change things if needed based on culture [email or web address] Not available 06/20/2022 17:13:23 Reason for Referral None Reported. Results Created Date Observation Date Name Description Value Unit Range Abnormal Flag Note LastModifiedBy Organization Detail LastModifiedTime 10/14/1910/13/2024 SURGI JULES surgical SEE BELOW abnormal [place] topat holog y Repor t NAME: FORTUNATO [...] Out Date: 10/14 11:32 1 Not Available [facility] [address] [facility], [place], [address], 10/14/2024 11:32:36 Result Notes None recorded. Procedures Surgical History Date Name Laterality Status Provider Name and Address Organization Details Recorded Time 11/04/19 25 Mohs 1 Lesion completed Teetee Bill [facility] 11/03/2024 12:51:06 11/04/19 Mohs Repair: Complex Linear completed Teetee Chaves [facility] 11/03/2024 12:49:56 10/14/19 DAK - Biopsy, Tangential completed Donald Yo [facility] 10/13/2024 10:57:18 06/21/19 Binocular Microscopy completed DANYELLE MONTEIRO MD [address] [place] [address], [phone], [facility] 06/20/2022 17:11:31 06/21/19 Laryngoscopy Flex completed DANYELLE MONTEIRO MD [address] [place] [address], [address], [facility] 06/20/2022 17:11:43 02/12/19 Laryngoscopy Flex completed DANYELLE MONTEIRO MD [address] [place] [address], [phone], [facility] 02/12/2022 17:06:28 procedure on wrist completed Gemma [facility] 02/12/2022 11:49:21 hernia repair completed Gemma [facility] 02/12/2022 11:50:04 pleurodesis completed Gemma [facility] 02/12/2022 11:50:17 Imaging Results None recorded. Procedure Notes None recorded. Medical Equipment None Reported. Allergies Allergen ID Allergen Name Allergen Category Reaction Reaction Severity Criticality Documentation Date Start Date Code Code System Note Provider Name and Address Organization Details Recorded Time 345111 clindamyc in Not available Not available Not available Not available 10/13/2024 2582 RxNorm [facility] 10:40:58 No known drug allergies Medications Name [...] oral route with meal(s) for 5 days. 11/155 completed Not Available Not Available Not Available [...] No t Available Vitals Date Recorded Body weight Body mass index (BMI) Body height Body temperature Provider Name and Address Organization Details Last Updated DateTime 02/12/2022 65807.57 g 15.6 kg/m2 177.8 cm 97.2 [degF] [facility] 02/12/[facility] 11:46:48 Date Recorded Body height Body mass index (BMI) Body weight Body temperature Provider Name and Address Organization Details Last Updated DateTime 06/20/2022 177.8 cm 15.5 kg/m2 17858.38 g 97.2 [degF] [facility] 06/20/2022 15:54:23 Date Recorded Body temperature Heart rate Systolic And Diastolic Provider Name and Address Organization Details Last Updated DateTime 11/03/2024 96 [degF] 60 /min 172/89 mm[Hg] Esperanza Sánchez [facility] 11/03/2024 10:59:37 Date Recorded Body temperature Heart rate Systolic And Diastolic Provider Name and Address Organization Details Last Updated DateTime 11/03/2024 96.2 [degF] 86 /min 158/87 mm[Hg] Italia Ellis [facility] 11/03/2024 07:08:57 Social History None recorded. Functional Status Question Answer Note LastModified by Organization D etails LastModified Time What is your level of alcohol consumption? None [email or web address] Information not available 02/12/2022 Mental Status None recorded. Family History Relationship Description Onset Age of this Age Resolved Age Notes LastModified by Organization Details LastModified Time Father Heart disease [email or web address] Not available 02/12 11:51:29 Father Hypertensive disorder [email or web address] Not available 02/12 11:51:43 Medical History Condition Response Heart Problems Y Heart Disease Y Heart Attack ([place]) Y Cancer Y Hypertension Y Past Encounters Encounter ID Performer Location Encounter Start Date Encounter Closed Date Diagnosis/Indication Diagnosis SNOMED-CT Code Diagnosis ICD10 Code Diagnosis IMO Codes Diagnosis Note [id number] MD LYNDSAY IVEY [facility] [address] [place] [address] 02/12/2022 10:43:01 02/19/2022 11:21:32 Nasopharyngeal carcinoma 514974205 C11.9 06/26/21 biopsy - [facility]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 No obvious recurrence on flexible laryngosco py today. Nasal congestion 7134239 0 R09.81 Acute lashell al otitis externa 229289426 B36.9 right ear Acute sinusitis 78761332 J01.90 Headache 73893590 R51.9 [id number] MIN ESPOSITO MD [address] [address] 10/13/2024 09:47:12 10/13/2024 11:33:16 Neoplasm of uncertain behavior of skin 00762597 D48.5 The etiology of lesion(s) discussed. Biopsy recommende d. Will call pt with results or post to portal if benign. 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 [id number] Health Concerns Section Related Observation LastModified by Organization Detai ls LastModified Time None Recorded Concern Status LastModified by Organization Details LastModified Time None Recorded Advance Directives Directive None Recorded Payers Insurance Date Sequence Insurance Name Policy Number Policy Junior Covered Member ID Junior Member ID Guarantor Name 11/07/2024 2 FOR LIFE () Fortunato Colvin [id number] Fortunato Colvin 11/07/2024 1 [employer] (MEDICARE REPLACEMENT/ ADVANTAGE - PPO) Fortunato Colvin [id number] Fortunato Colvin Notes Date Note Type Note Provider Name and Address Organization Details Recorded Time 02/12/2022 text/html [facility] post [facility]iation DANYELLE MONTEIRO MD [facility] [place], [address], [place] [facility] 02/12/2022 17:10:05 06/20/2022 text/html Fortunato is a 67 year old male who visits us in office today to follow up on his ears. Fortunato states that he has pain in his right ear today. He has been blowing thick greenish mucus out of his nose recently. He denies doing any nasal rinses. He mentions that he had a PET scan performed recently which was clear. He states that he continues to have difficulty salivating due to the radiation. DANYELLE MONTEIRO MD [address] [place] [address], [address], [facility] 06/20/2022 17:13:40 10/13/2024 text/html NPSkin checklocation: nose MIN ESPOSITO MD [address] [place] [address], [address], [facility] 10/13/2024 11:14:17 11/03/2024 text/html ROS as noted in the [...] medical recordST Felisa2. Allergies documented and reviewed.Esperanza Sánchez RN3. Pathology report reviewed with patient.Kiana Avila [...] local anesthetic injected.ST Felisa and ST KIANA Han DO [address] [place], [address], [facility] 11/03/2024 16:13:19
--- OUTSIDE RECORDS SUMMARY | 2024-12-22 12:56 | XMS_ITS | Encounter Summary ---
Author Organization [place] [address] Care Team Providers Care Customer Service Representative Teacher Name Role Phone Unavailable Primary Care Provider Unavailabl e Encounter Details Date Type Department Care Team (Late st Contact Info) Description 06/19/2008 Orders Only [facility] [address] [place] [address] Devonte Lazo MD [address] [place] [address] Social History Tobacco Use Types Packs/Day [...] a practice prior to that practice using [facility] for Medical Records. Performing Provider: Devonte Lazo M.D., F.A.C.C. us Devonte Lazo MD IMG ECHO ORDERABLES Final Re sult documented in this encounter Visit Diagnoses Not on filedocumented in this encounter
--- OUTSIDE RECORDS SUMMARY | 2024-12-22 12:56 | XMS_ITS | Clinical Summary ---
Author Organization [facility] [place] [address] Care Team Providers Care Key Worker Name Role Phone Unavailable Primary Care Provider [...]
--- OUTSIDE RECORDS SUMMARY | 2024-12-22 12:57 | XMS_ITS | Encounter Summary ---
Author Organization [facility] Address [address] [id number] Care Team Providers Care Market President Name Role Phone Alexandria Love MD Unavailable [phone] Ashok Almanza MD Unavailable [phone] Shaan Judge APRN Unavailable [phone] Chance Mcmahan MD Primary Care Provider [phone] Encounter Details Date Type Department Care Team (Late st Contact Info) Description 12/15/2024 Telephone [facility] Audiology [address] [place] [address] Nicole [address] [id number] Social History Tobacco Use Types Packs/Day Years [...] drink first t ness in the morning (EYE-STOCK SUPERVISOR) to steady your nerves or to [...] [facility] [address] [facility] [place] [address] 04/06/2025 2:30 PM EST Appointment [facility] [address] [place] [address] 04/10/2025 3:40 PM EST Office Visit [facility] [address] [facility], [address] [place] [address] Alexandria Love MD [address] [facility] [address] [place] [address] 06/05/2025 1:00 PM EDT [facility] [address] [place] [address] Evaristo North MD [address] [facility] [address] [place] [address] 10/03/2025 10:00 AM EDT Office Visit [facility] [address] [place] [address] Joshua Mejia MD [address] [facility] [address] [place] [address] documented as of this encounter Visit Diagnoses Not on filedocumented in this encounter Additional Health Concerns Assessment Noted Time A fall risk assessment has been complete d for the patient 10/06/2024 8:42 AM EDT A Body Mass Index follow-up plan has been documented for the patient 12/05/2024 12:59 PM EDT documented as of this encounter Care Teams Market President Relationship Specialty Start Date End Date Chance Mcmahan MD [address] [place] [address] PCP - General 10/06/24 Alexandria Love MD [address] [facility] [address] [place] [address] Consulting Physician Medical Oncology 08/15/21 Ashok Almanza MD [address] [place] [address] [address] [place] [address] Referring Physician 09/17/21 Shaan Judge APRN [address] [facility] [address] [place] [address] Nurse Practitioner Internal Medicine 10/31/21 documented as of this encounter
--- OUTSIDE RECORDS SUMMARY | 2024-12-22 12:57 | XMS_ITS | Encounter Summary ---
Author Organization [facility] Address [address] [place] [address] Care Team Providers Care Scaler Packer Name Role Phone Alexandria Love MD Unavailable [phone] Ashok Almanza MD Unavailable [phone] Shaan Judge APRN Unavailable [phone] Chance Mcmahan MD Primary Care Provider [phone] Encounter Details Date Type Department Care Team [...] drink first t ness in the morning (EYE-WOOD CRAFTER) to steady your nerves or to get [...] [facility] [address] [facility], [address]nd [place] [address] 04/06/2025 2:30 PM EST Appointment [facility] [address] [place] [address] 04/10/2025 3:40 PM EST Office Visit [facility] [address] [facility], [address] [place] [address] Alexandria Love MD [address] [facility] [address] [place] [address] 06/05/2025 1:00 PM EDT Office Visit [facility] [address] [place] [address] Evaristo North MD [address] [facility] [address] [place] [address] 10/03/2025 10:00 AM EDT Office Visit [facility] [address] [place] [address] Joshua Mejia MD [address] [facility] [address] [place] [address] documented as of this encounter Visit Diagnoses Not on filedocumented in this encounter Additional Health Concerns Assessment Noted Time A fall risk assessment has been complete d for the patient 10/06/2024 8:42 AM EDT A Body Mass Index follow-up plan has been documented for the patient 12/05/2024 12:59 PM EDT documented as of this encounter Care Teams Scaler Packer Relationship Specialty Start Date End Date Chance Mcmahan MD [address] [place] [address] PCP - General 10/06/24 Alexandria Love MD [address] [facility] [address] [place] [address] Consulting Physician Medical Oncology 08/15/21 Ashok Almanza MD [address] [facility] [address] [place] [address] Referring Physician 09/17/21 Shaan Judge, AMAURI [address] [facility] [address] [place] [address] Nurse Practitioner Internal Medicine 10/31/21 documented as of this encounter
[2024-12-22 13:18] LABS: Blood Urea Nitrogen 30 mg/dl (9-20); Creatinine,Serum 1.50 mg/dl (0.66-1.25); Estimated Glomerular Filt Rate 46 ml/min (>60); GFR (African American) 56 ML/MIN (>60)
--- NOTE | 2024-12-22 13:30 | CT_ITS ---
FINAL REPORT CLINICAL HISTORY: abnormal carotid doppler, recurrent dizziness COMPARISON: None FINDINGS: CT NECK ANGIO, WITHOUT AND WITH CONTRAST TECHNIQUE: Thin section axial CT with contrast with multiplanar 3D MIP reconstruction. This study was performed with techniques to keep radiation doses as low as reasonably achievable, (ALARA). Individualized dose reduction techniques using automated exposure control or adjustment of mA and/or kV according to the patient''s size were employed. NASCET criteria and technique was utilized during interpretation. FINDINGS: Aortic arch: Stent in the left subclavian artery appears widely patent. Moderate stenosis in the left common carotid origin measures up to 50%. Innominate is widely patent. Right carotid: Multicentric mild stenosis measures up to 30% scattered within the right common carotid artery. There is heavily calcified plaque disease in the right ICA origin with 50% stenosis. Distal ICA shows significant calcified plaque disease in the cavernous portion with up to 50% stenosis. Left carotid: Moderate mixed soft and calcified plaque disease of the bifurcation and proximal left internal carotid artery with 60% stenosis in the proximal ICA, best seen on sagittal imaging, associated with ulcerated distal ICA with up to 50% stenosis in the cavernous portions. Vertebrals: Codominant vertebral arteries with high-grade stenosis of the distal left vertebral artery measuring up to 90%. IMPRESSION: Multifocal bilateral common and ICA stenosis, most significant involving the left ICA with up to 60% stenosis with ulceration. High-grade distal left vertebral artery stenosis considered 90% or greater. This study was performed using automated techniques to achieve radiation exposure as low as reasonably Reviewed, Interpreted and Dictated by Angelica Ovalles MD Transcribed by Vane Sánchez Authenticated and [facility]
[2024-12-22] MEDS: SODIUM CHLORIDE 0.9% 10ML SYR (RAD ONLY) 10 ML IV (14:32)
[2024-12-22] MEDS: 0.9 % SODIUM CHLORIDE 50 ML VIAL IV (14:32)
[2024-12-22] MEDS: IOPAMIDOL-370 (76%);100ML BOTTLE 80 ML IV (14:32)
== END 2024-12-22 23:59 | disposition home or self-care (01) ==
LOC: RAD 12:52
PROVIDERS: PCP Family Medicine; Visit Provider Physician Assistant
DX: I65.23 Occlusion and stenosis of bilateral carotid arteries (principal); I77.2 Rupture of artery; I65.02 Occlusion and stenosis of left vertebral artery; R94.39 Abnormal result of other cardiovascular function study
CPT/HCPCS: 36415; 70498; 82565; 84520; Q9967

== ENCOUNTER 2024-12-30 09:23 | Day surgery (SDC) | payer MEDICARE, OTHER, SELFPAY ==
--- NOTE | 2024-12-27 12:15 | PC.NURSE ---
10/03/2024 called pt on the and he stated he would call back after the . No contact with pt.
[2024-12-30] VITALS (12 sets, daily range): BP systolic 154–168; BP diastolic 77–96; PULSE 68–86; RESP 18; TEMP 36.6; O2SAT 91–98
--- NOTE | 2024-12-30 07:10 | IR_ITS ---
APPROVED REPORT Patient Location: Outpatient PROCEDURES Left heart catheterization Left ventriculogram Selective coronary angiogram Catheter placed in the right vertebral artery Right vertebral artery selective angiogram Catheter placed in the left vertebral artery Left vertebral artery selective angiogram Catheter placed in the right carotid artery Right internal carotid artery selective angiogram Right internal carotid artery cerebral angiogram Catheter placed in the left carotid artery Left internal carotid artery selective angiogram Left internal carotid artery intracerebral angiogram INDICATION Carotid artery stenosis, Ruptured plaque in the left internal carotid artery, Known coronary artery disease, Preoperative evaluation for planned carotid artery revascularization, Informed consent was obtained prior to the procedure. COMPLICATIONS NONE Estimated Blood Loss: LESS THAN 10 ML TECHNIQUE One percent lidocaine was used to anesthetize the right groin. The right femoral artery was accessed via the Seldinger technique. A 4-Upper Sorbian sheath was placed in the right femoral artery. The JL-4 and JR-4 catheter was also used to perform left heart catheterization left ventriculogram and selective coronary angiogram. The JR4 catheter was used to perform bilateral selective vertebral artery angiography as well as bilateral carotid artery angiography with bilateral intracerebral carotid artery angiography. At the end the procedure the patient was transferred to the postop putting in stable condition for sheath removal ANGIOGRAPHIC RESULTS The left main artery Normal The left anterior descending artery Has a stent in the proximal segment which is widely patent with mild concentric in-stent restenosis. There is a mid vessel eccentric 70% focal nonflow limiting stenosis The circumflex artery Large and dominant and has mild proximal 20% stenosis. There is a 30% stenosis and a large first obtuse marginal artery and 30% stenosis and a large second obtuse marginal artery The right coronary artery Small nondominant with mid vessel 30 to 40% stenosis The MORENO ventriculogram reveals Normal 60% The left ventricular end-diastolic pressure Less than 10 mmHg Right vertebral artery widely patent Left vertebral artery widely patent Right common carotid artery widely patent Right internal carotid artery has proximal 40% stenosis. The intracerebral vasculature is widely patent free of aneurysmal dilatation or atherosclerotic plaque Left internal carotid artery has a focal proximal 70% ruptured complex plaque. The intracerebral vasculature is widely patent free of aneurysmal dilatation or atherosclerotic plaque IMPRESSION 70% stenosis in the mid LAD which does not require revascularization at this point given the severity of the carotid artery stenosis. Patient has normal ejection fraction is asymptomatic from a coronary artery standpoint. This is a nonflow limiting lesion at this point in any revascularization would have 0 mitigation effects on reducing perioperative morbidity or mortality for carotid artery surgery Severe ruptured plaque in the left internal carotid artery as described above Widely patent bilateral vertebral arteries Normal intracerebral vasculature bilaterally as described above PLAN 1. Patient will be referred to Dr. Chema Alfaro at [facility] vascular surgery for revascularization 2. Recommend abstinence of tobacco products 3. LDL less than 55 to be achieved with high intensity statin 4. Avoidance of tobacco products 5. Risk factor modification 6. There are no plans to revascularize the mid LAD stenosis as this would not have any beneficial medication effects for planned carotid artery revascularization Electronically signed by : Praveen Esqueda MD 12/30/2024 15:26:53
[2024-12-30 09:51] LABS: Hematocrit 42.1 % (42.0-52.0); Hemoglobin 14.2 g/dL (14.1-18.0); Immature Granulocytes % 0.2 %; Mean Corpuscular HGB Conc 33.7 g/dL (31.8-35.4); Mean Corpuscular Hemoglobin 31.5 pg (27.0-31.2); Mean Corpuscular Volume 93.3 fl (80-94); Nucleated Red Blood Cells % 0 %; Platelet Count 215 K/mm3 (142-424); Red Blood Count 4.51 M/mm3 (4.60-6.20); Red Cell Distribution Width-SD 42.6 fL; White Blood Count 13.5 K/mm3 (4.8-10.8)
[2024-12-30 10:05] LABS: Anion Gap 11.6 mEq/L (5-15); Blood Urea Nitrogen 28 mg/dl (9-20); Calcium 9.1 mg/dl (8.4-10.2); Carbon Dioxide 25 mmol/L (22.0-30.0); Chloride 100 mmol/L (98-107); Creatinine Clearance Estimated 42 mL/min (50-200); Creatinine,Serum 1.50 mg/dl (0.66-1.25); Estimated Glomerular Filt Rate 46 ml/min (>60); GFR (African American) 56 ML/MIN (>60); Glucose 104 mg/dl (74-100); Potassium 4.6 mmoL/L (3.5-5.1); Sodium 132 mmol/L (136-145)
[2024-12-30] MEDS: LIDOCAINE 1% 10ML MDV 10 ML IJ (13:27)
[2024-12-30] MEDS: HEPARIN 1,000 UNITS/500ML NS (CATH LAB) 3000 UNIT IV (13:27)
[2024-12-30] MEDS: 0.9 % SODIUM CHLORIDE 500 ML 25 ML IV (13:27)
[2024-12-30] MEDS: FENTANYL 100MCG/2ML VIAL 25 MCG IV (13:48)
[2024-12-30] MEDS: MIDAZOLAM HCL 1MG/ML 5ML VIAL 1 MG IV (13:53)
[2024-12-30] MEDS: IOPAMIDOL-370 (76%);100ML BOTTLE 90 ML IV (14:20)
== END 2024-12-30 17:14 | disposition home or self-care (01) ==
LOC: CATHLAB 09:24
PROVIDERS: PCP Family Medicine; Visit Provider Internal Medicine
PROC: 4A023N7 Measurement of Cardiac Sampling and Pressure, Left Heart, Percutaneous Approach (ICD-10-PCS; CPT 93452; principal; 2024-12-30 11:00)
DX: I65.23 Occlusion and stenosis of bilateral carotid arteries (principal); I25.10 Atherosclerotic heart disease of native coronary artery without angina pectoris; R42 Dizziness and giddiness; I11.0 Hypertensive heart disease with heart failure; I25.5 Ischemic cardiomyopathy; R06.09 Other forms of dyspnea; J44.89 Other specified chronic obstructive pulmonary disease; E78.2 Mixed hyperlipidemia; I51.89 Other ill-defined heart diseases; I73.9 Peripheral vascular disease, unspecified; C11.9 Malignant neoplasm of nasopharynx, unspecified; F17.210 Nicotine dependence, cigarettes, uncomplicated; K21.9 Gastro-esophageal reflux disease without esophagitis; Z92.3 Personal history of irradiation; Z86.14 Personal history of Methicillin resistant Staphylococcus aureus infection; Z95.810 Presence of automatic (implantable) cardiac defibrillator; Z79.82 Long term (current) use of aspirin; Z79.890 Hormone replacement therapy; Z79.51 Long term (current) use of inhaled steroids; Z79.899 Other long term (current) drug therapy; Z88.1 Allergy status to other antibiotic agents; Z95.5 Presence of coronary angioplasty implant and graft
CPT/HCPCS: 36216; 36217; 36415; 80048; 85025; 93458; 99152; 99153; C1725; C1769; J1200; J1644; J2003; J3010; J7040; Q9967